=== PATIENT | female | born 1945 | race Caucasian/White ===

== ENCOUNTER 2019-06-16 07:43 | Inpatient (IN) | payer OTHER ==
[2019-06-16] MEDS ORDERED: ONDANSETRON 4 MG/2 ML VIAL ONE ×2 (08:23→12:03)
[2019-06-16] MEDS ORDERED: NA CHLORIDE 0.9% 1,000 ML ONE ×2 (08:23→10:27)
[2019-06-16] MEDS ORDERED: FENTANYL CITR 100 MCG/2 ML ONE (08:23)
[2019-06-16 08:44] LABS: Absolute Lymphocytes (CBC) 0.4 K/uL (0.7-4.9); Basophils % 0.2 % (0-1.3); Hematocrit 41.1 % (36.0-45.0); Lymphocytes % 2.9 % (15.3-44.8); MPV 8.6 fL (7.6-11.3); Protime INR 1.17; RBC Red Blood Cell Count 4.67 M/uL (3.86-4.86)
[2019-06-16 08:58] LABS: ALT/SGPT 51 U/L (12-78); AST/SGOT 43 U/L (15-37); Albumin 3.6 g/dL (3.4-5.0); Alkaline Phosphatase 77 U/L (45-117); BUN Blood Urea Nitrogen 18 mg/dL (7-18); Bicarbonate 27 mmol/L (21-32); Bilirubin Direct 0.2 mg/dL (0-0.2); Bilirubin Total 0.7 mg/dL (0.2-1.0); Glucose Level 270 mg/dL (74-106); Magnesium 1.8 mg/dL (1.8-2.4); NT PRO-BNP 58 pg/mL (<125); Potassium 4.4 mmol/L (3.5-5.1); Protein, Total 7.5 g/dL (6.4-8.2); Sodium Level 138 mmol/L (136-145); Troponin (Emerg Dept Use Only) < 0.02 ng/mL (0.0-0.045)
[2019-06-16 10:52] LABS: Blood Morphology Comment NOT SEEN (NOT SEEN); Platelet Estimate ADEQ; Urine White Blood Cell Casts OK
--- NOTE | 2019-06-16 12:08 | RAD REPORT ---
EXAM DESCRIPTION: US - Extremity Venous Uni Ltd - 06/16/2019 11:11 am CLINICAL HISTORY: Left leg pain and swelling Preliminary findings provided at the time of the study. Technical malfunction is precluded immediate report. COMPARISON: None. TECHNIQUE: Real-time sonographic evaluation of the left lower extremity deep venous system was perfo rmed. FINDINGS: Normal compressibility, flow augmentation, phasic flow and spontaneous flow are identified in the left lower extremity common femoral, superficial femoral, popliteal and posterior tibial vein s. No intraluminal filling defects seen. IMPRESSION: No DVT in the left lower extremity.
--- NOTE | 2019-06-16 12:25 | RAD REPORT ---
EXAM DESCRIPTION: CT - Abdomen Pelvis W Contrast - 06/16/2019 11:12 am CLINICAL HISTORY: ABD PAIN, patient details vomiting and diarrhea along with prior partial colon res ection, cholecystectomy and hysterectomy. Verbal report was provided at the time of the study. Due to PACs malfunction a report could not be ge nerated at the time of the study. COMPARISON: None. TECHNIQUE: Biphasic, helical CT imaging of the abdomen and pelvis was performed following 100 ml non -ionic IV contrast. No oral contrast given. All CT scans are performed using dose optimization technique as appropriate and may include automated exposure control or mA/KV adjustment according to patient size. FINDINGS: No suspicious findings in the lung bases. Liver shows a borderline to mild fatty infiltration pattern. No focal liver lesions are present. Sple en and pancreas without acute finding. Cholecystectomy clips are present. Biliary tree within normal limits. Symmetric renal function is seen with no hydronephrosis or suspicious renal mass. No pyelonephritis o r acute parenchymal process. No bladder abnormalities. No adrenal abnormalities. Uterus is absent. Ov rodney are absent or atrophic. No adnexal abnormality. Gastric bypass surgical changes are present. No acute gastric finding evident. Several fluid filled n ondilated small bowel loops are present. There is fluid within the colon. No large or small bowel dil atation, mass or focal abnormality seen. Sigmoid anastomotic site is unremarkable. No appendicitis fi ndings. No free air, free fluid or inflammatory stranding. No mass or bulky lymphadenopathy. There is abdo helena wall laxity to the left of midline at the umbilicus. Patient probably has small hernia defects. There is no congestion, edema or bowel involvement. Disc and bony degenerative changes are present. Postsurgical changes are present throughout the lumba r spine. No acute or destructive bone finding seen. No acute vascular finding peer IMPRESSION: Fluid retained within the small bowel and colon many indicate a nonspecific gastroenteri tis. Correlation is needed with clinical presentation. No obstruction, free or other surgically emergent abdominal or pelvic finding. Borderline to mild fatty infiltration of the liver.
[2019-06-16] MEDS ORDERED: METRONIDAZOLE 500mg IVPB 500 MG/100 ML BAG IV ONE (12:38)
[2019-06-16] MEDS ORDERED: CIPROFLOXACIN 400mg IV 400 MG/200 ML BAG IV ONE (12:39)
--- NOTE | 2019-06-16 12:39 | ER ---
Nurse's Notes [facility] Name: Sendy Martinez Age: 74 yrs Sex: Female : 1945 Arrival Date: 06/16/2019 Time: 07:49 Bed 4 Private MD: Diagnosis: Diarrhea, unspecified;Dehydration Presentation: 06/16 07:49 Care prior to arrival: None. aa5 07:49 Presenting complaint: Patient states: Nausea, vomiting, and diarrhea that began last aa5 night. Pt also c/o abdominal pain and left leg pain. Pt states "My doctor ordered a Doppler to check for a blood clot today". Transition of care: patient was not received from another setting of care. Onset of symptoms was May 2019. Risk Assessment: Do you want to hurt yourself or someone else? Patient reports no desire to harm self or others. 07:49 Acuity: DOMINGO 2 aa5 07:49 Method Of Arrival: EMS: [facility] aa5 07:49 Initial Sepsis Screen: Does the patient meet any 2 criteria? HR > 90 bpm. Does the aa5 patient have a suspected source of infection? Yes: Other: Vomiting/Diarrhea. Historical: - Allergies: 07:49 Codeine (Upset stomach); aa5 - Home Meds: 07:49 Humalog Sub-Q [Active]; Xarelto oral oral [Active]; Zestril oral oral [Active]; Imdur aa5 Oral [Active]; levothyroxine oral [Active]; - PMHx: 07:49 PE; DVT; Hypertension; Diabetes - IDDM; Thyroid problem; aa5 - PSHx: 07:49 back; cataracts; colon resection; Appendectomy; Cholecystectomy; Hysterectomy; aa5 - Immunization history:: Pneumococcal vaccine is up to date, Flu vaccine is up to date. - Social history:: Smoking status: Patient/guardian denies using tobacco. - Ebola Screening: : No symptoms or risks identified at this time. Screenin:03 Abuse screen: Denies threats or abuse. Nutritional screening: No deficits noted. aa5 Tuberculosis screening: No symptoms or risk factors identified. Fall Risk None identified. Assessment: 07:50 General: Appears uncomfortable, Behavior is calm, cooperative. Pain: Complains of pain aa5 in right upper quadrant and left upper quadrant Pain does not radiate. Pain currently is 5 out of 10 on a pain scale. Quality of pain is described as aching, Pain began Pt states "when I started vomiting last night" Is continuous. Neuro: Level of Consciousness is awake, alert, obeys commands, Oriented to person, place, time, situation. Cardiovascular: Heart tones S1 S2 present Rhythm is sinus tachycardia. Respiratory: Airway is patent Respiratory effort is even, unlabored, Respiratory pattern is regular, symmetrical, Breath sounds are clear bilaterally. GI: Abdomen is round Bowel sounds present X 4 quads. Abd is soft and non tender X 4 quads. Reports diarrhea, nausea, vomiting, Patient currently denies bloody stool. : No signs and/or symptoms were reported regarding the genitourinary system. EENT: No signs and/or symptoms were reported regarding the EENT system. Derm: Skin is pink, warm \\T\\ dry. Musculoskeletal: Range of motion: intact in all extremities. 09:03 Reassessment: ultrasound at bedside at this time. sg 09:22 Reassessment: Patient appears in no apparent distress at this time. Patient and/or sg family updated on plan of care and expected duration. Pain level reassessed. Patient is alert, oriented x 3, equal unlabored respirations, skin warm/dry/pink. pt cheerful at this time, pt family at bedside, Evelina field operations technician at bedside to transport pt to CT as ordered, pt left the ED for test in stable condition via stretcher Patient states feeling better. 10:25 Reassessment: Patient is alert, oriented x 3, equal unlabored respirations, skin aa5 warm/dry/pink. Patient states feeling better. Denies nausea at this time, reports pain has improved. . 11:39 Reassessment: Patient appears in no apparent distress at this time. Patient and/or sg family updated on plan of care and expected duration. Pain level reassessed. Patient is alert, oriented x 3, equal unlabored respirations, skin warm/dry/pink. 11:53 Reassessment: Patient appears in no apparent distress at this time. Patient and/or sg family updated on plan of care and expected duration. Pain level reassessed. Patient is alert, oriented x 3, equal unlabored respirations, skin warm/dry/pink. pt assisted to bedside, diarrhea x1, pt reports having had diarrhea for several days now. 12:07 Reassessment: Patient appears in no apparent distress at this time. Patient and/or sg family updated on plan of care and expected duration. Pain level reassessed. Patient is alert, oriented x 3, equal unlabored respirations, skin warm/dry/pink. pt reports having nausea at this time, Lee LARSON notified, orders for Zofran 4 mg IVP, pt medicated see EMAR. 13:15 Reassessment: Patient appears in no apparent distress at this time. Patient and/or ca1 family updated on plan of care and expected duration. Pain level reassessed. Patient is alert, oriented x 3, equal unlabored respirations, skin warm/dry/pink. 13:51 Reassessment: Patient appears in no apparent distress at this time. Patient is alert, ca1 oriented x 3, equal unlabored respirations, skin warm/dry/pink. Vital Signs: 07:50 BP 143 / 78 LA (auto/reg); Pulse 123; Resp 20 S; Temp 99.4(O); Pulse Ox 98% on R/A; aa5 Weight 106.59 kg (R); Height 5 ft. 6 in. (167.64 cm) (R); Pain 5/10; 09:07 BP 156 / 54; Pulse 105; Resp 17; Pulse Ox 99% on R/A; sg 10:25 Pulse 115; Resp 20 S; Pulse Ox 99% on R/A; aa5 12:29 BP 149 / 76; Pulse 107; Resp 22 S; Pulse Ox 95% on R/A; ca1 13:36 BP 134 / 68; Pulse 102; Resp 17 S; Pulse Ox 96% on R/A; ca1 13:51 Temp 98.6(O); ca1 14:05 BP 131 / 96; Pulse 99; Resp 17 S; Pulse Ox 98% on R/A; ca1 07:50 Body Mass Index 37.93 (106.59 kg, 167.64 cm) aa5 ED Course: 07:49 Patient arrived in ED. aa5 07:49 Arm band placed on. aa5 07:50 [facility] jr8 07:50 Ron Abdi MD is Attending Physician. jr8 07:57 Mercedes Hall RN is Primary Nurse. aa5 07:59 Safety checks: Family/friend present: yes. Patient has correct armband on for positive mb4 identification. Bed in low position. Call light in reach. Side rails up X 1. Pillow given. blanket given. nurse monitoring on. Pulse ox on. NIBP on. 08:00 Triage completed. aa5 08:20 Initial lab(s) drawn, by me, sent to lab. Inserted saline lock: 20 gauge in left aa5 forearm, using aseptic technique. Blood collected. 08:34 No provider procedures requiring assistance completed. aa5 09:02 Primary Nurse role handed off by Mercedes Hall, RN sg 09:02 Nehemias Cruz, RN is Primary Nurse. sg 09:03 XRAY Chest (1 view) In Process Unspecified. EDMS 09:22 US Extremity Venous Unilateral Ltd In Process Unspecified. EDMS 09:36 CT Abd/Pelvis - IV Contrast Only In Process Unspecified. EDMS 11:39 Assisted to bedside commode. with pt family at bedside for assist, pt reports she does sg not need my assistance at this time. 11:40 Initial lab(s) drawn, by me, sent to lab. a lactate has been sent at this time. sg 11:54 Bed in low position. Call light in reach. Side rails up X 1. Assisted with dressing. mb4 Cleaned of incontinence. Linen changed. 12:38 Bernadine Vang MD is Hospitalizing Provider. jr8 13:15 Patient admitted, IV remains in place. ca1 Administered Medications: 08:20 Drug: NS 0.9% 1000 ml Route: IV; Rate: 1000 ml; Site: left forearm; aa5 12:02 Follow up: Response: No adverse reaction; IV Status: Completed infusion ca1 08:20 Drug: Zofran 4 mg Route: IVP; Site: left forearm; aa5 14:16 Follow up: Response: No adverse reaction ca1 08:22 Drug: fentaNYL (PF) 25 mcg Route: IVP; Site: left forearm; aa5 12:10 Follow up: Response: No adverse reaction; Pain is decreased; RASS: Alert and Calm (0) ca1 10:25 Drug: NS 0.9% 1000 ml Route: IV; Rate: 1000 ml; Site: left antecubital; aa5 12:00 Follow up: Response: No adverse reaction; IV Status: Completed infusion ca1 12:06 Drug: Zofran 4 mg Route: IVP; Site: left antecubital; sg 12:44 Follow up: Response: No adverse reaction; Nausea is decreased ca1 12:40 Drug: Flagyl 500 mg Volume: 100 ml; Route: IVPB; Rate: 200 ml/hr; Infused Over: 30 ca1 mins; Site: left antecubital; 13:14 Follow up: Response: No adverse reaction; IV Status: Completed infusion; IV Intake: ca1 100ml 13:14 Drug: Cipro 400 mg Volume: 200 ml; Route: IVPB; Infused Over: 60 mins; Site: left ca1 forearm; 14:16 Follow up: Response: No adverse reaction; IV Status: Completed infusion; IV Intake: ca1 200ml Intake: 13:14 IV: 100ml; Total: 100ml. ca1 14:16 IV: 200ml; Total: 300ml. ca1 Outcome: 12:38 Decision to Hospitalize by Provider. marlene 13:50 Admitted to Tele accompanied by tech, family with patient, via stretcher, room 428, ca1 with chart, Report called to DELANO Alba 13:50 Condition: stable 13:50 Instructed on the need for admit. 14:24 Patient left the ED. aj1 Signatures: Dispatcher [employer] EDMirtha Washington RN RN aj1 Nehemias Cruz RN DELANO sg Mercedes Hall RN RN aa5 Travis North PA PA jr8 Carol Ann Worthington mb4 Shell Hendrickson RN RN ca1 Corrections: (The following items were deleted from the chart) 07:59 07:50 BP 143 / 78 Auto L Arm Regular; Pulse 123bpm; Pulse Ox 98% RA; Temp 99.4F Oral; aa5 Pain 5/10; mb4
--- NOTE | 2019-06-16 12:40 | EDPHYS ---
Physician Documentation [facility] Name: Sendy Martinez Age: 74 yrs Sex: Female : 1945 Arrival Date: 06/16/2019 Time: 07:49 Bed 4 Private MD: ED Physician Ron Abdi HPI: 06/16 08:29 This 74 yrs old Female presents to ER via EMS with complaints of jr8 Nausea/Vomiting/Diarrhea. 08:29 The patient presents to the emergency department with nausea, vomiting, diarrhea, jr8 abdominal pain. Onset: The symptoms/episode began/occurred acutely, today. Possible causes: unknown. The symptoms are aggravated by nothing. The symptoms are alleviated by nothing. Associated signs and symptoms: The patient has no apparent associated signs or symptoms. Severity of symptoms: At their worst the symptoms were moderate in the emergency department the symptoms are unchanged. The patient has not experienced similar symptoms in the past. The patient has been recently seen by a physician: the patient's primary care provider, with different complaint(s). Patient stated that she was suppose to have US of LLE completed today here to r/o DVT. Stated that early last night she started to have n/v/d that has not stopped. Now having abdominal pain. EMS called out. Patient tachycardic upon arrival . Historical: - Allergies: 07:49 Codeine (Upset stomach); aa5 - Home Meds: 07:49 Humalog Sub-Q [Active]; Xarelto oral oral [Active]; Zestril oral oral [Active]; Imdur aa5 Oral [Active]; levothyroxine oral [Active]; - PMHx: 07:49 PE; DVT; Hypertension; Diabetes - IDDM; Thyroid problem; aa5 - PSHx: 07:49 back; cataracts; colon resection; Appendectomy; Cholecystectomy; Hysterectomy; aa5 - Immunization history:: Pneumococcal vaccine is up to date, Flu vaccine is up to date. - Social history:: Smoking status: Patient/guardian denies using tobacco. - Ebola Screening: : No symptoms or risks identified at this time. ROS: 08:29 Eyes: Negative for injury, pain, redness, and discharge, ENT: Negative for injury, jr8 pain, and discharge, Neck: Negative for injury, pain, and swelling, Cardiovascular: Negative for chest pain, palpitations, and edema, Respiratory: Negative for shortness of breath, cough, wheezing, and pleuritic chest pain, Back: Negative for injury and pain, Skin: Negative for injury, rash, and discoloration, Neuro: Negative for headache, weakness, numbness, tingling, and seizure. 08:29 Abdomen/GI: Positive for abdominal pain, nausea, vomiting, and diarrhea, Negative for abdominal distension, anorexia, dysphagia, hematemesis, black/tarry stool, rectal pain, rectal bleeding, bowel incontinence, flatulence. 08:29 MS/extremity: Positive for pain, of the left leg. Exam: 08:29 Eyes: Pupils equal round and reactive to light, extra-ocular motions intact. Lids and jr8 lashes normal. Conjunctiva and sclera are non-icteric and not injected. Cornea within normal limits. Periorbital areas with no swelling, redness, or edema. ENT: Nares patent. No nasal discharge, no septal abnormalities noted. Tympanic membranes are normal and external auditory canals are clear. Oropharynx with no redness, swelling, or masses, exudates, or evidence of obstruction, uvula midline. Mucous membranes moist. Neck: Trachea midline, no thyromegaly or masses palpated, and no cervical lymphadenopathy. Supple, full range of motion without nuchal rigidity, or vertebral point tenderness. No Meningismus. Respiratory: Lungs have equal breath sounds bilaterally, clear to auscultation and percussion. No rales, rhonchi or wheezes noted. No increased work of breathing, no retractions or nasal flaring. Back: No spinal tenderness. No costovertebral tenderness. Full range of motion. Skin: Warm, dry with normal turgor. Normal color with no rashes, no lesions, and no evidence of cellulitis. MS/ Extremity: Pulses equal, no cyanosis. Neurovascular intact. Full, normal range of motion. Neuro: Awake and alert, GCS 15, oriented to person, place, time, and situation. Cranial nerves II-XII grossly intact. Motor strength 5/5 in all extremities. Sensory grossly intact. Cerebellar exam normal. Normal gait. 08:29 Cardiovascular: Rate: tachycardic, Rhythm: regular, Pulses: Pulses are 2+ in right radial artery and left radial artery. Heart sounds: normal, normal S1and S2, no S3 or S4, no murmur, no rub, no gallop, Edema: is not appreciated, JVD: is not appreciated. 08:29 Abdomen/GI: Inspection: scar(s), are noted in the right upper quadrant, midline abdomen, Bowel sounds: active, all quadrants, Palpation: soft, in all quadrants, moderate abdominal tenderness, in the left mid abdomen, mass, is not appreciated, rebound tenderness, is not appreciated, voluntary guarding, is not appreciated, involuntary guarding, is not appreciated, no appreciated organomegaly, Indicators: McBurney's point is not tender, Nolasco's sign is negative, Rovsing's sign is negative, Liver: tenderness, is not appreciated. Vital Signs: 07:50 BP 143 / 78 LA (auto/reg); Pulse 123; Resp 20 S; Temp 99.4(O); Pulse Ox 98% on R/A; aa5 Weight 106.59 kg (R); Height 5 ft. 6 in. (167.64 cm) (R); Pain 5/10; 09:07 BP 156 / 54; Pulse 105; Resp 17; Pulse Ox 99% on R/A; sg 10:25 Pulse 115; Resp 20 S; Pulse Ox 99% on R/A; aa5 12:29 BP 149 / 76; Pulse 107; Resp 22 S; Pulse Ox 95% on R/A; ca1 13:36 BP 134 / 68; Pulse 102; Resp 17 S; Pulse Ox 96% on R/A; ca1 13:51 Temp 98.6(O); ca1 14:05 BP 131 / 96; Pulse 99; Resp 17 S; Pulse Ox 98% on R/A; ca1 07:50 Body Mass Index 37.93 (106.59 kg, 167.64 cm) aa5 MDM: 07:50 Patient medically screened. jr8 12:35 Data reviewed: vital signs, nurses notes, lab test result(s), radiologic studies, CT jr8 scan, ultrasound. Data interpreted: Pulse oximetry: on room air is 95 %. Interpretation: normal. Counseling: I had a detailed discussion with the patient and/or guardian regarding: the historical points, exam findings, and any diagnostic results supporting the discharge/admit diagnosis, lab results, radiology results, the need for further work-up and treatment in the hospital. ED course: Lactate still elevated after 2 L of fluid. Blood in diarrhea. Still tachycardic. Will start on Abx and admit . 06/16 08:06 Order name: Basic Metabolic Panel; Complete Time: 08:59 06/16 08:06 Order name: CBC with Diff 06/16 08:06 Order name: LFT's; Complete Time: 08:59 06/16 08:06 Order name: Magnesium; Complete Time: 08:59 06/16 08:06 Order name: NT PRO-BNP; Complete Time: 08:59 06/16 08:06 Order name: PT-INR; Complete Time: 08:55 06/16 08:06 Order name: Troponin (emerg Dept Use Only); Complete Time: 08:59 06/16 08:06 Order name: Lactate; Complete Time: 09:12 06/16 10:18 Order name: Glucose, Ancillary Testing; Complete Time: 10:21 EDAZ 06/16 10:52 Order name: CBC Smear Scan; Complete Time: 10:55 EDAZ 06/16 11:48 Order name: Stool Culture 06/16 11:48 Order name: Rotavirus Antigen; Complete Time: 12:50 06/16 11:48 Order name: Ova And Parasites 06/16 08:06 Order name: XRAY Chest (1 view); Complete Time: 13:04 06/16 08:06 Order name: EKG; Complete Time: 08:08 06/16 08:06 Order name: Cardiac monitoring; Complete Time: 08:15 06/16 08:29 Order name: US Extremity Venous Unilateral Ltd; Complete Time: 12:31 06/16 08:29 Order name: CT Abd/Pelvis - IV Contrast Only; Complete Time: 12:34 06/16 11:48 Order name: Occult Blood; Complete Time: 12:31 06/16 11:48 Order name: Fecal Leukocyte Stain; Complete Time: 13:04 06/16 11:48 Order name: CDIFF 06/16 12:02 Order name: Lactate Sepsis 2 HR Follow-up; Complete Time: 12:31 EDAZ 06/16 08:06 Order name: EKG - Nurse/Tech; Complete Time: 08:15 06/16 08:06 Order name: IV Saline Lock; Complete Time: 08:28 jr8 09/26 08:06 Order name: Labs collected and sent; Complete Time: :06/16 08:06 Order name: O2 Per Protocol; Complete Time: 06/16 08:06 Order name: O2 Sat Monitoring; Complete Time: : Administered Medications: 08:20 Drug: NS 0.9% 1000 ml Route: IV; Rate: 1000 ml; Site: left forearm; aa5 12:02 Follow up: Response: No adverse reaction; IV Status: Completed infusion ca1 08:20 Drug: Zofran 4 mg Route: IVP; Site: left forearm; aa5 14:16 Follow up: Response: No adverse reaction ca1 08:22 Drug: fentaNYL (PF) 25 mcg Route: IVP; Site: left forearm; aa5 12:10 Follow up: Response: No adverse reaction; Pain is decreased; RASS: Alert and Calm (0) ca1 10:25 Drug: NS 0.9% 1000 ml Route: IV; Rate: 1000 ml; Site: left antecubital; aa5 12:00 Follow up: Response: No adverse reaction; IV Status: Completed infusion ca1 12:06 Drug: Zofran 4 mg Route: IVP; Site: left antecubital; sg 12:44 Follow up: Response: No adverse reaction; Nausea is decreased ca1 12:40 Drug: Flagyl 500 mg Volume: 100 ml; Route: IVPB; Rate: 200 ml/hr; Infused Over: 30 ca1 mins; Site: left antecubital; 13:14 Follow up: Response: No adverse reaction; IV Status: Completed infusion; IV Intake: ca1 100ml 13:14 Drug: Cipro 400 mg Volume: 200 ml; Route: IVPB; Infused Over: 60 mins; Site: left ca1 forearm; 14:16 Follow up: Response: No adverse reaction; IV Status: Completed infusion; IV Intake: ca1 200ml Disposition: 06/16/19 12:38 Hospitalization ordered by Bernadine Vang for Inpatient Admission. Preliminary diagnosis are Diarrhea, unspecified, Dehydration. - Bed requested for Telemetry/MedSurg (Inpatient). - Status is Inpatient Admission. aj1 - Condition is Stable. - Problem is new. - Symptoms have improved. UTI on Admission? No Addendum: 07/01/2019 07:51 Co-signature as Attending Physician, Ron Abdi MD. g s Signatures: Dispatcher [employer] [facility] Mirtha Pedraza, RN RN aj1 Sylwia Serrano RN RN dw Nehemias Cruz, RN RN Mercedes Hall, RN RN aa5 Travis North, PA PA jr8 Ron Abdi MD MD Shell Hendrickson RN RN ca1 Corrections: (The following items were deleted from the chart) 06/16 11:49 11:09 LACTATE+C.LAB.BRZ ordered. [facility] 13:13 12:38 Hospitalization Ordered by Bernadine Vang MD for Inpatient Admission. Preliminary diagnosis is Diarrhea, unspecified; Dehydration. Bed requested for Telemetry/MedSurg (Inpatient). Status is Inpatient Admission. Condition is Stable. Problem is new. Symptoms have improved. UTI on Admission? No. jr8 14:24 13:13 06/16/2019 12:38 Hospitalization Ordered by Bernadine Vang MD for Inpatient aj1 Admission. Preliminary diagnosis is Diarrhea, unspecified; Dehydration. Bed requested for Telemetry/MedSurg (Inpatient). Status is Inpatient Admission. Condition is Stable. Problem is new. Symptoms have improved. UTI on Admission? No. dw
--- NOTE | 2019-06-16 12:55 | RAD REPORT ---
EXAM DESCRIPTION: RAD - Chest Single View - 06/16/2019 11:11 am CLINICAL HISTORY: Dyspnea COMPARISON: November 2011 TECHNIQUE: AP portable chest image was obtained 0836 hours . FINDINGS: No focal mass or consolidation. Lung markings are accentuated slightly due to more shallow inspiration compared to the prior study. Heart and vasculature are normal. No measurable pleural eff usion and no pneumothorax. No acute bony abnormality seen. No acute aortic findings suspected. IMPRESSION: No acute cardiopulmonary process. No significant interval change.
--- NOTE | 2019-06-16 14:37 | P.HP ---
Certification for Inpatient Patient admitted to: Observation With expected LOS: <2 Midnights Patient will require the following post-hospital care: None Practitioner: I am a practitioner with admitting privileges, knowledge of patient current condition, hospital course, and medical plan of care. Services: Services provided to patient in accordance with Admission requirements found in Title 42 Section 412.3 of the Code of Federal Regulations Patient History Date of Service: 06/16/19 Primary Care Provider: None Reason for admission: Diarrhea History of Present Illness: 74 y/o F with DM, HTN, Chronic Pain, Depression who came in c/o N/V and diarrhea for past 2 days. Has been getting progressively worsening. 06/30, generalized and Sharp in nature. Associated NB watery Diarrhea and NBNB vomiting. last Diarrhea was at lunch time and Vomiting at 1pm today. No fever, Chills, CP, SOB. Had Diverticulitis previous and had 12inch of Bowel Removed. Was doing well till 2 days ago. She had Chet [place] in [facility]. No Abx at home. In ER with Fever, Elevated WBC and LA and thus admitted for Enteritis Allergies codeine Allergy (Verified 06/16/19 13:20) Hives/Rash Home medications list reviewed: Yes - Past Medical/Surgical History Has patient received pneumonia vaccine in the past: No Diabetic: No -: Diabetes -: HTN -: Diveriticulitis -: Chronic Pain -: Colectomy - Family History Family History: Reviewed- Non-Contributory - Social History Smoking Status: Current some day smoker Counseled patient to stop smoking for: more than 10 minutes Smoking therapy provided: No Patient receptive to therapy: No Alcohol use: No CD- Drugs: No Caffeine use: No Place of Residence: Home Review of Systems 10-point ROS is otherwise unremarkable Physical Examination - Studies Laboratory Data (last 24 hrs) 06/16/19 08:24: PT 13.7 H, INR 1.17 06/16/19 08:24: WBC 14.9 H, Hgb 14.1, Hct 41.1, Plt Count 153 06/16/19 08:24: Sodium 138, Potassium 4.4, BUN 18, Creatinine 0.96, Glucose 270 H, Magnesium 1.8, Total Bilirubin 0.7, AST 43 H, ALT 51, Alkaline Phosphatase 77 Microbiology Data (last 24 hrs): 06/16/19 11:49 Stool Fecal Leukocyte Stain - Final 06/16/19 11:49 Stool Rotavirus Antigen - Final 06/16/19 11:49 Stool Occult Blood - Final Assessment and Plan - Problems (Diagnosis) (1) Sepsis Current Visit: Yes Status: Acute Plan: Sepsis most likely 2.2 to Enteritis -elevated WBC and LA -Started on IV fluids and Cipro/Flagyl -Pt with N/V/Diarrhea Qualifiers: Sepsis type: sepsis due to unspecified organism Sepsis acute organ dysfunction status: without acute organ dysfunction Qualified Code(s): A41.9 - Sepsis, unspecified organism (2) Enteritis Current Visit: Yes Status: Acute Plan: pt with ENteritis On the CT scan -Infectious In nature -Will get stool culture -IV cipro and Flagyl for now - Advance Directives Does patient have a Living Will: No Does patient have a Durable POA for Healthcare: No
[2019-06-16 14:40] VITALS: O2SAT 98
[2019-06-16] MEDS ORDERED: D50W 25 GM/50 ML SYRINGE IV PRN (14:59)
[2019-06-16] MEDS ORDERED: FENTANYL CITR 100 MCG/2 ML IV PRN (14:59)
[2019-06-16] MEDS ORDERED: D5 0.45 NS 1,000 ML IV SCH (14:59)
[2019-06-16] MEDS ORDERED: GLUCAGON 1 MG/VIAL IM PRN (14:59)
[2019-06-16] MEDS: NA CHLORIDE 0.9% 1,000 ML IV SCH (16:47)
[2019-06-16] MEDS: METRONIDAZOLE 500mg IVPB 500 MG/100 ML BAG IV SCH ×2 (16:59→23:47)
[2019-06-16] MEDS: INSULIN -REGULAR HUMAN 50 UNIT/0.5 ML ML SQ SCH ×2 (18:11→20:56)
[2019-06-16 18:43] VITALS: BMI 37.9
[2019-06-16] MEDS: CIPROFLOXACIN 400mg IV 400 MG/200 ML BAG IV SCH (20:55)
[2019-06-16] MEDS ORDERED: INFLUENZA VACCINE (for 3y+) 0.5 ML DOSE IMVAC ONE (21:00)
[2019-06-16] MEDS ORDERED: PNEUMOCOCCAL VACCINE 0.5 ML IMVAC ONE (21:00)
[2019-06-16] MEDS: ONDANSETRON 4 MG/2 ML VIAL IV PRN (21:39)
[2019-06-17] MEDS: NA CHLORIDE 0.9% 1,000 ML IV SCH ×3 (05:10→18:09)
[2019-06-17] MEDS: METRONIDAZOLE 500mg IVPB 500 MG/100 ML BAG IV SCH ×4 (05:16→23:48)
[2019-06-17 07:11] LABS: Absolute Lymphocytes (CBC) 1.8 K/uL (0.7-4.9); Basophils % 0.2 % (0-1.3); Hematocrit 34.5 % (36.0-45.0); Lymphocytes % 24.3 % (15.3-44.8); MPV 8.3 fL (7.6-11.3)
[2019-06-17 07:20] LABS: Potassium 3.7 mmol/L (3.5-5.1)
[2019-06-17] MEDS: CIPROFLOXACIN 400mg IV 400 MG/200 ML BAG IV SCH ×2 (08:21→21:09)
[2019-06-17] MEDS: INSULIN -REGULAR HUMAN 50 UNIT/0.5 ML ML SQ SCH ×4 (08:22→21:19)
--- NOTE | 2019-06-17 08:41 | EKG ---
Test Date: 2019-06-16 Test Time: 07:53:43 [employer]icated [employer]: QUIANA MEASUREMENT RESULTS: Intervals: Rate: 123 [place]: 162 QRSD: 84 QT: 306 QTc: 438 [place]: P: 68 [place]: 162 QRS: 18 T: 83 INTERPRETIVE STATEMENTS: Sinus tachycardia Nonspecific ST and T wave abnormality Abnormal ECG Compared to ECG 10/14/2011 15:53:45 ST (T wave) deviation now present Myocardial infarct finding no longer present Electronically Signed On 06-17-19 08:39:36 CDT by Shahzad Thibodeaux
[2019-06-17] MEDS: ACETAMINOPHEN 500 MG TAB PO PRN (11:33)
[2019-06-17 11:34] LABS: Urine Appearance CLEAR; Urine Bilirubin NEGATIVE (NEG); Urine Blood NEGATIVE (NEG); Urine Color YELLOW; Urine Glucose NEGATIVE (NEG); Urine Protein NEGATIVE (NEG); Urine Urobilinogen 0.2 mg/dL (0.2-1.0)
[2019-06-17 12:13] LABS: Urine Bacteria <20 /HPF (<20); Urine Culture Reflex Order REFLEXED; Urine RBC <5 /HPF (NONE SEEN)
--- NOTE | 2019-06-17 12:26 | P.PN ---
Subjective Date of Service: 06/17/19 Primary Care Provider: None Chief Complaint: Diarrhea Subjective: No C/O voiced, Tolerating diet, Improving, Working w/ PT, Doing well , Other (Soft Liquid diet) Review of Systems 10-point ROS is otherwise unremarkable Physical Examination - Vital Signs Temperature: 97.4 F Blood Pressure: 147/72 Pulse: 83 Respirations: 18 Pulse Ox (%): 96 - Physical Exam General: Alert, In no apparent distress HEENT: Atraumatic, PERRLA, EOMI Neck: Supple, JVD not distended Respiratory: Clear to auscultation bilaterally, Normal air movement Cardiovascular: Regular rate/rhythm, Normal S1 S2 Gastrointestinal: Normal bowel sounds, No tenderness Musculoskeletal: No tenderness Integumentary: No rashes Neurological: Normal speech, Normal tone, Normal affect Lymphatics: No axilla or inguinal lymphadenopathy - Studies Microbiology Data (last 24 hrs): 06/16/19 11:49 Stool Clostridioides difficile Toxin Assay - Final 06/16/19 11:49 Stool Fecal Leukocyte Stain - Final 06/16/19 11:49 Stool Rotavirus Antigen - Final 06/16/19 11:49 Stool Occult Blood - Final Medications List Reviewed: Yes Assessment And Plan - Current Problems (Diagnosis) (1) Sepsis Current Visit: Yes Status: Acute Plan: Sepsis most likely 2.2 to Enteritis -Improving markedly today -On IV fluids and Cipro/Flagyl. Will continue -Diarrhea improved today -Stool culture and Blood culture done Qualifiers: Sepsis type: sepsis due to unspecified organism Sepsis acute organ dysfunction status: without acute organ dysfunction Qualified Code(s): A41.9 - Sepsis, unspecified organism (2) Enteritis Current Visit: Yes Status: Acute Plan: pt with ENteritis On the CT scan -Infectious In nature -stool culture pending at this time -IV cipro and Flagyl for now -Monitor for next 24hrs Discharge Plan: Home Plan to discharge in: 48 Hours - Code Status/Comfort Care Code Status Assessed: Yes Critical Care: No
[2019-06-17] MEDS ORDERED: INFLUENZA VACCINE (for 3y+) 0.5 ML DOSE IMVAC ONE (18:00)
[2019-06-17] MEDS: ONDANSETRON 4 MG/2 ML VIAL IV PRN (18:09)
[2019-06-18] MEDS: ACETAMINOPHEN 500 MG TAB PO PRN (00:53)
[2019-06-18] MEDS: NA CHLORIDE 0.9% 1,000 ML IV SCH (05:16)
[2019-06-18] MEDS: METRONIDAZOLE 500mg IVPB 500 MG/100 ML BAG IV SCH ×2 (05:16→11:23)
[2019-06-18] MEDS: CIPROFLOXACIN 400mg IV 400 MG/200 ML BAG IV SCH (08:20)
[2019-06-18] MEDS: INSULIN -REGULAR HUMAN 50 UNIT/0.5 ML ML SQ SCH ×2 (09:31→12:38)
[2019-06-18 10:01] VITALS: BP 153/67; TEMP 97.5
--- NOTE | 2019-06-18 13:14 | P.SSS ---
Patient History Date of Service: 06/18/19 Primary Care Provider: None Reason for admission: Diarrhea History of Present Illness: 74 y/o F with DM, HTN, Chronic Pain, Depression who came in c/o N/V and diarrhea for past 2 days. Has been getting progressively worsening. 06/30, generalized and Sharp in nature. Associated NB watery Diarrhea and NBNB vomiting. last Diarrhea was at lunch time and Vomiting at 1pm today. No fever, Chills, CP, SOB. Had Diverticulitis previous and had 12inch of Bowel Removed. Was doing well till 2 days ago. She had Chet [place] in [facility]. No Abx at home. In ER with Fever, Elevated WBC and LA and thus admitted for Enteritis Allergies codeine Allergy (Verified 06/16/19 13:20) Hives/Rash Home Medications: Amitriptyline [Elavil*] 10 mg PO BEDTIME 06/16/19 Carisoprodol [Soma*] 350 mg PO DAILY AFTER SUPPER 06/16/19 Duloxetine [Cymbalta *] 60 mg PO DAILY AT SUPPER 06/16/19 Ezetimibe [Zetia*] 10 mg PO DAILY 06/16/19 Isosorbide Dent (Bid) [Ismo 10 mg Tab*] 30 mg PO DAILY 06/16/19 Levothyroxine [Synthroid*] 150 mcg PO [id number] 06/16/19 Lisinopril [Zestril] 40 mg PO DAILY 06/16/19 Rivaroxaban [Xarelto*] 10 mg PO DAILY 06/16/19 Ciprofloxacin HCl [Cipro 500 MG Tablet] 500 mg PO DAILY #7 tab 06/18/19 metroNIDAZOLE [Flagyl] 500 mg PO Q8H #21 tablet 06/18/19 - Past Medical/Surgical History Has patient received pneumonia vaccine in the past: No Diabetic: No -: Diabetes -: HTN -: Diveriticulitis -: Chronic Pain -: hypothyroidism -: htn -: Colectomy -: appy -: hyster -: colon resection -: back sx -: cataract sx - Family History Family History: Reviewed- Non-Contributory - Social History Smoking Status: Current some day smoker Alcohol use: No CD- Drugs: No Caffeine use: No Place of Residence: Home Review of Systems 10-point ROS is otherwise unremarkable Physical Examination - Vital Signs Temperature: 97.5 F Blood Pressure: 153/67 Pulse: 82 Respirations: 16 Pulse Ox (%): 96 - Physical Exam General: Alert, In no apparent distress HEENT: Atraumatic, PERRLA, Mucous membr. moist/pink, EOMI, Sclerae nonicteric Neck: Supple, 2+ carotid pulse no bruit, No LAD, Without JVD or thyroid abnormality Respiratory: Clear to auscultation bilaterally, Normal air movement Cardiovascular: Regular rate/rhythm, Normal S1 S2 Gastrointestinal: Normal bowel sounds, No tenderness Musculoskeletal: No tenderness Integumentary: No rashes Neurological: Normal gait, Normal speech, Normal strength at 5/5 x4 extr, Normal tone, Normal affect Lymphatics: No axilla or inguinal lymphadenopathy - Studies Microbiology Data (last 24 hrs): 06/16/19 11:49 Stool Culture & Sensitivity - Final - Diagnosis (Problem(s)) (1) Sepsis Current Visit: Yes Status: Acute Plan: Sepsis most likely 2.2 to Enteritis. Resolved -Stool culture and Blood culture Negative -DC home on PO abx Qualifiers: Sepsis type: sepsis due to unspecified organism Sepsis acute organ dysfunction status: without acute organ dysfunction Qualified Code(s): A41.9 - Sepsis, unspecified organism (2) Enteritis Current Visit: Yes Status: Acute Plan: pt with ENteritis On the CT scan -Infectious In nature -stool culture negative -DC home on cipro and Flagyl Treatment Summary: Admitted to the hospital for Enteritis. Started on IV Cipro and Flagyl. Marked improvement. Diarrhea Resolved. DC home on PO abx for 7 days. F/u with GI outpt. - Disposition Disposition: ROUTINE DISCHARGE Condition: GOOD Diet: Regular Activity: Ad pat
== END 2019-06-18 13:25 | disposition home or self-care (01) | DRG 872 ==
LOC: ER 07:43 → ERHOLD 12:43 → 4TH 13:51
PROVIDERS: ADMIT Family Medicine; ATTEND Family Medicine
DX: A41.9 Sepsis, unspecified organism (principal); K52.9 Noninfective gastroenteritis and colitis, unspecified; E11.9 Type 2 diabetes mellitus without complications; I10 Essential (primary) hypertension; K57.90 Diverticulosis of intestine, part unspecified, without perforation or abscess without bleeding; Z90.49 Acquired absence of other specified parts of digestive tract; F17.210 Nicotine dependence, cigarettes, uncomplicated; Z23 Encounter for immunization
CPT/HCPCS: 36415; 71045; 74177; 80048; 80076; 81001; 82274; 82962; 83605; 83735; 83880; 84484; 85025; 85610; 87045; 87046; 87086; 87088; 87177; 87209; 87425; 87493; 89055; 90471; 93005; 93971; 96361; 96365; 96368; 99285; J0744; J2405; J3010; J7030; Q2035; Q9967

== ENCOUNTER 2020-08-05 16:00 | Observation (INO) | payer OTHER ==
--- OUTSIDE RECORDS SUMMARY | 2020-08-05 16:03 | XMS REPORT | Continuity of Care Document ---
:1945 Author Organization [facility] Care Team Providers Name Role Phone [facility] Unavailable Un available Problems Problem Status Onset Classification Date Comments Sourc e Date Reported Posterior uveitis Active Problem [facility] (disorder) 018 0 Screening for Inactive Problem Record of [facility] tuberculosis using 018 0 treatment i n gamma interferon assay chart LEG PAIN Active [address] STROKE Active [address] ACUTE ONSET VERTIGO Active [facility] W/VOMITING [address] [place] [address] Coronary Active Problem x1 stent [facility] arteriosclerosis 015 0 (disorder) Disorder of refraction Active Problem Data mi grated [place] AND/OR accommodation 013 7 from [facility] (disorder) [facility] on [facility] 02/17/15. 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 [place] Pseudophakia Active Problem Data migrated [facility] (disorder) 013 7 from [facility] on [place] , 02/17/15. [place] Allergic rhinitis Active Problem Data migrate d [facility] (disorder) 013 7 [facility]15. [place] Diarrhea (finding) Active Problem Data migrat ed [place] 012 7 from [facility] on [facility] 02/17/15. [place] Backache (finding) Active Problem [facility] 0 Depressive disorder Active Problem [facility] (disorder) 0 [facility] Diabetes mellitus Active Problem FBS around [facility], (disorder) 0 150-170 [facility] Diverticulosis of Active Problem hospitalized [facility] colon 0 previously due to flare up. Deep venous thrombosis Resolved Problem numerou s [facility] (disorder) 0 clots over the years, none currently. Hypertensive disorder, Active Problem [facility], systemic arterial [place] [facility] Hypothyroidism Active Problem [facility], [facility] (disorder) 0 [facility] Insomnia (disorder) Active Problem [facility] 0 Pulmonary embolism Resolved Problem 1977 and [facility] (disorder) 0 2011, both after surgery. Dyspnea (finding) Active Problem [facility] 0 Shoulder pain Active Problem [facility] (finding) 0 Benign hypertension Active Problem Data migra cynthia [facility] (disorder) 7 from [facility] on [facility] , 02/17/15. [place] Hypercholesterolemia Resolved Problem [facility] (disorder) [address] [place] [address],[facility] Arthritis (disorder) Resolved Problem [address],[facility] Osteoarthritis Active Problem Data migrated [facility] [place] (disorder) 7 from [facility] on [facility] , 02/17/15. [place] Diabetes mellitus type Active Problem Data mi grated [facility] 2 (disorder) 7 from [facility] on [place] , 02/17/15. [place] DIZZINESS AND Active [facility] Medications Medication Details Route Status Patient Ordering Order Source Instructions Provider Date [facility] Medication 700 mL, Soln-IV, Inactive [facility] IV, Once, first 2020 dose 09/29/19 15:24:00 BAGGAGE HANDLER, stop date 09/29/19 15:24:00 BAGGAGE HANDLER fentaNYL 75 mcg = 1.5 mL, Inactive [facility] Injection, IV, 2019 Once, first dose 09/29/19 15:20:00 BAGGAGE HANDLER, stop date 09/29/19 15:20:00 BAGGAGE HANDLER ondansetron 4 mg = 2 mL, Inactive [facility] Injection, IV, 2019 Once, first dose 09/29/19 15:15:00 BAGGAGE HANDLER, stop date 09/29/19 15:15:00 BAGGAGE HANDLER phenylephrine 0.1 mg = 0.01 Inactive I mL, Injection, 2019 IV, Once, first dose 09/29/19 14:37:00 BAGGAGE HANDLER, stop date 09/29/19 14:37:00 BAGGAGE HANDLER fentaNYL 25 mcg = 0.5 mL, Inactive [facility] Injection, IV, 2019 Once, first dose 09/29/19 14:26:00 BAGGAGE HANDLER, stop date 09/29/19 14:26:00 BAGGAGE HANDLER Misc Medication 1,000 mL, Inactive I Soln-IV, IV, 2019 Once, first dose 09/29/19 13:58:00 BAGGAGE HANDLER, stop date 09/29/19 13:58:00 BAGGAGE HANDLER ceFAZolin 2 gm, Soln-IV, Inactive I IV Piggyback, 2019 Once, first dose 09/29/19 13:44:00 BAGGAGE HANDLER, stop date 09/29/19 13:44:00 BAGGAGE HANDLER Bupivacaine 0.25% 300 mL, Nerve Inactive I 300 mL pump 300 Block, 5 mL/hr, 2020 mL start date 09/29/19 13:36:00 BAGGAGE HANDLER Saline Lock Flush 10 mL, Soln, IV Inactive 09/29I Push, As 2020 Indicated PRN for flush, first dose 09/29/19 13:36:00 BAGGAGE HANDLER LR 1,000 mL 1,000 mL, IV, 75 Inactive [facility] mL/hr, start 201909/29/19 13:36:00 BAGGAGE HANDLER Demerol HCl 12.5 mg = 0.5 Inactive [facility] mL, Injection, 2019 IV Push, Once PRN for shivers, first dose 09/29/19 13:36:00 BAGGAGE HANDLER Levalbuterol 0.21 0.63 mg = 3 mL, Inactive 09/29 [facility] MG/ML Inhalant Soln, NEB, Once 2020 Solution PRN for [Xopenex] wheezing, first dose 09/29/19 13:36:00 BAGGAGE HANDLER Ondansetron 4 mg = 2 mL, Inactive [facility] Injection, IV 2020 Push, q15min PRN for nausea, order duration: 2 doses, first dose 09/29/19 13:36:00 BAGGAGE HANDLER, stop date Limited # of times Promethazine 12.5 mg = 0.5 Inactive 09/29/ [facility] mL, Injection, 2020 IM, Once PRN for vomiting, first dose 09/29/19 13:36:00 BAGGAGE HANDLER Dilaudid 0.5 mg = 0.5 mL, Inactive [facility] Injection, IV 2020 Push, q10min PRN for pain severe (7-10), first dose 09/29/19 13:36:00 BAGGAGE HANDLER Labetalol 5 mg = 1 mL, Inactive [facility] Injection, IV 2020 Push, As Indicated PRN for hypertension, first dose 09/29/19 13:36:00 BAGGAGE HANDLER Hydralazine 10 mg = 0.5 mL, Inactive LONGTERM I Injection, IV 2020 Push, As Indicated PRN for hypertension, first dose 09/29/19 13:36:00 BAGGAGE HANDLER Diphenhydramine 25 mg = 0.5 mL, Inactive [facility] Injection, IV 2020 Push, Once PRN for itching, first dose 09/29/19 13:36:00 BAGGAGE HANDLER ondansetron 4 mg = 2 mL, Inactive [facility] Injection, IV, 2019 Once, first dose 09/29/19 13:33:00 BAGGAGE HANDLER, stop date 09/29/19 13:33:00 BAGGAGE HANDLER dexamethasone 4 mg = 1 mL, Inactive [facility] Injection, IV, 2019 Once, first dose 09/29/19 13:33:00 BAGGAGE HANDLER, stop date 09/29/19 13:33:00 BAGGAGE HANDLER ketorolac 15 mg = 0.5 mL, Inactive [facility] Injection, IV, 2019 Once, first dose 09/29/19 13:33:00 BAGGAGE HANDLER, stop date 09/29/19 13:33:00 BAGGAGE HANDLER lidocaine 60 mg = 3 mL, Inactive [facility] Injection, IV, 2019 Once, first dose 09/29/19 13:28:00 BAGGAGE HANDLER, stop date 09/29/19 13:28:00 BAGGAGE HANDLER propofol 100 mg = 10 mL, Inactive [facility] Emulsion, IV, 2019 Once, first dose 09/29/19 13:28:00 BAGGAGE HANDLER, stop date 09/29/19 13:28:00 BAGGAGE HANDLER fentaNYL 50 mcg = 1 mL, Inactive [facility] Injection, IV, 2019 Once, first dose 09/29/19 13:26:00 BAGGAGE HANDLER, stop date 09/29/19 13:26:00 BAGGAGE HANDLER midazolam 1 mg = 1 mL, Inactive [facility] Injection, IV, 2019 Once, first dose 09/29/19 13:26:00 BAGGAGE HANDLER, stop date 09/29/19 13:26:00 BAGGAGE HANDLER fentaNYL 50 mcg = 1 mL, Inactive [facility] Injection, IV, 2019 Once, first dose 09/29/19 13:08:00 BAGGAGE HANDLER, stop date 09/29/19 13:08:00 BAGGAGE HANDLER midazolam 1 mg = 1 mL, Inactive [facility] Injection, IV, 2019 Once, first dose 09/29/19 13:08:00 BAGGAGE HANDLER, stop date 09/29/19 13:08:00 BAGGAGE HANDLER Cefazolin 2 gm, Soln-IV, Inactive [facility] IV Piggyback, 2019 Once, infuse over 30 minutes, first dose 09/29/19 13:00:00 BAGGAGE HANDLER, stop date 09/29/19 13:00:00 BAGGAGE HANDLER, patient weight 50-120 kg, Prophylaxis LR 1,000 mL 1,000 mL, IV, 30 Inactive 09/29/ US PI mL/hr, start 201909/29/19 12:06:00 BAGGAGE HANDLER Lidocaine 2% 0.2 0.2 mL, Inactive [facility] mL IV Start Injection, 2019 [[place]] Subcutaneous, Once PRN for other (see comment), first dose 09/29/19 12:06:00 BAGGAGE HANDLER NovoLOG Mix 70/30 44 units, Active 09/08/ [facility] FlexPen Subcutaneous, 2019 Daily, DM lisinopril 40 mg 40 mg = 1 tabs, Active 09/08/ [facility] oral tablet Oral, qHS, HTN 2019 Diphenhydramine 50 mg = 1 caps, Active 09/08/ [facility] Hydrochloride 50 Oral, qHS, PRN 2019 MG Oral Capsule for insomnia Acetaminophen 250 2 tabs, Oral, Active 09/08/ [facility] MG / Aspirin 250 q6hr, PRN for 2019 MG / Caffeine 65 headache MG Oral Tablet [Excedrin] Acetaminophen 500 500 mg = 1 tabs, Active 09/08 / [facility] MG Oral Tablet Oral, q4hr, PRN 2019 [Tylenol] for pain carisoprodol 350 350 mg = 1 tabs, Active 09/08/ [facility] mg oral tablet Oral, qHS, PRN 2019 as needed for pain ezetimibe 10 MG 10 mg = 1 tabs, Active 09/08/ [facility] Oral Tablet Oral, qHS, 2019 [Zetia] Cholesterol rivaroxaban 10 MG 10 mg = 1 tabs, Active 09/08/ [facility] Oral Tablet Oral, qHS, Blood 2019 [Xarelto] Clots Imdur 30 mg oral 30 mg = 1 tabs, Active 09/08/ [facility] tablet, extended Oral, qHS, HTN 2019 release meloxicam 15 MG 15 mg = 1 tabs, Active 09/08/ [facility] Oral Tablet Oral, qHS, Pain 2019 [Mobic] duloxetine 60 MG 60 mg = 1 caps, Active 09/08/ [facility] Enteric Coated Oral, qHS, (do 2019 Capsule not crush or [Cymbalta] chew) amitriptyline 10 10 mg = 1 tabs, Active 09/08/ [facility] mg oral tablet Oral, qHS, 2018 Insomnia levothyroxine 175 175 mcg = 1 Active 09/08/ [facility] mcg (0.175 mg) tabs, Oral, qHS, 2019 oral tablet Hypothyroidism Morphine 5 mg, Route: IM, Inactive ONCE, Dosing 2017 [place] Weight 113.636, kg, Priority: STAT, Start date: 11/01/16 14:43:00 BAGGAGE HANDLER, Stop date: 11/01/16 14:43:00 BAGGAGE HANDLER Imdur Notes: (Same No Longer [place] as:Imdur) "Do Active 2016 Medical Not Crush" Take Center on empty stomach/ full glass of water. Do not crush Lisinopril Notes: (Same as: No Longer [place] Prinivil, Active 2017 Medical Zestril) Center Cymbalta Notes: (Same as: No Longer [place] Cymbalta) (Do Active 2016 Medical Not Crush) Center Mobic Notes: (Same as: [place] Longer [place] Mobic) Active 2017 Medical Center Plavix Notes: (Same As: [place] Longer [place] Plavix) Active 2017 Medical Center NovoLOG 70/30 33 unit, 0.33 No Longer [place] mL, Route: Active 2017 Medical SUB-Q, Drug Center form: SUSP, QAM, Start date: 10/24/16 9:00:00 BAGGAGE HANDLER, Duration: 30 day, Stop date: 11/22/16 9:00:00 BAGGAGE HANDLER Thyroxine Notes: Take 1 No Longer [place] as hour before or 2 Active 2016 Medical hours after Center meal; Enteral feeds may interefere with the absorption of this medication.(Same as:Levothroid) Zetia Notes: (Same as: Inactive [place] as Zetia) [address] [place] [address] Center Saline Flush 0.9% Notes: (Same as: Inactive [facility] BD Posiflush) [address] [place] [address] Center Amitriptyline Notes: (Same as: Inactive [facility] Elavil) [address] [place] [address] Center NovoLOG 70/30 Notes: (Same as: Inactive [facility] NovoLOG Mix 2017 Medical 70/30) WASTE: Center F/P - Black; E - Municipal Trash Bin NovoLOG 70/30 See Active [facility] Instructions, 33 2017 Medical units Qam SUB-Q Center and 22 units QPM, 0 Refill(s) NovoLOG 70/30 Route: SUB-Q, Inactive [place] BID, Dosing 2017 Medical Weight 109.091, Center kg, Start date: 10/23/16 17:00:00 BAGGAGE HANDLER, Duration: 30 day, Stop date: 11/22/16 9:00:00 BAGGAGE HANDLER carvedilol Notes: Give with Inactive [facility] food. (Same As: 2017 Medical Coreg) [place] Lasix 10 mg, Route: Inactive [place] PO, Daily, 2017 Medical Dosing Weight Center 109.091, kg, Start date: 10/23/16 13:12:00 BAGGAGE HANDLER, Duration: 30 day, Stop date: 11/22/16 9:00:00 BAGGAGE HANDLER tapentadol 75 MG 75 mg = 1 tab, Active [place] Oral Tablet PO, Q6H, PRN 2017 Medical [Nucynta] Pain Score 6-10, Cente r 0 Refill(s) carvedilol 25 mg 25 mg = 1 tab, Active [place] oral tablet PO, BID, 0 2016 Medical Refill(s) Center amitriptyline 10 10 mg = 1 tab, Active [facility] mg oral tablet PO, Bedtime, 0 2017 Me dical Refill(s) Center NovoLOG 70/30 See Inactive [facility] Instructions, 2017 Medical SUB-Q ONCE Center humulog taken 33 units in am 22 units in pm, 0 Refill(s) carisoprodol 350 350 mg = 1 tab, Active [facility] mg oral tablet PO, PRN, 0 2016 Medica l Refill(s) Center Insulin, Aspart, Notes: Roll in Inactive [facility] Human palms of hands 2017 Medical gently; Do not Center shake vigorously. (Same as: NovoLOG) "single patient use only" WASTE: F/P - Black; E - Municipal Trash Bin Stable for 28 days at room temperature. Expires in days from [place] Dextrose 50% 25 gm, 50 mL, Inactive [place] Syringe Route: IVP, Drug 2017 Medical Form: INJ, Center Dosing Weight 109.091, kg, PRN, PRN Blood Glucose Results, Start date: 10/23/16 11:01:00 BAGGAGE HANDLER, Duration: 30 day, Stop date: 11/22/16 11:00:00 BAGGAGE HANDLER Glucagon 1 mg, Route: IM, Inactive [place] Drug form: 2017 Medical PDR/INJ, PRN, Center Dosing Weight 109.091, kg, PRN Blood Glucose Results, Start date: 10/23/16 11:01:00 BAGGAGE HANDLER, Duration: 30 day, Stop date: 11/22/16 11:00:00 BAGGAGE HANDLER Acetaminophen 325 Notes: (Same as: Inactive [facility] MG / Hydrocodone [place] 325/5) Do 2017 Medical Bitartrate 5 MG not exceed Cente r Oral Tablet 4gm/day of acetaminophen. Ondansetron Notes: (Same as: Inactive [facility] Zofran) 2017 Medical MEDICATION WASTE Center Product Size: 4 mg Product Wasted: _0__ mg Docusate Notes: (Same as: Inactive [place] Colace) (Do Not 2017 Medical Crush) Center Acetaminophen Notes: Max Inactive MH Greg as acetaminophen 2017 Medical 4000 mg/day (4 Center gm/day). (Same as: Tylenol Extra Strength) Saline Flush 0.9% Notes: (Same as: Inactive [place] BD Posiflush) 2017 Medical [place] iodixanol 100 mL, Route: Inactive [facility] as IVP, Drug Form: 2017 [facility] SOLN, kg, Center ONCALL, STAT, Start date: 10/23/16 8:49:00 BAGGAGE HANDLER, Duration: 1 doses or times, Dose = 2.2ml/kg, Max dose = 100ml -- "To be infused by Radiology Staff ONLY" Saline Flush 0.9% Notes: Same as: Inactive 10/23 [facility] BD Posiflush 2017 [facility] Center ezetimibe 10 MG 10 mg = 1 tab, Active H [place] Oral Tablet PO, Daily, # 30 2016 Medi amos [Zetia] tab, 0 Refill(s) Center Mobic 15 mg, PO, Active [facility] Daily, 0 2017 Medical Refill(s) Center Humalog SUB-Q, 0 Inactive [facility] Refill(s) 2017 Medical Center Lasix 10 mg, PO, Inactive [facility] Daily, 0 2017 Medical Refill(s) Center Cymbalta 60 mg, PO, Active [facility] Daily, 0 2017 Medical Refill(s) Center Thyroxine 112 microgram, Active [facility] PO, Daily, 0 2017 Medical Refill(s) Center Lisinopril 40 mg, PO, Active [facility] Daily, 0 2017 Medical Refill(s) Center Imdur 30 mg, PO, QAM, Active [facility] 0 Refill(s) 2017 Medical Center Plavix 75 mg, PO, Active [facility] Daily, 0 2017 Medical Refill(s) Center Allergies, Adverse Reactions, Alerts Substance Category Reaction Severity Reaction Status Date Comments S ource type Reported codeine Assertion Vomiting Drug Active [facility] allergy HYDROcodone Assertion Vomiting Drug Active [facility] allergy aliskiren<yuan Assertion Drug Active Data M H p>1</sup> allergy migrated [place] and from [facility] on 01/16/15. Originally documented as [place]. aspirin-oxyC Assertion Drug Active Data M H ODONE<sup>2< allergy migrated [place] /sup> from [facility] [place] on 01/16/15. Originally documented as PERCODAN. atorvastatin Assertion Drug Active Data M H <sup>3</sup> allergy migrated [place] from [facility] on 01/16/15. Originally documented as LIPITOR. codeine<sup> Assertion Drug Active Data M H 4</sup> allergy migrated [place] from [facility] [place] on 11/21/15. Originally documented as CODEINE. guanFACINE<s Assertion Drug Active Data M H up>5</sup> allergy migrated [place] from [facility] [place] on 01/16/15. Originally documented as TENEX. simvastatin< Assertion Drug Active Data M H sup>6</sup> allergy migrated [place] from [facility] [place] on 01/16/15. Originally documented as ZOCOR. sulfa Assertion Drug Active Data MH drugs<sup>7< allergy migrated [place] /sup> from [facility] [place] on 04/19/15. Originally documented as SULFA. Immunizations Immunization Date Site Status Last Comments Source Given Updated Hx influenza completed GE Result Comment: M H [place] vaccine-unspecif 3 done. Migrate d Medical ied<sup>1</sup> [facility] [place] from [facility] on 10/23/2015. influenza virus completed GE Result Comment : [place] vaccine, 3 fluzone Medical inactivated<sup> preservative Center, 2</sup> free (>3 yrs.) [place] and [[id number]]. Migrated from OBS ; Data migrated from Setup on 10/23/2015. Results Order Name Results Value Reference Date Interpretation Comments Lucie rce Range LABORATORY Blood 169 74 - 106 09/29 [facility] Glucose, Capillary LABORATORY Blood 182 74 - 106 09/29 [facility] Glucose, Capillary LABORATORY Results Reported 09/08 [facility] (09/08/19 12:46 PM) LABORATORY Hgb A1c 8.6 <=5.6 % 09/08 /2018 LABORATORY Results Reported 09/08 [facility] (09/08/19 12:46 PM) LABORATORY MPV 9.0 7.4 - 10.4 09/08 [facility] LABORATORY MCV 89.7 80.0 - 09/08 [facility] 98.0 2019 LABORATORY Platelet 172 133 - 450 09/08 [facility] LABORATORY RDW 16.1 11.5 - 09/08 [facility] 14.5 LABORATORY MCHC 33.6 32.0 - 09/08 [facility] 36.0 LABORATORY MCH 30.1 27.0 - 09/08 [facility] 31.0 LABORATORY Hematocrit 41.3 36.0 - 09/08 [facility] 48.0 LABORATORY Hemoglobin 13.9 12.0 - 09/08 [facility] 16.0 LABORATORY Red Blood 4.61 4.20 - 09/08 [facility] Cell Count 5.40 LABORATORY White Blood 6.4 3.7 - 10.4 09/08 [facility] Count LABORATORY Results Reported 09/08 [facility] (09/08/19 12:46 PM) LABORATORY Carbon 28 24 - 32 09/08 [facility] Dioxide Level LABORATORY Chloride 103 95 - 109 09/08 [facility] Level LABORATORY eGFR 69 09/08 Result I Comment: The eGFR is calculated using the CKD-EPI formula. In most young, healthy
i ndividuals the eGFR will be >90 mL/min/1.73m2 . The eGFR declines with age. An
eGFR of 60-89 may be normal in some populations, particularly the elderly, for
whom the CKD-EPI formula has not been extensively validated. Use of the eGFR is
not recommended in the following populations:< br/>Individua ls with unstable creatinine concentration s, including
patients and those with serious co-morbid conditions.<b r/>Patients with extremes in muscle mass or diet.
The data above are obtained from the National Kidney Disease Education Program
( NKDEP) which additionally recommends that when the eGFR is used in patients<br/& gt;with extremes of body mass index for purposes of drug dosing, the eGFR should
be multiplied by the estimated BMI. LABORATORY Calcium Level 8.8 8.5 - 10.5 09/08 [facility] LABORATORY AGAP 12.7 10.0 - 09/08 [facility] 20.0 LABORATORY BUN 13 7 - 22 09/08 LABORATORY Potassium 4.7 3.5 - 5.1 09/08 [facility] Level LABORATORY Sodium Level 139 135 - 145 09/08 LABORATORY Creatinine 0.84 0.50 - 09/08 [facility] 1.40 /2018 LABORATORY Glucose Lvl 242 70 - 99 09/08 Result Comment: Adult reference range values reflect the clinical guidelines
of the [place] [employer]. LABORATORY Results Reported 09/08 (09/08/19 12:46 PM) LABORATORY Eosinophil % 0.1 0.0 - 0.5 09/08 LABORATORY Monocyte # 0.6 0.0 - 0.8 09/08 LABORATORY Lymphocyte # 3.2 1.0 - 5.5 09/08 LABORATORY Neutrophil # 2.6 1.5 - 8.1 09/08 LABORATORY Basophil % 0.3 0.0 - 1.0 09/08 LABORATORY Eosinophil # 1.7 0.0 - 4.0 09/08 LABORATORY Neutrophil % 39.9 45.0 - 09/08 [facility] 75.0 LABORATORY Lymphocyte % 49.1 20.0 - 09/08 [facility] 40.0 LABORATORY Monocyte % 9.0 2.0 - 12.0 09/08 LIPIDS CHD Risk 5.61 3.90 - 10/23 [facility] 5.80 [facility] LIPIDS Chol 213 <=199 10/23 [facility] mg/dL [facility] LIPIDS HDL 38 >=61 mg/dL 10/23 [facility] [address] [place] [address] LIPIDS VLDL 39 10/23 [facility] [address] [place] [address] LIPIDS Trig 194 <=149 10/23 [facility] mg/dL [facility] LIPIDS LDL 136 <=99 mg/dL 10/23 [facility] (Calculated) /2016 [facility] SPECIAL Hgb A1C 7.6 <=5.6 % 10/23 [facility] CHEMISTRY /2016 [facility] URINE AND Micro? Performed 10/23 [facility] STOOL (10/23/16 9:44 AM) /2016 [facility] URINE AND UA RBC None Seen 0 - 2 10/23 [facility] STOOL (10/23/16 9:44 AM) /2016 [facility] URINE AND UA WBC 3-5 /HPF None Seen 10/23 [facility] [place] STOOL /HPF /2016 [facility] URINE AND UA Sq Epi Few /LPF Few /LPF 10/23 [facility] [place] [facility] URINE AND UA Bacteria Occasional None Seen 10/23 [place] STOOL /HPF /HPF Medical [place] URINE AND UA Leuk Est Trace Negative 10/23 [facility] [place] *ABN* [facility] (10/23/16 9:44 AM) [place] URINE AND UA Nitrite Negative Negative 10/23 [facility] [place] (10/23/16 9:44 AM) [facility] URINE AND UA Protein Negative Negative 10/23 [facility] [place] (10/23/16 9:44 AM) [facility] URINE AND UA pH 5.5 5.0 - 8.0 10/23 [facility] [place] [facility] URINE AND UA Ketones Negative Negative 10/23 [facility] [place] *NA* [facility] (10/23/16 9:44 AM) [place] URINE AND UA Bili Negative Negative 10/23 [facility] [place] *NA* [facility] (10/23/16 9:44 AM) [place] URINE AND UA Glucose Negative Negative 10/23 [facility] [place] (10/23/16 9:44 AM) [facility] URINE AND UA Color Yellow Yellow 10/23 [facility] [place] *NA* /2016 [facility] (10/23/16 9:44 AM) [place] URINE AND UA Turbidity Clear Clear 10/23 [facility] [place] (10/23/16 9:44 AM) [facility] URINE AND UA Spec Grav 1.020 <=1.030 10/23 [facility] [place] [facility] URINE AND UA 0.2 0.1 - 1.0 10/23 [facility] [place] Urobilinogen /2016 [facility] URINE AND UA Blood Negative Negative 10/23 [facility] [place] (10/23/16 9:44 AM) [facility] CHEM PANEL eGFR 46 10/23 Result Comment: The Medical eGFR is Center calculated using the CKD-EPI formula. In most young, healthy individuals the eGFR will be >90 mL/min/1.73m2 . The eGFR declines with age. An eGFR of 60-89 may be normal in some populations, particularly the elderly, for whom the CKD-EPI formula has not been extensively validated. Use of the eGFR is not recommended in the following populations:< br/>
Jessy viduals with unstable creatinine concentration s, including patients and those with serious co-morbid conditions.<b r/>
Patie nts with extremes in muscle mass or diet.

The data above are obtained from the National Kidney Disease Education Program (NKDEP) which additionally recommends that when the eGFR is used in patients with extremes of body mass index for purposes of drug dosing, the eGFR should be multiplied by the estimated BMI. CHEM PANEL POC 1.2 0.5 - 1.4 10/23 [facility] Creatinine /2016 [facility] CARDIAC Troponin-I <0.02 0.00 - 02 [facility] ENZYMES 0.40 [facility] CARDIAC CK MB 0.7 0.5 - 3.6 10/23 [facility] ENZYMES /2016 [facility] ELECTROLYTE AGAP 12.2 10.0 - 10/23 [facility] S 20.0 [facility] ELECTROLYTE eGFR 62 10/23 Result [facility] Comment: The Medical eGFR is Center calculated using the CKD-EPI formula. In most young, healthy individuals the eGFR will be >90 mL/min/1.73m2 . The eGFR declines with age. An eGFR of 60-89 may be normal in some populations, particularly the elderly, for whom the CKD-EPI formula has not been extensively validated. Use of the eGFR is not recommended in the following populations:< br/>
Jessy viduals with unstable creatinine concentration s, including patients and those with serious co-morbid conditions.<b r/>
Patie nts with extremes in muscle mass or diet.

The data above are obtained from the National Kidney Disease Education Program (NKDEP) which additionally recommends that when the eGFR is used in patients with extremes of body mass index for purposes of drug dosing, the eGFR should be multiplied by the estimated BMI. ELECTROLYTE BUN 16 7 - 22 10/23 [facility] S [facility] ELECTROLYTE Potassium Lvl 4.2 3.5 - 5.1 10/23 Result [place] Comment: [facility] Specimen Center Slightly Hemolyzed. ELECTROLYTE Glucose Lvl 224 70 - 99 10/23 [facility] S /2016 [facility] ELECTROLYTE Creatinine 0.94 0.50 - 10/23 [place] S Lvl 1.40 [facility] ELECTROLYTE Sodium Lvl 137 135 - 145 10/23 [place] [facility] ELECTROLYTE Calcium Lvl 8.4 8.5 - 10.5 10/23 [place] /2016 [facility] ELECTROLYTE Chloride Lvl 103 95 - 109 10/23 [place] as [facility] ELECTROLYTE CO2 26 24 - 32 10/23 [facility] S /2016 [facility] HEMATOLOGY PTT 26.9 22.9 - 10/23 [facility] 35.8 /2016 [facility] HEMATOLOGY INR 1.03 0.85 - 10/23 [facility] 1.17 /2016 [facility] HEMATOLOGY PT 13.7 12.0 - 02 [facility] 14.7 /2016 [facility] Pathology Reports No Data Provided for This Section Diagnostic Reports Report Value Date Source Brain wo contrast MRI 10/23/2016 [facility] edical EXAMINATION: MRI brain without contrast Center DATE: 10/23/2016 INDICATION: Syncope. FINDINGS: Noncontrast magnetic resonan ce imaging images the brain consisting of diffusion-weighted, fluid attenuated, and gradient echo axial studies are performed and compared to a CT acquired 12 hours earlier the same day. There is no acute ischemic c hange. There are numerous chronic small vessel T2 hyperintensities in the periventricular white matter of both hemispheres. I do not see any old cortical infarction. Bilateral xanthogranuloma of the choroid plexus is noted. There are scattered fluid levels in the paranasa l sinuses. IMPRESSION: No acute ischemic change. 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 TECHNIQUE: - Dynamic CT perfusion image s on a limited area of the brain parenchyma are performed during bolus injection of iodinated contrast material. Color maps of relative cerebral blood flow, relative cerebral blood volume, time to peak, and mean transit time are created on an independent workstation and are submitted along with the source image data. -Rapid acquisition spiral CT images of the brain and neck were obtained between the aortic arch and the cranial vertex during intravenous infusion of iodinated contrast for the purposes of CT angiograph y. 3-D CT angiographic image s are created using MIP technique at the acquisition workstation. The source images are also presented for interpretation. IV contrast: 99 mL Visipaque 320 DLP: 3532 mGy-cm FINDINGS: NECK CTA: Aortic arch: The great vesse ls originate from the aortic arch in the standard configuration. No origin stenosis is identified. The vertebral artery origins are patent bilaterally. Carotid arteries: The cervic al common carotid arteries and left cervical internal carotid artery have a normal course, caliber, and contour. The right internal carotid artery is mildly tortuous, with a partial retropharyngeal cour se. There are areas of calcification at the carotid bifurcations, greater in the left than the right. No hemodynamically significant stenosis of the carotid bifurcations or i nternal carotid arteries is present by NASCET criteria. There is no evidence of vascular injury. Vertebral arteries: The vert ebral arteries have a normal course, caliber and contour. Anterior spinal fusion of C5 -C6 is seen, without evidence of hardware failure. The cervical soft tissues are otherwise unremarkable. The lungs are clear bilaterally. Fluid is seen within the bilateral sphenoid and ethmoid sinuses. BRAIN CTA: Calcifications are seen with in the carotid siphons bilaterally, without evidence of hemodynamically significant stenosis. Anterior circulation: Normal appearance and a standard branching pattern. No branch occlusion, vascular injury, arteritis, vascular malformation or aneurysm is identified. Posterior circulation: There is a type right posterior cerebral artery. No branch occlusion, vascular injury, arteritis, vascular malformation or aneurysm is identified. There is no evidence of nilesh ical collateral circulation, collateral score is not applicable. The deep cerebral veins and major venous sinuses are normal. The brain parenchyma and oth er incidental structures are unremarkable. No acute infarct is seen. CT PERFUSION: There is no regional abnorma lity in cerebral blood flow, cerebral blood volume, or transit time in the imaged areas of the brain to suggest active oligemia or infarction. RAPID Software Analysis: CBF (<30%) volume: Less than 1.0 ml Perfusion (Tmax>6.0s) : 9.9 ml Mismatch volume: 9.9 ml Mismatch ratio: Infinite IMPRESSION: 1. No focal occlusion, sever e stenosis or aneurysmal dilatation of the anterior posterior circulation is identified. 2. Partial retropharyngeal c ourse of the right internal carotid artery, normal anatomic variant. Patent major neck arteries. 3. Postoperative changes of the anterior spinal fusion at C5-C6. (All qualitative and quantit ative assessments of carotid bifurcation and proximal internal carotid artery stenosis are made referencing the distal internal carotid artery {NASCET criteria}.) Consultation Notes No Data Provided for This Section Discharge Summaries No Data Provided for This Section History and Physicals No Data Provided for This Section Vital Signs Vital Sign Value Date Comments Source Systolic (mm Hg) 111 09/29/2019 [facility] Diastolic (mm Hg) 61 09/29/2019 [facility] Peripheral Pulse Rate 98 09/29/2019 [facility] Respitory Rate 15 09/29/2019 [facility] Systolic (mm Hg) 116 09/29/2019 [facility] Diastolic (mm Hg) 50 09/29/2019 [facility] Heart Rate 98 09/29/2019 [facility] Heart Rate 101 09/29/2019 [facility] Systolic (mm Hg) 119 09/29/2019 [facility] Diastolic (mm Hg) 61 09/29/2019 [facility] Heart Rate 102 09/29/2019 [facility] Temperature Oral (F) 36.8 Caron 09/29/2019 [facility] Height 167 cm 09/29/2019 [facility] Weight Measured 104 09/29/2019 [facility] Peripheral Pulse Rate 94 09/29/2019 [facility] Respitory Rate 18 09/29/2019 [facility] Temperature Oral (F) 37 [place] 09/29/2019 [facility] Height 167 cm 09/08/2019 [facility] Weight Measured 104 09/08/2019 [facility] Weight 113.636 11/01/2016 [facility] Height 167.64 cm 11/01/2016 [facility] BMI Calculated 40.44 11/01/2016 [facility] Heart Rate 102 11/01/2016 [facility] Respitory Rate 20 11/01/2016 [facility] Temperature Oral (F) 97.9 F 11/01/2016 [facility] Systolic (mm Hg) 157 11/01/2016 [facility] Diastolic (mm Hg) 80 11/01/2016 [place] Respitory Rate 18 10/23/2016 [facility] Heart Rate 87 10/23/2016 [facility] Systolic (mm Hg) 148 10/23/2016 [facility]ical Center Diastolic (mm Hg) 81 10/23/2016 [facility] Temperature Oral (F) 98.0 F 10/23/2016 [facility] Respitory Rate 35 10/23/2016 [facility] Center Systolic (mm Hg) 108 10/23/2016 [facility] dical Center Diastolic (mm Hg) 66 10/23/2016 [facility] Temperature Oral (F) 97.4 F 10/23/2016 [facility] Respitory Rate 20 10/23/2016 [facility] Heart Rate 81 10/23/2016 [facility] Systolic (mm Hg) 145 10/23/2016 [facility] Diastolic (mm Hg) 76 10/23/2016 [facility] BMI Calculated 38.82 10/23/2016 [facility] Height 167.64 cm 10/23/2016 [facility] Weight 109.091 10/23/2016 [facility] Heart Rate 93 10/23/2016 [facility] Temperature Oral (F) 97.5 F 10/23/2016 [facility] Encounters Location Location Encounter Encounter Reason Attending ADM DC Stat us Source Details Type Number For Provider Date Date Visit [facility] [id number] Sylwia 10/23 10/24 [facility] /2016 [facility] [id number] Kevin Rosado 11/01 11/01 [facility] /2016 [facility] [id number] Mikey 09/29 09/29 [facility] [id number] [facility] 09/29 09/29 LONGTERM I [facility] Procedures Procedure Code Date Perfomer Comments Source ARTHROSCOPY SHOULDER ROTATOR auto-po pulated [facility] CUFF REPAIR [id number] from documented (Left)<sup>1</sup> surgical case ARTHROSCOPY SHOULDER W/BICEPS auto-p opulated [facility] TENDONESIS [id number] from documented (Left)<sup>2</sup> surgical case ARTHROSCOPY SHOULDER auto-populated [facility] W/SUBACROMIAL 020 from documented DECOMPRESSION/ACROMIOPLASTY surgical case [id number] (Left)<sup>3</sup> Echocardiogram<sup>4</sup> [id number] Dr. Benaivdez - [facility] 020 [employer] [place], [place] Colonoscopy<sup>5</sup> [id number] polyp remove d [facility] 019 Esophagogastroduodenoscopy [id number] [facility] 019 Cataract extraction [id number] 04/01/2 [facility] 018 Angioplasty with x1 stent [facility] stent<sup>6</sup> 015 Lumbar Fusion<sup>7</sup> developed PE [facility] 011 after Colon Resection<sup>8</sup> 12 inche s [facility] 010 removed due to diverticulosis Lumbar Laminectomy [facility] 008 Cervical Fusion<sup>9</sup> C4-5 [facility] 004 Cholecystectomy [id number] [facility], 985 [facility] Gastric Bypass<sup>10</sup> lost 100 pounds, [facility] 978 gained almost all back. Arthroscopy of [id number] x3 [facility] knee<sup>11</sup> Cataract [id number] numerous [facility] extraction<sup>12</sup> surgeries af ter due to complications. Hysterectomy<sup>13</sup> [id number] T[facility]O [facility] Tonsillectomy [id number] [facility] Appendectomy [id number] [facility] Back fusion [id number] [facility] Diverticulectomy [id number] [facility] Laminectomy [id number] [facility] Stent placement [id number] [facility] Assessment and Plan Assessment and Plan Date Source Extracted from:Title: History and Physical 10/24/2016 [facility] Author: Tracey Payan Date: 10/23/16 [facility] 71 [facility], Oste[facility], Hyperlipidemia, Hypothyroidism, Stent x 1(May 2015) presented to the ED with dizziness, nausea, diplopia, and vertigo 1.Acute onset of vertigo with vomiting and inability to hemant d -CT of brain at OSH, negative -MRI of brain stroke limitedpending test and results -Echo pending test and results -A1C and LDL -PT and OT Evaluation and Treatment-PT to do [facility] [facility] for Vertigo Ordered: Admit/Condition Diet Carbohydrate Controlled ECHO bubble study 2.Hypertension -c/w with home BP medications 3.Hypothyroidism -c/w home thyroid medications 4.Type 2 diabetes mellitus -Initiate low dose SS -Continue home insulin 5.Osteoarthritis -PRN pain medications for any flare ups 6.Hyperlipidemia -c/w with Zetia 7.Depression -c/w Amitriptyline Prophylaxis Ambulate Disposition pending MRI brain, pending Echo, pending PT/OT evaluation Seen and discussed with Dr. Veras, agrees with plan of care. Tracey Payan NP MANAGER [employer] ATTENDING ATTESTATION STATEMENT: I have seen and examined this patient an d discussed the findings on this patient in detail with Tracey Payan NP. I have reviewed the note above and I agree with the findings and plan of care outline d, hold BP meds to allow for permissive hypertension until M RI completed Extracted from:Title: Stroke Consult Author: Cuco Rahman MD Date: 10/23/16 STROKE TEAM CONSULT Attending of Record: Patient Name: MRN: Date of Admission: Requesting Physician/Service: CC: HISTORY OF PRESENT ILLNESS: 71 YOF with h/o CAD s/p one stent, HTN, DM, saddle embolus 3 years ago after back surgery with prolonged immobilization (no longer on Coumadin), who recently suffered from a URI last week. Since then, she states she has had a lingering cough , and often wakes up in the middle of the night with a coughing fit. Last night, she woke up at 0130 with a similar coughing fit. She had to get out of bed and waited for it to subside. At roughly 03 00, she went back to bed, and as soon as she lay down she developed acute onset vertigo, stating the room was spinning around her, along with diplopia. These sym ptoms lasted approximately 1 hour, durin g which she experienced severe nausea and vomitted once. She informed her , who took her to an outlying facility for evaluation. There, a CT head was don e which reportedly did not show any acut e findings. She was subsequently transferred to [facility] for IAT evaluation. She denies any symptoms of dysarthria, a phasia, vision loss, facial droop, dysphagia. REVIEW OF SYSTEMS: GEN: fever, fatigue last week related to URI EYES: double vision CARDIO: no chest pain, palpatations PULM: cough with sputum production, SOB associated with coug jax fits GI: nausea, vomiting : no frequency, dysuria, burning, hematuria NEURO: see HPI SKIN: no rash or lesion MSK: joint pain diffusely (h/o arthritis) LYMPH/IMMUNO: No lymph node enlargement/tenderness, no heat/ cold intolerance PAST MEDICAL HISTORY: H/o saddle PE, was on Coumadin for 6 mon ths (provoked, due to prolonged immobilization related to lumbar surgery) HTN DM CAD s/p stent PAST SURGICAL HISTORY: Lumbar laminectomy several years ago Lumbar spine fusion in 2013 FAMILY MEDICAL HISTORY: Parents both passed from CAD Sister suffered sudden cardiac Brother with CAD s/p 4 stents Strong family history of DM SOCIAL HISTORY: The patient is . She lives with her . Never smoker or illicit drug user. Rare alcohol consumption. MEDICATIONS: Plavix Zetia Lisinopril Coreg ALLERGIES: Allergies (7) Active Reaction codeine None documented sulfa drugs None documented simvastatin None documented guanFACINE None documented aliskiren None documented aspirin-oxyCODONE None documented atorvastatin None documented PHYSICAL EXAM: GENERAL: Awake, alert in NAD HEENT: - Normocephalic and atraumatic, dry mm, no LN++, no T hyromegally LUNGS - Clear to auscultation bilaterally with no wheezes CV - S1S2 RRR, no m/r/g, equal pulses bilaterally. ABDOMEN - Soft, nontender, nondistended with normoactive BS NEURO: Mental Status: AA&Ox3 Language: speech is clear dysarthric. N aming, repitition, fluency, and comprehension intact. Cranial Nerves: R pupil 3->2mm, L pupil irregular (surgical), 4->3mm mm/brisk. EOMI, visual mendez full, no facial asymmetry, facial sensation intact, hearing intact, tongue/uvula/soft pal ate midline, normal sternocleidomastoid and trapezius muscle strength. No evidence of tongue atrophy or fibrillations Motor: 5/5x4 Tone: is normal and bulk is normal Sensation- Intact to light touch bilaterally Coordination: FTN intact bilaterally, no ataxia in BLE. Gait- deferred On laying the patient flat, she did not have any symptoms of vertigo or nystagmus. When rolling over to either side, she had recurrence of vertigo but no observable nystagmus. Negative Head impulse test. NIHSS NIH Stroke Scale (NIHSS) 1a. Level of Consciousness; 0-alert 1-drowsy 2-stupor 3-coma tose 1b. LOC Questions month and age; 0-both 1-one 2-neither 1c. LOC Commands open/close eyes, heel breaster/r elease non-paretic hand; 0-both 1-one 2-neither 2. Best Gaze; 0-nl 1-partial 2-forced gaze 3. Visual Mendez; 0-No visual loss. 1-Partial hemianop ia 2-Complete 3-Bilateral 4. Facial Palsy; 0-none 1-minor 2-partial 3-complete 5. Motor - R arm; 0-No drift 1-Drift 2-S ome antigravity 3-No antigravity 4-No movement 6. Motor - R leg; 0-No drift 1-Drift 2-S ome antigravity 3-No antigravity 4-No movement 7. Motor - L arm; 0-No drift 1-Drift 2-S ome antigravity 3-No antigravity 4-No movement 8. Motor - L leg; 0-No drift 1-Drift 2-S ome antigravity 3-No antigravity 4-No movement 9. Limb Ataxia; 0 absent 1 - 1limb 2 - 2 limbs 10. Sensory; 0-nl 1-partial loss 2-dense loss 11. Best Language; 0-nl 1-mild/mod 2-severe 3-mute 12. Dysarthria; 0-nl 1-mild/mod 2-severe x-untestable 13. Extinction and Inattention (formerly Neglect); 0-none 1- partial 2-complete TOTAL SCORE 0 Pre-morbid mRS 0 Labs: Glucose Lvl 224 H BUN 16 Creatinine Lvl 0.94 Sodium Lvl 137 Potassium Lvl 4.2 Chloride Lvl 103 CO2 26 AGAP 12.2 Calcium Lvl 8.4 L eGFR 62 Troponin-I <0.02 CK MB 0.7 PT 13.7 INR 1.03 PTT 26.9 Diagnostic Tests: CT Head: No acute abnormalities CTA: on my review, no large vessel occlusion, mild doris ques at b/l carotid bulbs MRI: pending TTE/TJ: pending ACUTE STROKE BENCHMARKS: TIME PT LAST SEEN NORMAL: 0300 ARRIVAL TIME: 0736 TIME OF STROKE TEAM EVALUATION: 0815 CT HEAD READ TIME: N/A If not a candidate for IV tPA, why? Out of time windowarnaud Delays in this process: None Assessment and Recommendations: 71 YOF who presented with transient acut e onset vertigo, nausea, and diplopia. Differential at this point includes posterior circulation TIA/CVA vs a more peripheral etiology (viral labyrinthitis related to recent URI). -admit to COU under hospitalist -monitor on telemetry -MRI brain stroke limited -LDL, A1c, TTE -the patient takes plavix regularly at h ome. If this is a posterior circulation TIA/CVA, would switch to ASA -the patient states she was unable to to lerate statins in the past due to elevated LFTs on labs (denies muscle aches/pains). Will hold off on starting statins at this point until lipid panel returns. Check LFTs -Zofran and meclizine PRN Above patient was discussed with Dr. Garcia, who agrees wi th my plan. Plan of Care No Data Provided for This Section Social History Social History Date Source Social History TypeResponse 09/29/2019 [facility] Social History TypeResponse 10/23/2016 [facility] Substance Abuse Use: None. Alcohol Never Smoking Status Never smoker; Exposure to Tobacco Smoke None; Cigarette Smoking Last 365 Days No; Reg Smoking Cessation Counseling No Social History TypeResponse 10/23/2016 [facility] Substance Abuse Use: None. Alcohol Never Smoking Status Never smoker; Exposure to Tobacco Smoke None; Cigarette Smoking Last 365 Days Unable to obtain; Reg Smoking Cessation Counseling No Family History No Data Provided for This Section Advance Directives No Data Provided for This Section Functional Status No Data Provided for This Section
--- OUTSIDE RECORDS SUMMARY | 2020-08-05 16:05 | XMS REPORT | Continuity of Care Document ---
:1945 Author Organization [facility] t Address [address] [place] [address] Care Team Providers Name Role Phone FRIDA Attending Clinician Unavailable JOSE L Attending Clinician Unavailable ARACELIS Attending Clinician Unavailable Jose L Attending Clinician THOMAS Attending Clinician Unavailable Ness Rosado Attending Clinician Wes Veras Attending Clinician Jose L Admitting Clinician THOMAS Admitting Clinician Unavailable Wes Veras Admitting Clinician Problems Condition Condition Condition Status Onset Resolution Last Treating Co mments Source Name Details Category Date Date Treatment Clinician Date Posterior Problem Active 2019-10-01 Me moria uveitis 5-01 05:00:55 l (disorder) 00:00: Burton n Posterior 00 uveitis (disorder) Active 01/19/2018 Problem 10/01/2019 [facility] LEG PAIN Diagnosis Active 2016-11-01 M emoria 2-11 14:42:00 l LEG PAIN 00:00: Burton n 00 Active 11/01/[address] [facility] [address] STROKE Diagnosis Active 2016-10-23 Mem oria 2-02 09:09:00 l STROKE 00:00: Morteza 00 Active 10/23/2016 [facility] ACUTE Diagnosis Active 2016-10-24 Mem oria ONSET 2-02 13:16:00 l VERTIGO ACUTE 00:00: Avenue W/VOMITING ONSET 00 VERTIGO W/VOMITING Active 10/23/2016 [facility] Coronary Problem Active 2019-10-01 Mem oria arterioscl 9-05 05:00:55 l erosis Coronary 00:00: Burton n (disorder) arterioscl 00 erosis (disorder) Active 05/26/2015 Problem 10/01/2019 x1 stent [facility] Disorder Problem Active 2016-11-04 Mem oria of 7-12 02:48:42 l refraction Disorder 00:00: He rmann AND/OR of 00 accommodat refraction ion AND/OR (disorder) accommodat ion (disorder) Active 04/01/2013 Problem 11/04/2016 Data migrated from [employer] on 02/17/15. [facility] Primary Problem Active 2016-11-04 Sami rosana open angle 04-01 02:48:42 l glaucoma Primary 00:00: Fallon nn (disorder) open angle 00 glaucoma (disorder) Active 04/01/2013 Problem 11/04/2016 Data migrated from [employer] on 02/17/15. [facility] Pseudophak Problem Active 2016-11-04 M emoria ia 04-01 02:48:42 l (disorder) 00:00: Burton n Pseudophak 00 ia (disorder) Active 04/01/2013 Problem 11/04/2016 Data migrated from [employer] on 02/17/15. [facility] Allergic Problem Active 2016-11-04 Mem oria rhinitis 4-11 02:48:42 l (disorder) Allergic 00:00: He rmann rhinitis 00 (disorder) Active 12/30/2012 Problem 11/04/2016 Data migrated from [employer] on 02/17/15. [facility] Diarrhea Problem Active 2016-11-04 Mem oria (finding) 9- 02:48:42 l Diarrhea 00:00: Burton n (finding) 00 Active 05/27/2012 Problem 11/04/2016 Data migrated from [employer] on 02/17/15. [facility] History of History of Problem Resolve Univers Rotator Rotator d ity of cuff tear, [place], [place] left left Physici ans Essential Essential Problem Active Uni vers (primary) (primary) ity of hypertensi hypertensi [place] on on Physici ans Hypothyroi Hypothyroi Problem Active U nivers dism dism ity of [place] Physici ans Depression Depression Problem Active U nivers ity of [place] [facility]ici [facility] High High Problem Active Univers cholestero cholestero it y of l l [place] [facility]ici [facility] Diabetes Diabetes Problem Active Unive rs mellitus, mellitus, ity of type 2 type 2 [place] [facility]ici ans Heart Heart Problem Active Univers disease disease ity of [place] Physici ans Subacromia Subacromia Problem Active U nivers l l ity of impingemen impingemen [place] t of left t of left Phys ici shoulder shoulder ans Partial Partial Problem Active Univers tear of tear of ity of left left [place] rotator rotator Physici cuff cuff ans Strain of Strain of Problem Active Uni vers muscle, muscle, ity of fascia and fascia and [place] tendon of tendon of Phys ici long head long head ans of biceps, of biceps, left arm, left arm, subsequent subsequent encounter encounter Adhesive Adhesive Problem Active Unive rs capsulitis capsulitis it y of of left of left [place] shoulder shoulder Physic i ans Left Left Problem Active Univers shoulder shoulder ity of pain pain [place] Physici ans Status Status Problem Active Univers post post ity of subacromia subacromia [place] l l Physici decompress decompress an s ion ion Low back Low back Problem Active Unive rs pain pain ity of [place] Physici ans Deep Problem Resolve 2019-10-01 Sami rosana venous d 05:00:55 l thrombosis Deep Burton mcrae (disorder) venous thrombosis (disorder) Resolved Problem 10/01/2019 numerous clots over the years, none currently. [facility] Pulmonary Problem Resolve 2019-10-01 M emoria embolism d 05:00:55 l (disorder) Burton mcrae Pulmonary embolism (disorder) Resolved Problem 10/01/20191977 and 2011, both after surgery. [facility] Hyperchole Problem Resolve 2016-11-04 Memoria sterolemia d 02:48:42 l (disorder) Burton mcrae Hyperchole sterolemia (disorder) Resolved Problem 11/04/2016 [facility] Arthritis Problem Resolve 2016-11-04 M emoria (disorder) d 02:48:42 l Morte[place] Arthritis (disorder) Resolved Problem 11/04/2016 [facility] Backache Problem Active 2019-10-01 Mem oria (finding) 05:00:55 l Backache Burton n (finding) Active Problem 10/01/2019 [facility] Depressive Problem Active 2019-10-01 M emoria disorder 05:00:55 l (disorder) Burton n Depressive disorder (disorder) Active Problem 10/01/2019 [facility] Diabetes Problem Active 2019-10-01 Mem oria mellitus 05:00:55 l (disorder) Diabetes He rmann mellitus (disorder) Active Problem 10/01/2019 FBS around 150-170 [facility] Diverticul Problem Active 2019-10-01 M emoria osis of 05:00:55 l colon Morteza Diverticul osis of colon Active Problem 10/01/2019 hospitali zed previously due to flare up. [facility] Hypertensi Problem Active 2019-10-01 M emoria ve 05:00:55 l disorder, Morteza systemic Hypertensi arterial ve (disorder) disorder, systemic arterial (disorder) Active Problem 10/01/2019 [facility] Hypothyroi Problem Active 2019-10-01 M emoria dism 05:00:55 l (disorder) Burton n Hypothyroi dism (disorder) Active Problem 10/01/2019 [facility] Insomnia Problem Active 2019-10-01 Mem oria (disorder) 05:00:55 l Insomnia Burton n (disorder) Active Problem 10/01/2019 [facility] Dyspnea Problem Active 2019-10-01 Sami rosana (finding) 05:00:55 l Dyspnea Morteza (finding) Active Problem 10/01/2019 [facility] Shoulder Problem Active 2019-10-01 Mem oria pain 05:00:55 l (finding) Shoulder Her colindres pain (finding) Active Problem 10/01/2019 [facility] Benign Problem Active 2016-11-04 Memor ia hypertensi 02:48:[address] (disorder) hypertensi on (disorder) Active Problem 11/04/2016 Data migrated from [employer] on 02/17/15. [facility] Osteoarthr Problem Active 2016-11-04 M emoria itis 02:48:42 l (disorder) Burton n Osteoarthr itis (disorder) Active Problem 11/04/2016 Data migrated from [employer] on 02/17/15. [facility] Diabetes Problem Active 2016-11-04 Mem oria mellitus 02:48:42 l type 2 Diabetes Burton n (disorder) mellitus type 2 (disorder) Active Problem 11/04/2016 Data migrated from [email or web address] on 02/17/15. [facility] [place] DIZZINESS Diagnosis Active 2016-10-24 Memoria AND 13:16:00 l GIDDINESS Morteza DIZZINESS AND GIDDINESS Active [facility] History of Past Illness Condition Condition Condition Status Onset Resolution Last Treating Co mments Source Name Details Category Date Date Treatment Clinician Date Screening Problem Inactiv 2019-10-01 2019-10-01 Memoria for e 1 05:00:55 05:00:55 l tuberculos 00:00: Burton n is using Screening 00 gamma for interferon tuberculos assay is using gamma interferon assay Inactive 09/21/2017 Problem 10/01/2019 Record of treatment in chart [facility] Allergies, Adverse Reactions, Alerts Allergy Allergy Status Severity Reaction(s) Onset Inactive Treating Comm ents Source Name Type Date Date Clinician codeine Allergy Active Univers to drug ity of ([facility] ) Physici ans HYDROcod HYDROcod Active Memori a one one l [place]za aliskire aliskire Active Memori a n<sup>1< n<sup>1< l /sup> /sup> Morteza aspirin- aspirin- Active Memori a oxyCODON oxyCODON l E<sup>2< E<sup>2< Burton n /sup> /sup> atorvast atorvast Active Memori a atin<sup atin<sup l >3</sup> >3</sup> Burton n codeine< codeine< Active Memori a sup>4</s sup>4</s l up> up> Morteza guanFACI guanFACI Active Memori a NE<sup>5 NE<sup>5 l </sup> </sup> Morteza simvasta simvasta Active Memori a tin<sup> tin<sup> l 6</sup> 6</sup> Morteza sulfa sulfa Active Memoria drugs<yuan drugs<yuan l p>7</sup p>7</sup Burton n > > Social History Social Habit Start Date Stop Date Quantity Comments Source Social History 2016-10-23 2016-10-23 Sergio bartholomew 16:35:26 16:35:26 Smoking Status Start Date Stop Date Source Never smoked tobacco (finding) [facility] Medications Ordered Filled Start Stop Current Ordering Indication Dosage Frequency Signature Comments Components Source Medication Medication Date Date Medication? Clinician (SIG) Name Name Misc 2020-0 No 700 mL, Memoria Medication - Soln-IV, l 21:24: IV, Once, first dose 09/29/19 15:24:00 [employer], stop date 09/29/19 15:24:00 [employer] fentaNYL 2020-0 No 75 mcg = Memor ia 1-09 1.5 mL, l 21:20: Injection, Morteza 00 IV, Once, first dose 09/29/19 15:20:00 [employer], stop date 09/29/19 15:20:00 [employer] ondansetron 2020-0 No 4 mg = 2 Me moria 1-09 mL, l 21:15: Injection, IV, Once, first dose 09/29/19 15:15:00 [employer], stop date 09/29/19 15:15:00 [employer] phenylephri 2020-0 No 0.1 mg = Me moria ne 1-09 0.01 mL, l 20:37: Injection, IV, Once, first dose 09/29/19 14:37:00 [employer], stop date 09/29/19 14:37:00 [employer] CHA[employer] fentaNYL 2020-0 No 25 mcg = Memor ia 1-09 0.5 mL, l 20:26: Injection, IV, Once, first dose 09/29/19 14:26:00 [employer], stop date 09/29/19 14:26:00 [employer] Misc 2020-0 No 1,000 mL, Memoria Medication - Soln-IV, l 19:58: IV, Once, first dose 09/29/19 13:58:00 [employer], stop date 09/29/19 13:58:00 [employer] CHAIR ceFAZolin 2020-0 No 2 gm, Memoria - Soln-IV, l 19:44: IV [place] 00 Piggyback, Once, first dose 09/29/19 13:44:00 [employer], stop date 09/29/19 13:44:00 [employer] Bupivacaine 2020-0 No 300 mL, Mem oria 0.25% 300 1-09 Nerve l mL pump 300 19:36: Block, 5 He rmann mL 00 mL/hr, start date 09/29/19 13:36:00 [employer] Saline Lock 2020-0 No 10 mL, Sami rosana Flush 09-29 Soln, IV l 19:36: Push, As Avenue 00 Indicated PRN for flush, first dose 09/29/19 13:36:00 [employer] LR 1,000 mL 2020-0 No 1,000 mL, M emoria -09 IV, 75 l 19:36: mL/hr, start date 09/29/19 13:36:00 [employer] Demerol HCl 2020-0 No 12.5 mg = M emoria 1-09 0.5 mL, l 19:36: Injection, Morteza 00 IV Push, Once PRN for shivers, first dose 09/29/19 13:36:00 [employer] Levalbutero 2020-0 No 0.63 mg = Wes emoria l 0.21 -09 3 mL, l MG/ML 19:36: Soln, NEB, Burton n Inhalant 00 Once PRN Solution for [Xopenex] wheezing, first dose 09/29/19 13:36:00 [employer] Ondansetron 2020-0 No 4 mg = 2 Me moria 1-09 mL, l 19:36: Injection, IV Push, q15min PRN for nausea, order duration: 2 doses, first dose 09/29/19 13:36:00 [employer], stop date Limited # of times Promethazin 2020-0 No 12.5 mg = Wes emoria e 1-09 0.5 mL, l 19:36: Injection, IM, Once PRN for vomiting, first dose 09/29/19 13:36:00 [employer] Dilaudid 2020-0 No 0.5 mg = Memor ia 1-09 0.5 mL, l 19:36: Injection, IV Push, q10min PRN for pain severe (7-10), first dose 09/29/19 13:36:00 [employer] Labetalol 2020-0 No 5 mg = 1 Sami rosana 1-09 mL, l 19:36: Injection, Morteza IV Push, As Indicated PRN for hypertensi on, first dose 09/29/19 13:36:00 [employer] Hydralazine 2020-0 No 10 mg = Mem oria 1-09 0.5 mL, l 19:36: Injection, Morteza 00 IV Push, As Indicated PRN for hypertensi on, first dose 09/29/19 13:36:00 [employer] Diphenhydra 2020-0 No 25 mg = Mem oria mine 1-09 0.5 mL, l 19:36: Injection, Avenue 00 IV Push, Once PRN for itching, first dose 09/29/19 13:36:00 [employer] ondansetron 2020-0 No 4 mg = 2 Me moria 1-09 mL, l 19:33: Injection, Avenue 00 IV, Once, first dose 09/29/19 13:33:00 [employer], stop date 09/29/19 13:33:00 [employer] dexamethaso 2020-0 No 4 mg = 1 Me moria ne 1-09 mL, l 19:33: Injection, Morteza 00 IV, Once, first dose 09/29/19 13:33:00 [employer], stop date 09/29/19 13:33:00 [employer]IR ketorolac 2020-0 No 15 mg = Memor ia 1-09 0.5 mL, l 19:33: Injection, Morteza 00 IV, Once, first dose 09/29/19 13:33:00 [employer], stop date 09/29/19 13:33:00 [employer] lidocaine 2020-0 No 60 mg = 3 Mem oria 1-09 mL, l 19:28: Injection, Avenue 00 IV, Once, first dose 09/29/19 13:28:00 [employer], stop date 09/29/19 13:28:00 [employer] propofol 2020-0 No 100 mg = Memor ia 1-09 10 mL, l 19:28: Emulsion, Avenue 00 IV, Once, first dose 09/29/19 13:28:00 [employer], stop date 09/29/19 13:28:00 [employer] fentaNYL 2020-0 No 50 mcg = 1 Mem oria 1-09 mL, l 19:26: Injection, Morteza 00 IV, Once, first dose 09/29/19 13:26:00 [employer], stop date 09/29/19 13:26:00 [employer] midazolam 2020-0 No 1 mg = 1 Sami rosana 1-09 mL, l 19:26: Injection, Avenue 00 IV, Once, first dose 09/29/19 13:26:00 [employer], stop date 09/29/19 13:26:00 [employer] CH[employer] fentaNYL 2020-0 No 50 mcg = 1 Mem oria 1-09 mL, l 19:08: Injection, IV, Once, first dose 09/29/19 13:08:00 [employer], stop date 09/29/19 13:08:00 [employer] CH[employer] midazolam 2020-0 No 1 mg = 1 Sami rosana 1-09 mL, l 19:08: Injection, IV, Once, first dose 09/29/19 13:08:00 [employer], stop date 09/29/19 13:08:00 [employer] Cefazolin 2020-0 No 2 gm, Memoria 09 Soln-IV, l 19:00: IV Piggyback, Once, infuse over 30 minutes, first dose 09/29/19 13:00:00 [employer], stop date 09/29/19 13:00:00 [employer], patient weight 50-120 kg, Prophylaxi s LR 1,000 mL 2019-0 No 1,000 mL, M emoria 09 IV, 30 l 18:06: mL/hr, start date 09/29/19 12:06:00 [employer] Lidocaine 2020-0 No 0.2 mL, Memor ia 2% 0.2 mL 09-29 Injection, l IV Start 18:06: Subcutaneo Her colindres [[facility]] 00 us, Once PRN for other (see comment), first dose 09/29/19 12:06:00 [employer] CHAIR traMADol traMADol 2019-0 Yes EDDIE 1-2 PO Q Univers HCl - 50 MG HCl - 50 MG 1-09 DOMINGO M.D. 5-6 HRS ity of Oral Tablet Oral Tablet 00:00: PRN PAIN [place] 00 Physici ans NovoLOG Mix 2018- Yes 44 units, M emoria 70/30 2-19 Subcutaneo l FlexPen 19:57: us, Daily, Herm leonela 00 DM lisinopril 2018- Yes 40 mg = 1 Me moria 40 mg oral 2-19 tabs, l tablet 19:54: Oral, qHS, Fallon nn 00 HTN Diphenhydra 2018- Yes 50 mg = 1 M emoria mine 2-19 caps, l Hydrochlori 19:54: Oral, qHS, Morteza de 50 MG 00 PRN for Oral insomnia Capsule Acetaminoph 2018-09 Yes 2 tabs, Mem oria en 250 MG / 2-19 Oral, l Aspirin 250 19:54: q6hr, PRN H ermann MG / 00 for Caffeine 65 headache MG Oral Tablet [Excedrin] Acetaminoph 2018-09 Yes 500 mg = 1 Memoria en 500 MG 2-19 tabs, l Oral Tablet 19:54: Oral, Fallon nn [Tylenol] 00 q4hr, PRN for pain carisoprodo 2018-09 Yes 350 mg = 1 Memoria l 350 mg 2-19 tabs, l oral tablet 19:54: Oral, qHS, Morteza 00 PRN as needed for pain ezetimibe 2018-09 Yes 10 mg = 1 Mem oria 10 MG Oral 2-19 tabs, l Tablet 19:54: Oral, qHS, Fallon nn [Zetia] 00 Cholestero l rivaroxaban 2018-09 Yes 10 mg = 1 M emoria 10 MG Oral 2-19 tabs, l Tablet 19:54: Oral, qHS, Fallon nn [Xarelto] 00 Blood Clots Imdur 30 mg 2018-09 Yes 30 mg = 1 M emoria oral 2-19 tabs, l tablet, 19:54: Oral, qHS, Herm leonela extended 00 HTN release meloxicam 2018-09 Yes 15 mg = 1 Mem oria 15 MG Oral 2-19 tabs, l Tablet 19:54: Oral, qHS, Fallon nn [Mobic] 00 Pain duloxetine 2018-09 Yes 60 mg = 1 Me moria 60 MG 2-19 caps, l Enteric 19:54: Oral, qHS, Herm leonela Coated 00 (do not Capsule crush or [Cymbalta] chew) amitriptyli 2018-09 Yes 10 mg = 1 M emoria ne 10 mg 2-19 tabs, l oral tablet 19:54: Oral, qHS, Morteza 00 Insomnia levothyroxi 2018-09 Yes 175 mcg = M emoria ne 175 mcg 2-19 1 tabs, l (0.175 mg) 19:54: Oral, qHS, H ermann oral tablet 00 Hypothyroi dism Morphine 2017-0 No 5 mg, Memoria 11-01 Route: IM, l 20:43: ONCE, Avenue 00 Dosing Weight 113.636, kg, Priority: STAT, Start date: 11/01/16 14:43:00 [employer], Stop date: 11/01/16 14:43:00 [employer]IR Imdur No Notes: Memoria 2-03 (Same l 15:00: as:Imdur) Avenue 00 "Do Not Crush" Take on empty stomach/ full glass of water. Do not crush Lisinopril No Notes: Memor ia 2-03 (Same as: l 15:00: Prinivil, Morteza 00 Zestril) Cymbalta No Notes: Memoria 2-03 (Same as: l 15:00: Cymbalta) Avenue 00 (Do Not Crush) Mobic No Notes: Memoria 2-03 (Same as: l 15:00: Mobic) Morteza 00 Plavix No Notes: Memoria 2-03 (Same As: l 15:00: Plavix) NovoLOG No 33 unit, Memori a /30 2-03 0.33 mL, l 15:00: Route: Avenue 00 SUB-Q, Drug form: SUSP, QAM, Start date: 10/24/16 9:00:00 [employer]AIR, Duration: 30 day, Stop date: 11/22/16 9:00:00 [employer] CHAIR Thyroxine No Notes: Memori a 2-03 Take 1 l 12:30: hour Morteza 00 before or 2 hours after meal; Enteral feeds may interefere with the absorption of this medication .(Same as:Levothr oid) Zetia No Notes: Memoria 2-03 (Same as: l 03:00: Zetia) Morteza 00 Saline No Notes: Memoria Flush 0.9% 2-03 (Same as: l 03:00: BD Posiflush) Amitriptyli No Notes: Sami rosana ne 2-03 (Same as: l 03:00: Elavil) Morteza 00 NovoLOG No Notes: Memoria 70/30 2-03 (Same as: l 03:00: NovoLOG Mix ) WASTE: F/P - Black; E - Municipal Trash Bin NovoLOG Yes See Memoria 70/30 2-02 Instructio l 23:41: ns, [address] 00 units Qam SUB-Q and 22 units QPM, 0 Refill(s) NovoLOG No Route: Memoria 10-23 SUB-Q, l 23:00: BID, Dosing Weight 109.091, kg, Start date: 10/23/16 17:00:00 [employer], Duration: 30 day, Stop date: 11/22/16 9:00:00 [employer] CHAIR carvedilol No Notes: Memor ia 10-23 Give with l 23:00: food. Avenue 00 (Same As: Coreg) Lasix No 10 mg, Memoria 10-23 Route: PO, l 19:12: Daily, Dosing Weight 109.091, kg, Start date: 10/23/16 13:12:00 [employer]AIR, Duration: 30 day, Stop date: 11/22/16 9:00:00 [employer] CHAIR tapentadol Yes 75 mg = 1 Me moria 75 MG Oral 2-02 tab, PO, l Tablet 17:30: Q6H, PRN Avenue [Nucynta] 00 Pain Score 6-10, 0 Refill(s) carvedilol Yes 25 mg = 1 Me moria 25 mg oral 2-02 tab, PO, l tablet 17:30: BID, 0 Morteza 00 Refill(s) amitriptyli Yes 10 mg = 1 M emoria ne 10 mg 2-02 tab, PO, l oral tablet 17:30: Bedtime, 0 Avenue Refill(s) NovoLOG No See Memoria 10-23 Instructio l 17:30: ns, SUB-Q Morteza ONCE humulog taken 33 units in am 22 units in pm, 0 Refill(s) carisoprodo Yes 350 mg = 1 Memoria l 350 mg 2-02 tab, PO, l oral tablet 17:30: PRN, 0 Herm Refill(s) Insulin, No Notes: Memoria Aspart, 10-23 Roll in l Human 17:01: palms of Avenue hands gently; Do not shake vigorously . (Same as: NovoLOG) "single patient use only" WASTE: F/P - Black; E - Municipal Trash Bin Stable for 28 days at room temperatur e. Expires in days from ____Date Dextrose No 25 gm, 50 Sami rosana 50% Syringe 2-02 mL, Route: l 17:01: IVP, Drug Morteza 00 Form: INJ, Dosing Weight 109.091, kg, PRN, PRN Blood Glucose Results, Start date: 10/23/16 11:01:00 [employer], Duration: 30 day, Stop date: 11/22/16 11:00:00 [employer]IR Glucagon No 1 mg, Memoria 10-23 Route: IM, l 17:01: Drug form: Morteza 00 PDR/INJ, PRN, Dosing Weight 109.091, kg, PRN Blood Glucose Results, Start date: 10/23/16 11:01:00 [employer] CHAIR, Duration: 30 day, Stop date: 11/22/16 11:00:00 [employer] CHAIR Acetaminoph No Notes: Sami rosana en 325 MG / 10-23 (Same as: l Hydrocodone 16:54: [place] Fallon nn Bitartrate 00 325/5) Do 5 MG Oral not exceed Tablet 4gm/day of acetaminop hen. Ondansetron No Notes: Sami rosana - (Same as: l 16:54: Zofran) Avenue 00 MEDICATION WASTE Product Size: 4 mg Product Wasted: _0__ mg Docusate No Notes: Memoria 2-02 (Same as: l 16:54: Colace) Avenue 00 (Do Not Crush) Acetaminoph No Notes: Max Memoria en 10-23 acetaminop l 16:54: hen [address] 00 mg/day (4 gm/day). (Same as: Tylenol Extra Strength) Saline No Notes: Memoria Flush 0.9% 10-23 (Same as: l 16:21: BD Morteza 00 Posiflush) iodixanol No 100 mL, Memor ia 10-23 Route: l 14:49: IVP, Drug Avenue 00 Form: SOLN, kg, ONCALL, STAT, Start date: 10/23/16 8:49:00 [employer] CHAIR, Duration: 1 doses or times, Dose = 2.2ml/kg, Max dose = 100ml -- "To be infused by Radiology Staff ONLY" Saline No Notes: Memoria Flush 0.9% 10-23 Same as: l 14:11: BD Posiflush Sterile ezetimibe Yes 10 mg = 1 Mem oria 10 MG Oral 02 tab, PO, l Tablet 14:04: Daily, # Morteza [Zetia] 00 30 tab, 0 Refill(s) Mobic Yes 15 mg, PO, Memori a 2-02 Daily, 0 l 14:01: Refill(s) Humalog No SUB-Q, 0 Memori a 10-23 Refill(s) l 14:00: Lasix No 10 mg, PO, Memori a 2-02 Daily, 0 l 14:00: Refill(s) Cymbalta Yes 60 mg, PO, Mem oria 2-02 Daily, 0 l 14:00: Refill(s) Thyroxine Yes 112 Memoria 2-02 microgram, l 14:00: PO, Daily, 0 Refill(s) Lisinopril Yes 40 mg, PO, M emoria 2-02 Daily, 0 l 13:59: Refill(s) Imdur Yes 30 mg, PO, Memori a 202 QAM, 0 l 13:59: Refill(s) Plavix Yes 75 mg, PO, Memor ia 2-02 Daily, 0 l 13:59: Refill(s) Lisinopril Lisinopril Yes Uni vers 40 MG Oral 40 MG Oral ity of Tablet Tablet [place] Physici ans L-Thyroxine L-Thyroxine Yes U nivers Sodium TABS Sodium TABS i ty of [place] Physici ans Amitriptyli Amitriptyli Yes U nivers ne HCl - 10 ne HCl - 10 i ty of MG Oral MG Oral [place] Tablet Tablet Physici ans DULoxetine DULoxetine Yes Uni vers HCl - 60 MG HCl - 60 MG i ty of Oral Oral [place] Capsule Capsule Physici Delayed Delayed ans Release Release Particles Particles Zetia 10 MG Zetia 10 MG Yes U nivers Oral Tablet Oral Tablet i ty of [place] Physici ans NovoLOG NovoLOG Yes Univers SOLN SOLN ity of [place] Physic ans Xarelto 10 Xarelto 10 Yes Uni vers MG Oral MG Oral ity of Tablet Tablet [place] Physic ans Carisoprodo Carisoprodo Yes U nivers l TABS l TABS ity of [facility] ans Imdur 30 MG Imdur 30 MG Yes U nivers TB24 TB24 ity of [place] Physici ans Vital Signs Vital Name Observation Time Observation Value Comments Source BP Systolic 2019-10-11 137 mm[Hg] Location: [facility] 14:46:00 Position: [place] Physician s Supine BP Diastolic 2019-10-11 85 mm[Hg] Location: [facility] 14:46:00 Position: [place] Physician s Supine Temperature 2019-10-11 97.4 [degF] Method: [facility] 14:46:00 [place] Physician s Heart Rate 2019-10-11 109 /min Location: [facility] 14:46:00 Radial; [place] Physician s Quality: Normal Systolic (mm Hg) 2019-09-29 [facility] rmann 22:35:00 Diastolic (mm Hg) 2019-09-29 [facility] [facility] 22:35:00 Respitory Rate 2019-09-29 [facility] leonela 22:35:00 Systolic (mm Hg) 2019-09-29 [facility] Bebeto rmann 22:00:00 Diastolic (mm Hg) 2019-09-29 [facility] Vero ermann 22:00:00 Heart Rate 2019-09-29 Sergio Camposan n 22:00:00 Heart Rate 2019-09-29 Sergio Camposan n 21:50:00 Systolic (mm Hg) 2019-09-29 [facility] Bebeto rmann 21:50:00 Diastolic (mm Hg) 2019-09-29 [facility] Vero ermann 21:50:00 Heart Rate 2019-09-29 Sergio Camposan n 21:40:00 Temperature Oral 2019-09-29 36.8 Caron [facility] Bebeto rmann (F) 21:10:00 Height 2019-09-29 167 cm Sergio Manrique n 18:22:00 Respitory Rate 2019-09-29 [facility] 18:22:00 Temperature Oral 2019-09-29 37 Caron [facility] (F) 18:22:00 Height 2019-09-08 167 cm [facility] 17:50:00 BP Systolic 2019-04-11 159 mm[Hg] [facility] 15:07:00 [place] [facility] BP Diastolic 2019-04-11 99 mm[Hg] [facility] 15:07:00 [place] [facility] Height 2019-04-11 66 [in_us] [facility] 15:07:00 [place] [facility] Weight 2019-04-11 234 [lb_av] [facility] 15:07:00 [place] [facility] Body Mass Index 2019-04-11 37.77 kg/m2 [facility] Calculated 15:07:00 [place] [facility] Heart Rate 2019-04-11 100 /min [facility] 15:07:00 [place] [facility] Weight 2016-11-01 [facility] 20:07:00 Height 2016-11-01 167.64 cm [facility] 20:07:00 BMI Calculated 2016-11-01 [facility] 20:07:00 Heart Rate 2016-11-01 [facility] 20:07:00 Respitory Rate 2016-11-01 [facility] 20:07:00 Temperature Oral 2016-11-01 97.9 F [facility] (F) 20:07:00 Systolic (mm Hg) 2016-11-01 [facility] 20:07:00 Diastolic (mm Hg) 2016-11-01 [facility] 20:07:00 Respitory Rate 2016-10-23 [facility] 21:19:00 Heart Rate 2016-10-23 [facility] Bruton n 21:19:00 Systolic (mm Hg) 2016-10-23 [facility] 21:19:00 Diastolic (mm Hg) 2016-10-23 [facility] 21:19:00 Temperature Oral 2016-10-23 98.0 F [facility] (F) 21:19:00 Respitory Rate 2016-10-23 [facility] 17:27:00 Systolic (mm Hg) 2016-10-23 [facility] 17:27:00 Diastolic (mm Hg) 2016-10-23 [facility] 17:27:00 Temperature Oral 2016-10-23 97.4 F [facility] (F) 17:21:00 Respitory Rate 2016-10-23 [facility] 17:21:00 Heart Rate 2016-10-23 [facility] 17:21:00 Systolic (mm Hg) 2016-10-23 [facility] 17:21:00 Diastolic (mm Hg) 2016-10-23 [facility] 17:21:00 BMI Calculated 2016-10-23 Sergio [facility] leonela 16:11:00 Height 2016-10-23 167.64 cm Sergio Camposan n 16:11:00 Weight 2016-10-23 [facility] 16:11:00 Heart Rate 2016-10-23 Sergio Burton n 16:10:00 Temperature Oral 2016-10-23 97.5 F [facility] Beb[facility] rmann (F) 16:10:00 Procedures Procedure Date / Time Performing Source Performed Clinician Physical Therapy 2020-04-27 [facility] 00:00:00 [place] [facility] Post Op Promis 29 Survey 2019-10-13 [facility] 00[facility] [place] [facility] ARTHROSCOPY SHOULDER ROTATOR CUFF 2019-09-29 [facility]PA[facility] [id number] (Left)<sup>1</sup> 19:56:00 [facility]ROS[facility] SHOULDER W/BICEPS [facility]-09-[address] [facility] [address] TEND[facility]ESIS [id number] 19:56:00 (Left)<sup>2</sup> ARTHROSCOPY SHOULDER W/SUBACROMIAL 2019-09-29 [facility] DECOMPRESSION/ACROMIOPLASTY [id number] 19:56:00 (Left)<sup>3</sup> Echocardiogram<sup>4</sup> 2019-09-[address] 06:00:00 Colonoscopy<sup>5</sup> 2019-09-01 Sergio Pro 06:00:00 [UTP] Ortho - Surgery Scheduling 2019-08-12 [facility] 00:00:00 [place] [facility] Esophagogastroduodenoscopy 2019-08-[address] 06:00:00 MR Shoulder wo contrast [id number] 2019-04-11 [facility] 00:[facility]00 [place] [facility] Cataract extraction 2017-12-20 Sergio colindres 00:00:00 Angioplasty with stent<sup>6</sup> 2015-05-26 Sergio Pro 05:00:00 Lumbar Fusion<sup>7</sup> 2011-08-21 Mekhi al Morteza 00:00:00 Colon Resection<sup>8</sup> 2009-09-21 Sami rial Morteza 00:00:00 Lumbar Laminectomy 2007-09-21 [facility] 00:00:00 Cervical Fusion<sup>9</sup> 2003-09-[address] 00:00:00 Cholecystectomy 1984-09-21 [facility]za 00:00:00 Gastric Bypass<sup>10</sup> 1977-09-[address] 00:00:00 History of Cataract surgery [facility] History of Back Surgery [facility] History of Colectomy [facility] Arthroscopy of knee<sup>11</sup> [facility] Hysterectomy<sup>13</sup> Memori [facility] Morteza Tonsillectomy [facility] Appendectomy [facility] Back fusion [facility] Diverticulectomy [facility] Laminectomy [facility] Stent placement [facility] Plan of Care Planned Activity Planned Date Details Comments Source Diagnostic Test 2019-08-12 [UTP] Ortho - [facility] Pending 00:00:00 Surgery Scheduling Physician s [code = [UTP] Ortho - Surgery Scheduling] Encounters Start End Encounter Admission Attending Care Care Encounter Source Date/Time Date/Time Type Type Clinicians Facility Department ID 2020-04-27 2020-04-27 [facility] [id number] Univers 11:00:00 11:00:00 t; CARLOS A GALICIA, Jose Miguel Souza ity Nicolasa Rhoades [facility] [place] [facility] [facility] 2020-01-30 2020-01-30 Appointmen [facility] [id number] Univers 14:15:00 14:15:00 t; EDDIE DOMINGO, - [place] ity bryant MORGAN M.D. [address] [place] Phys[facility] ans 2019-12-19 2019-12-19 Appointmen [facility] [id number] Univers 10:30:00 10:30:00 t; DENNIS HSU - [place] [facility] y of DENNIS HEMATOLOGY SUPERVISOR [address] Physici ans 2019-11-16 2019-11-16 Appointmen [facility] Orthoped[facility] [id number] Univers 14:00:00 14:00:00 t; DENNIS HSU - [place] it y of AYANOLETTE [address] Physici ans 2019-10-11 2019-10-11 Appointmen JOSE L [facility] [id number] Univers 16:15:00 16:15:00 t; EDDIE DOMINGO, - [place] MORGAN 1 [place] [facility] 2019-10-11 2019-10-11 [facility] [id number] Univers 14:45:00 14:45:00 t; EDDIE DOMINGO, - [place] MORGAN 1 [place] [facility] 2019-09-29 2019-09-29 Outpatient Jose L [id number] 835 11:46:44 17:01:00 Eddie 8 2019-09-29 2019-09-29 [facility] [id number] Univers 13:00:00 13:00:00 t; EDDIE DOMINGO, - [place] MORGAN 1 [place] [facility] 2019-09-15 2019-09-15 [facility] Orthoped[facility] [id number] Univers 07:30:00 07:30:00 t; EDDIE DOMINGO, - [place] of [place] MORGAN 1 [place] [facility] 2019-08-12 2019-08-12 [facility] Orth[facility] [id number] Univers 13:00:00 13:00:00 t; EDDIE DOMINGO, - [place] of [place] MORGAN 1 [place] [facility] 2019-04-28 2019-04-28 [facility] [id number] Univers 09:45:00 09:45:00 t; EDDIE DOMINGO, - [place] of [place] MORGAN 1 [place] [facility] 2019-04-11 2019-04-11 [facility] Orthopedics [id number] Univers 14:45:00 14:45:00 t; EDDIE DOMINGO, - [place] MORGAN 1 [place] [facility] 2016-11-01 2016-11-01 [id number] 13:53:00 15:03:00 Daeun 00 2016-10-23 2016-10-23 Outpatient Nicole Veras [facility] [id number] 07:36:00 19:21:00 M 33 Results Test Description Test Time Test Comments Results Result Comments Source Post Op Promis 29 Survey 2019-11-02 13:07:47 Test Item Value Reference Range Interpretation Comme nts Pain Interference: (test code = Pain Interference:) 70.3 1 N Pain Intensity: (test code = Pain Intensity:) 49.9 1 N Physical Function: (test code = Physical Function:) 26.7 1 N Satisfaction Role: (test code = Satisfaction Role:) 32.1 1 N [facility] LvpkzbcrntFAZMVRPBQG7803-13-34 19:36:37098Bvbpbdaq Morteza TBETWANEQB5252-34-60 18:42:31020Zaansecz JttqyewJTAQRIBCHD0930-01-85 18:46:00 Reported (09/08/19 12:46 PM)[facility] PhibzfpIVFFCEGVLU9924-44-89 18:46:008.6 [facility] PzsbzqpAZFQRGBGRR3948-50-94 18:46:00Reported (09/08/19 12:46 PM) [facility] XyjrgtxDJIVRIGQRG7110-46-60 18:46:009.0[facility] 2019-09-08 18:46:0089.7[facility] ZrhhuujRZFCNXZNQL4950-56-51 18:46:92013Lfarpees SporxbhHYEIROLDXV1114-73-69 18:46:0016.1[facility] LpxhpfhDXFAVWJEAQ4775-23-67 18:46:0033.6[facility] ToavdmlDNCAOFNVWY0435-73-92 18:46:00 Test Item Value Reference Range Interpretation Comments MCH (test code = MCH) 30.1 pg 27.0-31.0 [facility] VjlgvmtBSKYWFXSHH7086-35-93 18:46:0041.3[facility]ann[facility]ATORY 2019-09-08 18:46:0013.9[facility] RjysiycDPCYEOYVLG7697-38-86 18:46:004.61[facility] YlmhfxkQUAFKCUOBU5525-25-34 18:46:006.4[facility] YkcibboOPUBCXVOFG5998-09-25 18:46:00Reported (09/08/19 12:46 PM)[facility]jomfxAQLXNKYOKF4753-25-32 18:46:0028[facility] YswmoraAEMWOTILGV9629-82-91 18:46:49230Cfehdhoy [facility]AWPBIONEZP8389-45-65 18:46:0069[facility] UumoicoQIRBXAIVJR3646-61-77 18:46:008.8 [facility] YqcelhlTRLVLIIDJS6454-33-74 18:46:0012.7[facility]ann[facility]ATORY 2019-09-08 18:46:0013[facility] HzyjgvkBIWBYFNUQY2681-02-33 18:46:004.7[facility] BfeazuaXFNTFVEEJV0774-60-97 18:46:66458Gokpmqxe LedbnvdXKBJHGFGMP6378-49-41 18:46:000.84[facility] QbuzfvlHHBKYMNJQR2398-72-26 18:46:47434Bpaapvpv [facility] HealthcareBPOLQVFEFP3083-48-36 18:46:00Reported (09/08/19 12:46 PM)[facility]2019-12-19 18:46:000.1[facility] UskohrfTEUHSKJWSA4681-50-11 18:46:000.6 [facility] CampusQkylcqaIRZLURTWAV3375-63-28 18:46:003.2[facility]ann[facility]ATORY 2019-09-08 18:46:002.6[facility] BnnyevjFRYWXLLMOI8727-82-84 18:46:000.3[facility] DwkqvgrSLKNVAQWNA9094-87-05 18:46:001.7[facility] LsghnlsXOETNGRMAC9861-78-70 18:46:0039.9[facility] MloybxnUBFTIPGJHU7790-91-42 18:46:[address] QTVFZVZBCX8089-38-04 18:46:009.0[facility] HermannLipid Alhkvjz7250-16-14 00:16:00 Test Item Value Reference Range Interpretation Comments Cholesterol (test 340 mg/dL 0-200 H code = CHOL) Triglycerides (test 165 mg/dL 9-200 N code = TRIG) HDL (test code = 66 mg/dL 50-60 H HDL) Chol/HDL (test code 5.2 Ratio 0.0-4.4 H = CHOLPHDL) LDL, Calculated 241 mg/dL 0-130 H (NOTE)RISK O F HEART (test code = LDLC) DISEASEPu blished by [place] Heart AssociationAnal yte Optim al Boderline Increased RiskC HOL <200 200-239 >240TRI G <150 150-199 >200HDL Male: >60 <40HDL Female: >60 <50 LDL < 100 130-15 9 >160 LDL NEAR OPTIMAL IS 100- 129 VLDL (test code = 33 mg/dL 5-40 N VLDL) LDL/HDL (test code = 4 LDLPHDL) Comprehensive Metabolic [id number] 00:16:00 Test Item Value Reference Range Interpretation Comments Sodium (test code = 138 mmol/L 135-145 N NA) Potassium (test 4.4 mmol/L 3.5-5.1 N code = K) Chloride (test code 97 mmol/L 98-105 L = CL) Carbon Dioxide 30 mmol/L 22-29 H (test code = CO2) Glucose (test code 180 mg/dL 70-115 H = GLU) Blood Urea Nitrogen 16 mg/dL 8-23 N (test code = BUN) Creatinine (test 1.0 mg/dL 0.5-0.9 H code = CREAT) Calcium (test code 9.2 mg/dL 8.3-10.5 N = CA) Prot Total (test 7.2 g/dL 6.4-8.3 N code = TP) Albumin (test code 4.5 g/dL 3.5-5.2 N = ALB) A/G Ratio (test 1.7 Ratio code = AGRATIO) Globulin (test code 2.7 2.9-3.1 L = GLOB) Bili Total (test 0.3 mg/dL 0.1-0.9 N code = TBIL) Alk Phos (test code 73 U/L 35-104 N = APHOS) AST (test code = 61 U/L 1-32 H AST) ALT (test code = 62 U/L 1-33 H ALT) BUN/Creatinine 16.0 Ratio (test code = BCRATIO) Anion Gap (test 11 mmol/L 7-16 N code = AGAP) Estimated GFR (test 58 eGFR (es timated code = GFR) mL/min/1.73m2 Glomerular Gary tration Rate) is an est imated value,calculate d from the patient's s theresa creatinine usin g the MDRD equation.I t is NOT the patient 's actual GFR. The eGFR provides a more clinicallyusefu l measure of kidn ey disease than se rum creatinine alone.This calculation marty es sex and race into account, if the informationis provided. If th e race is not provided , and the patient isAfrican-Ameri can, multiply by 1.2 12. If sex is not prov ided, and thepatient is female, multipl y by 0.742. Results for patients <18 ye ars ofage have not been validated by th e MDRD study and shoul d be interpretedwith caution.eGFR Re sult Interpretation: eGFR > or = 60 is in t he Normal RangeeGF R < 60 may mean kidney diseaseeGFR < 1 5 may mean kidney failureRange s recommended by the National Kidney Foundation,http ://nkd ep.nih.gov CBC with Mcprvheihgkk6344-22-00 23:34:00 Test Item Value Reference Range Interpretation Comments WBC (test code = WBC) 8.0 K/cumm 4.4-10.5 N RBC (test code = RBC) 4.85 M/cumm 3.75-5.20 N Hemoglobin (test code = HGB) 15.0 gm/dL 12.2-14.8 H Hematocrit (test code = HCT) 46.0 % 36.5-44.4 H MCV (test code = MCV) 94.9 fL 80-100 N MCH (test code = MCH) 30.8 pg 27.0-32.5 N MCHC (test code = MCHC) 32.5 g/dL 32.0-37.5 N RDW (test code = RDW) 16.0 % 11.5-14.5 H Platelet Count (test code = 173 K/cumm 140-440 N PLTCT) MPV (test code = MPV) 9.9 fL Diff Method (test code = DIFFM) Auto Neutrophil (test code = NEUT) 52.4 % 36-70 N Lymphocyte (test code = LYMPH) 39.1 % 12-44 N Monocyte (test code = MONO) 5.0 % 0-11 N Eosinophil (test code = EOS) 3.1 % 0-7 N Basophil (test code = BASO) 0.4 % 0-2 N Neutro Abs (test code = ANEUT) 4.2 K/cumm 1.6-7.4 N Lymph Abs (test code = ALYMPH) 3.1 K/cumm 0.5-4.6 N [place] Abs (test code = AMONO) 0.4 K/cumm 0.0-1.2 N Eos Abs (test code = AEOS) 0.25 K/cumm 0.00-0.74 N Baso Abs (test code = ABASO) 0.0 K/cumm 0.00-0.21 N [id number] 21:47:005.61[facility] FpnjaelDJSBEU9626-28-44 21:47:65952 [facility] KdzlxzxRTEWFS6286-73-78 21:47:0038[facility] XsejwcdVHUVDA1634-74-50 21:47:0039[facility] VdtnckxNAJQRV2697-43-92 21:47:16055Joqvjpmw HermannLIPIDS 2016-10-23 21:47:55488Qywvywla HermannSPECIAL MMHNVVCEX7432-38-15 21:47:007.6 [facility]ann[facility] AND OASNI5585-15-52 15:44:22Performed (10/23/16 9:44 AM) [facility] MHIZM7888-63-90 15:44:22None Seen (10/23/16 9:44 AM) [facility] GXPEI4851-06-91 15:44:22Trace *ABN*(10/23/16 9:44 AM) [facility] WPTZK5767-34-45 15:44:22Negative (10/23/16 9:44 AM) [facility] XXIKY5720-00-65 15:44:22Negative (10/23/16 9:44 AM) [facility] BIIQP0819-41-17 15:44:22 Test Item Value Reference Range Interpretation Comments UA pH (test code = UA pH) 5.5 1 5.0-8.0 [facility] AND [id number] 15:44:22Negative *NA*(10/23/16 9:44 AM) [facility] CFVPM7934-68-49 15:44:22Negative *NA*(10/23/16 9:44 AM) [facility] MBKOK8272-05-66 15:44:22Negative (10/23/16 9:44 AM) [facility] YDQXY6685-17-06 15:44:22Yellow *NA*(10/23/16 9:44 AM) [facility] DLQYS1574-45-69 15:44:22Clear (10/23/16 9:44 AM)[facility] AND [id number] 15:44:22 Test Item Value Reference Range Interpretation Comments UA Spec Grav (test code = UA Spec 1.020 1 Grav) [facility] CUSOK1421-70-44 15:44:220.2[facility] AND TCOGQ8339-10-91 15:44:22Negative (10/23/16 9:44 AM)[facility] HermannCHEM PANEL 2016-10-23 14:41:0046[facility] HermannCHEM PAQMJ0469-77-76 14:41:001.2[facility] HermannCARDIAC VFLNDEE1367-92-48 14:20:00<0.02[facility] HermannCARDIAC ENZYMES 2016-10-23 14:20:000.7[facility] NapchrwMGCGDGFVRTGC4647-67-61 14:20:0012.2 Memorial BwbhxxgHUSECIXRWOSK8651-63-65 14:20:0062[facility] HermannELECTROLYTES 2016-10-23 14:20:0016[facility] SqaejwbSFOPADZNHGTD1550-92-69 14:20:004.2[facility] WlfvldlFZEPSRWWIOXP4643-44-06 14:20:31964Ymhnzlmt RtgptxeUSFJUDTYZYKY4279-55-99 14:20:000.94[facility] SdhdwxrXSXYOJETGDHQ8591-58-17 14:20:79899Qygjctnx Morteza ILAIXDCYNIYZ7232-77-52 14:20:008.4[facility] XwazhgyUUYUAULEFDNT8014-71-55 14:20:09802Toehpwwk AmdiddtFVNVFGIGQBBA5037-47-62 14:20:0026[address] EEQMQGVCES1595-88-09 14:20:00 Test Item Value Reference Range Interpretation Comments PTT (test code = PTT) 26.9 s 22.9-35.8 [facility]fvrmzdECXGMIVHTA5872-44-66 14:20:001.03[facility] 2016-10-23 14:20:00 Test Item Value Reference Range Interpretation Comments PT (test code = PT) 13.7 s 12.0-14.7 [facility]
[2020-08-05 16:43] LABS: Protime INR 1.2
[2020-08-05 16:50] LABS: Absolute Lymphocytes (CBC) 1.7 K/uL (0.7-4.9); Basophils % 0.3 % (0-1.3); Hematocrit 41.2 % (36.0-45.0); Lymphocytes % 18.7 % (15.3-44.8); RBC Red Blood Cell Count 4.67 M/uL (3.86-4.86)
[2020-08-05] MEDS ORDERED: NA CHLORIDE 0.9% 2,000 ML ONE (17:07)
[2020-08-05 17:09] LABS: ALT/SGPT 108 U/L (12-78); AST/SGOT 117 U/L (15-37); Albumin 3.1 g/dL (3.4-5.0); Alkaline Phosphatase 85 U/L (45-117); Amylase 50 U/L (25-115); BUN Blood Urea Nitrogen 28 mg/dL (7-18); Bicarbonate 24 mmol/L (21-32); Bilirubin Direct < 0.1 mg/dL (0-0.2); Bilirubin Total 0.3 mg/dL (0.2-1.0); CKMB Creatine Kinase MB < 1.0 ng/mL (0.3-3.6); Creatine Phosphokinase 36 U/L (26-192); Glucose Level 348 mg/dL (74-106); Lipase 260 U/L (73-393); Potassium 4.9 mmol/L (3.5-5.1); Protein, Total 6.6 g/dL (6.4-8.2); Sodium Level 135 mmol/L (136-145); Troponin (Emerg Dept Use Only) < 0.02 ng/mL (0.0-0.045)
[2020-08-05] MEDS ORDERED: CIPROFLOXACIN 400mg IV 400 MG/200 ML BAG IV ONE ×2 (17:33→21:00)
[2020-08-05] MEDS ORDERED: METRONIDAZOLE 500mg IVPB 500 MG/100 ML BAG IV ONE (17:33)
--- NOTE | 2020-08-05 17:55 | RAD REPORT ---
EXAM DESCRIPTION: CT - Abdomen Pelvis W Contrast - 08/05/2020 5:41 pm CLINICAL HISTORY: ABD PAIN, localizing to the left lower quadrant, 2 weeks duration COMPARISON: Abdomen Pelvis W Contrast dated 06/16/2019 TECHNIQUE: Biphasic, helical CT imaging of the abdomen and pelvis was performed following 100 ml non -ionic IV contrast. No oral contrast administered. All CT scans are performed using dose optimization technique as appropriate and may include automated exposure control or mA/KV adjustment according to patient size. FINDINGS: No acute lung base finding. [place]arrete of the distal esophagus are prominent. This circumferent ial thickening pattern matches the prior study. The liver, spleen, and pancreas show no suspicious findings. Cholecystectomy clips are present. No bi liary tree dilatation. Symmetric renal function is seen with no hydronephrosis or suspicious renal mass. No pyelonephritis o r acute parenchymal process. No bladder abnormalities. No adrenal abnormalities. No gastric wall thickening mass. Gastric bypass surgical changes are noted. The stomach small bowel a nd distal small mild anastomoses show no suspicious findings. No active GI process identified. Rectos igmoid anastomosis also without suspicious finding. No free air, free fluid or inflammatory stranding. No hernia, mass or bulky lymphadenopathy. No suspicious bony findings. IMPRESSION: Contrast enhanced CT abdomen and pelvis showing no acute or emergent finding. No active process seen.
--- NOTE | 2020-08-05 18:20 | EDPHYS ---
Physician Documentation [facility] Name: Sendy Martinez Age: 75 yrs Sex: Female : 1945 Arrival Date: 08/05/2020 Time: 16:01 Bed 7 Private MD: ED Physician Mikey Kim HPI: 08/05 16:54 This 75 yrs old Female presents to ER via EMS with complaints of Abdominal kb Pain. 16:54 The patient presents with abdominal pain in the left lower quadrant. Onset: The kb symptoms/episode began/occurred 2 week(s) ago. The symptoms do not radiate. Associated signs and symptoms: Pertinent positives: diarrhea, Pertinent negatives: nausea and vomiting, fever. The symptoms are described as constant. Modifying factors: The symptoms are alleviated by nothing, the symptoms are aggravated by nothing. Severity of pain: At its worst the pain was moderate in the emergency department the pain is unchanged. The patient has experienced similar episodes in the past. The patient has not recently seen a physician. Pt reports she has a long history of diverticulitis. States she started feeling the cramping pain and having diarrhea 2 weeks ago. PCP put her on Bactrim and Flagyl on Thursday and pt reports she was feeling better. Today the cramping pain and diarrhea is back and worse. . Historical: - Allergies: 16:04 Codeine (Upset stomach); bp - PMHx: 16:04 Diabetes - IDDM; DVT; Hypertension; PE; Thyroid problem; bp - Immunization history:: Adult Immunizations unknown. - Social history:: Smoking status: Patient denies any tobacco usage or history of. ROS: 16:53 Constitutional: Negative for fever, chills, and weight loss, Cardiovascular: Negative kb for chest pain, palpitations, and edema, Respiratory: Negative for shortness of breath, cough, wheezing, and pleuritic chest pain, Back: Negative for injury and pain, MS/Extremity: Negative for injury and deformity, Skin: Negative for injury, rash, and discoloration, Neuro: Negative for headache, weakness, numbness, tingling, and seizure. 16:53 Abdomen/GI: Positive for abdominal pain, diarrhea, Negative for nausea, vomiting. Exam: 16:53 Constitutional: This is a well developed, well nourished patient who is awake, alert, kb and in no acute distress. Head/Face: Normocephalic, atraumatic. Chest/axilla: Normal chest wall appearance and motion. Nontender with no deformity. No lesions are appreciated. Cardiovascular: Regular rate and rhythm with a normal S1 and S2. No gallops, murmurs, or rubs. Normal PMI, no JVD. No pulse deficits. Respiratory: Lungs have equal breath sounds bilaterally, clear to auscultation and percussion. No rales, rhonchi or wheezes noted. No increased work of breathing, no retractions or nasal flaring. Skin: Warm, dry with normal turgor. Normal color with no rashes, no lesions, and no evidence of cellulitis. MS/ Extremity: Pulses equal, no cyanosis. Neurovascular intact. Full, normal range of motion. Neuro: Awake and alert, GCS 15, oriented to person, place, time, and situation. Cranial nerves II-XII grossly intact. Motor strength 5/5 in all extremities. Sensory grossly intact. Cerebellar exam normal. Normal gait. 16:53 Abdomen/GI: Inspection: abdomen appears normal, Bowel sounds: normal, in all quadrants, Palpation: soft, in all quadrants, moderate abdominal tenderness, in the right lower quadrant and left lower quadrant. 17:12 ECG was reviewed by the Attending Physician. Vital Signs: 16:02 BP 96 / 29; Pulse 111; Resp 20; Temp 98.5; Pulse Ox 98% ; Weight 103.42 kg; bp 16:07 BP 67 / 35; Pulse 61; Resp 17; Pulse Ox 89% ; bp 16:15 BP 89 / 46; Pulse 103; Resp 17; Pulse Ox 97% ; bp 16:30 BP 105 / 92; Pulse 103; Resp 18; Pulse Ox 97% ; bp 17:56 BP 127 / 84; Pulse 76; Resp 16; Pulse Ox 99% ; bp 18:45 BP 105 / 57; Pulse 93; Resp 16; Pulse Ox 98% ; bp 19:09 BP 111 / 45; Pulse 94; Resp 18; Pulse Ox 94% on R/A; mg2 20:43 BP 109 / 59; Pulse 85; Resp 18; Temp 98.5; Pulse Ox 98% on R/A; mg2 21:30 BP 117 / 48; Pulse 84; Resp 18; Temp 98.5; Pulse Ox 98% on R/A; mg2 MDM: 16:04 Patient medically screened. kb 16:53 Data reviewed: vital signs, nurses notes. Data interpreted: Pulse oximetry: on room air kb is 97 %. Interpretation: normal. 18:18 Counseling: I had a detailed discussion with the patient and/or guardian regarding: the kb historical points, exam findings, and any diagnostic results supporting the discharge/admit diagnosis, lab results, radiology results, the need for further work-up and treatment in the hospital. Physician consultation: Mikey SORENSON was contacted at 18:18, regarding admission, to the medical/surgical unit. patient's condition, and will see patient in ED, shortly. 08/05 16:13 Order name: Amylase, Serum; Complete Time: 17:12 kb 08/05 16:13 Order name: Basic Metabolic Panel; Complete Time: 17:12 kb 08/05 16:13 Order name: Blood Culture Adult (2) kb 08/05 16:13 Order name: CBC with Diff; Complete Time: 18:26 kb 08/05 16:13 Order name: Ckmb; Complete Time: 17:12 kb 08/05 16:13 Order name: CPK; Complete Time: 17:12 kb 08/05 16:13 Order name: Lactate; Complete Time: 17:00 kb 08/05 16:13 Order name: LFT's; Complete Time: 17:12 kb 08/05 16:13 Order name: Lipase; Complete Time: 17:12 kb 08/05 16:13 Order name: Procalcitonin; Complete Time: 17:23 kb 08/05 16:13 Order name: Protime (+inr); Complete Time: 16:51 kb 08/05 16:13 Order name: Ptt, Activated; Complete Time: 16:51 kb 08/05 16:13 Order name: Troponin (emerg Dept Use Only); Complete Time: 17:12 kb 08/05 16:13 Order name: Urine Microscopic Only; Complete Time: 18:50 kb 08/05 16:13 Order name: Accucheck; Complete Time: 16:42 kb 08/05 16:13 Order name: Cardiac monitoring; Complete Time: 16:48 kb 08/05 16:13 Order name: EKG - Nurse/Tech; Complete Time: 16:47 kb 08/05 16:13 Order name: IV Saline Lock - Large Bore; Complete Time: 16:43 kb 08/05 16:13 Order name: Labs collected and sent; Complete Time: 16:43 kb 08/05 16:13 Order name: O2 Per Protocol; Complete Time: 16:42 kb 08/05 16:13 Order name: CT Abd/Pelvis - IV Contrast Only; Complete Time: 17:57 kb 08/05 18:24 Order name: Manual Differential; Complete Time: 18:26 EDMS 08/05 18:42 Order name: Urine Dipstick--Ancillary (enter results) em1 08/05 18:48 Order name: Urine Dipstick-Ancillary; Complete Time: 18:50 EDMS 08/05 19:48 Order name: Lactate Sepsis 2 HR Follow-up; Complete Time: 19:51 EDMS 08/05 20:43 Order name: COVID-19 la1 08/05 21:21 Order name: CORONAVIRUS EDMS 08/05 16:13 Order name: O2 Sat Monitoring; Complete Time: 16:42 kb 08/05 16:13 Order name: Urine Dipstick-Ancillary (obtain specimen); Complete Time: 18:40 kb EC:12 Rate is 101 beats/min. Rhythm is regular. QRS [place] is Normal. [place] interval is normal at kb 154 msec. QRS interval is normal at 92 msec. QT interval is normal at 358 msec. Administered Medications: 16:50 Drug: NS 0.9% (30 ml/kg) 30 ml/kg Route: IV; Rate: bolus; Site: right antecubital; bp 20:43 Follow up: Response: No adverse reaction; IV Status: Completed infusion; IV Intake: mg2 3000ml 17:15 Drug: Flagyl 500 mg Volume: 100 ml; Route: IVPB; Rate: 200 ml/hr; Infused Over: 30 bp mins; Site: right antecubital; 18:44 Follow up: IV Status: Completed infusion; IV Intake: 100ml bp 18:00 Drug: Cipro 400 mg Volume: 200 ml; Route: IVPB; Infused Over: 60 mins; Site: right bp antecubital; 19:38 Follow up: Response: No adverse reaction; IV Status: Completed infusion mg2 Disposition: 08/06 15:51 Co-signature as Attending Physician, Mikey Kim MD. rn Disposition: 08/05/20 18:19 Hospitalization ordered by Jaspreet Kim for Observation. Preliminary diagnosis are Diarrhea, unspecified, Lower abdominal pain, unspecified, Hypotension. - Bed requested for Telemetry/MedSurg (observation). - Status is Observation. mg2 - Condition is Stable. - Problem is new. - Symptoms are unchanged. Signatures: Dispatcher [employer] EDKellie Cummins, LADDER OPERATOR-C LADDER OPERATOR-Ckb Mikey Kim MD MD rn Garcia, Cindy, RN RN cg Zeke Byrd RN RN Giovanny Wang RN RN mg2 Corrections: (The following items were deleted from the chart) 08/05 16:54 16:53 Abdomen/GI: Inspection: abdomen appears normal, Bowel sounds: normal, in all kb quadrants, Palpation: soft, in all quadrants, moderate abdominal tenderness, in the left upper quadrant and left lower quadrant, kb 20:58 18:19 Hospitalization Ordered by Jaspreet Kim MD for Observation. Preliminary cg diagnosis is Diarrhea, unspecified; Lower abdominal pain, unspecified; Hypotension. Bed requested for Telemetry/MedSurg (observation). Status is Observation. Condition is Stable. Problem is new. Symptoms are unchanged. kb 21:57 20:58 08/05/2020 18:19 Hospitalization Ordered by Jaspreet Kim MD for Observation. mg2 Preliminary diagnosis is Diarrhea, unspecified; Lower abdominal pain, unspecified; Hypotension. Bed requested for Telemetry/MedSurg (observation). Status is Observation. Condition is Stable. Problem is new. Symptoms are unchanged. cg
--- NOTE | 2020-08-05 18:20 | ER ---
Nurse's Notes [facility] Name: Sendy Martinez Age: 75 yrs Sex: Female : 1945 Arrival Date: 08/05/2020 Time: 16:01 Bed 7 Private MD: Diagnosis: Diarrhea, unspecified;Lower abdominal pain, unspecified;Hypotension Presentation: 08/05 16:02 Chief complaint: EMS states: LLQ PAIN x2 WK. Coronavirus screen: At this time, the bp client does not indicate any symptoms associated with coronavirus-19. Ebola Screen: No symptoms or risks identified at this time. Initial Sepsis Screen: Does the patient meet any 2 criteria? HR > 90 bpm. No. Patient's initial sepsis screen is negative. Does the patient have a suspected source of infection? No. Patient's initial sepsis screen is negative. Risk Assessment: Do you want to hurt yourself or someone else? Patient reports no desire to harm self or others. Onset of symptoms is unknown. 16:02 Method Of Arrival: EMS: [facility] bp 16:02 Acuity: DOMINGO 3 bp 16:02 Care prior to arrival: IV initiated. 20 GA, in the right antecubital area. bp Triage Assessment: 16:04 General: Appears in no apparent distress. uncomfortable, obese, Behavior is bp cooperative, appropriate for age, anxious. Pain: Complains of pain in left lower quadrant. EENT: No deficits noted. Neuro: No deficits noted. Cardiovascular: No deficits noted. Respiratory: No deficits noted. GI: Reports lower abdominal pain, diarrhea. : No signs and/or symptoms were reported regarding the genitourinary system. Derm: No deficits noted. Musculoskeletal: No deficits noted. Historical: - Allergies: 16:04 Codeine (Upset stomach); bp - PMHx: 16:04 Diabetes - IDDM; DVT; Hypertension; PE; Thyroid problem; bp - Immunization history:: Adult Immunizations unknown. - Social history:: Smoking status: Patient denies any tobacco usage or history of. Screenin:06 Abuse screen: Denies threats or abuse. Denies injuries from another. Nutritional bp screening: No deficits noted. Tuberculosis screening: No symptoms or risk factors identified. Fall Risk None identified. Assessment: 16:06 General: SEE TRIAGE NOTE. bp 16:10 Reassessment: CODE SEPSIS. bp 17:56 Reassessment: Patient appears in no apparent distress at this time. No changes from bp previously documented assessment. Patient and/or family updated on plan of care and expected duration. Pain level reassessed. Patient is alert, oriented x 3, equal unlabored respirations, skin warm/dry/pink. PT RETURNED FROM CT. 18:45 Reassessment: PT SEEN BY HOSPITALIST. ADMIT IN PROCESS. bp 19:30 GI: Bowel sounds present X 4 quads. Abd is soft and non tender. mg2 19:51 General: Appears in no apparent distress. comfortable, Behavior is calm, cooperative. mg2 Neuro: Level of Consciousness is awake, alert, obeys commands, Oriented to person, place, time, situation. Cardiovascular: Capillary refill < 3 seconds Patient's skin is warm and dry. Respiratory: Airway is patent Respiratory effort is even, unlabored, Respiratory pattern is regular, symmetrical. 20:42 Reassessment: Patient appears in no apparent distress at this time. Patient is alert, mg2 oriented x 3, equal unlabored respirations, skin warm/dry/pink. patient made aware about the waiting time for hospital bed to be available. Vital Signs: 16:02 BP 96 / 29; Pulse 111; Resp 20; Temp 98.5; Pulse Ox 98% ; Weight 103.42 kg; bp 16:07 BP 67 / 35; Pulse 61; Resp 17; Pulse Ox 89% ; bp 16:15 BP 89 / 46; Pulse 103; Resp 17; Pulse Ox 97% ; bp 16:30 BP 105 / 92; Pulse 103; Resp 18; Pulse Ox 97% ; bp 17:56 BP 127 / 84; Pulse 76; Resp 16; Pulse Ox 99% ; bp 18:45 BP 105 / 57; Pulse 93; Resp 16; Pulse Ox 98% ; bp 19:09 BP 111 / 45; Pulse 94; Resp 18; Pulse Ox 94% on R/A; mg2 20:43 BP 109 / 59; Pulse 85; Resp 18; Temp 98.5; Pulse Ox 98% on R/A; mg2 21:30 BP 117 / 48; Pulse 84; Resp 18; Temp 98.5; Pulse Ox 98% on R/A; mg2 ED Course: 16:01 Patient arrived in ED. bp 16:03 Triage completed. bp 16:04 Kellie Lovelace FNP-C is PHCP. kb 16:04 Mikey Kim MD is Attending Physician. kb 16:04 Arm band placed on. bp 16:06 Patient has correct armband on for positive identification. Bed in low position. Call bp light in reach. Side rails up X2. 16:06 Maintain EMS IV. Dressing intact. Good blood return noted. Site clean \T\ dry. Gauge \T\ bp site: 20 GAUGE RIGHT AC. 16:09 Kina Musa, RN is Primary Nurse. rb3 16:12 Zeke Byrd, DELANO is Primary Nurse. bp 16:40 Radiology exam delayed due to tried to go get a green top to do cre on Istat but lab mw3 was in the room and the tech said he will draw it when he can get in there. 17:41 CT Abd/Pelvis - IV Contrast Only In Process Unspecified. EDMS 18:18 Jaspreet Kim MD is Hospitalizing Provider. kb 21:00 covid test sent to lab. mg2 21:30 No provider procedures requiring assistance completed. Patient admitted, IV remains in mg2 place. 21:56 Primary Nurse role handed off by Zeke Byrd, DELANO sg Administered Medications: 16:50 Drug: NS 0.9% (30 ml/kg) 30 ml/kg Route: IV; Rate: bolus; Site: right antecubital; bp 20:43 Follow up: Response: No adverse reaction; IV Status: Completed infusion; IV Intake: mg2 3000ml 17:15 Drug: Flagyl 500 mg Volume: 100 ml; Route: IVPB; Rate: 200 ml/hr; Infused Over: 30 bp mins; Site: right antecubital; 18:44 Follow up: IV Status: Completed infusion; IV Intake: 100ml bp 18:00 Drug: Cipro 400 mg Volume: 200 ml; Route: IVPB; Infused Over: 60 mins; Site: right bp antecubital; 19:38 Follow up: Response: No adverse reaction; IV Status: Completed infusion mg2 Intake: 18:44 IV: 100ml; Total: 100ml. bp 20:43 IV: 3000ml; Total: 3100ml. mg2 Outcome: 18:19 Decision to Hospitalize by Provider. kb 21:31 Admitted to Tele accompanied by tech, via wheelchair, room 403, with chart, Report mg2 called to DELANO Aparicio 21:31 Condition: stable 21:31 Instructed on the need for admit, Demonstrated understanding of instructions. 21:57 Patient left the ED. mg2 Signatures: Dispatcher [employer] EDMS Kellie Lovelace, TYING MACHINE OPERATOR-C TYING MACHINE OPERATOR-Nehemias Alcaraz RN RN sg Zeke Byrd RN RN bp Giovanny Wang RN RN mg2 [place] mw3 Kina Musa RN RN rb3 Corrections: (The following items were deleted from the chart) 16:45 16:02 BP 96 / 29; Pulse 111bpm; Resp 20bpm; Pulse Ox 98%; Temp 98.5F; bp bp
[2020-08-05 18:24] LABS: Platelet Estimate DECR
[2020-08-05 18:25] LABS: Anisocytosis 1+; Blood Morphology Comment NOTED (NOT SEEN); Poikilocytosis 2+
[2020-08-05 18:46] LABS: Urine RBC <5 /HPF (NONE SEEN)
[2020-08-05 18:47] LABS: Urine Bacteria <20 /HPF (<20); Urine Culture Reflex Order REFLEXED; Urine Yeast PRESENT (NONE SEEN)
[2020-08-05 18:48] LABS: Urine Blood NEGATIVE (NEG); Urine Glucose 2+ (NEG); Urine Protein NEGATIVE (NEG); Urine Specific Gravity 1.015 (1.005-1.030)
[2020-08-05] MEDS ORDERED: ACETAMINOPHEN 500 MG TAB PO PRN (19:52)
[2020-08-05] MEDS ORDERED: ONDANSETRON 4 MG/2 ML VIAL IV PRN (19:52)
--- NOTE | 2020-08-05 20:40 | P.HP ---
Certification for Inpatient Patient admitted to: Observation With expected LOS: <2 Midnights Patient will require the following post-hospital care: None Practitioner: I am a practitioner with admitting privileges, knowledge of patient current condition, hospital course, and medical plan of care. Services: Services provided to patient in accordance with Admission requirements found in Title 42 Section 412.3 of the Code of Federal Regulations <Mikey Zhang - Last Filed: 08/05/20 20:36> Patient History Date of Service: 08/05/20 Primary Care Provider: Daniela Brownlee Reason for admission: Hypotension, diarrhea History of Present Illness: 75-year-old female with history of diabetes mellitus type 2, hypertension, hypothyroidism, diverticulosis presents emergency department for abdominal cramping/pain, diarrhea. Patient reports that she has had abdominal pain and diarrhea for the last approximately 2 weeks. Patient had telemedicine visit with her primary care doctor and was prescribed Bactrim/Flagyl as she has history of diverticulitis with previous colectomy. Patient reports that she had colectomy many years back and it provided for symptomatic relief but approximately 1 year ago she began having issues again. Patient was evaluated in the emergency department, workup was relatively unremarkable although patient was clinically dehydrated and became hypotensive with blood pressures in the 60s over 30s. Patient reports that she had been feeling dizzy at home. Patient's blood pressure did respond to fluid resuscitation, initial lactate was 2.5, this decreased to 1.3 sodium 135, creatinine 1.22, GFR 43. AST and ALT mildly elevated [address] abdomen pelvis shows no acute findings. Patient with previous cholecystectomy. ED provider wishes to admit patient under observation for further evaluation and management due to hypotension and diarrhea. When I saw the patient in the emergency department she is awake, alert, oriented x3. Patient complaining of mild generalized abdominal pain, reports multiple episodes of diarrhea per day. No blood mucus or pus in stool reportedly. Patient does not appear septic at this time, will be admitted for further evaluation and management. - Past Medical/Surgical History Diabetic: No -: Diabetes mellitus type 2 -: Hypertension -: Diveriticulitis -: Chronic Pain -: hypothyroidism -: Colectomy -: appy -: hyster -: colon resection -: back sx -: cataract sx Psychosocial/ Personal History: Patient lives at home with her - Family History Family History: Reviewed- Non-Contributory - Social History Alcohol use: No CD- Drugs: No Caffeine use: No Place of Residence: Home <Mikey Zhang - Last Filed: 08/05/20 20:36> Date of Service: 08/07/20 <Jaspreet Kim - Last Filed: 08/07/20 14:31> Allergies codeine Allergy (Verified 06/16/19 13:20) Hives/Rash Home Medications: Amitriptyline [Elavil*] 10 mg PO BEDTIME 06/16/19 Duloxetine [Cymbalta *] 60 mg PO DAILY AT SUPPER 06/16/19 Ezetimibe [Zetia*] 10 mg PO DAILY 06/16/19 Isosorbide Harvey (Bid) [Ismo 10 mg Tab*] 30 mg PO DAILY 06/16/19 Levothyroxine [Synthroid*] 150 mcg PO [id number] 06/16/19 Lisinopril [Zestril] 40 mg PO DAILY 06/16/19 Rivaroxaban [Xarelto*] 10 mg PO DAILY 06/16/19 carisoprodoL [Soma*] 350 mg PO DAILY AFTER SUPPER 06/16/19 Insulin 70/30 NPH/Reg Human [Novolin 70/30*] 32 unit SQ DAILY AT SUPPER 08/05/20 Insulin 70/30 NPH/Reg Human [Novolin 70/30*] 38 unit SQ DAILY WITH BREAKFAST 08/05/20 Ascorbic Acid [Vitamin C*] 500 mg PO TID #90 tablet 08/07/20 Cholecalciferol (Vitamin D3) [Vitamin D 1000 Iu Tab*] 2,000 unit PO DAILY #30 tab 08/07/20 Zinc Sulfate [Zinc Sulfate*] 220 mg PO DAILY #30 cap 08/07/20 Review of Systems 10-point ROS is otherwise unremarkable General: Weakness, Malaise Gastrointestinal: Abdominal Pain, Diarrhea <Mikey Zhang - Last Filed: 08/05/20 20:36> Physical Examination - Physical Exam General: Alert, In no apparent distress HEENT: Atraumatic, PERRLA, Mucous membr. moist/pink Neck: Supple, 2+ carotid pulse no bruit, No LAD Respiratory: Clear to auscultation bilaterally, Normal air movement Cardiovascular: Regular rate/rhythm, Normal S1 S2 Gastrointestinal: Normal bowel sounds, Tenderness (Mild abdominal tenderness in lower quadrants) Musculoskeletal: No tenderness Integumentary: No rashes Neurological: Normal gait, Normal speech, Normal strength at 5/5 x4 extr, Normal tone, Normal affect - Studies Laboratory Data (last 24 hrs) 08/05/20 16:41: WBC 9.0, Hgb 14.0, Hct 41.2, Plt Count 177 08/05/20 16:41: Sodium 135 L, Potassium 4.9, BUN 28 H, Creatinine 1.22, Glucose 348 H, Total Bilirubin 0.3, AST 117 H, ALT 108 H, Alkaline Phosphatase 85, Amylase 50, Lipase 260 08/05/20 16:30: PT 14.1 H, INR 1.20, APTT 24.6 <Mikey Zhang - Last Filed: 08/05/20 20:36> - Studies Microbiology Data (last 24 hrs): 08/05/20 18:30 Clean Catch Urine Douds Count - Final <10,000 CFU/ML. 08/05/20 18:30 Clean Catch Urine - Final MIXED TERRI. <Jaspreet Kim - Last Filed: 08/07/20 14:31> Assessment and Plan - Plan Assessment Dehydration and hypotension secondary to diarrheal illness, suspect mild diverticulitis Diabetes mellitus type 2 Hypertension Hypothyroidism Chronic pain Plan Dehydration and hypotension secondary to diarrheal illness, suspect mild diverticulitis: Blood pressure responded well with IV fluids, lactate improved. Pro calcitonin negative, blood cultures obtained, stool studies obtain. Continue Cipro Flagyl, IV fluids, p.r.n. pain medications. DVT prophylaxis Lovenox 40 mg subcutaneous once daily. Diabetes mellitus type 2: A.c. HS Accu-Cheks, sliding scale insulin therapy Hypertension: Hold blood pressure medications at this time as patient is borderline hypotensive. Hypothyroidism: Obtain and continue home medications, thyroid panel with morning labs. Chronic pain: P.r.n. pain medications. Discharge Plan: Home Plan to discharge in: 24 Hours - Advance Directives Does patient have a Living Will: No Does patient have a Durable POA for Healthcare: No - Code Status/Comfort Care Code Status Assessed: Yes Critical Care: No Time Spent Managing Pts Care (In Minutes): 55 <Mikey Zhang - Last Filed: 08/05/20 20:36> - Plan Plan of care reviewed with Mikey Zhang. Agree with plan as noted above. <Jaspreet Kim - Last Filed: 08/07/20 14:31>
[2020-08-05] MEDS: MORPHINE 2 MG/ML SYR IV PRN (22:52)
[2020-08-05] MEDS: NA CHLORIDE 0.9% 1,000 ML IV SCH (22:52)
[2020-08-05] MEDS: INSULIN -REGULAR HUMAN 50 UNIT/0.5 ML ML SQ SCH (23:11)
[2020-08-06] MEDS ORDERED: METRONIDAZOLE 500mg IVPB 500 MG/100 ML BAG IV SCH (01:00)
[2020-08-06] MEDS: MORPHINE 2 MG/ML SYR IV PRN ×2 (04:58→10:31)
[2020-08-06] MEDS: NA CHLORIDE 0.9% 1,000 ML IV SCH ×5 (05:52→23:05)
[2020-08-06] MEDS: PANTOPRAZOLE 40MG TABLET PO SCH (06:10)
[2020-08-06] MEDS: LEVOTHYROXINE SOD 0.05 MG TABLET PO SCH (06:11)
[2020-08-06 06:27] LABS: Absolute Lymphocytes (CBC) 1.6 K/uL (0.7-4.9); Basophils % 0.2 % (0-1.3); Hematocrit 37.8 % (36.0-45.0); Lymphocytes % 25.1 % (15.3-44.8); MPV 8.7 fL (7.6-11.3); RBC Red Blood Cell Count 4.34 M/uL (3.86-4.86)
[2020-08-06 06:41] LABS: Ferritin 186.3 ng/mL (8-388)
[2020-08-06 06:49] LABS: Albumin 2.9 g/dL (3.4-5.0); Bilirubin Total 0.5 mg/dL (0.2-1.0); Phosphorus 3.2 mg/dL (2.5-4.9)
[2020-08-06 07:20] LABS: C-Reactive Protein < 2.90 mg/L (<3.00)
[2020-08-06 07:21] LABS: Thyroid Stimulating Hormone 4.59 uIU/mL (0.360-3.740)
[2020-08-06] MEDS: INSULIN -REGULAR HUMAN 50 UNIT/0.5 ML ML SQ SCH ×4 (07:30→21:19)
--- NOTE | 2020-08-06 08:08 | RAD REPORT ---
EXAM DESCRIPTION: [facility] Single View08/06/2020 6:11 am CLINICAL HISTORY: Chest pain COMPARISON: May 2020 FINDINGS: The lungs appear clear of acute infiltrate. The heart is normal size IMPRESSION: No acute abnormalities displayed
[2020-08-06] MEDS ORDERED: CIPROFLOXACIN 400 MG/200 ML IVPB IV SCH (09:00)
[2020-08-06] MEDS ORDERED: ISOSORBIDE MONO 10 MG TAB PO SCH (09:00)
[2020-08-06] MEDS ORDERED: CIPROFLOXACIN 400mg IV 400 MG/200 ML BAG IV SCH (09:00)
[2020-08-06] MEDS ORDERED: ENOXAPARIN 40 MG/0.4 ML SQ SCH (09:00)
[2020-08-06] MEDS: RIVAROXABAN 10 MG TABLET PO SCH (10:24)
[2020-08-06] MEDS: EZETIMIBE 10 MG TAB PO SCH (10:24)
[2020-08-06] MEDS: VITAMIN D 1000 UNIT TAB PO SCH (10:25)
[2020-08-06] MEDS: ISOSORBIDE MONO SR 30 MG TAB PO SCH (10:25)
[2020-08-06] MEDS: ASCORBIC ACID 500 MG TABLET PO SCH ×3 (10:25→21:18)
[2020-08-06] MEDS: ZINC SULFATE 220 MG CAP PO SCH (10:25)
[2020-08-06] MEDS: lisinopriL 20 MG TAB PO SCH (10:25)
--- NOTE | 2020-08-06 13:35 | RAD REPORT ---
EXAM DESCRIPTION: US - Liver Only - 08/06/2020 1:18 pm CLINICAL HISTORY: Elevated ast/alt COMPARISON: NM VENT PERFUSION VQ SCAN dated 12/18/2011 FINDINGS: The liver demonstrates diffuse fatty infiltration.No focal liver lesion or intrahepatic bi liary dilatation.No evidence of portal vein thrombosis. The spleen is normal size measuring 9 cm. IMPRESSION: Fatty liver.
[2020-08-06] MEDS ORDERED: GLUCAGON 1 MG/VIAL IM PRN (15:44)
[2020-08-06] MEDS ORDERED: D50W 25 GM/50 ML SYRINGE IV PRN (15:44)
--- NOTE | 2020-08-06 15:45 | P.PN ---
Subjective Date of Service: 08/06/20 Primary Care Provider: Daniela Brownlee Chief Complaint: Hypotension, diarrhea Subjective: No new changes (continues with abdominal pain, now more diffuse no BM overnight, no flatus) Review of Systems 10-point ROS is otherwise unremarkable Physical Examination - Vital Signs Temperature: 97.5 F Blood Pressure: 112/59 Pulse: 71 Respirations: 15 Pulse Ox (%): 97 - Physical Exam General: Alert, In no apparent distress HEENT: Sclerae nonicteric Respiratory: Other (non-labored) Cardiovascular: Regular rate/rhythm Gastrointestinal: Soft and benign, Non-distended, Tenderness (Diffusely, mild) Musculoskeletal: No tenderness Integumentary: No rashes Neurological: Normal speech, Normal affect - Studies Laboratory Data (last 24 hrs) 08/05/20 16:41: WBC 9.0, Hgb 14.0, Hct 41.2, Plt Count 177 08/05/20 16:41: Sodium 135 L, Potassium 4.9, BUN 28 H, Creatinine 1.22, Glucose 348 H, Total Bilirubin 0.3, AST 117 H, ALT 108 H, Alkaline Phosphatase 85, Amylase 50, Lipase 260 08/05/20 16:30: PT 14.1 H, INR 1.20, APTT 24.6 Assessment & Plan Physician Review Additional Text: Dehydration and hypotension secondary to diarrhea related to COVID 19 viral illness elevated LFTs Diabetes mellitus type 2 Hypertension Hypothyroidism Chronic pain Plan Dehydration and hypotension secondary to diarrhea related to COVID 19 viral illness Blood pressure responded well with IV fluids, lactate improved. Was hypertensive overnight and restarted on her blood pressure medication Pro calcitonin negative, blood cultures obtained, stool studies obtain. CRP negative Continue Xarelto for DVT prophylaxis. Continues with some diffuse abdominal pain, was able to tolerate some clear liquids for lunch, will advance to soft for dinner restart home insulin at lower doses, has been hyperglycemic today Continue supportive measures with pain medication and IV fluids elevated LFTS -unclear etiology, patient reports no history of liver issues. review of EMR reveal previous normal LFTS. ?COVID liver damage -CT abdomen reported unremarkable liver -increased this morning -will obtain liver ultrasound -continue to trend Diabetes mellitus type 2: A.c. HS Accu-Cheks, sliding scale insulin therapy Hypertension: Patient's BP more at baseline, continued home meds Hypothyroidism: Continue home meds Chronic pain: P.r.n. pain medications. Dispo: anticipate dc home in 24hrs Time Spent Managing Pts Care (In Minutes): 35
[2020-08-06] MEDS ORDERED: DULOXETINE 20 MG CAP PO SCH (17:00)
[2020-08-06] MEDS ORDERED: INSULIN 70/30 100 UNITS/ML SQ SCH ×2 (17:00)
[2020-08-06] MEDS ORDERED: carisoprodoL 350 MG TAB PO SCH (17:30)
[2020-08-06] MEDS: DULOXETINE 30 MG CAP PO SCH (17:32)
[2020-08-06] MEDS ORDERED: AMITRIPTYLINE 10 MG TAB PO SCH (21:00)
[2020-08-07] MEDS: PANTOPRAZOLE 40MG TABLET PO SCH (05:33)
[2020-08-07] MEDS: LEVOTHYROXINE SOD 0.05 MG TABLET PO SCH (05:33)
[2020-08-07 05:54] LABS: Basophils % 0.3 % (0-1.3); Hematocrit 40.2 % (36.0-45.0); Lymphocytes % 45.7 % (15.3-44.8); MPV 9.5 fL (7.6-11.3); RBC Red Blood Cell Count 4.56 M/uL (3.86-4.86)
[2020-08-07 05:59] VITALS: BMI 34.9
[2020-08-07 06:03] LABS: ALT/SGPT 159 U/L (12-78); AST/SGOT 149 U/L (15-37); Albumin 2.9 g/dL (3.4-5.0); Alkaline Phosphatase 71 U/L (45-117); BUN Blood Urea Nitrogen 11 mg/dL (7-18); Bicarbonate 27 mmol/L (21-32); Bilirubin Total 0.3 mg/dL (0.2-1.0); Glucose Level 220 mg/dL (74-106); Magnesium 2.1 mg/dL (1.8-2.4); Potassium 4.9 mmol/L (3.5-5.1); Protein, Total 6.3 g/dL (6.4-8.2); Sodium Level 138 mmol/L (136-145)
[2020-08-07 06:05] LABS: C-Reactive Protein < 2.90 mg/L (<3.00)
[2020-08-07] MEDS: INSULIN -REGULAR HUMAN 50 UNIT/0.5 ML ML SQ SCH ×2 (07:30→11:17)
[2020-08-07 07:45] VITALS: O2SAT 97
[2020-08-07 07:49] LABS: Blood Morphology Comment NOTED (NOT SEEN); Ovalocytes 1+; Platelet Estimate DECR; Platelets, Giant FEW
[2020-08-07] MEDS: ZINC SULFATE 220 MG CAP PO SCH (07:49)
[2020-08-07] MEDS: ISOSORBIDE MONO SR 30 MG TAB PO SCH (07:49)
[2020-08-07] MEDS: DULOXETINE 30 MG CAP PO SCH (07:49)
[2020-08-07] MEDS: EZETIMIBE 10 MG TAB PO SCH (07:49)
[2020-08-07] MEDS: lisinopriL 20 MG TAB PO SCH (07:49)
[2020-08-07] MEDS: RIVAROXABAN 10 MG TABLET PO SCH (07:49)
[2020-08-07] MEDS: VITAMIN D 1000 UNIT TAB PO SCH (07:50)
[2020-08-07] MEDS: ASCORBIC ACID 500 MG TABLET PO SCH (07:50)
[2020-08-07] MEDS ORDERED: INSULIN 70/30 100 UNITS/ML SQ SCH ×2 (08:00)
--- NOTE | 2020-08-07 10:47 | P.DS ---
Admission Date: 08/05/20 Discharge Date: 08/07/20 Primary Care Provider: Daniela Brownlee Disposition: ROUTINE DISCHARGE Discharge Condition: FAIR Reason for Admission: Hypotension, diarrhea Consultations: None Procedures: None - Problems (1) COVID-19 Status: Acute (2) Enteritis Status: Acute Brief History of Present Illness: 75-year-old woman with a history of diabetes mellitus type 2, hypothyroidism presented to the emergency department with a complaint of abdominal cramps and diarrhea of 2 weeks duration. His PCP prescribed oral ciprofloxacin and Bactrim to treat diarrhea. Patient was noted to be hypotensive. Her blood pressure responded to IV fluid resuscitation in the ED. Patient was called with positive. She was subsequently hospitalized further management. Hospital Course: Patient hospitalizing and given IV fluids. She was also placed on multivitamin supplementation for being quadrant positive.. Patient does not have pneumonia requiring oxygen. Her diarrhea has significantly improved. Patient does not have any abdominal pain. She could not provide a sample for C. diff testing. Patient is deemed clinically stable for discharge. Diarrhea is likely viral in origin. Antibiotics had been discontinued. Vital Signs/Physical Exam: Temp Pulse Resp BP Pulse Ox 96.9 F 82 21 H 145/62 H 95 08/07/20 08:00 08/07/20 08:00 08/07/20 08:00 08/07/20 08:00 08/07/20 08:00 General: Alert, In no apparent distress HEENT: Mucous membr. moist/pink Neck: Supple Cardiovascular: No edema, Regular rate/rhythm, Normal S1 S2 Gastrointestinal: Normal bowel sounds, Non-distended Musculoskeletal: No swelling Integumentary: No rashes Laboratory Data at Discharge: WBC 4.3 K/uL (4.3-10.9) D 08/07/20 05:20 Hgb 13.5 g/dL (12.0-15.0) 08/07/20 05:20 Hct 40.2 % (36.0-45.0) 08/07/20 05:20 Plt Count 108 K/uL (152-406) L 08/07/20 05:20 PT 14.1 SECONDS (9.5-12.5) H 08/05/20 16:30 INR 1.20 08/05/20 16:30 APTT 24.6 SECONDS (24.3-36.9) 08/05/20 16:30 Sodium 138 mmol/L (136-145) 08/07/20 05:20 Potassium 4.9 mmol/L (3.5-5.1) 08/07/20 05:20 BUN 11 mg/dL (7-18) 08/07/20 05:20 Creatinine 0.86 mg/dL (0.55-1.3) 08/07/20 05:20 Glucose 220 mg/dL (74-106) H 08/07/20 05:20 Phosphorus 3.2 mg/dL (2.5-4.9) 08/06/20 06:09 Magnesium 2.1 mg/dL (1.8-2.4) 08/07/20 05:20 Total Bilirubin 0.3 mg/dL (0.2-1.0) 08/07/20 05:20 AST 149 U/L (15-37) H 08/07/20 05:20 ALT 159 U/L (12-78) H 08/07/20 05:20 Alkaline Phosphatase 71 U/L (45-117) 08/07/20 05:20 Amylase 50 U/L (25-115) 08/05/20 16:41 Lipase 260 U/L (73-393) 08/05/20 16:41 Home Medications: Amitriptyline [Elavil*] 10 mg PO BEDTIME 06/16/19 Duloxetine [Cymbalta *] 60 mg PO DAILY AT SUPPER 06/16/19 Ezetimibe [Zetia*] 10 mg PO DAILY 06/16/19 Isosorbide [place] (Bid) [Ismo 10 mg Tab*] 30 mg PO DAILY 06/16/19 Levothyroxine [Synthroid*] 150 mcg PO [id number] 06/16/19 Lisinopril [Zestril] 40 mg PO DAILY 06/16/19 Rivaroxaban [Xarelto*] 10 mg PO DAILY 06/16/19 carisoprodoL [Soma*] 350 mg PO DAILY AFTER SUPPER 06/16/19 Insulin 70/30 NPH/Reg Human [Novolin 70/30*] 32 unit SQ DAILY AT SUPPER 08/05/20 Insulin 70/30 NPH/Reg Human [Novolin 70/30*] 38 unit SQ DAILY WITH BREAKFAST 08/05/20 Ascorbic Acid [Vitamin C*] 500 mg PO TID #90 tablet 08/07/20 Cholecalciferol (Vitamin D3) [Vitamin D 1000 Iu Tab*] 2,000 unit PO DAILY #30 tab 08/07/20 Zinc Sulfate [Zinc Sulfate*] 220 mg PO DAILY #30 cap 08/07/20 New Medications: Ascorbic Acid [Vitamin C*] 500 mg PO TID #90 tablet Cholecalciferol (Vitamin D3) [Vitamin D 1000 Iu Tab*] 2,000 unit PO DAILY #30 tab Zinc Sulfate [Zinc Sulfate*] 220 mg PO DAILY #30 cap Diet: ADA Activity: Ad pat Followup: Unknown,U [Primary Care Provider] - 1-2 Weeks
[2020-08-07 12:56] VITALS: BP 133/61; TEMP 98.2
[2020-08-09 19:11] LABS: HBsAG Nonreactive (Nonreactive)
== END 2020-08-07 13:00 | disposition home or self-care (01) ==
LOC: ER 16:00 → ERHOLD 18:33 → 4TH 21:48 → 3RD-ICU 22:20
PROVIDERS: ADMIT Hospitalist; ATTEND Internal Medicine
DX: U07.1 COVID-19 (principal); K52.9 Noninfective gastroenteritis and colitis, unspecified; E11.9 Type 2 diabetes mellitus without complications; E03.9 Hypothyroidism, unspecified; Z79.4 Long term (current) use of insulin; E86.0 Dehydration; I95.9 Hypotension, unspecified; I10 Essential (primary) hypertension; G89.29 Other chronic pain; K76.0 Fatty (change of) liver, not elsewhere classified; Z86.718 Personal history of other venous thrombosis and embolism; Z86.711 Personal history of pulmonary embolism
CPT/HCPCS: 96365; 96367; 93005; 87040 ×2; 87088; 85025 ×3; 87086; 80048; 36415 ×3; 82150; 83735; 82550; 84100; 85610; 82947 ×7; 80076; 83605 ×2; 85730; 84443; 84484; 82553; 84439; 82728; 83690; 80053 ×2; 84145; 86140 ×2; 80074; 74177; 71045; 76705; 99285; 96366; U0003; Q9967; J2270 ×3; J7030 ×4; J0744; 81003; 81015; J1815

== ENCOUNTER 2022-11-06 07:55 | Emergency (ER) | payer OTHER ==
--- OUTSIDE RECORDS SUMMARY | 2022-11-06 08:07 | XMS REPORT | Continuity of Care Document ---
:1945 Author Organization [facility] t Address [address] [place] [address] [address] [place] [address] Care Team Providers Name Role Phone Daniela Lara Primary Care Physician Unavailable Traci Benavidez Attending Clinician Unavailable FOG_A_Provider Attending Clinician Unavailable Cheryl Elmore MA Attending Clinician Unavailable Lobito Carroll MD Attending Clinician Jayjay_Yudith Attending Clinician Unavailable KEFFER_A Attending Clinician Unavailable Daniela Lara Attending Clinician [phone] NEAL RAMESH Attending Clinician Unavailable keffer_a Attending Clinician Unavailable CARLOS A GALICIA M.D. Attending Clinician Unavailable EDDIE DOMINGO M.D. Attending Clinician Unavailable DENNIS HSU APRN Attending Clinician Unavailable Eddie Domingo Attending Clinician TRACI BENAVIDEZ Attending Clinician Unavailable Kevin Rosado Attending Clinician Nicole Veras Attending Clinician FOG_A_Provider Admitting Clinician Unavailable Mati Admitting Clinician Unavailable DERRICKFFER_Stephanie Admitting Clinician Unavailable keffer_a Admitting Clinician Unavailable Eddie Domingo Admitting Clinician TRCAI BENAVIDEZ Admitting Clinician Unavailable Nicole Veras Admitting Clinician Payers Payer Name Policy Type Policy Number Effective Date Expiration Date S ource [employer] MEDICARE [id number] 2019 2020 ADVANTAGE HMO 00:00:00 00:00:00 [employer] (MEDICARE [id number] REPLACEMENT/ADVAN TAGE - PPO) Problems Condition Condition Condition Status Onset Resolution Last Treating Co mments Source Name Details Category Date Date Treatment Clinician Date Upper Upper Problem Active [place] respirator Respirator 8-02 Co mmuni y y 00:00: ty infection Infection 00 [facility] Pruritus Pruritus Problem Active [place] of skin of Skin 9 Communi 00:00: ty 00 [facility] Vitamin D Vitamin D Problem Active [place] deficiency Deficiency 6-03 Co mmuni 00:00: ty 00 [facility] Clin[facility] Long-term Long-term Problem Active [place] [facility] drug Drug 2-25 Communi therapy Therapy 00:00: ty 00 [facility]ospita l Clinics Dyspnea on Dyspnea on Problem Active S weeny exertion Exertion 2-25 Commun i 00:00: ty 00 [facility]ospita [facility] Clinics Urinary Urinary Problem Active [place] tract Tract 7-08 Communi infectious Infectious 00:00: ty disease Disease 00 Hospita l Clinics Hyperlipid Hyperlipid Problem Active S weeny emia emia 3-20 Communi 00:00: ty 00 [facility] Clin[facility] Low back Low Back Problem Active [place] [facility] pain Pain 9-10 Communi 00:00: ty 00 [facility] Clin[facility] Type 2 Type 2 Problem Active [place] diabetes Diabetes 7- Commun i mellitus Mellitus 00:00: ty 00 [facility]ita [facility] Clinics Essential Essential Problem Active [facility] hypertensi Hypertensi 7-31 Co mmuni on on 00:00: ty 00 Hospita l Clinics Coronary Coronary Problem Active [place] arterioscl Arterioscl 7-31 Co mmuni erosis erosis 00:00: ty 00 Hospita l Clinics Deep Deep Problem Active [place] venous Venous 731 Communi thrombosis Thrombosis 00:00: ty of lower of Lower 00 Hospit a extremity Extremity l Clinics 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 uveitis 5-01 05:00:55 l (disorder) (disorder) 00:00: He rmann Active 00 01/19/2018 Problem 10/01/2019 [facility] LEG PAIN LEG PAIN Diagnosis Active 2016-11-01 Memoria Active 11-01 14:42:00 l 11/01/2016 00:00: [facility] [place] ACUTE ACUTE Diagnosis Active 2016-10-24 Mem oria ONSET ONSET 10-23 13:16:00 l VERTIGO VERTIGO 00:00: [place] W/VOMITING W/VOMITING 00 Active 10/23/2016 [facility] STROKE STROKE Diagnosis Active 2016-10-23 Me moria Active 10-23 09:09:00 l 10/23/2016 00:00: [place] mcrae [address] Coronary Coronary Problem Active 2019-10-01 Memoria arterioscl arterioscl 05-26 05:00:55 l erosis erosis 00:00: Morteza (disorder) (disorder) 00 Active 05/26/2015 Problem 10/01/2019 x1 stent [facility] Disorder Disorder Problem Active 2016-11-04 Memoria of of 04-01 02:48:42 l refraction refraction 00:00: He rmann AND/OR AND/OR 00 accommodat accommodat ion ion (disorder) (disorder) Active 04/01/2013 Problem 11/04/2016 Data migrated from [employer] on 02/17/15. [facility] Primary Primary Problem Active 2016-11-04 Nm nichol open angle open angle 04-01 02:48:42 l glaucoma glaucoma 00:00: Burton mcrae (disorder) (disorder) 00 Active 04/01/2013 Problem 11/04/2016 Data migrated from [employer] on 02/17/15. [facility] Pseudophak Pseudopha Problem Active 2016-11-04 Memoria ia ida 04-01 02:48:42 l (disorder) (disorder) 00:00: He rmann Active 00 04/01/2013 Problem 11/04/2016 Data migrated from [employer] on 02/17/15. [facility] Allergic Allergic Problem Active 2016-11-04 Memoria rhinitis rhinitis 4-11 02:48:42 l (disorder) (disorder) 00:00: He rmann Active 00 12/30/2012 Problem 11/04/2016 Data migrated from [employer] on 02/17/15. 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 [facility] Deep Deep Problem Resolve 2019-10-01 Sami rosana venous venous d 05:00:55 l thrombosis thrombosis He rmleonela (disorder) (disorder) Resolved Problem 10/01/2019 numerous clots over the years, none currently. [facility] Pulmonary Pulmonary Problem Resolve 2019-10-01 Memoria embolism embolism d 05:00:55 l (disorder) (disorder) He rmleonela Resolved Problem 10/01/20191977 and 2011, both after surgery. [facility] Hyperchole Problem Resolve 2016-11-04 Memoria sterolemia Hyperchole d 02:48:42 l (disorder) sterolemia He rmann (disorder) Resolved Problem 11/04/2016 [facility] Arthritis Arthritis Problem Resolve 2016-11-04 Memoria (disorder) (disorder) d 02:48:42 l Resolved [place] Problem 11/04/2016 [facility] Backache Backache Problem Active 2019-10-01 Memoria (finding) (finding) 05:00:55 l Active [place] Problem 10/01/2019 [facility] Depressive Depressiv Problem Active 2019-10-01 Memoria disorder e disorder 05:00:55 l (disorder) (disorder) He rmann Active Problem 10/01/2019 [facility] Diabetes Diabetes Problem Active 2019-10-01 Memoria mellitus mellitus 05:00:55 l (disorder) (disorder) He rmann Active Problem 10/01/2019 FBS around 150-170 [facility] Diverticul Problem Active 2019-10-01 M emoria osis of Diverticul 05:00:55 l colon osis of [place] colon Active Problem 10/01/2019 hospitaliz ed previously due to flare up. [facility] Hypertensi Problem Active 2019-10-01 M emoria ve Hypertensi 05:00:55 l disorder, ve [place]eza systemic disorder, arterial systemic (disorder) arterial (disorder) Active Problem 10/01/2019 [facility] Hypothyroi Hypothyro Problem Active 2019-10-01 Memoria dism idism 05:00:55 l (disorder) (disorder) He rmann Active Problem 10/01/2019 [facility] Insomnia Insomnia Problem Active 2019-10-01 Memoria (disorder) (disorder) 05:00:55 l Active [place] Problem 10/01/2019 [facility] Dyspnea Dyspnea Problem Active 2019-10-01 Me moria (finding) (finding) 05:00:55 l Active [place] Problem 10/01/2019 [facility] Shoulder Shoulder Problem Active 2019-10-01 Memoria pain pain 05:00:55 l (finding) (finding) Herm leonela Active Problem 10/01/2019 [facility] Benign Benign Problem Active 2016-11-04 Sami rosana hypertensi hypertensi 02:48:42 l on on [place] (disorder) (disorder) Active Problem 11/04/2016 Data migrated from [employer] on 02/17/15. [facility] Osteoarthr Osteoarth Problem Active 2016-11-04 Memoria itis ritis 02:48:42 l (disorder) (disorder) He rmann Active Problem 11/04/2016 Data migrated from [employer] on 02/17/15. [facility] DIZZINESS DIZZINESS Diagnosis Active 2016-10-24 Memoria AND AND 13:16:00 l GIDDINESS GIDDINESS Herm leonela Active [facility] History of History of Problem Resolve [facility] Rotator Rotator d Physici cuff tear, cuff tear, an s left left Essential Essential Problem Active [facility] (primary) (primary) Phys ici hypertensi hypertensi an s on on Hypothyroi Hypothyroi Problem Active U T dism dism Physici ans Depression Depression Problem Active U T Physici ans High High Problem Active UT cholestero cholestero Ph ysici l l ans Diabetes Diabetes Problem Active UT mellitus, mellitus, Phys ici type 2 type 2 ans Heart Heart Problem Active UT disease disease Physici ans Subacromia Subacromia Problem Active U T l l Physici impingemen impingemen an s t of left t of left shoulder shoulder Partial Partial Problem Active UT tear of tear of Physici left left ans rotator rotator cuff cuff Strain of Strain of Problem Active [facility] muscle, muscle, Physici fascia and fascia and an s tendon of tendon of long head long head of biceps, of biceps, left arm, left arm, subsequent subsequent encounter encounter Adhesive Adhesive Problem Active UT capsulitis capsulitis Ph ysici of left of left ans shoulder shoulder Left Left Problem Active UT shoulder shoulder Physic i pain pain ans Status Status Problem Active UT post post Physici subacromia subacromia an s l l decompress decompress ion ion Low back Low back Problem Active [facility] pain pain Physici ans History of Past Illness Condition Condition Condition Status Onset Resolution Last Treating Co mments Source Name Details Category Date Date Treatment Clinician Date Screening Screening Problem Inactiv 2019-10-01 2019-10-01 Memoria for for e 09-21 05:00:55 05:00:55 l tuberculos tuberculos 00:00: He fiordaliza is using is using 00 gamma gamma interferon interferon assay assay Inactive 09/21/2017 Problem 10/01/2019 Record of treatment in chart [facility] Allergies, Adverse Reactions, Alerts Allergy Allergy Status Severity Reaction(s) Onset Inactive Treating Comm ents Source Name Type Date Date Clinician Amlodipi Propensi Active Other (See Nm thodi ne ty to Comments) 09-23 st adverse 00:00: Hospita reaction 00 l s to drug Oxycodon Propensi Active Other (See Data Nm thodi e-Aspiri ty to Comments) 09-[address] n adverse 00:00: from [facility] Hospita reaction 00 Centric[facility] l s to y on drug 01/16/15. Originall y documente d as PERCODAN. Data migrated from [facility] Cent[facility] on 01/16/15. Originall y documente d as PERCODAN. Statins- Propensi Active Other (See Data Me thodi Hmg-Coa ty to Comments) 09-[address] Reductas adverse 00:00: from [facility] Hospit a e reaction 00 Centricit l Inhibito s to y on rs drug 01/16/15. Originall y documente d as LIPITOR.D malia migrated from [facility] Cent[facility] on 01/16/15. Originall y documente d as ZOCOR.Audie a migrated from [facility] Cent[facility] on 01/16/15. Originall y documente d as LIPITOR.D malia migrated from [facility] Centricit y on 01/16/15. Originall y documente d as ZOCOR. Statins- DA Active U Unknown 2020-09 [facility] HMG-CoA 10-01 Reductas 00:00: e 00 Inhibito r codeine DA Active U Unknown 2020-09 [facility] 10-01 00:00: 00 Codeine Propensi Active GI Data Methodi ty to Intolerance 2-[address] adverse 00:00: from [facility] Hospita reaction 00 Centricit l s to y on drug 11/21/15. Originall y documente d as CODEINE.D malia migrated from [facility] Cent[facility] on 11/21/15. Originall y documente d as CODEINE. Hydrocod Propensi Active GI Method i one ty to Intolerance 2-13 st adverse 00:00: Hospita reaction 00 l s to drug Amlodipi Allergy Active Moderate Headache Swe jose ne to to severe Communi substanc ty e Hospita l Clinics STATINS- Allergy Active [place] HMG-COA to Communi REDUCTAS substanc ty E e Hospita INHIBITO l RS Clinics codeine Allergy Active UT to drug Physici (finding ans ) atorvast atorvast Active Memori a atin<sup atin<sup l >3</sup> >3</sup> Burton n codeine< codeine< Active Memori a sup>4</s sup>4</s l up> up> Morteza guanFACI guanFACI Active Memori a NE<sup>5 NE<sup>5 l </sup> </sup> Morteza simvasta simvasta Active Memori a tin<sup> tin<sup> l 6</sup> 6</sup> Morteza sulfa sulfa Active Memoria drugs<yuan drugs<yuan l p>7</sup p>7</sup Burton n > > HYDROcod HYDROcod Active Memori a one one l [place] aliskire aliskire Active Memori a n<sup>1< n<sup>1< l /sup> /sup> Morteza aspirin- aspirin- Active Memori a oxyCODON oxyCODON l E<sup>2< E<sup>2< Burton n /sup> /sup> Family History Family Member Diagnosis Comments Start Date Stop Date Source Natural brother Diabetes [facility] [place] father Diabetes [facility] [place] father Heart disease [facility] father Hypertension [facility] Maternal uncle Obesity [facility] [place] mother Diabetes [facility] [place] mother Heart disease [facility] mother Hyperlipidemia [facility] mother [facility]pertension [facility] sister [facility] Social History Social Habit Start Date Stop Date Quantity Comments Source History [facility] Drinks History [facility] Alcohol intake 2022-07-23 2022-07-23 [facility] 00:00:00 00:00:00 non-drinker Hospital (finding) Tobacco use and 2021-09-23 2021-09-23 Smokeless tobacco Me thodist exposure 00:00:00 00:00:00 non-user Hospital History SDOH 2021-09-23 2021-09-23 1 [facility] Alcohol Frequency 00:00:00 00:00:00 Hospita l Social History 2016-10-23 2016-10-23 [facility] 16:35:26 16:35:26 Sex Ass[birth year] At [birth year] [facility] 00:00:00 00:00:00 Hospital Smoking Status Start Date Stop Date Source Never Smoker [facility] Medications Ordered Filled Start Stop Current Ordering Indication Dosage Frequency Signature Comments Components Source Medication Medication Date Date Medication? Clinician (SIG) Name Name ezetimibe 2021-09 Yes 10mg QD Take 10 mg Me thodi (ZETIA) [address] mg tablet 09:43: daily. Hospit a 09 l famotidine 2021-09 Yes 1{tbl} Take 1 Met hodi (PEPCID 1-[address] ORAL) 09:43: mouth. Hospita 09 l bimatoprost 2021-09 Yes 1[drp] QD 1 drop Me thodi (LUMIGAN) 09-[address] 0.01 % 09:43: Hospita ophthalmic 09 l drops acetaminoph 2021-09 Yes 500mg Q6H Take 500 M ethodi en 1-[address] (TYLENOL) 09:43: mouth Hospita 500 MG 09 every 6 l tablet (six) hours as needed for mild pain. aspirin/sheila 2021-09 Yes Take by Met hodi taminophen/ [address] caffeine 09:43: needed. Hospit a (EXCEDRIN 09 l MIGRAINE ORAL) diphenhydrA 2021-09 Yes 50mg Q6H Take 50 mg Methodi MINE [address] (BENADRYL) 09:43: every 6 Hosp mary 50 MG 09 (six) l capsule hours as needed for itching. pioglitazon 2021-09 Yes 30mg QD Take 1 Meth cruzito e (ACTOS) 09-22 tablet (30 st 30 MG 00:00: mg total) Hospita tablet 00 by mouth l every morning. pioglitazon 2021-09 No TAKE 1 Met hodi e (ACTOS) 0-18 - TABLET BY st 30 MG 00:00: 00:00 MOUTH IN Hospita tablet 00 :00 [place] [id number] 75mg Take 75 mg Methodi (NUCYNTA) 03-[address] 75 mg 17:08: 00:00 as needed Hospit a tablet 26 :00 .acute l pain. lisinopriL No 40mg QD Take 40 mg Methodi (PRINIVIL) 03-[address] 40 mg 16:57: 00:00 daily. Hospita tablet 23 :00 l carisoprodo No 350mg Take 350 Methodi L (SOMA) 03-25 07-[address] 350 MG 16:57: 00:00 mouth as Hospit a tablet 16 :00 needed for l muscle spasms. levothyroxi Yes Take 1 Meth cruzito ne -[address] (SYNTHROID) 00:00: daily Hospi ta 175 mcg 00 Thu-Thu l tablet and take a half tablet on Sundays. NovoLOG Mix Yes 40 units Me thodi 70-30FlexPe 3-[address] n U-100 100 00:00: units PM Ho spita unit/mL 00 l (70-30) insulin pen pioglitazon 2021- No 30mg QD Take 1 Met hodi e (ACTOS) 11-27 tablet (30 st 30 MG 00:00: 00:00 mg total) Hospit a tablet 00 :00 by mouth l in the morning. empaglifloz 2021- No 25mg QD Take 1 Met hodi in 11-27 tablet (25 st (Jardiance) 00:00: 00:00 mg total) Hospita 25 mg 00 :00 by mouth l tablet in the morning. levothyroxi 2021- No 175ug Q24H Take 1 Me thodi ne 11-[address] (SYNTHROID) 00:00: 00:00 (175 mcg H ospita 175 mcg 00 :00 total) by l tablet mouth in the morning. flash Yes [id number] 1{devic 1 Device Me thodi glucose 1-03 e} continuous st scanning 00:00: ly. Hospita reader 00 l (FreeStyle Harjit 14 Day Celina) [facility] flash Yes [id number] 1{devic Q14D 1 Device Me thodi glucose 1-03 e} every 14 st sensor 00:00: (fourteen) Hospi ta (FreeStyle 00 days. l Harjit 14 Day Sensor) kit empaglifloz 2021- No 25mg QD Take 1 Met hodi in 09-2309 tablet (25 st (Jardiance) 00:00: 00:00 mg total) Hospita 25 mg 00 :00 by mouth l tablet daily. pioglitazon 2021- No 30mg QD Take 1 Met hodi e (ACTOS) 09-23 tablet (30 st 30 MG 00:00: 00:00 mg total) Hospit a tablet 00 :00 by mouth l daily. NovoLOG Mix 2020-09- No Q.5D Inject Met hodi 70-30FlexPe 10-[address] n U-100 100 00:00: 00:00 skin 2 Hos stanislav unit/mL 00 :00 (two) l (70-30) times a insulin pen day. 46 units am 36 units pm meloxicam 2020-09 Yes 15mg QD Take 1 Method i (MOBIC) 15 0-[address] mg tablet 00:00: mouth Hospita 00 daily. l Misc 2020-0 No 700 mL, Memoria Medication 09-29 Soln-IV, l 21:24: IV, Once, first dose 09/29/19 15:24:00 HYDRAULIC JACK MECHANIC, stop date 09/29/19 15:24:00 HYDRAULIC JACK MECHANIC Misc 2020-0 No 700 mL, Memoria Medication 09-29 Soln-IV, l 21:24: IV, Once, 00 first dose 09/29/19 15:24:00 HYDRAULIC JACK MECHANIC, stop date 09/29/19 15:24:00 HYDRAULIC JACK MECHANIC fentaNYL 2020-0 No 75 mcg = Memor ia - 1.5 mL, l 21:20: Injection, Morteza 00 IV, Once, first dose 09/29/19 15:20:00 HYDRAULIC JACK MECHANIC, stop date 09/29/19 15:20:00 HYDRAULIC JACK MECHANIC fentaNYL 2020-0 No 75 mcg = Memor ia 09-29 1.5 mL, l 21:20: Injection, Morteza 00 IV, Once, first dose 09/29/19 15:20:00 HYDRAULIC JACK MECHANIC, stop date 09/29/19 15:20:00 HYDRAULIC JACK MECHANIC ondansetron 2020-0 No 4 mg = 2 Me moria 1-09 mL, l 21:15: Injection, [place] 00 IV, Once, first dose 09/29/19 15:15:00 HYDRAULIC JACK MECHANIC, stop date 09/29/19 15:15:00 HYDRAULIC JACK MECHANIC ondansetron 2020-0 No 4 mg = 2 Me moria 1-09 mL, l 21:15: Injection, [place] 00 IV, Once, first dose 09/29/19 15:15:00 HYDRAULIC JACK MECHANIC, stop date 09/29/19 15:15:00 HYDRAULIC JACK MECHANIC phenylephri 2020-0 No 0.1 mg = Me moria ne 1-09 0.01 mL, l 20:37: Injection, [place] 00 IV, Once, first dose 09/29/19 14:37:00 HYDRAULIC JACK MECHANIC, stop date 09/29/19 14:37:00 HYDRAULIC JACK MECHANIC phenylephri 2020-0 No 0.1 mg = Me moria ne 1-09 0.01 mL, l 20:37: Injection, [place] 00 IV, Once, first dose 09/29/19 14:37:00 HYDRAULIC JACK MECHANIC, stop date 09/29/19 14:37:00 HYDRAULIC JACK MECHANIC fentaNYL 2020-0 No 25 mcg = Memor ia 1-09 0.5 mL, l 20:26: Injection, Morteza 00 IV, Once, first dose 09/29/19 14:26:00 HYDRAULIC JACK MECHANIC, stop date 09/29/19 14:26:00 HYDRAULIC JACK MECHANIC fentaNYL 2020-0 No 25 mcg = Memor ia 1-09 0.5 mL, l 20:26: Injection, [place] 00 IV, Once, first dose 09/29/19 14:26:00 HYDRAULIC JACK MECHANIC, stop date 09/29/19 14:26:00 HYDRAULIC JACK MECHANIC Misc 2020-0 No 1,000 mL, Memoria Medication - Soln-IV, l 19:58: IV, Once, first dose 09/29/19 13:58:00 HYDRAULIC JACK MECHANIC, stop date 09/29/19 13:58:00 HYDRAULIC JACK MECHANIC Misc 2020-0 No 1,000 mL, Memoria Medication - Soln-IV, l 19:58: IV, Once, first dose 09/29/19 13:58:00 HYDRAULIC JACK MECHANIC, stop date 09/29/19 13:58:00 HYDRAULIC JACK MECHANIC ceFAZolin 2020-0 No 2 gm, Memoria 1-09 Soln-IV, l 19:44: IV Morteza 00 Piggyback, Once, first dose 09/29/19 13:44:00 HYDRAULIC JACK MECHANIC, stop date 09/29/19 13:44:00 HYDRAULIC JACK MECHANIC ceFAZolin 2020-0 No 2 gm, Memoria 1- Soln-IV, l 19:44: IV [place] 00 Piggyback, Once, first dose 09/29/19 13:44:00 HYDRAULIC JACK MECHANIC, stop date 09/29/19 13:44:00 HYDRAULIC JACK MECHANIC Bupivacaine 2020-0 No 300 mL, Mem oria 0.25% 300 1-09 Nerve l mL pump 300 19:36: Block, 5 He rmann mL 00 mL/hr, start date 09/29/19 13:36:00 HYDRAULIC JACK MECHANIC Saline Lock 2020-0 No 10 mL, Sami rosana Flush -09 Soln, IV l 19:36: Push, As Morteza Indicated PRN for flush, first dose 09/29/19 13:36:00 HYDRAULIC JACK MECHANIC LR 1,000 mL 2020-0 No 1,000 mL, M emoria 1-09 IV, 75 l 19:36: mL/hr, start date 09/29/19 13:36:00 HYDRAULIC JACK MECHANIC Demerol HCl 2020-0 No 12.5 mg = M emoria 1-09 0.5 mL, l 19:36: Injection, [place] 00 IV Push, Once PRN for shivers, first dose 09/29/19 13:36:00 HYDRAULIC JACK MECHANIC Levalbutero 2020-0 No 0.63 mg = M emoria l 0.21 1-09 3 mL, l MG/ML 19:36: Soln, NEB, Burton n Inhalant 00 Once PRN Solution for [Xopenex] wheezing, first dose 09/29/19 13:36:00 HYDRAULIC JACK MECHANIC Ondansetron 2020-0 No 4 mg = 2 Me moria 1-09 mL, l 19:36: Injection, IV Push, q15min PRN for nausea, order duration: 2 doses, first dose 09/29/19 13:36:00 HYDRAULIC JACK MECHANIC, stop date Limited # of times Promethazin 2020-0 No 12.5 mg = M emoria e 1-09 0.5 mL, l 19:36: Injection, [place] 00 IM, Once PRN for vomiting, first dose 09/29/19 13:36:00 HYDRAULIC JACK MECHANIC Dilaudid 2020-0 No 0.5 mg = Memor ia 1-09 0.5 mL, l 19:36: Injection, Morteza 00 IV Push, q10min PRN for pain severe (7-10), first dose 09/29/19 13:36:00 HYDRAULIC JACK MECHANIC Labetalol 2020-0 No 5 mg = 1 Sami rosana 1-09 mL, l 19:36: Injection, IV Push, As Indicated PRN for hypertensi on, first dose 09/29/19 13:36:00 HYDRAULIC JACK MECHANIC Hydralazine 2020-0 No 10 mg = Mem oria 1-09 0.5 mL, l 19:36: Injection, IV Push, As Indicated PRN for hypertensi on, first dose 09/29/19 13:36:00 HYDRAULIC JACK MECHANIC Diphenhydra 2020-0 No 25 mg = Mem oria mine -09 0.5 mL, l 19:36: Injection, IV Push, Once PRN for itching, first dose 09/29/19 13:36:00 HYDRAULIC JACK MECHANIC Bupivacaine 2020-0 No 300 mL, Mem oria 0.25% 300 09-29 Nerve l mL pump 300 19:36: Block, 5 He rmann mL 00 mL/hr, start date 09/29/19 13:36:00 HYDRAULIC JACK MECHANIC Saline Lock 2019-0 No 10 mL, Sami rosana Flush 09-29 Soln, IV l 19:36: Push, As Indicated PRN for flush, first dose 09/29/19 13:36:00 HYDRAULIC JACK MECHANIC LR 1,000 mL 2020-0 No 1,000 mL, M emoria -09 IV, 75 l 19:36: mL/hr, start date 09/29/19 13:36:00 HYDRAULIC JACK MECHANIC Demerol HCl 2020-0 No 12.5 mg = M emoria 1-09 0.5 mL, l 19:36: Injection, IV Push, Once PRN for shivers, first dose 09/29/19 13:36:00 HYDRAULIC JACK MECHANIC Levalbutero 2020-0 No 0.63 mg = M emoria l 0.21 09-29 3 mL, l MG/ML 19:36: Soln, NEB, Burton n Inhalant 00 Once PRN Solution for [Xopenex] wheezing, first dose 09/29/19 13:36:00 HYDRAULIC JACK MECHANIC Ondansetron 2020-0 No 4 mg = 2 Me moria 1-09 mL, l 19:36: Injection, IV Push, q15min PRN for nausea, order duration: 2 doses, first dose 09/29/19 13:36:00 HYDRAULIC JACK MECHANIC, stop date Limited # of times Promethazin 2020-0 No 12.5 mg = M emoria e 1-09 0.5 mL, l 19:36: Injection, [place] 00 IM, Once PRN for vomiting, first dose 09/29/19 13:36:00 HYDRAULIC JACK MECHANIC Dilaudid 2020-0 No 0.5 mg = Memor ia 1-09 0.5 mL, l 19:36: Injection, Morteza 00 IV Push, q10min PRN for pain severe (7-10), first dose 09/29/19 13:36:00 HYDRAULIC JACK MECHANIC Labetalol 2020-0 No 5 mg = 1 Sami rosana 1-09 mL, l 19:36: Injection, [place] 00 IV Push, As Indicated PRN for hypertensi on, first dose 09/29/19 13:36:00 [employer]AULIC J[employer] MECH[employer]IC Hydralazine 2020-0 No 10 mg = Mem oria 1-09 0.5 mL, l 19:36: Injection, [place] 00 IV Push, As Indicated PRN for hypertensi on, first dose 09/29/19 13:36:00 [employer] Diphenhydra 2020-0 No 25 mg = Mem oria mine 1-09 0.5 mL, l 19:36: Injection, [place] 00 IV Push, Once PRN for itching, first dose 09/29/19 13:36:00 HY[employer]AULIC J[employer]CH[employer]IC ondansetron 2020-0 No 4 mg = 2 Me moria 1-09 mL, l 19:33: Injection, [place] 00 IV, Once, first dose 09/29/19 13:33:00 HYDRAULIC JACK MECHANIC, stop date 09/29/19 13:33:00 HYDRAULIC J[employer] MECH[employer]IC dexamethaso 2020-0 No 4 mg = 1 Me moria ne 1-09 mL, l 19:33: Injection, [place] 00 IV, Once, first dose 09/29/19 13:33:00 HYDRAULIC J[employer] MECHANIC, stop date 09/29/19 13:33:00 HYDRAULIC J[employer] MECH[employer]IC ketorolac 2020-0 No 15 mg = Memor ia 1-09 0.5 mL, l 19:33: Injection, [place] 00 IV, Once, first dose 09/29/19 13:33:00 HYDRAULIC JACK MECHANIC, stop date 09/29/19 13:33:00 HYDRAULIC J[employer] MECH[employer]IC ondansetron 2020-0 No 4 mg = 2 Me moria 1-09 mL, l 19:33: Injection, [place] 00 IV, Once, first dose 09/29/19 13:33:00 HYDRAULIC J[employer] MECHANIC, stop date 09/29/19 13:33:00 HYDRAULIC J[employer] MECH[employer]IC dexamethaso 2020-0 No 4 mg = 1 Me moria ne 1-09 mL, l 19:33: Injection, [place] 00 IV, Once, first dose 09/29/19 13:33:00 HYDRAULIC J[employer] MECHANIC, stop date 09/29/19 13:33:00 HYDRAULIC J[employer] MECH[employer]IC ketorolac 2020-0 No 15 mg = Memor ia 1-09 0.5 mL, l 19:33: Injection, [place] 00 IV, Once, first dose 09/29/19 13:33:00 HYDRAULIC J[employer] MECH[employer]IC, stop date 09/29/19 13:33:00 HYDRAULIC J[employer] MECH[employer]IC lidocaine 2020-0 No 60 mg = 3 Mem oria 1-09 mL, l 19:28: Injection, [place] 00 IV, Once, first dose 09/29/19 13:28:00 HYDRAULIC J[employer]CHANIC, stop date 09/29/19 13:28:00 HYDRAULIC J[employer]CH[employer]IC propofol 2020-0 No 100 mg = Memor ia 1-09 10 mL, l 19:28: Emulsion, [place] 00 IV, Once, first dose 09/29/19 13:28:00 HYDRAULIC J[employer]IC, stop date 09/29/19 13:28:00 HYDRAULIC J[employer]CH[employer]IC lidocaine 2020-0 No 60 mg = 3 Mem oria 1-09 mL, l 19:28: Injection, [place] 00 IV, Once, first dose 09/29/19 13:28:00 HYDRAULIC J[employer] MECH[employer]IC, stop date 09/29/19 13:28:00 HYDRAULIC J[employer] MECH[employer]IC propofol 2020-0 No 100 mg = Memor ia 1-09 10 mL, l 19:28: Emulsion, [place] 00 IV, Once, first dose 09/29/19 13:28:00 HYDRAULIC J[employer] MECHANIC, stop date 09/29/19 13:28:00 HYDRAULIC J[employer] MECH[employer]IC fentaNYL 2020-0 No 50 mcg = 1 Mem oria 1-09 mL, l 19:26: Injection, [place] 00 IV, Once, first dose 09/29/19 13:26:00 HYDRAULIC J[employer]CH[employer]IC, stop date 09/29/19 13:26:00 HYDRAULIC J[employer]CH[employer]IC midazolam 2020-0 No 1 mg = 1 Sami rosana 1-09 mL, l 19:26: Injection, [place] 00 IV, Once, first dose 09/29/19 13:26:00 HYDRAULIC J[employer]CH[employer]IC, stop date 09/29/19 13:26:00 HYDRAULIC J[employer] MECH[employer]IC fentaNYL 2020-0 No 50 mcg = 1 Mem oria 1-09 mL, l 19:26: Injection, [place] 00 IV, Once, first dose 09/29/19 13:26:00 HYDRAULIC J[employer]CHANIC, stop date 09/29/19 13:26:00 HYDRAULIC J[employer]CH[employer]IC midazolam 2020-0 No 1 mg = 1 Sami rosana 1-09 mL, l 19:26: Injection, [place] 00 IV, Once, first dose 09/29/19 13:26:00 HYDRAULIC J[employer] MECHANIC, stop date 09/29/19 13:26:00 HYDRAULIC JACK MECH[employer]IC fentaNYL 2020-0 No 50 mcg = 1 Mem oria 1-09 mL, l 19:08: Injection, [place] 00 IV, Once, first dose 09/29/19 13:08:00 HYDRAULIC J[employer]CH[employer]IC, stop date 09/29/19 13:08:00 HYDRAULIC J[employer] MECH[employer]IC midazolam 2020-0 No 1 mg = 1 Sami rosana 1-09 mL, l 19:08: Injection, [place] 00 IV, Once, first dose 09/29/19 13:08:00 HYDRAULIC J[employer]CHANIC, stop date 09/29/19 13:08:00 HYDRAULIC JACK MECH[employer]IC fentaNYL 2020-0 No 50 mcg = 1 Mem oria 1-09 mL, l 19:08: Injection, [place] 00 IV, Once, first dose 09/29/19 13:08:00 HYDRAULIC J[employer]CHANIC, stop date 09/29/19 13:08:00 HYDRAULIC J[employer] MECH[employer]IC midazolam 2020-0 No 1 mg = 1 Sami rosana 1-09 mL, l 19:08: Injection, [place] 00 IV, Once, first dose 09/29/19 13:08:00 HYDRAULIC J[employer]CH[employer]IC, stop date 09/29/19 13:08:00 HYDRAULIC J[employer]CH[employer]IC Cefazolin 2020-0 No 2 gm, Memoria - Soln-IV, l 19:00: IV [place] 00 Piggyback, Once, infuse over 30 minutes, first dose 09/29/19 13:00:00 HYDRAULIC J[employer]CH[employer]IC, stop date 09/29/19 13:00:00 HY[employer]IC [employer]CH[employer]IC, patient weight 50-120 kg, Prophylaxi s Cefazolin 2020-0 No 2 gm, Memoria 1- Soln-IV, l 19:00: IV [place] 00 Piggyback, Once, infuse over 30 minutes, first dose 09/29/19 13:00:00 HYDRAULIC J[employer]CH[employer]IC, stop date 09/29/19 13:00:00 HYDRA[employer]IC J[employer]CH[employer]IC, patient weight 50-120 kg, Prophylaxi s LR 1,000 mL 2020-0 No 1,000 mL, M emoria 1-09 IV, 30 l 18:06: mL/hr, Omrteza start date 09/29/19 12:06:00 HYDRAULIC J[employer]IC Lidocaine 2020-0 No 0.2 mL, Memor ia 2% 0.2 mL 09-29 Injection, l IV Start 18:06: Subcutaneo [facility] [[facility]] 00 us, Once PRN for other (see comment), first dose 09/29/19 12:06:00 HYDRAULIC JACK MECH[employer]IC LR 1,000 mL 2020-0 No 1,000 mL, M emoria 1-09 IV, 30 l 18:06: mL/hr, [place] start date 09/29/19 12:06:00 HYDRAULIC JACK MECH[employer]IC Lidocaine 2020-0 No 0.2 mL, Memor ia 2% 0.2 mL 09-29 Injection, l [facility] us, Once PRN for other (see comment), first dose 09/29/19 12:06:00 HYDRAULIC JACK MECHANIC traMADol traMADol 2019-0 Yes EDDIE 1-2 PO Q UT HCl - 50 MG HCl - 50 MG 1- DOMINGO M.D. 5-6 HRS Physici Oral Tablet Oral Tablet 00:00: PRN PAIN ans 00 NovoLOG Mix 2018-09 Yes 44 units, M emoria 70/30 2-19 Subcutaneo l FlexPen 19:57: us, Daily, Herm leonela DM NovoLOG Mix 2018-09 Yes 44 units, M emoria 70/30 2-19 Subcutaneo l FlexPen 19:57: us, Daily, Herm leonela 00 DM lisinopril 2018-09 Yes 40 mg = 1 Me moria 40 mg oral 2-19 tabs, l tablet 19:54: Oral, qHS, [place] nn 00 HTN Diphenhydra 2018-09 Yes 50 mg = 1 M emoria [...] tabs, l oral tablet 19:54: Oral, qHS, [place] 00 PRN as needed for pain ezetimibe [...] tabs, l oral tablet 19:54: Oral, qHS, [place] 00 Insomnia levothyroxi 2018-09 Yes 175 mcg = M emoria ne 175 mcg 2-19 1 tabs, l (0.175 mg) 19:54: Oral, qHS, H ermann oral tablet 00 Hypothyroi dism lisinopril 2018-09 Yes 40 mg = 1 Me moria 40 mg oral 2-19 tabs, l tablet 19:54: Oral, qHS, [place] nn 00 HTN Diphenhydra 2018-09 Yes 50 mg = 1 M emoria [...] H ermann oral tablet 00 Hypothyroi dism levothyroxi 2018-09- No 1{tbl} Q24H Take 1 M ethodi ne 2-19 03-[address] (SYNTHROID) 00:00: 00:00 mouth [facility]osp [facility] 175 mcg 00 :00 daily. l tablet rivaroxaban Yes 10mg QD Take 1 Meth cruzito (XARELTO) 9-[address] 10 mg 00:00: mouth [facility]ospita tablet 00 daily. l Morphine No 5 mg, Memoria 2-11 Route: IM, l 20:43: ONCE, Dosing Weight 113.636, kg, Priority: STAT, Start date: 11/01/16 14:43:00 HYDRAULIC J[employer]IC, Stop date: 11/01/16 14:43:00 HYDRAULIC J[employer]IC Morphine No 5 mg, Memoria 2-11 Route: IM, l 20:43: ONCE, [place] 00 Dosing Weight 113.636, kg, Priority: STAT, Start date: 11/01/16 14:43:00 HYDRA[employer]IC J[employer]CH[employer]IC, Stop date: 11/01/16 14:43:00 HYDRAULIC JACK MECH[employer]IC Imdur No Notes: Memoria 2-03 (Same l 15:00: as:Imdur) "Do Not Crush" Take on empty stomach/ full glass of water. Do not crush Lisinopril No Notes: Memor ia 2-03 (Same as: l 15:00: Prinivil, [place] 00 Zestril) Cymbalta No Notes: Memoria 2-03 (Same as: l 15:00: Cymbalta) [place] 00 (Do Not Crush) Mobic No Notes: Memoria 2-03 (Same as: l 15:00: Mobic) [place] 00 Plavix No Notes: Memoria 2-03 (Same As: l 15:00: Plavix) NovoLOG No 33 unit, Memori a 70/30 2-03 0.33 mL, l 15:00: Route: [place] SUB-Q, Drug form: SUSP, QAM, Start date: 10/24/16 9:00:00 HYDRAULIC JACK MECHANIC, Duration: 30 day, Stop date: 11/22/16 9:00:00 HYDRAULIC JACK MECHANIC Imdur No Notes: Memoria 2-03 (Same l 15:00: as:Imdur) [place] 00 "Do Not Crush" Take on empty stomach/ full glass of water. Do not crush Lisinopril No Notes: Memor ia 2-03 (Same as: l 15:00: Prinivil, [place] Zestril) Cymbalta No Notes: Memoria 2-03 (Same as: l 15:00: Cymbalta) [place] 00 (Do Not Crush) Mobic No Notes: Memoria 2-03 (Same as: l 15:00: Mobic) [place] 00 Plavix No Notes: Memoria 2-03 (Same As: l 15:00: Plavix) NovoLOG No 33 unit, Memori a 70/30 2-03 0.33 mL, l 15:00: Route: [place] 00 SUB-Q, Drug form: SUSP, QAM, Start date: 10/24/16 9:00:00 HYDRAULIC JACK MECHANIC, Duration: 30 day, Stop date: 11/22/16 9:00:00 HYDRAULIC JACK MECHANIC Thyroxine No Notes: Memori a 2-03 Take 1 l 12:30: hour [place] 00 before or 2 hours after meal; Enteral feeds may interefere with the absorption of this medication .(Same as:Levothr oid) Thyroxine No Notes: Memori a 2-03 Take 1 l 12:30: hour [place] 00 before or 2 hours after meal; Enteral feeds may interefere with the absorption of this medication .(Same as:Levothr oid) Zetia No Notes: Memoria 2-03 (Same as: l 03:00: Zetia) [place] Saline No Notes: Memoria Flush 0.9% 2-03 (Same as: l 03:00: BD [place] 00 Posiflush) Amitriptyli No Notes: Sami rosana ne 2-03 (Same as: l 03:00: Elavil) [place] 00 NovoLOG No Notes: Memoria 70/30 2-03 (Same as: l 03:00: NovoLOG Mix 30) WASTE: F/P - Black; E - Municipal Trash Bin Zetia No Notes: Memoria 2-03 (Same as: l 03:00: Zetia) [place] 00 Saline No Notes: Memoria Flush 0.9% 10-24 (Same as: l 03:00: BD Posiflush) Amitriptyli No Notes: Sami rosana ne 10-24 (Same as: l 03:00: Elavil) NovoLOG No Notes: Memoria 10-24 (Same as: l 03:00: NovoLOG Mix ) WASTE: F/P - Black; E - Municipal Trash Bin NovoLOG Yes See Memoria 10-23 Instructio l 23:41: ns, 33 [place] 00 units Qam SUB-Q and 22 units QPM, 0 Refill(s) NovoLOG Yes See Memoria 10-23 Instructio l 23:41: ns, 33 [place] 00 units Qam SUB-Q and 22 units QPM, 0 Refill(s) NovoLOG No Route: Memoria 10-23 SUB-Q, l 23:00: BID, Dosing Weight 109.091, kg, Start date: 10/23/16 17:00:00 HYDRAULIC JACK MECHANIC, Duration: 30 day, Stop date: 11/22/16 9:00:00 HYDRAULIC JACK MECHANIC carvedilol No Notes: Memor ia 2-02 Give with l 23:00: food. (Same As: Coreg) NovoLOG No Route: Memoria -02 SUB-Q, l 23:00: BID, Dosing Weight 109.091, kg, Start date: 10/23/16 17:00:00 HYDRAULIC JACK MECHANIC, Duration: 30 day, Stop date: 11/22/16 9:00:00 HYDRAULIC JACK MECHANIC carvedilol No Notes: Memor ia 2-02 Give with l 23:00: food. (Same As: Coreg) Lasix No 10 mg, Memoria 2 Route: PO, l 19:12: Daily, Dosing Weight 109.091, kg, Start date: 10/23/16 13:12:00 HYDRAULIC JACK [employer]CHANIC, Duration: 30 day, Stop date: 11/22/16 9:00:00 HYDRAULIC JACK MECHANIC Lasix 2016- No 10 mg, Memoria 2-02 Route: PO, l 19:12: Daily, [place] 00 Dosing Weight 109.091, kg, Start date: 10/23/16 13:12:00 HYDRAULIC JACK MECHANIC, Duration: 30 day, Stop date: 11/22/16 9:00:00 HYDRAULIC JACK MECHANIC tapentadol Yes 75 mg = 1 Me moria 75 MG Oral 2-02 tab, PO, l Tablet 17:30: Q6H, PRN [place] [Nucynta] 00 Pain Score 6-10, 0 Refill(s) carvedilol Yes 25 mg = 1 Me moria 25 mg oral 2-02 tab, PO, l tablet 17:30: BID, 0 [place] 00 Refill(s) amitriptyli 0 Yes 10 mg = 1 M emoria ne 10 mg 2-02 tab, PO, l oral tablet 17:30: Bedtime, 0 [place] 00 Refill(s) NovoLOG 0 No See Memoria 10-23 Instructio l 17:30: ns, SUB-Q [place] 00 ONCE humulog taken 33 units in am 22 units in pm, 0 Refill(s) carisoprodo 0 Yes 350 mg = 1 Memoria l 350 mg 2-02 tab, PO, l oral tablet 17:30: PRN, 0 Herm leonela 00 Refill(s) tapentadol Yes 75 mg = 1 Me moria 75 MG Oral 2-02 tab, PO, l Tablet 17:30: Q6H, PRN [place] [Nucynta] 00 Pain Score 6-10, 0 Refill(s) carvedilol Yes 25 mg = 1 Me moria 25 mg oral 2-02 tab, PO, l tablet 17:30: BID, 0 [place] 00 Refill(s) amitriptyli 0 Yes 10 mg = 1 M emoria ne 10 mg 2-02 tab, PO, l oral tablet 17:30: Bedtime, 0 [place] 00 Refill(s) NovoLOG 2016-0 No See Memoria 7010-23 Instructio l 17:30: ns, SUB-Q [place] 00 ONCE humulog taken 33 units in am 22 units in pm, 0 Refill(s) carisoprodo Yes 350 mg = 1 Memoria l 350 mg 2-02 tab, PO, l oral tablet 17:30: PRN, 0 Herm leonela 00 Refill(s) Insulin, No Notes: Memoria Aspart, 2-02 Roll in l Human 17:01: palms of [place] 00 hands gently; Do not shake vigorously . (Same as: NovoLOG) "single patient use only" WASTE: F/P - Black; E - Municipal Trash Bin Stable for 28 days at room temperatur e. Expires in days from ____Date Dextrose No 25 gm, 50 Sami rosana 50% Syringe 2-02 mL, Route: l 17:01: IVP, Drug Form: INJ, Dosing Weight 109.091, kg, PRN, PRN Blood Glucose Results, Start date: 10/23/16 11:01:00 HYDRAULIC JACK MECHANIC, Duration: 30 day, Stop date: 11/22/16 11:00:00 HYDRAULIC JACK MECHANIC Glucagon No 1 mg, Memoria 10-23 Route: IM, l 17:01: Drug form: [place] 00 PDR/INJ, PRN, Dosing Weight 109.091, kg, PRN Blood Glucose Results, Start date: 10/23/16 11:01:00 HYDRAULIC JACK MECHANIC, Duration: 30 day, Stop date: 11/22/16 11:00:00 HYDRAULIC JACK MECHANIC Insulin, No Notes: Memoria Aspart, 2-02 Roll in l Human 17:01: palms of [place] 00 hands gently; Do not shake vigorously . [...] Blood Glucose Results, Start date: 10/23/16 11:01:00 HYDRAULIC JACK MECHANIC, Duration: 30 day, Stop date: 11/22/16 11:00:00 HYDRAULIC JACK MECHANIC Glucagon No 1 mg, Memoria 10-23 Route: IM, l 17:01: Drug form: [place] 00 PDR/INJ, PRN, Dosing Weight 109.091, kg, PRN Blood Glucose Results, Start date: 10/23/16 11:01:00 HYDRAULIC JACK MECHANIC, Duration: 30 day, Stop date: 11/22/16 11:00:00 HYDRAULIC JACK MECHANIC Acetaminoph No Notes: Sami rosana en 325 MG / 10-23 (Same as: l Hydrocodone 16:54: Byers [place] nn Bitartrate 00 325/5) Do 5 MG Oral not exceed Tablet 4gm/day of acetaminop hen. Ondansetron No Notes: Sami rosana 2-02 (Same as: l 16:54: Zofran) [place] 00 MEDICATION WASTE Product Size: 4 mg Product Wasted: _0__ mg Docusate No Notes: Memoria 2- (Same as: l 16:54: Colace) [place] 00 (Do Not Crush) Acetaminoph No Notes: Max Memoria en 2-02 acetaminop l 16:54: hen 4000 [place] 00 mg/day (4 gm/day). (Same as: Tylenol Extra Strength) Acetaminoph No Notes: Sami rosana en 325 MG / 2 (Same as: l Hydrocodone 16:54: Byers [place] nn Bitartrate 00 325/5) Do 5 MG Oral not exceed Tablet 4gm/day of acetaminop hen. Ondansetron No Notes: Sami rosana 2-02 (Same as: l 16:54: Zofran) [place] 00 MEDICATION WASTE Product Size: 4 mg Product Wasted: _0__ mg Docusate No Notes: Memoria 2-02 (Same as: l 16:54: Colace) [place] 00 (Do Not Crush) Acetaminoph No Notes: Max Memoria en 2-02 acetaminop l 16:54: hen 4000 [place] 00 mg/day (4 gm/day). (Same as: Tylenol Extra Strength) Saline No Notes: Memoria Flush 0.9% 2-02 (Same as: l 16:21: BD [place] Posiflush) Saline No Notes: Memoria Flush 0.9% 2-02 (Same as: l 16:21: BD [place] 00 Posiflush) iodixanol No 100 mL, Memor ia 2-02 Route: l 14:49: IVP, Drug [place] Form: SOLN, kg, ONCALL, STAT, Start date: 10/23/16 8:49:00 HYDRAULIC JACK MECHANIC, Duration: 1 doses or times, Dose = 2.2ml/kg, Max dose = 100ml -- "To be infused by Radiology Staff ONLY" iodixanol No 100 mL, Memor ia 2-02 Route: l 14:49: IVP, Drug [place] 00 Form: SOLN, kg, ONCALL, STAT, Start date: 10/23/16 8:49:00 HYDRAULIC JACK MECHANIC, Duration: 1 doses or times, Dose = 2.2ml/kg, Max dose = 100ml -- "To be infused by Radiology Staff ONLY" Saline No Notes: Memoria Flush 0.9% 2-02 Same as: l 14:11: BD [place] 00 Posiflush Sterile Saline No Notes: Memoria Flush 0.9% 2-02 Same as: l 14:11: BD [place] 00 Posiflush Sterile ezetimibe Yes 10 mg = 1 Mem oria 10 MG Oral 2-02 tab, PO, l Tablet 14:04: Daily, # [place] [Zetia] 00 30 tab, 0 Refill(s) ezetimibe Yes 10 mg = 1 Mem oria 10 MG Oral 2-02 tab, PO, l Tablet 14:04: Daily, # [place] [Zetia] 00 30 tab, 0 Refill(s) Mobic 0 Yes 15 mg, PO, Memori a 2-02 Daily, 0 l 14:01: Refill(s) [place] 00 Mobic 0 Yes 15 mg, PO, Memori a 2-02 Daily, 0 l 14:01: Refill(s) [place] 00 Humalog 2017-0 No SUB-Q, 0 Memori a 2-02 Refill(s) l 14:00: Lasix 0 No 10 mg, PO, Memori a 2-02 Daily, 0 l 14:00: Refill(s) Cymbalta 0 Yes 60 mg, PO, Mem oria 2-02 Daily, 0 l 14:00: Refill(s) Thyroxine Yes 112 Memoria 2-02 microgram, l 14:00: PO, Daily, 0 Refill(s) Humalog No SUB-Q, 0 Memori a 2-02 Refill(s) l 14:00: Lasix 0 No 10 mg, PO, Memori a 2-02 Daily, 0 l 14:00: Refill(s) Cymbalta 0 Yes 60 mg, PO, Mem oria 2-02 Daily, 0 l 14:00: Refill(s) Thyroxine 0 Yes 112 Memoria 2-02 microgram, l 14:00: PO, Daily, 0 Refill(s) Lisinopril Yes 40 mg, PO, M emoria 2-02 Daily, 0 l 13:59: Refill(s) Imdur 0 Yes 30 mg, PO, Memori a 2-02 QAM, 0 l 13:59: Refill(s) Plavix 0 Yes 75 mg, PO, Memor ia 2-02 Daily, 0 l 13:59: Refill(s) Lisinopril 0 Yes 40 mg, PO, M emoria 2-02 Daily, 0 l 13:59: Refill(s) Imdur 0 Yes 30 mg, PO, Memori a 2-02 QAM, 0 l 13:59: Refill(s) Plavix 0 Yes 75 mg, PO, Memor ia 2-02 Daily, 0 l 13:59: Refill(s) amitriptyli Yes 10mg QD Take 1 Meth cruzito ne (ELAVIL) 10-[address] 10 MG 00:00: [facility] tablet 00 daily. l ISOSORBIDE 2017-0 Yes 30mg QD Take 30 mg M ethodi MONONITRATE 2-[address] ORAL 00:00: daily. Hospita 00 l lisinopril lisinopril 2011-09 No lisinopril Jeny 40 mg 40 mg 1-29 40 mg [facility] tablet RX tablet RX 00:00: tablet RX dic by other MD by other MD 00 by other Sports Medicjosr e BD BD No BD [place] Ultra-Fine Ultra-Fine Ultra-Fine Commun[facility] Short Pen Short Pen Short Pen ty Needle 31 Needle 31 Needle 31 Hospita gauge x gauge x gauge x l 02/03" USE 1 02/03" USE 1 02/03" USE Clinics TWICE DAILY TWICE DAILY 1 TWICE DAILY carisoprodo carisoprodo No carisoprod [place] l 350 mg l 350 mg ol 350 mg Co [facility]muni tablet TAKE tablet TAKE tablet ty 1 TABLET BY 1 TABLET BY TAKE 1 Hospita MOUTH ONCE MOUTH ONCE TABLET BY l DAILY IN DAILY IN MOUTH ONCE C linics THE EVENING THE EVENING DAILY IN THE EVENING clotrimazol clotrimazol No clotrimazo [place] e-betametha e-betametha le-betamet Communi sone 1 sone 1 hasone 1 ty %-0.05 % %-0.05 % %-0.05 % Hos stanislav topical topical topical l cream APPLY cream APPLY cream Clinics TO AFFECTED TO AFFECTED APPLY TO AND AND AFFECTED SURROUNDING SURROUNDING AND AREAS OF AREAS OF SURROUNDIN SKIN TWO SKIN TWO G AREAS OF TIMES A DAY TIMES A DAY SKIN TWO IN THE IN THE TIMES A MORNING AND MORNING AND DAY IN THE EVENING EVENING MORNING NEEDED NEEDED AND EVENING NEEDED duloxetine duloxetine No duloxetine [place] 60 mg 60 mg 60 mg Communi capsule,del capsule,del capsule,de ty ayed ayed layed Hospita release release release l TAKE 1 TAKE 1 TAKE 1 Clinics CAPSULE BY CAPSULE BY CAPSULE BY MOUTH ONCE MOUTH ONCE MOUTH ONCE DAILY IN DAILY IN DAILY IN THE EVENING THE EVENING THE . . EVENING . ezetimibe ezetimibe No ezetimibe [place] 10 mg 10 mg 10 mg Communi tablet TAKE tablet TAKE tablet ty 1 TABLET BY 1 TABLET BY TAKE 1 Hospita MOUTH ONCE MOUTH ONCE TABLET BY l DAILY . DAILY . MOUTH ONCE Cli nics APPOINTMENT APPOINTMENT DAILY . REQUIRED REQUIRED APPOINTMEN FOR FUTURE FOR FUTURE T REQUIRED REFILLS REFILLS FOR FUTURE REFILLS famotidine famotidine No famotidine [place] 20 mg 20 mg 20 mg Communi tablet tablet tablet ty Hospita l Clinics isosorbide isosorbide No isosorbide [place] mononitrate mononitrate mononitrat Communi ER 30 mg ER 30 mg e ER 30 mg t y tablet,exte tablet,exte tablet,ext Hospita nded nded ended l release 24 release 24 release 24 Clinics hr Take 1 hr Take 1 hr Take 1 tablet by tablet by tablet by mouth once mouth once mouth once daily daily daily levothyroxi levothyroxi No levothyrox [place] ne 150 mcg ne 150 mcg ine 150 Communi tablet TAKE tablet TAKE mcg tablet ty 1 TABLET BY 1 TABLET BY TAKE 1 Hospita MOUTH ONCE MOUTH ONCE TABLET BY l DAILY FOR DAILY FOR MOUTH ONCE Clinics 90 DAYS 90 DAYS DAILY FOR 90 DAYS lisinopril lisinopril No lisinopril [place] 40 mg 40 mg 40 mg Communi tablet Take tablet Take tablet ty 1 tablet by 1 tablet by Take 1 Hospita mouth once mouth once tablet by l daily daily mouth once Clinics daily meloxicam meloxicam No meloxicam [place] 15 mg 15 mg 15 mg Communi tablet Take tablet Take tablet ty 1 tablet by 1 tablet by Take 1 Hospita mouth once mouth once tablet by l daily for daily for mouth once Clinics 90 days 90 days daily for 90 days Novolog Mix Novolog Mix No Novolog [place] 70-30 70-30 Mix 70-30 Communi FlexPen FlexPen FlexPen ty U-100 U-100 U-100 [facility] Insulin 100 Insulin 100 Insulin l unit/mL unit/mL 100 Clinics subcutaneou subcutaneou unit/mL s pen s pen subcutaneo INJECT 60 INJECT 60 us pen UNITS UNITS INJECT 60 SUBCUTANEOU SUBCUTANEOU UNITS SLY TWICE SLY TWICE SUBCUTANEO DAILY DAILY USLY TWICE DAILY Jardiance Jardiance No 1 Q1D Jardiance Jeny 10 mg 10 mg 10 mg [facility] tablet Take tablet Take tablet dic 1 tablet 1 tablet Take 1 Sport s every day every day tablet Med icin by oral by oral every day e route. route. by oral route. omeprazole omeprazole No omeprazole [place] 20 mg 20 mg 20 mg Communi capsule,del capsule,del capsule,de ty ayed ayed layed Hospita release release release l Clinics tramadol 50 tramadol 50 No tramadol [place] mg tablet mg tablet 50 mg Comm uni tablet ty Hospita l Clinics Xarelto 10 Xarelto 10 No Xarelto 10 [place] mg tablet mg tablet mg tablet Communi Take 1 Take 1 Take 1 ty tablet tablet tablet Hospita every day every day every day l by oral by oral by oral Clinic s route. route. route. amitriptyli amitriptyli No amitriptyl [place] ne 10 mg ne 10 mg ine 10 mg Co [facility] tablet TAKE tablet TAKE tablet ty 1 TABLET BY 1 TABLET BY TAKE 1 Hospita MOUTH AT MOUTH AT TABLET BY l BEDTIME BEDTIME MOUTH AT Clini cs BEDTIME Novolog Mix Novolog Mix No Novolog Jeny 70-30 70-30 Mix 70-30 [facility] FlexPen FlexPen FlexPen dic U-100 U-100 U-100 Sports Insulin 100 Insulin 100 Insulin Medicin unit/mL unit/mL 100 e subcutaneou subcutaneou unit/mL s pen s pen subcutaneo INJECT 60 INJECT 60 us pen UNITS UNITS INJECT 60 SUBCUTANEOU SUBCUTANEOU UNITS SLY TWICE SLY TWICE SUBCUTANEO DAILY DAILY USLY TWICE DAILY BD BD No BD [place] Ultra-Fine Ultra-Fine Ultra-Fine [facility] Short Pen Short Pen Short Pen ty Needle 31 Needle 31 Needle 31 Hospita gauge x gauge x gauge x l 02/03" USE 1 02/03" USE 1 02/03" USE Clinics TWICE DAILY TWICE DAILY 1 TWICE DAILY pioglitazon pioglitazon No pioglitazo Jeny e 30 mg e 30 mg ne 30 mg Ortho pe tablet TAKE tablet TAKE tablet dic 1 TABLET BY 1 TABLET BY TAKE 1 Sports MOUTH IN MOUTH IN TABLET BY Me dicin THE MORNING THE MORNING MOUTH IN e THE MORNING carisoprodo carisoprodo No carisoprod [place] l 350 mg l 350 mg ol 350 mg Co mmuni tablet TAKE tablet TAKE tablet ty 1 TABLET BY 1 TABLET BY TAKE 1 Hospita MOUTH ONCE MOUTH ONCE TABLET BY l DAILY IN DAILY IN MOUTH ONCE C linics THE EVENING THE EVENING DAILY IN THE EVENING clotrimazol clotrimazol No clotrimazo [place] e-betametha e-betametha le-betamet Communi sone 1 sone 1 hasone 1 ty %-0.05 % %-0.05 % %-0.05 % Hos stanislav topical topical topical l cream APPLY cream APPLY cream Clinics TO AFFECTED TO AFFECTED APPLY TO AND AND AFFECTED SURROUNDING SURROUNDING AND AREAS OF AREAS OF SURROUNDIN SKIN TWO SKIN TWO G AREAS OF TIMES A DAY TIMES A DAY SKIN TWO IN THE IN THE TIMES A MORNING AND MORNING AND DAY IN THE EVENING EVENING MORNING NEEDED NEEDED AND EVENING NEEDED tramadol 50 tramadol 50 No 1 Q12H tramadol Jen[facility] mg tablet mg tablet 50 mg Orth ope Take 1 Take 1 tablet dic tablet tablet Take 1 Sports every 12 every 12 tablet Medic in hours by hours by every 12 e oral route oral route hours by for 30 for 30 oral route days. days. for 30 days. duloxetine duloxetine No duloxetine [place] 60 mg 60 mg 60 mg Communi capsule,del capsule,del capsule,de ty ayed ayed layed Hospita release release release l TAKE 1 TAKE 1 TAKE 1 Clinics CAPSULE BY CAPSULE BY CAPSULE BY MOUTH ONCE MOUTH ONCE MOUTH ONCE DAILY IN DAILY IN DAILY IN THE EVENING THE EVENING THE EVENING ezetimibe ezetimibe No ezetimibe [place] 10 mg 10 mg 10 mg [facility] tablet TAKE tablet TAKE tablet ty 1 TABLET BY 1 TABLET BY TAKE 1 Hospita MOUTH ONCE MOUTH ONCE TABLET BY l DAILY . DAILY . MOUTH ONCE Cli nics APPOINTMENT APPOINTMENT DAILY . REQUIRED REQUIRED APPOINTMEN FOR FUTURE FOR FUTURE T REQUIRED REFILLS REFILLS FOR FUTURE REFILLS famotidine famotidine No famotidine [place] 20 mg 20 mg 20 mg Communi tablet tablet tablet ty Hospita l Clinics isosorbide isosorbide No isosorbide [place] mononitrate mononitrate mononitrat Commun[facility] ER 30 mg ER 30 mg e ER 30 mg t y tablet,exte tablet,exte tablet,ext Hospita nded nded ended l release 24 release 24 release 24 Clinics hr Take 1 hr Take 1 hr Take 1 tablet by tablet by tablet by mouth once mouth once mouth once daily daily daily Xarelto 10 Xarelto 10 No Xarelto 10 [facility] mg tablet mg tablet mg tablet [facility] TAKE 1 TAKE 1 TAKE 1 dic TABLET BY TABLET BY TABLET BY Sports MOUTH ONCE MOUTH ONCE MOUTH ONCE Medicin DAILY DAILY DAILY e levothyroxi levothyroxi No levothyrox [place] ne 150 mcg ne 150 mcg ine 150 [facility]i tablet TAKE tablet TAKE mcg tablet ty 1 TABLET BY 1 TABLET BY TAKE 1 [facility]ospita MOUTH ONCE MOUTH ONCE TABLET BY l DAILY FOR DAILY FOR MOUTH ONCE Clinics 90 DAYS 90 DAYS DAILY FOR 90 DAYS lisinopril lisinopril No lisinopril [place] 40 mg 40 mg 40 mg Communi tablet Take tablet Take tablet ty 1 tablet by 1 tablet by Take 1 Hospita mouth once mouth once tablet by l daily daily mouth once Clinics daily meloxicam meloxicam No meloxicam [place] 15 mg 15 mg 15 mg [facility]i tablet Take tablet Take tablet ty 1 tablet by 1 tablet by Take 1 [facility]ospita mouth once mouth once tablet by l daily for daily for mouth once Clinics 90 days 90 days daily for 90 days Novolog Mix Novolog Mix No Novolog [place] 70-30 70-30 Mix 70-30 [facility]i FlexPen FlexPen FlexPen ty U-100 U-100 U-100 [facility]osp[facility] Insulin 100 Insulin 100 Insulin l unit/mL unit/mL 100 Clinics subcutaneou subcutaneou unit/mL s pen s pen subcutaneo INJECT 60 INJECT 60 us pen UNITS UNITS INJECT 60 SUBCUTANEOU SUBCUTANEOU UNITS SLY TWICE SLY TWICE SUBCUTANEO DAILY DAILY USLY TWICE DAILY omeprazole omeprazole No omeprazole [place] 20 mg 20 mg 20 mg [facility] capsule,del capsule,del capsule,de ty ayed ayed layed [facility]osp[facility] release release release l Clinics tramadol 50 tramadol 50 No tramadol [place] mg tablet mg tablet 50 mg Comm uni tablet ty [facility]osp[facility] l Clinics Xarelto 10 Xarelto 10 No Xarelto 10 [place] mg tablet mg tablet mg tablet [facility] Take 1 Take 1 Take 1 ty tablet tablet tablet [facility]ospita every day every day every day l by oral by oral by oral Clinic s route. route. route. amitriptyli amitriptyli No amitriptyl [place] ne 10 mg ne 10 mg ine 10 mg [facility] tablet TAKE tablet TAKE tablet ty 1 TABLET BY 1 TABLET BY TAKE 1 Hospita MOUTH AT MOUTH AT TABLET BY l BEDTIME . BEDTIME . MOUTH AT C linics BEDTIME . BD BD No BD [place] Ultra-Fine Ultra-Fine Ultra-Fine [facility] Short Pen Short Pen Short Pen ty Needle 31 Needle 31 Needle 31 [facility]ospita gauge x gauge x gauge x l 02/03" USE 1 02/03" USE 1 02/03" USE Clinics TWICE DAILY TWICE DAILY 1 TWICE DAILY carisoprodo carisoprodo No carisoprod [place] l 350 mg l 350 mg ol 350 mg [facility] tablet TAKE tablet TAKE tablet ty 1 TABLET BY 1 TABLET BY TAKE 1 [facility]ospita MOUTH ONCE MOUTH ONCE TABLET BY l DAILY IN DAILY IN MOUTH ONCE C linics THE EVENING THE EVENING DAILY IN THE EVENING cholecalcif cholecalcif No cholecalci [facility] neeru neeru ferol Communi (vitamin (vitamin (vitamin ty D3) 1,250 D3) 1,250 D3) 1,250 [facility]ospita mcg (50,000 mcg (50,000 mcg l unit) unit) (50,000 Clinics capsule capsule unit) TAKE 1 TAKE 1 capsule CAPSULE BY CAPSULE BY TAKE 1 MOUTH ONCE MOUTH ONCE CAPSULE BY A WEEK A WEEK MOUTH ONCE A WEEK clotrimazol clotrimazol No clotrimazo [facility] e-betametha e-betametha le-betamet Communi sone 1 sone 1 hasone 1 ty %-0.05 % %-0.05 % %-0.05 % [facility] topical topical topical l cream APPLY cream APPLY cream Clinics TO AFFECTED TO AFFECTED APPLY TO AND AND AFFECTED SURROUNDING SURROUNDING AND AREAS OF AREAS OF SURROUNDIN SKIN TWO SKIN TWO G AREAS OF TIMES A DAY TIMES A DAY SKIN TWO IN THE IN THE TIMES A MORNING AND MORNING AND DAY IN THE EVENING EVENING MORNING NEEDED NEEDED AND EVENING NEEDED Dialyvite Dialyvite No Dialyvite [facility] Vitamin D3 Vitamin D3 Vitamin D3 [facility] Max 1,250 Max 1,250 Max 1,250 ty mcg (50,000 mcg (50,000 mcg [facility] unit) unit) (50,000 l tablet tablet unit) Clinics tablet duloxetine duloxetine No duloxetine [facility] 60 mg 60 mg 60 mg [facility] capsule,del capsule,del capsule,de ty ayed ayed layed [facility]ospita release release release l TAKE 1 TAKE 1 TAKE 1 Clinics CAPSULE BY CAPSULE BY CAPSULE BY MOUTH ONCE MOUTH ONCE MOUTH ONCE DAILY IN DAILY IN DAILY IN THE EVENING THE EVENING THE EVENING Lisinopril Lisinopril Yes UT 40 MG Oral 40 MG Oral Phy sici Tablet Tablet ans ezetimibe ezetimibe No ezetimibe [place] 10 mg 10 mg 10 mg [facility] tablet TAKE tablet TAKE tablet ty 1 TABLET BY 1 TABLET BY TAKE 1 Hospita MOUTH ONCE MOUTH ONCE TABLET BY l DAILY . DAILY . MOUTH ONCE Cli nics DAILY . L-Thyroxine L-Thyroxine Yes U T Sodium TABS Sodium TABS P hysici ans famotidine famotidine No famotidine [facility] 20 mg 20 mg 20 mg [facility]i tablet tablet tablet ty [facility]osp[facility] l Clinics Amitriptyli Amitriptyli Yes U T ne HCl - 10 ne HCl - 10 P hysici MG Oral MG Oral ans Tablet Tablet DULoxetine DULoxetine Yes UT HCl - 60 MG HCl - 60 MG P hysici Oral Oral ans Capsule Capsule Delayed Delayed Release Release Particles Particles isosorbide isosorbide No isosorbide [facility] mononitrate mononitrate mononitrat [facility] ER 30 mg ER 30 mg e ER 30 mg t y tablet,exte tablet,exte tablet,ext Hospita nded nded ended l release 24 release 24 release 24 Clinics hr TAKE 1 hr TAKE 1 hr TAKE 1 TABLET BY TABLET BY TABLET BY MOUTH ONCE MOUTH ONCE MOUTH ONCE DAILY . DAILY . DAILY . Zetia 10 MG Zetia 10 MG Yes U T Oral Tablet Oral Tablet P hysici ans levothyroxi levothyroxi No levothyrox [place] ne 150 mcg ne 150 mcg ine 150 Communi tablet TAKE tablet TAKE mcg tablet ty 1 TABLET BY 1 TABLET BY TAKE 1 [facility]ospita MOUTH ONCE MOUTH ONCE TABLET BY l DAILY FOR DAILY FOR MOUTH ONCE Clinics 90 DAYS 90 DAYS DAILY FOR 90 DAYS NovoLOG NovoLOG Yes [facility] SOLN SOLN Physici ans lisinopril lisinopril No lisinopril [place] 40 mg 40 mg 40 mg [facility] tablet TAKE tablet TAKE tablet ty 1 TABLET BY 1 TABLET BY TAKE 1 [facility]ospita MOUTH ONCE MOUTH ONCE TABLET BY l DAILY . DAILY . MOUTH ONCE Cli nics DAILY . Xarelto 10 Xarelto 10 Yes UT MG Oral MG Oral Physici Tablet Tablet ans meloxicam meloxicam No meloxicam [facility] 15 mg 15 mg 15 mg [facility] tablet TAKE tablet TAKE tablet ty 1 TABLET BY 1 TABLET BY TAKE 1 [facility]ospita MOUTH ONCE MOUTH ONCE TABLET BY l DAILY . DAILY . MOUTH ONCE Cli nics DAILY . Carisoprodo Carisoprodo Yes U T l TABS l TABS Physici ans Novolog Mix Novolog Mix No Novolog [facility] 70-30 70-30 Mix 70-30 [facility] FlexPen FlexPen FlexPen ty U-100 U-100 U-100 [facility]osp[facility] Insulin 100 Insulin 100 Insulin l unit/mL unit/mL 100 Clinics subcutaneou subcutaneou unit/mL s pen s pen subcutaneo INJECT 60 INJECT 60 us pen UNITS UNITS INJECT 60 SUBCUTANEOU SUBCUTANEOU UNITS SLY TWICE SLY TWICE SUBCUTANEO DAILY DAILY USLY TWICE DAILY Imdur 30 MG Imdur 30 MG Yes U T TB24 TB24 Physici ans omeprazole omeprazole No omeprazole [place] 20 mg 20 mg 20 mg [facility] capsule,del capsule,del capsule,de ty ayed ayed layed [facility]ospita release release release l Clinics tramadol 50 tramadol 50 No tramadol [place] mg tablet mg tablet 50 mg Comm uni tablet ty [facility]osp[facility] l Clinics Xarelto 10 Xarelto 10 No Xarelto 10 [facility] mg tablet mg tablet mg tablet [facility] Take 1 Take 1 Take 1 ty tablet tablet tablet Hospita every day every day every day l by oral by oral by oral Clinic s route. route. route. amitriptyli amitriptyli No amitriptyl [facility] ne 10 mg ne 10 mg ine 10 mg [facility] tablet TAKE tablet TAKE tablet ty 1 TABLET BY 1 TABLET BY TAKE 1 [facility]ospita MOUTH AT MOUTH AT TABLET BY l BEDTIME . BEDTIME . MOUTH AT C linics BEDTIME . BD BD No BD [facility] Ultra-Fine Ultra-Fine Ultra-Fine [facility] Short Pen Short Pen Short Pen ty Needle 31 Needle 31 Needle 31 [facility]osp[facility] gauge x gauge x gauge x l 02/03" USE 1 02/03" USE 1 02/03" USE Clinics TWICE DAILY TWICE DAILY 1 TWICE DAILY carisoprodo carisoprodo No carisoprod [facility] l 350 mg l 350 mg ol 350 mg [facility] tablet TAKE tablet TAKE tablet ty 1 TABLET BY 1 TABLET BY TAKE 1 [facility]ita MOUTH ONCE MOUTH ONCE TABLET BY l DAILY IN DAILY IN MOUTH ONCE C linics THE EVENING THE EVENING DAILY IN THE EVENING cholecalcif cholecalcif No cholecalci [facility] neeru neeru ferol [facility]i (vitamin (vitamin (vitamin ty D3) 1,250 D3) 1,250 D3) 1,250 [facility]osp[facility] mcg (50,000 mcg (50,000 mcg l unit) unit) (50,000 Clinics capsule capsule unit) TAKE 1 TAKE 1 capsule CAPSULE BY CAPSULE BY TAKE 1 MOUTH ONCE MOUTH ONCE CAPSULE BY A WEEK A WEEK MOUTH ONCE A WEEK clotrimazol clotrimazol No clotrimazo [facility] e-betametha e-betametha le-betamet Communi sone 1 sone 1 hasone 1 ty %-0.05 % %-0.05 % %-0.05 % [facility] topical topical topical l cream APPLY cream APPLY cream Clinics TO AFFECTED TO AFFECTED APPLY TO AND AND AFFECTED SURROUNDING SURROUNDING AND AREAS OF AREAS OF SURROUNDIN SKIN TWO SKIN TWO G AREAS OF TIMES A DAY TIMES A DAY SKIN TWO IN THE IN THE TIMES A MORNING AND MORNING AND DAY IN THE EVENING EVENING MORNING NEEDED NEEDED AND EVENING NEEDED Dialyvite Dialyvite No Dialyvite [facility] Vitamin D3 Vitamin D3 Vitamin D3 [facility] Max 1,250 Max 1,250 Max 1,250 ty mcg (50,000 mcg (50,000 mcg [facility] unit) unit) (50,000 l tablet tablet unit) Clinics tablet duloxetine duloxetine No duloxetine [facility] 60 mg 60 mg 60 mg [facility] capsule,del capsule,del capsule,de ty ayed ayed layed [facility]osp[facility] release release release l TAKE 1 TAKE 1 TAKE 1 Clinics CAPSULE BY CAPSULE BY CAPSULE BY MOUTH ONCE MOUTH ONCE MOUTH ONCE DAILY IN DAILY IN DAILY IN THE EVENING THE EVENING THE EVENING Euthyrox Euthyrox No Euthyrox Swe jose 150 mcg 150 mcg 150 mcg Commun i tablet TAKE tablet TAKE tablet ty 1 TABLET BY 1 TABLET BY TAKE 1 [facility]ospita MOUTH ONCE MOUTH ONCE TABLET BY l DAILY DAILY MOUTH ONCE Clinics DAILY ezetimibe ezetimibe No ezetimibe [facility] 10 mg 10 mg 10 mg [facility] tablet TAKE tablet TAKE tablet ty 1 TABLET BY 1 TABLET BY TAKE 1 [facility]ita MOUTH ONCE MOUTH ONCE TABLET BY l DAILY . DAILY . MOUTH ONCE Cli nics DAILY . famotidine famotidine No famotidine [facility] 20 mg 20 mg 20 mg [facility] tablet tablet tablet ty [facility]osp[facility] l Clinics isosorbide isosorbide No isosorbide [facility] mononitrate mononitrate mononitrat [facility] ER 30 mg ER 30 mg e ER 30 mg t y tablet,exte tablet,exte tablet,ext [facility]ospita nded nded ended l release 24 release 24 release 24 Clinics hr TAKE 1 hr TAKE 1 hr TAKE 1 TABLET BY TABLET BY TABLET BY MOUTH ONCE MOUTH ONCE MOUTH ONCE DAILY . DAILY . DAILY . lisinopril lisinopril No lisinopril [facility] 40 mg 40 mg 40 mg [facility] tablet TAKE tablet TAKE tablet ty 1 TABLET BY 1 TABLET BY TAKE 1 [facility]ospita MOUTH ONCE MOUTH ONCE TABLET BY l DAILY . DAILY . MOUTH ONCE Cli nics DAILY . meloxicam meloxicam No meloxicam [facility] 15 mg 15 mg 15 mg [facility] tablet TAKE tablet TAKE tablet ty 1 TABLET BY 1 TABLET BY TAKE 1 [facility]ospita MOUTH ONCE MOUTH ONCE TABLET BY l DAILY . DAILY . MOUTH ONCE Cli nics DAILY . Novolog Mix Novolog Mix No Novolog [facility] 70-30 70-30 Mix 70-30 [facility] FlexPen FlexPen FlexPen ty U-100 U-100 U-100 [facility]osp[facility] Insulin 100 Insulin 100 Insulin l unit/mL unit/mL 100 Clinics subcutaneou subcutaneou unit/mL s pen s pen subcutaneo INJECT 60 INJECT 60 us pen UNITS UNITS INJECT 60 SUBCUTANEOU SUBCUTANEOU UNITS SLY TWICE SLY TWICE SUBCUTANEO DAILY DAILY USLY TWICE DAILY omeprazole omeprazole No omeprazole [facility] 20 mg 20 mg 20 mg [facility] capsule,del capsule,del capsule,de ty ayed ayed layed [facility] release release release l Clinics tramadol 50 tramadol 50 No tramadol [facility] mg tablet mg tablet 50 mg Comm uni tablet ty [facility] l Clinics Xarelto 10 Xarelto 10 No Xarelto 10 [facility] mg tablet mg tablet mg tablet [facility] Take 1 Take 1 Take 1 ty tablet tablet tablet [facility]ospita every day every day every day l by oral by oral by oral Clinic s route. route. route. amitriptyli amitriptyli No amitriptyl [facility] ne 10 mg ne 10 mg ine 10 mg [facility] tablet TAKE tablet TAKE tablet ty 1 TABLET BY 1 TABLET BY TAKE 1 [facility]ita MOUTH AT MOUTH AT TABLET BY l BEDTIME BEDTIME MOUTH AT Clini cs BEDTIME BD BD No BD [facility] Ultra-Fine Ultra-Fine Ultra-Fine [facility] Short Pen Short Pen Short Pen ty Needle 31 Needle 31 Needle 31 [facility]osp[facility] gauge x gauge x gauge x l 02/03" USE 1 02/03" USE 1 02/03" USE Clinics TWICE DAILY TWICE DAILY 1 TWICE DAILY carisoprodo carisoprodo No carisoprod [facility] l 350 mg l 350 mg ol 350 mg [facility] tablet TAKE tablet TAKE tablet ty 1 TABLET BY 1 TABLET BY TAKE 1 [facility]ospita MOUTH ONCE MOUTH ONCE TABLET BY l DAILY IN DAILY IN MOUTH ONCE C linics THE EVENING THE EVENING DAILY IN THE EVENING cholecalcif cholecalcif No cholecalci [facility] neeru neeru ferol [facility] (vitamin (vitamin (vitamin ty D3) 1,250 D3) 1,250 D3) 1,250 [facility]osp[facility] mcg (50,000 mcg (50,000 mcg l unit) unit) (50,000 Clinics capsule capsule unit) TAKE 1 TAKE 1 capsule CAPSULE BY CAPSULE BY TAKE 1 MOUTH ONCE MOUTH ONCE CAPSULE BY A WEEK A WEEK MOUTH ONCE A WEEK clotrimazol clotrimazol No clotrimazo [facility] e-betametha e-betametha le-betamet Communi sone 1 sone 1 hasone 1 ty %-0.05 % %-0.05 % %-0.05 % [facility] topical topical topical l cream APPLY cream APPLY cream Clinics TO AFFECTED TO AFFECTED APPLY TO AND AND AFFECTED SURROUNDING SURROUNDING AND AREAS OF AREAS OF SURROUNDIN SKIN TWO SKIN TWO G AREAS OF TIMES A DAY TIMES A DAY SKIN TWO IN THE IN THE TIMES A MORNING AND MORNING AND DAY IN THE EVENING EVENING MORNING NEEDED NEEDED AND EVENING NEEDED Dialyvite Dialyvite No Dialyvite [facility] Vitamin D3 Vitamin D3 Vitamin D3 [facility] Max 1,250 Max 1,250 Max 1,250 ty mcg (50,000 mcg (50,000 mcg [facility] unit) unit) (50,000 l tablet tablet unit) Clinics tablet duloxetine duloxetine No duloxetine [facility] 60 mg 60 mg 60 mg [facility] capsule,del capsule,del capsule,de ty ayed ayed layed [facility]osp[facility] release release release l TAKE 1 TAKE 1 TAKE 1 Clinics CAPSULE BY CAPSULE BY CAPSULE BY MOUTH ONCE MOUTH ONCE MOUTH ONCE DAILY IN DAILY IN DAILY IN THE EVENING THE EVENING THE EVENING Euthyrox Euthyrox No Euthyrox Swe jose 150 mcg 150 mcg 150 mcg Commun i tablet TAKE tablet TAKE tablet ty 1 TABLET BY 1 TABLET BY TAKE 1 [facility]ita MOUTH ONCE MOUTH ONCE TABLET BY l DAILY DAILY MOUTH ONCE Clinics DAILY ezetimibe ezetimibe No ezetimibe [facility] 10 mg 10 mg 10 mg [facility] tablet TAKE tablet TAKE tablet ty 1 TABLET BY 1 TABLET BY TAKE 1 [facility] MOUTH ONCE MOUTH ONCE TABLET BY l DAILY DAILY MOUTH ONCE Clinics DAILY famotidine famotidine No famotidine [facility] 20 mg 20 mg 20 mg [facility] tablet tablet tablet ty [facility] l Clinics isosorbide isosorbide No isosorbide [facility] mononitrate mononitrate mononitrat [facility] ER 30 mg ER 30 mg e ER 30 mg t y tablet,exte tablet,exte tablet,ext [facility]ospita nded nded ended l release 24 release 24 release 24 Clinics hr TAKE 1 hr TAKE 1 hr TAKE 1 TABLET BY TABLET BY TABLET BY MOUTH ONCE MOUTH ONCE MOUTH ONCE DAILY DAILY DAILY lisinopril lisinopril No lisinopril [facility] 40 mg 40 mg 40 mg [facility] tablet TAKE tablet TAKE tablet ty 1 TABLET BY 1 TABLET BY TAKE 1 [facility] MOUTH ONCE MOUTH ONCE TABLET BY l DAILY DAILY MOUTH ONCE Clinics DAILY meloxicam meloxicam No meloxicam [facility] 15 mg 15 mg 15 mg [facility] tablet TAKE tablet TAKE tablet ty 1 TABLET BY 1 TABLET BY TAKE 1 [facility] MOUTH ONCE MOUTH ONCE TABLET BY l DAILY DAILY MOUTH ONCE Clinics DAILY Novolog Mix Novolog Mix No Novolog [facility] 70-30 70-30 Mix 70-30 [facility] FlexPen FlexPen FlexPen ty U-100 U-100 U-100 [facility]osp[facility] Insulin 100 Insulin 100 Insulin l unit/mL unit/mL 100 Clinics subcutaneou subcutaneou unit/mL s pen s pen subcutaneo INJECT 60 INJECT 60 us pen UNITS UNITS INJECT 60 SUBCUTANEOU SUBCUTANEOU UNITS SLY TWICE SLY TWICE SUBCUTANEO DAILY DAILY USLY TWICE DAILY omeprazole omeprazole No omeprazole [facility] 20 mg 20 mg 20 mg [facility] capsule,del capsule,del capsule,de ty ayed ayed layed [facility] release release release l Clinics tramadol 50 tramadol 50 No tramadol [facility] mg tablet mg tablet 50 mg Comm uni tablet ty [facility] l Clinics triamcinolo triamcinolo No triamcinol [facility] ne ne one [facility]i acetonide acetonide acetonide ty 0.1 % 0.1 % 0.1 % [facility] topical topical topical l cream APPLY cream APPLY cream Clinics A THIN A THIN APPLY A LAYER TO LAYER TO THIN LAYER THE THE TO THE AFFECTED AFFECTED AFFECTED AREA(S) BY AREA(S) BY AREA(S) BY TOPICAL TOPICAL TOPICAL ROUTE 2 ROUTE 2 ROUTE 2 TIMES PER TIMES PER TIMES PER DAY DAY DAY Xarelto 10 Xarelto 10 No Xarelto 10 [facility] mg tablet mg tablet mg tablet [facility]i TAKE 1 TAKE 1 TAKE 1 ty TABLET BY TABLET BY TABLET BY [facility]ospita MOUTH ONCE MOUTH ONCE MOUTH ONCE l DAILY . DAILY . DAILY . Clinic s APPOINTMENT APPOINTMENT APPOINTMEN REQUIRED REQUIRED T REQUIRED FOR FUTURE FOR FUTURE FOR FUTURE REFILLS REFILLS REFILLS amitriptyli amitriptyli No amitriptyl [facility] ne 10 mg ne 10 mg ine 10 mg [facility] tablet TAKE tablet TAKE tablet ty 1 TABLET BY 1 TABLET BY TAKE 1 [facility]ita MOUTH AT MOUTH AT TABLET BY l BEDTIME BEDTIME MOUTH AT Clini cs BEDTIME BD BD No BD [facility] Ultra-Fine Ultra-Fine Ultra-Fine [facility] Short Pen Short Pen Short Pen ty Needle 31 Needle 31 Needle 31 [facility]osp[facility] gauge x gauge x gauge x l 02/03" USE 1 02/03" USE 1 02/03" USE Clinics TWICE DAILY TWICE DAILY 1 TWICE DAILY carisoprodo carisoprodo No carisoprod [facility] l 350 mg l 350 mg ol 350 mg [facility] tablet TAKE tablet TAKE tablet ty 1 TABLET BY 1 TABLET BY TAKE 1 [facility] MOUTH ONCE MOUTH ONCE TABLET BY l DAILY IN DAILY IN MOUTH ONCE C linics THE EVENING THE EVENING DAILY IN THE EVENING cholecalcif cholecalcif No cholecalci [facility] neeru neeru ferol [facility] (vitamin (vitamin (vitamin ty D3) 1,250 D3) 1,250 D3) 1,250 [facility] mcg (50,000 mcg (50,000 mcg l unit) unit) (50,000 Clinics capsule capsule unit) TAKE 1 TAKE 1 capsule CAPSULE BY CAPSULE BY TAKE 1 MOUTH ONCE MOUTH ONCE CAPSULE BY A WEEK A WEEK MOUTH ONCE A WEEK clotrimazol clotrimazol No clotrimazo [facility] e-betametha e-betametha le-betamet Communi sone 1 sone 1 hasone 1 ty %-0.05 % %-0.05 % %-0.05 % [facility] topical topical topical l cream APPLY cream APPLY cream Clinics TO AFFECTED TO AFFECTED APPLY TO AND AND AFFECTED SURROUNDING SURROUNDING AND AREAS OF AREAS OF SURROUNDIN SKIN TWO SKIN TWO G AREAS OF TIMES A DAY TIMES A DAY SKIN TWO IN THE IN THE TIMES A MORNING AND MORNING AND DAY IN THE EVENING EVENING MORNING NEEDED NEEDED AND EVENING NEEDED Dialyvite Dialyvite No Dialyvite [facility] Vitamin D3 Vitamin D3 Vitamin D3 [facility] Max 1,250 Max 1,250 Max 1,250 ty mcg (50,000 mcg (50,000 mcg [facility] unit) unit) (50,000 l tablet tablet unit) Clinics tablet duloxetine duloxetine No duloxetine [facility] 60 mg 60 mg 60 mg [facility] capsule,del capsule,del capsule,de ty ayed ayed layed [facility]osp[facility] release release release l TAKE 1 TAKE 1 TAKE 1 Clinics CAPSULE BY CAPSULE BY CAPSULE BY MOUTH ONCE MOUTH ONCE MOUTH ONCE DAILY IN DAILY IN DAILY IN THE EVENING THE EVENING THE EVENING Euthyrox Euthyrox No Euthyrox Swe jose 150 mcg 150 mcg 150 mcg Commun i tablet TAKE tablet TAKE tablet ty 1 TABLET BY 1 TABLET BY TAKE 1 [facility]ospita MOUTH ONCE MOUTH ONCE TABLET BY l DAILY DAILY MOUTH ONCE Clinics DAILY ezetimibe ezetimibe No ezetimibe [facility] 10 mg 10 mg 10 mg [facility] tablet TAKE tablet TAKE tablet ty 1 TABLET BY 1 TABLET BY TAKE 1 [facility] MOUTH ONCE MOUTH ONCE TABLET BY l DAILY DAILY MOUTH ONCE Clinics DAILY famotidine famotidine No famotidine [facility] 20 mg 20 mg 20 mg [facility] tablet tablet tablet ty [facility] l Clinics isosorbide isosorbide No isosorbide [facility] mononitrate mononitrate mononitrat [facility] ER 30 mg ER 30 mg e ER 30 mg t y tablet,exte tablet,exte tablet,ext [facility]ospita nded nded ended l release 24 release 24 release 24 Clinics hr TAKE 1 hr TAKE 1 hr TAKE 1 TABLET BY TABLET BY TABLET BY MOUTH ONCE MOUTH ONCE MOUTH ONCE DAILY DAILY DAILY lisinopril lisinopril No lisinopril [facility] 40 mg 40 mg 40 mg [facility] tablet TAKE tablet TAKE tablet ty 1 TABLET BY 1 TABLET BY TAKE 1 [facility]ita MOUTH ONCE MOUTH ONCE TABLET BY l DAILY DAILY MOUTH ONCE Clinics DAILY Lumigan Lumigan No Lumigan [facility] 0.01 % eye 0.01 % eye 0.01 % eye [facility] drops drops drops ty [facility]osp[facility] l Clinics meloxicam meloxicam No meloxicam [facility] 15 mg 15 mg 15 mg [facility] tablet TAKE tablet TAKE tablet ty 1 TABLET BY 1 TABLET BY TAKE 1 [facility]ita MOUTH ONCE MOUTH ONCE TABLET BY l DAILY DAILY MOUTH ONCE Clinics DAILY Novolog Mix Novolog Mix No Novolog [facility] 70-30 70-30 Mix 70-30 [facility] FlexPen FlexPen FlexPen ty U-100 U-100 U-100 [facility]osp[facility] Insulin 100 Insulin 100 Insulin l unit/mL unit/mL 100 Clinics subcutaneou subcutaneou unit/mL s pen s pen subcutaneo INJECT 60 INJECT 60 us pen UNITS UNITS INJECT 60 SUBCUTANEOU SUBCUTANEOU UNITS SLY TWICE SLY TWICE SUBCUTANEO DAILY DAILY USLY TWICE DAILY omeprazole omeprazole No omeprazole [facility] 20 mg 20 mg 20 mg [facility] capsule,del capsule,del capsule,de ty ayed ayed layed [facility]osp[facility] release release release l Clinics tramadol 50 tramadol 50 No tramadol [facility] mg tablet mg tablet 50 mg Comm uni tablet ty [facility]ospita l Clinics triamcinolo triamcinolo No triamcinol [place] ne ne one [facility]i acetonide acetonide acetonide ty 0.1 % 0.1 % 0.1 % [facility] topical topical topical l cream APPLY cream APPLY cream Clinics A THIN A THIN APPLY A LAYER TO LAYER TO THIN LAYER THE THE TO THE AFFECTED AFFECTED AFFECTED AREAS TWO AREAS TWO AREAS TWO TIMES A DAY TIMES A DAY TIMES A DAY Xarelto 10 Xarelto 10 No Xarelto 10 [place] mg tablet mg tablet mg tablet [facility]i TAKE 1 TAKE 1 TAKE 1 ty TABLET BY TABLET BY TABLET BY Hospita MOUTH ONCE MOUTH ONCE MOUTH ONCE l DAILY . DAILY . DAILY . Clinic s APPOINTMENT APPOINTMENT APPOINTMEN REQUIRED REQUIRED T REQUIRED FOR FUTURE FOR FUTURE FOR FUTURE REFILLS REFILLS REFILLS amitriptyli amitriptyli No amitriptyl [place] ne 10 mg ne 10 mg ine 10 mg [facility] tablet TAKE tablet TAKE tablet ty 1 TABLET BY 1 TABLET BY TAKE 1 Hospita MOUTH AT MOUTH AT TABLET BY l BEDTIME BEDTIME MOUTH AT Clini cs BEDTIME BD BD No BD [place] Ultra-Fine Ultra-Fine Ultra-Fine [facility] Short Pen Short Pen Short Pen ty Needle 31 Needle 31 Needle 31 Hospita gauge x gauge x gauge x l 02/03" USE 1 02/03" USE 1 02/03" USE Clinics NEEDLE NEEDLE 1 NEEDLE DIRECTED DIRECTED TWICE DAILY TWICE DAILY DIRECTED TWICE DAILY cefuroxime cefuroxime No 1 Q12H cefuroxime [facility] axetil 500 axetil 500 axetil 500 [facility]i mg tablet mg tablet mg tablet ty Take 1 Take 1 Take 1 Hospita tablet tablet tablet l every 12 every 12 every 12 Cli nics hours by hours by hours by oral route. oral route. oral route. clotrimazol clotrimazol No clotrimazo [facility] e-betametha e-betametha le-betamet Communi sone 1 sone 1 hasone 1 ty %-0.05 % %-0.05 % %-0.05 % [facility] topical topical topical l cream APPLY cream APPLY cream [facility] CREAM CREAM APPLY TOPICALLY TOPICALLY CREAM TWICE DAILY TWICE DAILY TOPICALLY TO AFFECTED TO AFFECTED TWICE AND AND DAILY TO SURROUNDING SURROUNDING AFFECTED AREAS OF AREAS OF AND SKIN IN THE SKIN IN THE SURROUNDIN MORNING AND MORNING AND G AREAS OF EVENING EVENING SKIN IN NEEDED NEEDED THE MORNING AND EVENING NEEDED Dialyvite Dialyvite No Dialyvite [place] Vitamin D3 Vitamin D3 Vitamin D3 [facility] Max 1,250 Max 1,250 Max 1,250 ty mcg (50,000 mcg (50,000 mcg [facility] unit) unit) (50,000 l tablet tablet unit) Clinics tablet ezetimibe ezetimibe No ezetimibe [place] 10 mg 10 mg 10 mg [facility] tablet TAKE tablet TAKE tablet ty 1 TABLET BY 1 TABLET BY TAKE 1 Hospita MOUTH ONCE MOUTH ONCE TABLET BY l DAILY DAILY MOUTH ONCE Clinics DAILY famotidine famotidine No famotidine [place] 20 mg 20 mg 20 mg [facility]i tablet tablet tablet ty Hosp[facility] l Clinics isosorbide isosorbide No isosorbide [place] mononitrate mononitrate mononitrat Communi ER 30 mg ER 30 mg e ER 30 mg t y tablet,exte tablet,exte tablet,ext [facility]ospita nded nded ended l release 24 release 24 release 24 Clinics hr TAKE 1 hr TAKE 1 hr TAKE 1 TABLET BY TABLET BY TABLET BY MOUTH ONCE MOUTH ONCE MOUTH ONCE DAILY DAILY DAILY Lumigan Lumigan No Lumigan [place] 0.01 % eye 0.01 % eye 0.01 % eye [facility]i drops drops drops ty INSTILL 1 INSTILL 1 INSTILL 1 Hospita DROP INTO DROP INTO DROP INTO l EACH EYE AT EACH EYE AT EACH EYE Clinics BEDTIME BEDTIME AT BEDTIME meloxicam meloxicam No meloxicam [place] 15 mg 15 mg 15 mg [facility]i tablet TAKE tablet TAKE tablet ty 1 TABLET BY 1 TABLET BY TAKE 1 [facility]ospita MOUTH ONCE MOUTH ONCE TABLET BY l DAILY DAILY MOUTH ONCE Clinics DAILY Novolog Mix Novolog Mix No Novolog [place] 70-30 70-30 Mix 70-30 Communi FlexPen FlexPen FlexPen ty U-100 U-100 U-100 [facility] Insulin 100 Insulin 100 Insulin l unit/mL unit/mL 100 Clinics subcutaneou subcutaneou unit/mL s pen s pen subcutaneo INJECT 60 INJECT 60 us pen UNITS UNITS INJECT 60 SUBCUTANEOU SUBCUTANEOU UNITS SLY TWICE SLY TWICE SUBCUTANEO DAILY DAILY USLY TWICE DAILY pioglitazon pioglitazon No pioglitazo [place] e 30 mg e 30 mg ne 30 mg Commu ni tablet TAKE tablet TAKE tablet ty 1 TABLET BY 1 TABLET BY TAKE 1 Hospita MOUTH IN MOUTH IN TABLET BY l THE MORNING THE MORNING MOUTH IN Clinics THE MORNING triamcinolo triamcinolo No triamcinol [place] ne ne one Communi acetonide acetonide acetonide ty 0.1 % 0.1 % 0.1 % [facility]ospita topical topical topical l cream APPLY cream APPLY cream Clinics A THIN A THIN APPLY A LAYER TO LAYER TO THIN LAYER THE THE TO THE AFFECTED AFFECTED AFFECTED AREAS TWO AREAS TWO AREAS TWO TIMES A DAY TIMES A DAY TIMES A DAY Xarelto 10 Xarelto 10 No Xarelto 10 [place] mg tablet mg tablet mg tablet Communi TAKE 1 TAKE 1 TAKE 1 ty TABLET BY TABLET BY TABLET BY Hospita MOUTH ONCE MOUTH ONCE MOUTH ONCE l DAILY DAILY DAILY Clinics amitriptyli amitriptyli No amitriptyl [place] ne 10 mg ne 10 mg ine 10 mg Co mmuni tablet TAKE tablet TAKE tablet ty 1 TABLET BY 1 TABLET BY TAKE 1 Hospita MOUTH AT MOUTH AT TABLET BY l BEDTIME BEDTIME MOUTH AT Clini cs BEDTIME BD BD No BD [place] Ultra-Fine Ultra-Fine Ultra-Fine Commun[facility] Short Pen Short Pen Short Pen ty Needle 31 Needle 31 Needle 31 Hospita gauge x gauge x gauge x l 02/03" USE 1 02/03" USE 1 02/03" USE Clinics NEEDLE NEEDLE 1 NEEDLE DIRECTED DIRECTED TWICE DAILY TWICE DAILY DIRECTED TWICE DAILY cefuroxime cefuroxime No 1 Q12H cefuroxime [place] axetil 500 axetil 500 axetil 500 Communi mg tablet mg tablet mg tablet ty Take 1 Take 1 Take 1 Hospita tablet tablet tablet l every 12 every 12 every 12 Cli nics hours by hours by hours by oral route. oral route. oral route. clotrimazol clotrimazol No clotrimazo [place] e-betametha e-betametha le-betamet Communi sone 1 sone 1 hasone 1 ty %-0.05 % %-0.05 % %-0.05 % [facility] stanislav topical topical topical l cream APPLY cream APPLY cream [facility] CREAM CREAM APPLY TOPICALLY TOPICALLY CREAM TWICE DAILY TWICE DAILY TOPICALLY TO AFFECTED TO AFFECTED TWICE AND AND DAILY TO SURROUNDING SURROUNDING AFFECTED AREAS OF AREAS OF AND SKIN IN THE SKIN IN THE SURROUNDIN MORNING AND MORNING AND G AREAS OF EVENING EVENING SKIN IN NEEDED NEEDED THE MORNING AND EVENING NEEDED Dialyvite Dialyvite No Dialyvite [place] Vitamin D3 Vitamin D3 Vitamin D3 Communi Max 1,250 Max 1,250 Max 1,250 ty mcg (50,000 mcg (50,000 mcg H [facility]spita unit) unit) (50,000 l tablet tablet unit) Clinics tablet ezetimibe ezetimibe No ezetimibe [place] 10 mg 10 mg 10 mg Communi tablet TAKE tablet TAKE tablet ty 1 TABLET BY 1 TABLET BY TAKE 1 Hospita MOUTH ONCE MOUTH ONCE TABLET BY l DAILY DAILY MOUTH ONCE Clinics DAILY famotidine famotidine No famotidine [place] 20 mg 20 mg 20 mg Communi tablet tablet tablet ty Hospita l Clinics isosorbide isosorbide No isosorbide [place] mononitrate mononitrate mononitrat Communi ER 30 mg ER 30 mg e ER 30 mg t y tablet,exte tablet,exte tablet,ext Hospita nded nded ended l release 24 release 24 release 24 Clinics hr TAKE 1 hr TAKE 1 hr TAKE 1 TABLET BY TABLET BY TABLET BY MOUTH ONCE MOUTH ONCE MOUTH ONCE DAILY DAILY DAILY Lumigan Lumigan No Lumigan [place] 0.01 % eye 0.01 % eye 0.01 % eye Communi drops drops drops ty INSTILL 1 INSTILL 1 INSTILL 1 Hospita DROP INTO DROP INTO DROP INTO l EACH EYE AT EACH EYE AT EACH EYE Clinics BEDTIME BEDTIME AT BEDTIME meloxicam meloxicam No meloxicam [place] 15 mg 15 mg 15 mg Communi tablet TAKE tablet TAKE tablet ty 1 TABLET BY 1 TABLET BY TAKE 1 Hospita MOUTH ONCE MOUTH ONCE TABLET BY l DAILY DAILY MOUTH ONCE Clinics DAILY Novolog Mix Novolog Mix No Novolog [place] 70-30 70-30 Mix 70-30 Communi FlexPen FlexPen FlexPen ty U-100 U-100 U-100 Hospita Insulin 100 Insulin 100 Insulin l unit/mL unit/mL 100 Clinics subcutaneou subcutaneou unit/mL s pen s pen subcutaneo INJECT 60 INJECT 60 us pen UNITS UNITS INJECT 60 SUBCUTANEOU SUBCUTANEOU UNITS SLY TWICE SLY TWICE SUBCUTANEO DAILY DAILY USLY TWICE DAILY pioglitazon pioglitazon No pioglitazo [place] e 30 mg e 30 mg ne 30 mg Commu ni tablet TAKE tablet TAKE tablet ty 1 TABLET BY 1 TABLET BY TAKE 1 [facility]ospita MOUTH IN MOUTH IN TABLET BY l THE MORNING THE MORNING MOUTH IN Clinics THE MORNING triamcinolo triamcinolo No triamcinol [place] ne ne one [facility]i acetonide acetonide acetonide ty 0.1 % 0.1 % 0.1 % [facility]ospita topical topical topical l cream APPLY cream APPLY cream Clinics A THIN A THIN APPLY A LAYER TO LAYER TO THIN LAYER THE THE TO THE AFFECTED AFFECTED AFFECTED AREAS TWO AREAS TWO AREAS TWO TIMES A DAY TIMES A DAY TIMES A DAY Xarelto 10 Xarelto 10 No Xarelto 10 [place] mg tablet mg tablet mg tablet Communi TAKE 1 TAKE 1 TAKE 1 ty TABLET BY TABLET BY TABLET BY Hospita MOUTH ONCE MOUTH ONCE MOUTH ONCE l DAILY DAILY DAILY Clinics amitriptyli amitriptyli No amitriptyl [place] ne 10 mg ne 10 mg ine 10 mg Co mmuni tablet TAKE tablet TAKE tablet ty 1 TABLET BY 1 TABLET BY TAKE 1 Hospita MOUTH AT MOUTH AT TABLET BY l BEDTIME BEDTIME MOUTH AT Clini cs BEDTIME BD BD No BD [place] Ultra-Fine Ultra-Fine Ultra-Fine Commun[facility] Short Pen Short Pen Short Pen ty Needle 31 Needle 31 Needle 31 Hospita gauge x gauge x gauge x l 02/03" USE 1 02/03" USE 1 02/03" USE Clinics NEEDLE NEEDLE 1 NEEDLE DIRECTED DIRECTED TWICE DAILY TWICE DAILY DIRECTED TWICE DAILY clotrimazol clotrimazol No clotrimazo [place] e-betametha e-betametha le-betamet Communi sone 1 sone 1 hasone 1 ty %-0.05 % %-0.05 % %-0.05 % [facility] topical topical topical l cream APPLY cream APPLY cream Clinics CREAM CREAM APPLY TOPICALLY TOPICALLY CREAM TWICE DAILY TWICE DAILY TOPICALLY TO AFFECTED TO AFFECTED TWICE AND AND DAILY TO SURROUNDING SURROUNDING AFFECTED AREAS OF AREAS OF AND SKIN IN THE SKIN IN THE SURROUNDIN MORNING AND MORNING AND G AREAS OF EVENING EVENING SKIN IN NEEDED NEEDED THE MORNING AND EVENING NEEDED Dialyvite Dialyvite No Dialyvite [place] Vitamin D3 Vitamin D3 Vitamin D3 [facility]i Max 1,250 Max 1,250 Max 1,250 ty mcg (50,000 mcg (50,000 mcg H [facility] unit) unit) (50,000 l tablet tablet unit) Clinics tablet duloxetine duloxetine No duloxetine [place] 60 mg 60 mg 60 mg [facility]i capsule,del capsule,del capsule,de ty ayed ayed layed Hospita release release release l Clinics ezetimibe ezetimibe No ezetimibe [place] 10 mg 10 mg 10 mg Communi tablet TAKE tablet TAKE tablet ty 1 TABLET BY 1 TABLET BY TAKE 1 [facility]ospita MOUTH ONCE MOUTH ONCE TABLET BY l DAILY DAILY MOUTH ONCE Clinics DAILY famotidine famotidine No famotidine [place] 20 mg 20 mg 20 mg Communi tablet tablet tablet ty Hospita l Clinics isosorbide isosorbide No isosorbide [place] mononitrate mononitrate mononitrat Communi ER 30 mg ER 30 mg e ER 30 mg t y tablet,exte tablet,exte tablet,ext Hospita nded nded ended l release 24 release 24 release 24 Clinics hr TAKE 1 hr TAKE 1 hr TAKE 1 TABLET BY TABLET BY TABLET BY MOUTH ONCE MOUTH ONCE MOUTH ONCE DAILY DAILY DAILY Lumigan Lumigan No Lumigan [place] 0.01 % eye 0.01 % eye 0.01 % eye Communi drops drops drops ty INSTILL 1 INSTILL 1 INSTILL 1 Hospita DROP INTO DROP INTO DROP INTO l EACH EYE AT EACH EYE AT EACH EYE Clinics BEDTIME BEDTIME AT BEDTIME meloxicam meloxicam No meloxicam [place] 15 mg 15 mg 15 mg Communi tablet TAKE tablet TAKE tablet ty 1 TABLET BY 1 TABLET BY TAKE 1 Hospita MOUTH ONCE MOUTH ONCE TABLET BY l DAILY DAILY MOUTH ONCE Clinics DAILY Novolog Mix Novolog Mix No Novolog [place] 70-30 70-30 Mix 70-30 Communi FlexPen FlexPen FlexPen ty U-100 U-100 U-100 [facility]ospita Insulin 100 Insulin 100 Insulin l unit/mL unit/mL 100 Clinics subcutaneou subcutaneou unit/mL s pen s pen subcutaneo INJECT 60 INJECT 60 us pen UNITS UNITS INJECT 60 SUBCUTANEOU SUBCUTANEOU UNITS SLY TWICE SLY TWICE SUBCUTANEO DAILY DAILY USLY TWICE DAILY pioglitazon pioglitazon No pioglitazo [place] e 30 mg e 30 mg ne 30 mg Commu ni tablet TAKE tablet TAKE tablet ty 1 TABLET BY 1 TABLET BY TAKE 1 [facility]ospita MOUTH IN MOUTH IN TABLET BY l THE MORNING THE MORNING MOUTH IN Clinics THE MORNING triamcinolo triamcinolo No triamcinol [place] ne ne one Communi acetonide acetonide acetonide ty 0.1 % 0.1 % 0.1 % [facility]ospita topical topical topical l cream APPLY cream APPLY cream Clinics A THIN A THIN APPLY A LAYER TO LAYER TO THIN LAYER THE THE TO THE AFFECTED AFFECTED AFFECTED AREAS TWO AREAS TWO AREAS TWO TIMES A DAY TIMES A DAY TIMES A DAY Xarelto 10 Xarelto 10 No Xarelto 10 [place] mg tablet mg tablet mg tablet Communi TAKE 1 TAKE 1 TAKE 1 ty TABLET BY TABLET BY TABLET BY Hospita MOUTH ONCE MOUTH ONCE MOUTH ONCE l DAILY DAILY DAILY Clinics amitriptyli amitriptyli No amitriptyl [place] ne 10 mg ne 10 mg ine 10 mg Co mmuni tablet TAKE tablet TAKE tablet ty 1 TABLET BY 1 TABLET BY TAKE 1 Hospita MOUTH AT MOUTH AT TABLET BY l BEDTIME BEDTIME MOUTH AT Clini cs BEDTIME Immunizations Ordered Immunization Filled Immunization Date Status Commen ts Source Name Name influenza, high dose influenza, high 2021-08-[address] [facility] seasonal dose seasonal 00:00:00 Hospital inics influenza, high dose influenza, high 2021-08-07 Completed [facility] dose seasonal 00:00:00 Hospital inics influenza, high dose influenza, high 2021-08-07 Completed [facility] seasonal dose seasonal 00:00:00 [facility] inics SARS-COV-2 SARS-COV-2 2021-01-04 Completed [place] ty (COVID-19) vaccine, (COVID-19) vaccine, 00:00:00 Hospital Clinics UNSPECIFIED UNSPECIFIED SARS-COV-2 SARS-COV-2 2021-01-04 Completed [place] (COVID-19) vaccine, (COVID-19) vaccine, 00:00:00 Hospital Clinics UNSPECIFIED UNSPECIFIED COVID-19 COVID-19 2021-01-04 Completed [place] (SARS-COV-2) (SARS-COV-2) 00:00:00 [facility] linics vaccine, unspecified vaccine, unspecified COVID-19 COVID-19 2021-01-04 Completed [place] [facility] ty (SARS-COV-2) (SARS-COV-2) 00:00:00 [facility] linics vaccine, unspecified vaccine, unspecified COVID-19 COVID-19 2021-01-04 Completed [place] [facility] ty (SARS-COV-2) (SARS-COV-2) 00:00:00 [facility] linics vaccine, unspecified vaccine, unspecified COVID-19 COVID-19 2021-01-04 Completed [place] [facility] ty (SARS-COV-2) (SARS-COV-2) 00:00:00 [facility] linics vaccine, unspecified vaccine, unspecified SARS-COV-2 SARS-COV-2 2020-12-07 Completed [place] (COVID-19) vaccine, (COVID-19) vaccine, 00:00:00 Hospital Clinics UNSPECIFIED UNSPECIFIED SARS-COV-2 SARS-COV-2 2020-12-07 Completed [place] [facility] ty (COVID-19) vaccine, (COVID-19) vaccine, 00:00:00 Hospital Clinics UNSPECIFIED UNSPECIFIED COVID-19 COVID-19 2020-12-07 Completed [place] [facility] (SARS-COV-2) (SARS-COV-2) 00:00:00 [facility] C linics vaccine, unspecified vaccine, unspecified COVID-19 COVID-19 2020-12-07 Completed [place] [facility] ty (SARS-COV-2) (SARS-COV-2) 00:00:00 [facility] linics vaccine, unspecified vaccine, unspecified COVID-19 COVID-19 2020-12-07 Completed [place] [facility] ty (SARS-COV-2) (SARS-COV-2) 00:00:00 [facility] linics vaccine, unspecified vaccine, unspecified COVID-19 COVID-19 2020-12-07 Completed [place] [facility] ty (SARS-COV-2) (SARS-COV-2) 00:00:00 [facility] C linics vaccine, unspecified vaccine, unspecified influenza, influenza, 2018-06-30 Completed [place] unspecified unspecified 00:00:00 Hospital Cli nics formulation formulation influenza, influenza, 2018-06-30 Completed [place] [facility] ty unspecified unspecified 00:00:00 Hospital Cli nics formulation formulation influenza, influenza, 2018-06-30 Completed [place] [facility] ty unspecified unspecified 00:00:00 Hospital Cli nics formulation formulation influenza, influenza, 2018-06-30 Completed [place] [facility] ty unspecified unspecified 00:00:00 Hospital Cli nics formulation formulation influenza, influenza, 2018-06-30 Completed [place] [facility] ty unspecified unspecified 00:00:00 Hospital Cli nics formulation formulation influenza, influenza, 2018-06-30 Completed [place] [facility] ty unspecified unspecified 00:00:00 Hospital Cli nics formulation formulation influenza, influenza, 2018-06-30 Completed [place] [facility] ty unspecified unspecified 00:00:00 Hospital Cli nics formulation formulation influenza, influenza, 2018-06-30 Completed [place] [facility] ty unspecified unspecified 00:00:00 Hospital Cli nics formulation formulation influenza, influenza, 2018-06-30 Completed [place] [facility] ty unspecified unspecified 00:00:00 Hospital Cli nics formulation formulation Hx influenza 2013-07-04 Completed [facility] vaccine-unspecified< 20:02:26 sup>1</sup> Hx influenza 2013-07-[address] [facility] colidnres vaccine-unspecified< 20:02:26 sup>1</sup> influenza virus 2013-07-04 [facility], 05:00:00 inactivated<sup>2</s up> influenza virus 2013-07-04 [facility] vaccine, 05:00:00 inactivated<sup>2</s up> Vital Signs Vital Name Observation Time Observation Value Comments Source Height 2022-11-03 66 [in_i] [facility] 00:00:00 [facility] BMI (Body Mass 2022-11-03 38.7 kg/m2 [facility] Index) 00:00:00 [facility] Body Weight 2022-11-03 240 [lb_av] [facility] 00:00:00 [facility] BP Diastolic 2022-06-09 80 mm[Hg] [facility] BP Systolic 2022-06-09 130 mm[Hg] [facility] 00:[facility] Body Weight 2022-06-09 3692.8 [oz_av] [facility] 00:[facility] BP Diastolic 2022-04-22 78 mm[Hg] [facility] 00:[facility]:00 [facility] BP Systolic 2022-04-22 158 mm[Hg] [facility] 00:[facility]:00 [facility] Body Weight 2022-04-22 3712 [oz_av] [facility] 00:[facility]:00 [facility] BP Diastolic 2021-08-01 62 mm[Hg] [facility] 00:[facility] BP Systolic 2021-08-01 122 mm[Hg] [facility] 00:[facility]:00 [facility] Body Weight 2021-08-01 3648 [oz_av] [facility] 00:[facility] BP Diastolic 2021-06-19 58 mm[Hg] [facility] 00:[facility]:00 [facility] BP Systolic 2021-06-19 118 mm[Hg] [facility] 00:[facility]:00 [facility] Body Weight 2021-06-19 3648 [oz_av] [facility] 00:[facility]:00 [facility] BP Diastolic 2021-02-21 70 mm[Hg] [facility] 00:[facility]:00 [facility] BP Systolic 2021-02-21 125 mm[Hg] [facility] 00:[facility] Body Weight 2021-02-21 3715.2 [oz_av] [facility] 00:[facility]:00 [facility] BP Diastolic 2021-01-10 68 mm[Hg] [facility] 00:[facility] BP Systolic 2021-01-10 140 mm[Hg] [facility] 00:[facility] Body Weight 2021-01-10 3712 [oz_av] [facility] 00:[facility]:00 [facility] BP Diastolic 2020-11-29 70 mm[Hg] [facility] 00:[facility]:00 [facility] BP Systolic 2020-11-29 140 mm[Hg] [facility] 00:[facility] Body Weight 2020-11-29 3731.2 [oz_av] [facility] 00:[facility]:00 [facility] BP Diastolic 2020-11-15 78 mm[Hg] [facility] 00:00:00 [facility] BP Systolic 2020-11-15 138 mm[Hg] [facility] 00:[facility]:00 [facility] Body Weight 2020-11-15 3731.2 [oz_av] [facility] 00:[facility]:00 [facility] Clinic s Systolic blood 2022-03-25 153 mm[Hg] [facility] pressure 21:30:00 Hospital Diastolic blood 2022-03-25 77 mm[Hg] [facility] pressure 21:30:00 Hospital Heart rate 2022-03-25 109 /min [facility] 21:30:00 Hospital Body height 2022-03-25 166.4 cm [facility] 21:30:00 Hospital Body weight 2022-03-25 104.327 kg [facility] 21:30:00 Hospital BMI 2022-03-25 37.69 kg/m2 [facility] 21:30:00 Hospital BP Systolic 2019-10-11 137 mm[Hg] Location: [facility]; [facility] 14:46:00 Position: Supine BP Diastolic 2019-10-11 85 mm[Hg] Location: [facility]; [facility] 14:46:00 Position: Supine Temperature 2019-10-11 97.4 [degF] Method: Oral [facility] 14:46:00 Heart Rate 2019-10-11 109 /min Location: [facility] 14:46:00 Radial; Quality: Normal Systolic (mm Hg) 2019-09-29 [facility] 22:35:00 Diastolic (mm Hg) 2019-09-29 [facility] 22:35:00 Respitory Rate 2019-09-29 [facility] 22:35:00 Systolic (mm Hg) 2019-09-29 [facility] 22:00:00 Diastolic (mm Hg) 2019-09-29 [facility] 22:00:00 Heart Rate 2019-09-29 [facility] 22:00:00 Heart Rate 2019-09-29 [facility] 21:50:00 Systolic (mm Hg) 2019-09-29 [facility] 21:50:00 Diastolic (mm Hg) 2019-09-29 [facility] 21:50:00 Heart Rate 2019-09-29 [facility] 21:40:00 Temperature Oral 2019-09-29 36.8 [facility] (F) 21:10:00 Height 2019-09-29 167 cm [facility] 18:22:00 Respitory Rate 2019-09-29 [facility] 18:22:00 Temperature Oral 2019-09-29 37 [facility] (F) 18:22:00 Height 2019-09-08 167 cm [facility] 17:50:00 BP Systolic 2019-04-11 159 mm[Hg] [facility] 15:07:00 BP Diastolic 2019-04-11 99 mm[Hg] [facility] 15:07:00 Height 2019-04-11 66 [in_us] [facility] 15:07:00 Weight 2019-04-11 234 [lb_av] [facility] 15:07:00 Body Mass Index 2019-04-11 37.77 kg/m2 [facility] 15:07:00 Heart Rate 2019-04-11 100 /min [facility] 15:07:00 Weight 2016-11-01 [facility] 20:07:00 Height 2016-11-01 167.64 cm [facility] 20:07:00 BMI Calculated 2016-11-01 [facility] 20:07:00 Heart Rate 2016-11-01 [facility] 20:07:00 Respitory Rate 2016-11-01 [facility] 20:07:00 Temperature Oral 2016-11-01 97.9 F Sergio [facility] (F) 20:07:00 Systolic (mm Hg) 2016-11-01 [facility] 20:07:00 Diastolic (mm Hg) 2016-11-01 [facility] 20:07:00 Respitory Rate 2016-10-23 [facility] 21:19:00 Heart Rate 2016-10-23 [facility] 21:19:00 Systolic (mm Hg) 2016-10-23 [facility] 21:19:00 Diastolic (mm Hg) 2016-10-23 [facility] 21:19:00 Temperature Oral 2016-10-23 98.0 F Sergio Tate rmann (F) 21:19:00 Respitory Rate 2016-10-23 [facility] 17:27:00 Systolic (mm Hg) 2016-10-23 [facility] 17:27:00 Diastolic (mm Hg) 2016-10-23 [facility] 17:27:00 Temperature Oral 2016-10-23 97.4 F [facility] Bebeto rmann (F) 17:21:00 Respitory Rate 2016-10-23 [facility] 17:21:00 Heart Rate 2016-10-23 [facility] 17:21:00 Systolic (mm Hg) 2016-10-23 [facility] 17:21:00 Diastolic (mm Hg) 2016-10-23 [facility] 17:21:00 BMI Calculated 2016-10-23 [facility] 16:11:00 Height 2016-10-23 167.64 cm [facility] 16:11:00 Weight 2016-10-23 [facility] 16:11:00 Heart Rate 2016-10-23 [facility] 16:10:00 Temperature Oral 2016-10-23 97.5 F [facility] Bebeto rmann (F) 16:10:00 Procedures Procedure Date / Time Performing Source Performed Clinician LIPID PANEL 2022-07-10 Lobito Carroll 13:24:00 [facility] COMPREHENSIVE METABOLIC PANEL 2022-07-10 [facility] 13:24:00 Hospital T4, FREE 2022-07-10 Lobito Carroll 13:24:00 Hospital THYROID STIMULATING HORMONE 2022-07-10 Lobito Carroll Kishore odist 13:24:00 Hospital T3, FREE 2022-07-10 Lob[facility] Carroll [facility] 13:24:00 Hospital VITAMIN D 25 HYDROXY LEVEL 2022-07-10 L[facility] Carrollo dist 13:24:00 Hospital HEMOGLOBIN A1C 2022-07-10 Lob[facility] Carroll [facility] 13:24:00 [facility] Physical Therapy 2020-04-27 [facility] 00:00:00 Post Op Promis 29 Survey 2019-10-13 [facility] 00:00:00 ARTHROSCOPY SHOULDER ROTATOR CUFF 2019-09-29 [facility] Morteza REPAIR [id number] (Left)<sup>1</sup> 19:56:00 ARTHROSCOPY SHOULDER W/BICEPS 2019-09-29 Nm morial [facility] TENDONESIS [id number] 19:56:00 (Left)<sup>2</sup> ARTHROSCOPY SHOULDER W/SUBACROMIAL 2019-09-29 [facility] DECOMPRESS[facility]/ACROMIOPLASTY [id number] 19:56:00 (Left)<sup>3</sup> Echocardiogram<sup>4</sup> 2019-09-27 Matthewor ial [facility] 06:00:00 Colonoscopy<sup>5</sup> 2019-09-01 [facility] 06:[facility]:00 [[facility]] Ortho - Surgery Scheduling 2019-08-12 [facility] 00:00:00 Esophagogastroduodenoscopy 2019-08-02 Matthewor ial Morteza 06:00:00 MR Shoulder wo contrast [id number] 2019-04-11 [facility] 00:00:00 Cataract extraction<sup>12</sup> 2017-12-20 [facility] Morteza 00:00:00 Angioplasty with stent<sup>6</sup> 2015-05-26 [facility] [place] 05:00:00 Back Surgery 2011-09-09 [facility] 00:00:00 [facility] Clinics Lumbar Fusion<sup>7</sup> 2011-08-21 Mekhi Mcwilliams 00:00:00 Colon Resection<sup>8</sup> 2009-09-21 Sami rial [facility] 00:00:00 Lumbar Laminectomy 2007-09-21 [facility] Herm leonela 00:00:00 Cervical Fusion<sup>9</sup> 2003-09-21 [facility]i [facility] 00:00:00 Cholecystectomy 1984-09-[address] [facility] 00:00:00 Gastric Bypass<sup>10</sup> 1977-09-21 [facility]i rial [facility] 00:00:00 Arthroscopy of knee<sup>11</sup> [facility] Hysterectomy<sup>13</sup> Mekhi al [facility] Tonsillectomy [facility] Appendectomy [facility] Back fusion [facility] Diverticulectomy [facility] Laminectomy [facility] Stent placement [facility] History of Cataract [facility]lect[facility] Injection of Spinal Steroid [facility] Shoulder Joint Surgery [facility] Excision of Colon [facility] Total Hysterectomy [facility] Cholecystectomy [facility] Cataract Surgery [facility] Plan of Care Planned Activity Planned Date Details Comments Source Future Scheduled 2022-09-19 URINE MICROALBUMIN [facility] Test 19:43:46 [code = URINE MICROALBUMIN] Future Scheduled 2022-09-19 Hepatitis C screening [facility] Test 19:43:46 (procedure) [code = [id number]] Future Scheduled 2022-09-19 COLONOSCOPY SCREENING [facility] Test 19:43:46 [code = COLONOSCOPY SCREENING] Future Scheduled 2022-09-19 SHINGLES VACCINES (1 [facility] Test 19:43:46 of 2) [code = SHINGLES VACCINES (1 of 2)] Future Scheduled 2022-09-19 COVID-19 VACCINE (3 - [facility] Test 19:43:46 Booster) [code = COVID-19 VACCINE (3 - Booster)] Future Scheduled 2022-09-19 INFLUENZA VACCINE [facility] Test 19:43:46 [code = INFLUENZA VACCINE] Future Scheduled 2022-09-19 65+ [facility]OCOCCAL [facility] Test 19:43:46 VACCINE (1 - PCV) [code = 65+ PNEUMOCOCCAL VACCINE (1 - PCV)] Future Scheduled 2022-09-19 DIABETES: RETINAL EYE [facility] Test 19:43:46 EXAM [code = DIABETES: RETINAL EYE EXAM] Future Scheduled 2022-09-19 DIABETIC FOOT EXAM [facility] Test 19:43:46 [code = DIABETIC FOOT EXAM] Diagnostic Test 2022-04-22 rapid SARS CoV 2 Ag, [facility] Pending 00:00:00 QL IA, respiratory Hospital Clinics specimen [code = rapid SARS CoV 2 Ag, QL [place], respiratory specimen] Diagnostic Test 2019-08-12 [[facility]] Ortho - Surgery [facility] Pending 00:00:00 Scheduling [code = [[facility]] Ortho - Surgery Scheduling] Future Appointment 2022-12-08 Franklin Benz, [id number] [facility] 11:30:00 [email or web address] [place]; , [place] [address] Encounters Start End Encounter Admission Attending Care Care Encounter Source Date/Time Date/Time Type Type Clinicians Facility Department ID 2022-06-18 Outpatient [facility] [id number] [facility] 14:09:20 [id number] [facility] 2021-08-02 Inpatient Reema, [facility] [id number] [facility] 12:00:00 2022-11-03 2022-11-03 Outpatient FOG_A_Provi AOSM AOSM 593 [id number] Jeny 00:00:00 00:00:00 alaln [id number] Orthop e dic [facility] Medic[facility] 2022-11-03 2022-11-03 [place] [facility] [place] - Ortho [id number] Jeny 00:00:00 00:00:00 Karla Ruelas MD: [id number] FOG_Ofc dic [facility] [employer], [place], [facility], [facility] [address] , Ph. [phone] 2022-10-22 2022-10-22 Outpatient FOG_A_Provi AOSM AOSM 593 [id number] Jeny 00:00:00 00:00:00 allan [id number] Orthop e dic Sports Medicin e 2022-10-22 2022-10-22 Outpatient FOG_A_Provi AOSM AOSM 593 [id number] Jeny 00:00:00 00:00:00 allan [id number] Orthop e dic Sports Medicin e 2022-09-19 2022-09-19 Orders Ramírez, 1.2.840.1 [id number] 6376 Methodi 00:00:00 00:00:00 Only Cheryl [address]173.1.[address] 3.430.2.7 Hospit a .3.738362 l .8 2022-07-24 2022-07-24 Telephone Elmore, 1.2.840.1 [id number] Methodi 00:00:00 00:00:[address] 3.430.2.7 Hospit a .3.051913 l .8 2022-07-23 2022-07-23 Telemedici [place], 1.2.840.1 [id number] Methodi 09:40:00 13:04:03 [address].1.[address] 3.430.2.7 Hospit a .3.528888 l .8 2022-07-23 2022-07-23 Outpatient GLEN, [facility] [id number] 4792 [place] 00:00:00 00:00:00 LOBITO [address] 2022-07-17 2022-07-17 Refill Ramírez, 1.2.840.1 [id number] 8024 Methodi 00:00:00 00:00:[address] 3.430.2.7 Hospit a .3.748870 l .8 2022-07-10 2022-07-10 Orders Glen, 1.2.840.1 [id number] 91241 Methodi 00:00:00 00:00:00 Only Lobito 00026.1.[address] 3.430.2.7 Hospit a .3.462403 l .8 2022-07-06 2022-07-06 Refill Glen, 1.2.840.1 [id number] 34400 Methodi 00:00:00 00:00:[address] 3.430.2.7 Hospit a .3.086431 l .8 2022-06-13 2022-06-13 Outpatient Jayjay_W MMG MMG [id number] 022 [place] 00:00:00 00:00:00 0923 Medical Group 2022-06-09 2022-06-09 Outpatient LINNETTE_A [facility] [id number] 0220 [place] 00:00:00 00:00:00 919 [facility] 2022-06-09 2022-06-09 Daniela Guardado [facility] [place] 919 [place] 00:00:00 00:00:00 Crescencio Lara MD: [address] [facility] [address], [place], [place], [address] LINNETTE , Ph. 2022-04-22 2022-04-22 Outpatient LINNETTE_Stephanie [facility] [id number] 0 [place] 00:00:00 00:00:00 802 Commun i ty Hospita [facility] 2022-04-22 2022-04-22 Daniela Guardado [facility] [place] 802 [place] 00:00:00 00:00:00 Crescencio Lara MD: [address] [facility] [address], [place], [place], [address] LINNETTE , Ph. 2022-04-22 2022-04-22 Outpatient Daniela Lara [facility] 915 [id number] 00:00:00 00:00:00 Debby [id number]-9 [id number] fac16b 2022-04-22 2022-04-22 Outpatient Daniela Lara [facility] 1a1 [id number] 00:00:00 00:00:00 Debby [id number] fac16b 2022-03-25 2022-03-25 Office Glen, 12.840.1 [id number] 68323 [facility] 16:20:00 17:06:06 Visit Lobito 72800.1.[address] 3.430.2.7 Hospit a .3.618171 l .8 2022-03-25 2022-03-25 Outpatient GLEN [facility] [id number] 6866 [place] 00:00:00 00:00:00 LOBITO [address] 2022-03-25 2022-03-25 Travel 1.2.840.1 1.2.678.772 8313 [id number] Methodi 00:00:00 00:00:[address] 3.430.2.7 0.2.7.3.698 Ho spita .3.879291 084.8 l .8 2022-02-21 2022-02-21 Outpatient KEFFER_A [facility] [id number] 0220 [place] 05:22:00 05:22:00 603 Commun i ty Hospita l Clinics 2021-12-23 2021-12-23 Outpatient [facility]_A [facility] [id number] 0220 [place] 03:36:00 03:36:00 404 Commun i ty Hospita [facility] Clinics 2021-12-09 2021-12-09 Orders Glen, 1.2.840.1 [id number] Methodi 00:00:00 00:00:00 Only Lobito 44788.1.[address] 3.430.2.7 Hospit a .3.535238 l .8 2021-12-09 2021-12-09 Telephone Ramírez, 1.2.840.1 [id number] [id number] Methodi 00:00:00 00:00:[address] 3.430.2.7 Hospit a .3.599720 l .8 2021-11-27 2021-11-27 Office Glen, 1.2.840.1 [id number] 00587 05348 Methodi 14:00:00 14:43:48 Visit Lobito [address]7910.1.[address] 3.430.2.7 Hospit a .3.132502 l .8 2021-11-27 2021-11-27 Outpatient GLEN [facility] [id number] 6201 [place] 00:00:00 00:00:[address] 2021-11-27 2021-11-27 Travel 1.2.840.1 1.2.201.496 1285 194484 Methodi 00:00:00 00:00:[address] 3.430.2.7 0.2.7.3.698 spita .3.652651 084.8 l .8 2021-09-23 2021-09-23 Outpatient GLEN [facility] [id number] 1477 [place] 00:00:00 00:00:00 LOBITO [address] 2021-08-02 2021-08-02 Outpatient [facility] [id number] [facility] 06:06:00 06:06:00 00 2021-08-01 2021-08-01 Outpatient LINNETTE_A [facility] [id number] [place] 04:05:00 04:05:00 111 Commun i ty Hospita [facility] 2021-08-01 2021-08-01 Outpatient Daniela Lara [facility] bf8 [id number] 00:00:00 00:00:00 Debby [id number]-11ec-8 [id number] 2021-08-01 2021-08-01 Daniela Guardado [facility] [place] 111 [place] 00:00:00 00:00:00 Crescencio Lara MD: [address] [facility] [address], [place], [place], [address] LINNETTE , Ph. 2021-06-19 2021-06-19 Outpatient LINNETTE_A [facility] [id number] 0210 [place] 12:41:00 12:41:00 929 Commun i ty Hospita [facility] 2021-06-19 2021-06-19 Daniela Guardado [facility] [place] 929 [place] 00:00:00 00:00:00 Crescencio Lara MD: [address] [facility] [address], [place], [address] LINNETTE , Ph. 2021-06-19 2021-06-19 Outpatient Daniela Lara [facility] d84 [id number] 00:00:00 00:00:00 Debby [id number] 1170-06-03 2021-02-21 Outpatient KEFFER_A [facility] [id number] 0210 [place] 03:54:00 03:54:00 603 Commun i ty Hospita l Clinics 2021-02-21 2021-02-21 Daniela Guardado [facility] [place] 603 [place] 00:00:00 00:00:00 Crescencio Lara MD: [address] [facility] [address], [place], [place], [address] LINNETTE , Ph. 2021-02-21 2021-02-21 Outpatient LinnetteDaniela [facility] [id number] 00:00:00 00:00:00 Debby [id number] 2021-02-07 2021-02-07 Outpatient KEFFER_A [facility] [id number] 0210 [place] 07:11:00 07:11:00 520 Commun i ty Hospita [facility] Clinics 2021-02-07 2021-02-07 Outpatient KEFFER_A [facility] [id number] 0210 [place] 07:11:00 07:11:00 602 Commun i ty Hospita l Clinics 2021-01-10 2021-01-10 Outpatient KEFFER_A [facility] [id number] 0210 [place] 12:50:00 12:50:00 422 Commun i ty Hospita l Clinics 2021-01-10 2021-01-10 Daniela Guardado [facility] [place] 422 [place] 00:00:00 00:00:00 Crescencio Lara MD: [address] [facility] [address], [place], [place], [address] LINNETTE , Ph. 2021-01-10 2021-01-10 Outpatient Linnette Daniela [facility] 192 [id number] 00:00:00 00:00:00 Debby [id number] 2020-12-19 2020-12-19 Outpatient GADIEL, [facility] [id number] 353 [place] 00:00:00 00:00:[address]AL [address] 2020-12-19 2020-12-19 Outpatient GADIEL [facility] [id number] 353 [place] 00:00:00 00:00:[address] NEAL [address] 2020-11-29 2020-11-29 Outpatient LINNETTE_A [facility] [id number] [place] 12:35:00 12:35:00 311 Commun i ty Hospita l Clinics 2020-11-29 2020-11-29 Daniela Guardado [facility] [place] 311 [place] 00:00:00 00:00:00 Crescencio Lara MD: [address] [facility] [address], HOSPITAL Clinic [place], [place]INIC, [address] LINNETTE , Ph. 2020-11-29 2020-11-29 Outpatient Daniela Lara [facility] 128 [id number] 00:00:00 00:00:00 Debby [id number] 2020-11-15 2020-11-15 Outpatient LINNETTE_Stephanie [facility] [id number] 0210 [place] 03:38:00 03:38:00 225 Commun i [facility]osp[facility] Clinics 2020-11-15 2020-11-15 Outpatient Daniela Lara [facility] 0d6 [id number] 00:00:00 00:00:00 Debby [id number] 2020-11-15 2020-11-15 Daniela Guardado [facility] [place] 225 [place] 00:00:00 00:00:00 Crescencio Lara MD: [address] [facility] [address], [address], HOSPITAL Clinic s [place], [place] CLINIC, [address] LINNETTE , Ph. 2020-10-09 2020-10-09 Outpatient KEFFER_A [facility] [id number] 0210 [place] 03:39:00 03:39:00 119 Commun i ty Hospita l Clinics 2020-08-08 2020-08-08 Outpatient keffer_a MMG [facility] 2019 [place] 00:00:00 00:00:00 1118 da [facility] 2020-04-27 2020-04-27 Appointmen FRIDA [facility] [[email or web address] Orthopedics 68 [id number] [place] 11:00:00 11:00:00 t; CARLOS A GALICIA, - [place] Leah rodriguez M.D. [place] 2020-01-30 2020-01-30 Appointmen JOSE L [facility] [[email or web address] Orthopedics 666 [id number] [place] 14:15:00 14:15:00 t; EDDIE DOMINGO - Sugar Phys Verona Kenney 1 ans M.DMark 2019-12-19 2019-12-19 Appointmen [facility] Orthopedics [id number] [id number] [place] 10:30:00 10:30:00 t; KRYSTEN HSUTE, - Sugar Ph ysici NICHOLETTE CABIN SUPERVISOR [place] 1 ans , CABIN SUPERVISOR 2019-11-16 2019-11-16 Appointmen [facility] Orthopedics 623 [id number] [place] 14:00:00 14:00:00 t; TYAYANOLETTE, - Sugar Ph ysici NICHOLETTE CABIN SUPERVISOR Land 1 ans , CABIN SUPERVISOR 2019-10-11 2019-10-11 Appointmen JOSE L [facility] [[email or web address] Orthopedics 621 [id number] [place] 16:15:00 16:15:00 t; EDDIE DOMINGO - Sugar Phys Verona Kenney 1 ans M.Guadalupe 2019-10-11 2019-10-11 Appointmen JOSE L [facility] [[email or web address] Orthopedics 618 [id number] [place] 14:45:00 14:45:00 t; EDDIE DOMINGO - Sugar Phys Verona Kenney 1 ans M.DMark 2019-09-29 2019-09-29 [facility] 5 [place] 17:46:44 23:01:00 r [facility] 2019-09-29 2019-09-29 Outpatient nullFlavo [facility] 8483 5 Mem[place] 17:46:44 23:01:00 r [facility] 2019-09-29 2019-09-29 Outpatient Domingo, [id number] 11:46:44 17:01:00 Eddie 8 2019-09-29 2019-09-29 Outpatient nullFlavo [facility] 23700 [place] 11:46:44 17:01:00 r [facility] 2019-09-29 2019-09-29 [facility] 618 [id number] [place] 13:00:00 13:00:00 t; EDDIE DOMINGO - Sugar Phys Verona Kenney 1 ans M.Guadalupe 2019-09-15 2019-09-15 [facility] 597 [id number] [place] 07:30:00 07:30:00 t; EDDIE DOMINGO - Sugar Phys Verona Kenney 1 ans M.Guadalupe 2019-08-12 2019-08-12 [facility] 587 00030 [place] 13:00:00 13:00:00 t; EDDIE DOMINGO - Sugar Phys Verona Kenney 1 ans M.Guadalupe 2019-04-28 2019-04-28 [facility]SE L [facility] [[email or web address] Orthopedics 556 [address]20 [place] 09:45:00 09:45:00 t; EDDIE DOMINGO - Sugar Phys Verona Kenney 1 ans M.Guadalupe 2019-04-11 2019-04-11 [facility] 551 [id number] [place] 14:45:00 14:45:00 t; EDDIE DOMINGO - Sugar Phys Verona Kenney 1 ans M.Guadalupe 2016-11-01 2016-11-01 Emergency [facility] 89553 [id number] [place] 19:53:00 21:03:[address] 2016-11-01 2016-11-01 Emergency [facility] 02398 33850 [place] 19:53:00 21:03:00 r [place] 00 l [facility] 2016-11-01 2016-11-01 Outpatient Kevin Rosado [facility] [id number] 13:53:00 15:03:00 Daeun 00 2016-10-23 2016-10-24 Observatio [facility] 3439 [id number] [place] 13:36:00 01:21:00 n [facility] 33 [facility] 2016-10-23 2016-10-24 Observatio [facility] 3439 [id number] [place] 13:36:00 01:21:00 n [facility] 33 [facility] 2016-10-23 2016-10-23 Outpatient Nicole Veras [facility] 3439 [id number] 07:36:00 19:21:00 M 33 Results Test Description Test Time Test Comments Results Result Comments Source T3, free 2022-07-11 03:53:00 Test Item Value Reference Range Interpretation Comme nts T3, free (test code = 3051-0) 3.3 pg/mL 2.3-4.2 MAGALYS (test code = MAGALYS) FASTING:YES FASTING: YES RAC (test code = RAC) Performing Organization Information: Site ID: RGA Name: [facility] Address: [address] [place] [address] Director: Bernard Robertson [facility]wall[facility]it[facility] D 25 hydroxy [id number] 03:53:00 Test Item Value Reference Range Interpretation Comments Vitamin D, 32 ng/mL 30-100 Vitamin D Statu s 25-hydroxy (test 25-OH Vitam in D: code = 1989-3) Deficiency: < 20 ng/mLInsufficie ncy : 20 - 29 ng/mLOptimal: > or = 30 ng/mL For 25-OH Vitamin D testing on patients on D2-supplementat ion and patients fo r whom quantitati on of D2 and D3 fractions is required, the QuestAssureD(TM )25 -OH VIT D, (D2,D3), LC/MS/ MS is recommended: order code 9288 8 (patients >2yrs).See Note 1 Note 1 For additional information, please refer to http://educatio n.Q uestDiagnostics .co m/faq/TTH015 (T his link is being provided for informational/e lali ational purpose s only.) MAGALYS (test code = FASTING:YES FASTING: MAGALYS) YES RAC (test code = Performing RAC) Organization Information: Site ID: RGA Name: [facility] Address: [address] [place] [address] Director: Bernard Robertson [facility]wallComprehensive metabolic [id number] 03:53:00 Test Item Value Reference Range Interpretation Comments Glucose (test code = 126 mg/dL 65-99 H Fastin g 2345-7) reference interval For someone without known diabetes, a glucosevalue >1 25 mg/dL indicates that they may havediabetes an d this should be confirmed with afollow-up test . BUN (test code = 30 mg/dL 7-25 H 3094-0) Creatinine (test 0.79 mg/dL 0.60-1.00 code = 2160-0) eGFR (test code = 77 See_Comment The eGFR i s based 8257) on the CKD-EPI 2020 equation. To calculate the n ew eGFR from a previous Creatinine or Cystatin Cresul t, go to https://www.kid ne y.org/profbuddy cano/kdoqi/gfr%5F ca lculator [Automated message] The system which generated this result transmitted reference range : > OR = 60 mL/min/1.73m2. The reference range was not used to interpr et this result as normal/abnormal . BUN/creatinine ratio 38 See_Comment H [Autom ated (test code = 3097-3) message ] The system which generated this result transmitted reference range : 6 - 22 (calc). The reference range was not used to interpr et this result as normal/abnormal . Sodium (test code = 140 mmol/L 150-455 0309-2) Potassium (test code 4.0 mmol/L 3.5-5.3 = 2823-3) Chloride (test code 104 mmol/L 98-110 = 2075-0) CO2 (test code = 30 mmol/L 20-32 2027-9) Calcium (test code = 9.0 mg/dL 8.6-10.4 29015-1) Protein (test code = 6.7 g/dL 6.1-8.1 2885-2) Albumin, S (test 3.8 g/dL 3.6-5.1 code = 1751-7) Globulin, total 2.9 See_Comment [Automated (test code = message] The ) system which generated this result transmitted reference range : 1.9 - 3.7 g/dL (calc). The reference range was not used to interpret this result as normal/abnormal . Albumin/globulin 1.3 See_Comment [Automated ratio (test code = message] The ) system which generated this result transmitted reference range : 1.0 - 2.5 (calc ). The reference range was not used to interpr et this result as normal/abnormal . Total bilirubin 0.5 mg/dL 0.2-1.2 (test code = 1974-) Alkaline phosphatase 51 U/L 37-153 (test code = 6768-6) AST (test code = 20 U/L 10-35 1919-8) ALT (test code = 15 U/L 6-1741-6) MAGALYS (test code = FASTING:YES MAGALYS) FASTING: YES RAC (test code = Performing RAC) Organization Information: Site ID: RGA Name: [facility] Address: [address] [place] [address] Director: Bernard Robertson Lab Interpretation Abnormal (test code = 79877-0) [facility]wallLipid [id number] 03:53:00 Test Item Value Reference Range Interpretation Comments Cholesterol, total 256 mg/dL <=200 H (test code = 2093-3) HDL cholesterol 57 mg/dL See_Comment [Automated (test code = 2084-9) message ] The system which generated this result transmitted reference range : > OR = 50. The reference range was not used to interpret this result as normal/abnormal . Triglycerides (test 153 mg/dL <=150 H code = 2571-8) LDL cholesterol 169 mg/dL (calc) H Reference ra nge: calculated (test <100 Desira ble code = 91447-2) range <100 m g/dL for primary prevention; <70 mg/dL for patients with C HD or diabetic patients with > or = 2 CHD risk factors. LDL-C is now calculated using the Massimo-Coffey calculation, which is a validated novel method providin g better accuracy than the Friedewald equation in the estimation of LDL-C. Massimo S S et al. YASMIN. 2013;310(19): 7546-0564 (http://educati on .Drink Up Downtowni Autoquake .com/faq/ZCU645 ) Cholesterol/HDL 4.5 See_Comment [Automated ratio (test code = message] The 9830-1) system which generated this result transmitted reference range : <5.0 (calc). Th e reference range was not used to interpret this result as normal/abnormal . Non-HDL cholesterol 199 See_Comment H For alvaro ents with (test code = diabetes plus 1 94301-7) major ASCVD ris k factor, treatin g to a non-HDL-C goal of <100 mg/dL (LDL-C of <70 mg/dL) is considered a therapeutic option. [Automated message] The system which generated this result transmitted reference range : <130 mg/dL (calc). The reference range was not used to interpret this result as normal/abnormal . MAGALYS (test code = FASTING:YES MAGALYS) FASTING: YES RAC (test code = Performing RAC) Organization Information: Site ID: RGA [facility]: [facility] Address: [address] [place] [address] Director: Bernard Robertson Lab Interpretation Abnormal (test code = 91375-4) [facility]wallHemoglobin [id number] 03:53:00 Test Item Value Reference Interpretation Comments Range Hemoglobin A1C 5.7 See_Comment H For someone w ithout (test code = known diabetes, a 4548-4) hemoglobin A1c value between 5.7% an d 6.4% is consist ent withprediabetes and should be confi rmed with a follow-u p test. For someo ne with known diab etes, a value <7%indicates that their diabetes is well controlled . A6tklccbth shou ld be individualized based on duration ofdiabetes, age , comorbid condit ions, and otherconsiderat ions. This assay resu lt is consistent with an increased risko f diabetes. Curre ntly, no consensus ex ists regarding use ofhemoglobin A1 c for diagnosis of diabetes for children. [Auto mated message] The sy stem which generated this result transmit cynthia reference range : <5.7 % of total Hgb. The reference r angelic was not used to interpret this result as normal/abnormal . MAGALYS (test code = FASTING:YES MAGALYS) FASTING: YES RAC (test code = Performing RAC) Organization Information: Site ID: ZAMZAM Name: [facility] Address: [address] [place] [address] Director: Bernard Robertson Lab Interpretation Abnormal (test code = 83117-4) [facility] RockwallT4, [id number] 03:53:00 Test Item Value Reference Range Interpretation Comments T4, free (test code 1.5 ng/dL 0.8-1.8 = 3024-7) MAGALYS (test code = FASTING:YES FASTING: YES MAGALYS) RAC (test code = Performing Organization RAC) Information: Site ID: SHIMON Name: [facility] Address: [address] [place] [address] Director: Bernard LynchWVUMedicine Barnesville HospitalThyroid stimulating [id number] 03:53:00 Test Item Value Reference Range Interpretation Comments TSH (test 0.87 See_Comment [Automated mes maik] code = The system Ally Home Careic h 3016-3) generated this result transmit cynthia reference range : 0.40 - 4.50 mIU /L. The reference r angelic was not used to interpret this result as normal/abnormal . MAGALYS (test FASTING:YES FASTING: code = MAGALYS) YES RAC (test Performing code = RAC) Organization Information: Site ID: [facility] Name: [facility] Address: [address] [place] [address] Director: Beranrd Robertson [facility] RockwallComplete Blood Count Auto [id number] 07:15:00 Test Item Value Reference Range Interpretation Comments White Blood Count (test code = 6.8 x10 3/uL 4.4-10.5 N WBCT) Red Blood Count (test code = 4.22 x10 6/uL 3.75-5.20 N RBC) Hemoglobin (test code = HGBT) 12.3 g/dL 12.2-14.8 N Hematocrit (test code = HCTT) 37.6 % 36.5-44.4 N Mean Corpuscular Volume (test 89.10 fL 80.00-100.00 N code = MCV) Mean Corpuscular Hemoglobin 29.1 pg 27.0-32.5 N (test code = MCH) Mean Corpuscular HGB Conc 32.70 g/dL 32.00-37.50 N (test code = MCHC) RDW Coefficient of Variation 17.0 % 11.5-14.5 H (test code = RDWCV) Platelet Count (test code = 141.0 x10 3/uL 140.0-440.0 N PLTT) Mean Platelet Volume (test 11.1 fL code = MPV) Immature Granulocytes % (Auto) 1.0 % 0.0-5.0 N (test code = IMMGRAN%) Neutrophils % (Auto) (test 44.9 % 36.0-70.0 N code = NE%) Lymphocytes % (Auto) (test 43.3 % 12.0-44.0 N code = LY%) Monocytes % (Auto) (test code 9.8 % 0.0-11.0 N = MO%) Eosinophils % (Auto) (test 0.7 % 0.0-7.0 N code = EO%) Basophils % (Auto) (test code 0.3 % 0.0-2.0 N = BA%) Immature Granulocytes # (Auto) 0.07 x10 3/uL (test code = IMMGRAN#) Neutrophils # (Auto) (test 3.1 x10 3/uL 1.6-7.4 N code = NE#) Lymphocytes # (Auto) (test 2.96 x10 3/uL 0.50-4.60 N code = LY#) Monocytes # (Auto) (test code 0.67 x10 3/uL 0.00-1.20 N = MO#) Eosinophils # (Auto) (test 0.05 x10 3/uL 0.00-0.74 N code = EO#) Basophils # (Auto) (test code 0.02 x10 3/uL 0.00-0.21 N = BA#) nRBC Abs (test code = NRBCA) 0 nRBC Pct (test code = NRBCP) 0 % Prothrombin Time [id number] 07:15:00 Test Item Value Reference Range Interpretation Comments Prothrombin Time 11.1 Seconds 9.3-12.1 N *Note New R eference (test code = PT) Range INR (test code = 1.0 ratio 0.9-1.2 N Reference I nterval is INR) for non-anticoagula cynthia patients.Sugges cynthia INR Therapeutic Range for Vitamin K antogonistthera py:LEV ELS OFTHERAPY INDICATIONS TA RGET INR RANGEStanda rd Dose Venous Thrombosis, 2.0 - 3.0 Atrial Fibrilla tion, Pulmonary Embolism.High D ose Valvular Heart Disease, 2.5 - 3.5 Mechanical Hear t, Intracardiac Thrombosis.*Not e New Reference Range Partial Thromboplastin [id number] 07:15:00 Test Item Value Reference Range Interpretation Comments Partial Thromboplastin 24.3 Seconds 23.9-32.8 N *Note New Time (test code = PTT) Refer ence Range Comprehensive Metabolic [id number] 07:15:00 Test Item Value Reference Range Interpretation Comments SODIUM (test code = NA) 142.0 mmol/L 136.0-145.0 N Potassium,K (test code = K) 4.3 mmol/L 3.0-5.1 N Chloride (test code = CL) 106 mmol/L 98-107 N Carbon Dioxide (test code = CO2) 31 mmol/L 20-31 N Anion Gap (test code = GAP) 5 mmol/L 5-15 N Blood Urea Nitrogen (test code = 20 mg/dL 9-23 N BUN) Creatinine (test code = CREATT) 1.04 mg/dL 0.55-1.02 H Creatinine Clr Calc Pharmacy 56.51 mL/min (test code = CRCLPHA) Estimated GFR ( Carrie > 60 mL/min/1.73m2 (test code = EGFRAA) Estimated GFR (Non Afr Carrie 53 mL/min/1.73m2 (test code = EGFRNAA) BUN/Creatinine Ratio (test code 19 ratio 10-20 N = BCRATIO) Glucose (test code = GLU) 156 mg/dL 74-106 H Osmolality,Calculated (test code 299.1 = OSMOC) Calcium (test code = CA) 10.2 mg/dL 8.3-10.6 N Bilirubin,Total (test code = 0.4 mg/dL 0.2-1.1 N BILIT) Aspartate Amino Transferase 33 U/L 0-34 N (test code = AST) Alanine Aminotransferase (test 36 U/L 10-49 N code = ALT) Total Protein (test code = TP) 6.5 g/dL 5.7-8.2 N Albumin Level (test code = ALB) 4.2 g/dL 3.2-4.8 N Globulin (test code = GLOB) 2.3 mg/dL 2.3-3.5 N Albumin/Globulin Ratio (test 1.8 ratio 0.8-2.0 N code = AGRATIO) Alkaline Phosphatase (test code 64 U/L 46-116 N = ALP) Post Op [facility] 29 Pilszm9963-25-34 13:07:47 Test Item Value Reference Range Interpretation Comments Pain Interference: (test code = Pain 70.3 1 N Interference:) Pain Intensity: (test code = Pain 49.9 1 N Intensity:) Physical Function: (test code = 26.7 1 N Physical Function:) Satisfaction Role: (test code = 32.1 1 N Satisfaction Role:) [facility]BC[facility]695[facility]-76 19:36:00 Test Item Value Reference Range Interpretation Comments Blood Glucose, Capillary (test code = 169 74-106 Blood Glucose, Capillary) [facility] HospitalQtktxojJQFPYJQWJY1412-56-18 19:36:00 Test Item Value Reference Range Interpretation Comments Blood Glucose, Capillary (test code = 169 74-106 Blood Glucose, Capillary) [facility] HospitalEkjvxvvRYBDOGQSUC9031-73-45 18:42:00 Test Item Value Reference Range Interpretation Comments Blood Glucose, Capillary (test code = 182 74-106 Blood Glucose, Capillary) [facility] HospitalNibwdlzUYZHTKTRXV4019-41-81 18:42:00 Test Item Value Reference Range Interpretation Comments Blood Glucose, Capillary (test code = 182 74-106 Blood Glucose, Capillary) [facility] HospitalZjinawaHIIZADOBEZ2849-79-93 18:46:00 Test Item Value Reference Range Interpretation Comments Hematocrit (test code = Hematocrit) 41.3 36.0-48.0 [facility] HospitalHueilwkSLAULSJPPF9039-54-58 18:46:00 Test Item Value Reference Range Interpretation Comments Hemoglobin (test code = Hemoglobin) 13.9 12.0-16.0 [facility] HospitalWqqjpwmAPUORRRKTK7225-04-31 18:46:00 Test Item Value Reference Range Interpretation Comments Red Blood Cell Count (test code = Red 4.61 4.20-5.40 Blood Cell Count) [facility] HospitalLhutmzkOULNYGJIUQ0558-58-23 18:46:00 Test Item Value Reference Range Interpretation Comments White Blood Count (test code = White 6.4 3.7-10.4 Blood Count) [facility] HospitalKzbgktzHUXSBWMWRA5338-29-23 18:46:00 Test Item Value Reference Range Interpretation Comments Results (test code = Reported (09/08/19 Results) 12:46 PM) [place] [id number] 18:46:00 Test Item Value Reference Range Interpretation Comments Carbon Dioxide Level (test code = 28 24-32 Carbon Dioxide Level) [facility] HospitalQfhwjsxRCISQBRFFX9080-43-61 18:46:00 Test Item Value Reference Range Interpretation Comments Chloride Level (test code = Chloride 103 95-109 Level) [facility] HospitalMtfadmoMUPDXHAHJA3978-94-03 18:46:00 Test Item Value Reference Range Interpretation Comments eGFR (test code = eGFR) 69 [facility] HospitalTjqoonyIXFOOWMTUR7246-83-55 18:46:00 Test Item Value Reference Range Interpretation Comments Calcium Level (test code = Calcium 8.8 8.5-10.5 Level) [facility] HospitalXsvtvhvWZCBZFZUYV9318-18-75 18:46:00 Test Item Value Reference Range Interpretation Comments AGAP (test code = AGAP) 12.7 10.0-20.0 [facility] HospitalEkrhpoiCYZETKYTKI9778-38-76 18:46:00 Test Item Value Reference Range Interpretation Comments BUN (test code = BUN) 13 7-22 [facility] HospitalHkkzohxYXGRVIPNCB4659-00-81 18:46:00 Test Item Value Reference Range Interpretation Comments Potassium Level (test code = Potassium 4.7 3.5-5.1 Level) [facility] HospitalMgriwjrRCRLKHSZJE3887-71-45 18:46:00 Test Item Value Reference Range Interpretation Comments Sodium Level (test code = Sodium Level) 139 135-145 [facility] HospitalGdngsojCEFFSAHAKA3700-65-13 18:46:00 Test Item Value Reference Range Interpretation Comments Creatinine (test code = Creatinine) 0.84 0.50-1.40 [facility] HospitalSzpvgrrRYMNARVLSG8598-21-53 18:46:00 Test Item Value Reference Range Interpretation Comments Glucose Lvl (test code = Glucose Lvl) 242 70-99 [facility] HospitalWhetsluZLLMTAXCDP8238-97-96 18:46:00 Test Item Value Reference Range Interpretation Comments Results (test code = Reported (09/08/19 Results) 12:46 PM) [facility] HospitalYjxfuuvLCKBSPTRYI5965-27-47 18:46:00 Test Item Value Reference Range Interpretation Comments Eosinophil % (test code 0.1 See_Comment [Au tomated message] The = Eosinophil %) system which generated this result tra nsmitted reference range : <=0.5. The reference r angelic was not used to int erpret this result as normal/abnormal . [facility] HospitalImvyxmlJNGQIIJFLP4628-37-71 18:46:00 Test Item Value Reference Range Interpretation Comments Monocyte # (test code = 0.6 See_Comment [Au tomated message] The Monocyte #) system which ge nerated this result tra nsmitted reference range : <=0.8. The reference r angelic was not used to int erpret this result as normal/abnormal . [facility] HospitalVxrlebvOMKUEENTKF7490-02-44 18:46:00 Test Item Value Reference Range Interpretation Comments Lymphocyte # (test code = Lymphocyte #) 3.2 1.0-5.5 [facility] HospitalDylflqdFBZXAENAXV8455-24-84 18:46:00 Test Item Value Reference Range Interpretation Comments Neutrophil # (test code = Neutrophil #) 2.6 1.5-8.1 [facility] HospitalWnwfejqOFNQHDCGPT8279-95-45 18:46:00 Test Item Value Reference Range Interpretation Comments Basophil % (test code = 0.3 See_Comment [Au tomated message] The Basophil %) system which ge nerated this result tra nsmitted reference range : <=1.0. The reference r angelic was not used to int erpret this result as normal/abnormal . [facility] HospitalZtqcanjZLIKRBPBGJ6173-13-51 18:46:00 Test Item Value Reference Range Interpretation Comments Eosinophil # (test code 1.7 See_Comment [Au tomated message] The = Eosinophil #) system which generated this result tra nsmitted reference range : <=4.0. The reference r angelic was not used to int erpret this result as normal/abnormal . [facility] HospitalIrsijsiMPLCCPQXPS2834-75-88 18:46:00 Test Item Value Reference Range Interpretation Comments Neutrophil % (test code = Neutrophil %) 39.9 45.0-75.0 [facility] HospitalHnwgboiIZBPFMROVB2622-26-57 18:46:00 Test Item Value Reference Range Interpretation Comments Lymphocyte % (test code = Lymphocyte %) 49.1 20.0-40.0 [facility] HospitalWelrpvpHAWKSQDYVN0984-77-67 18:46:00 Test Item Value Reference Range Interpretation Comments Monocyte % (test code = Monocyte %) 9.0 2.0-12.0 [facility] HospitalMqdtxveRKVELKQGYI3875-93-03 18:46:00 Test Item Value Reference Range Interpretation Comments Results (test code = Reported (09/08/19 Results) 12:46 PM) [facility] HospitalWhjqneaDRVRTVBLHQ3436-75-88 18:46:00 Test Item Value Reference Range Interpretation Comments Hgb A1c (test code = Hgb A1c) 8.6 [facility] HospitalPphcgagZPFKEBRVJF1136-03-05 18:46:00 Test Item Value Reference Range Interpretation Comments Results (test code = Reported (09/08/19 Results) 12:46 PM) [facility] HospitalKwgbjdxCESGXNBURU2177-23-52 18:46:00 Test Item Value Reference Range Interpretation Comments MPV (test code = MPV) 9.0 7.4-10.4 [facility] HospitalTjqtujxBDSWINNGTP5870-47-24 18:46:00 Test Item Value Reference Range Interpretation Comments MCV (test code = MCV) 89.7 80.0-98.0 [facility] HospitalCwwbblbBQYQXUEBCS1176-00-34 18:46:00 Test Item Value Reference Range Interpretation Comments Platelet (test code = Platelet) 172 133-450 [facility] HospitalNdqsjqdZWLRCAYYXC4585-52-66 18:46:00 Test Item Value Reference Range Interpretation Comments RDW (test code = RDW) 16.1 11.5-14.5 [facility] HospitalWcgwcqsEFTZMJWLWI2960-44-29 18:46:00 Test Item Value Reference Range Interpretation Comments MCHC (test code = MCHC) 33.6 32.0-36.0 [facility] HospitalNldzyotFGQSLDYJHV8947-05-97 18:46:00 Test Item Value Reference Range Interpretation Comments MCH (test code = MCH) 30.1 pg 27.0-31.0 [facility] HospitalPscnzplVKDQURLMMD5690-15-22 18:46:00 Test Item Value Reference Range Interpretation Comments Hematocrit (test code = Hematocrit) 41.3 36.0-48.0 [facility] HospitalPllzirfBZXBALLYGT4586-93-89 18:46:00 Test Item Value Reference Range Interpretation Comments Hemoglobin (test code = Hemoglobin) 13.9 12.0-16.0 [facility] HospitalEepzjlxJYEHNJDSOM7499-40-96 18:46:00 Test Item Value Reference Range Interpretation Comments Red Blood Cell Count (test code = Red 4.61 4.20-5.40 Blood Cell Count) [facility] HospitalRzfijjxTNTUTOYDHD3554-71-33 18:46:00 Test Item Value Reference Range Interpretation Comments White Blood Count (test code = White 6.4 3.7-10.4 Blood Count) [place] 469819-12-19 18:46:00 Test Item Value Reference Range Interpretation Comments Results (test code = Reported (09/08/19 Results) 12:46 PM) [facility] HospitalFpfdeteDNRCOYLYLQ5639-62-90 18:46:00 Test Item Value Reference Range Interpretation Comments Carbon Dioxide Level (test code = 28 24-32 Carbon Dioxide Level) [facility] HospitalDvpefhwKNMCQKESFF3648-19-42 18:46:00 Test Item Value Reference Range Interpretation Comments Chloride Level (test code = Chloride 103 95-109 Level) [facility] HospitalSskvaauSDUHDTUSWU4626-28-92 18:46:00 Test Item Value Reference Range Interpretation Comments eGFR (test code = eGFR) 69 [facility] HospitalVqihrxjKEFHVGYUBB3742-54-92 18:46:00 Test Item Value Reference Range Interpretation Comments Calcium Level (test code = Calcium 8.8 8.5-10.5 Level) [facility] HospitalKdnnearJLHHYVJMBT1474-92-04 18:46:00 Test Item Value Reference Range Interpretation Comments AGAP (test code = AGAP) 12.7 10.0-20.0 [facility] HospitalJqfbekrCCZRGUWSER3932-52-62 18:46:00 Test Item Value Reference Range Interpretation Comments BUN (test code = BUN) 13 7-22 [facility] HospitalVsqmwvkQOARGTNPVV8159-31-90 18:46:00 Test Item Value Reference Range Interpretation Comments Potassium Level (test code = Potassium 4.7 3.5-5.1 Level) [facility] HospitalAnujjotVBPPGBWCPY5429-41-19 18:46:00 Test Item Value Reference Range Interpretation Comments Sodium Level (test code = Sodium Level) 139 135-145 [facility] HospitalTxnlfzrUACOCUAYLR7275-81-95 18:46:00 Test Item Value Reference Range Interpretation Comments Creatinine (test code = Creatinine) 0.84 0.50-1.40 [facility] HospitalIpzyskzZJMPVRQMDW3462-92-44 18:46:00 Test Item Value Reference Range Interpretation Comments Glucose Lvl (test code = Glucose Lvl) 242 70-99 [facility] HospitalIolrpthRKJGXFVUTE8049-27-16 18:46:00 Test Item Value Reference Range Interpretation Comments Results (test code = Reported (09/08/19 Results) 12:46 PM) [place] 469819-12-19 18:46:00 Test Item Value Reference Range Interpretation Comments Eosinophil % (test code 0.1 See_Comment [Au tomated message] The = Eosinophil %) system which generated this result tra nsmitted reference range : <=0.5. The reference r angelic was not used to int erpret this result as normal/abnormal . [facility] HospitalGvesfxqNNQCAGMKHQ5941-13-93 18:46:00 Test Item Value Reference Range Interpretation Comments Monocyte # (test code = 0.6 See_Comment [Au tomated message] The Monocyte #) system which ge nerated this result tra nsmitted reference range : <=0.8. The reference r angelic was not used to int erpret this result as normal/abnormal . [facility] HospitalCzihmfaAQBZDEXWDS2686-01-39 18:46:00 Test Item Value Reference Range Interpretation Comments Lymphocyte # (test code = Lymphocyte #) 3.2 1.0-5.5 [facility] HospitalLhqoajqGJQQBLNWVO0458-44-14 18:46:00 Test Item Value Reference Range Interpretation Comments Neutrophil # (test code = Neutrophil #) 2.6 1.5-8.1 [facility] HospitalAoeogslCREIUBPYKO2297-57-04 18:46:00 Test Item Value Reference Range Interpretation Comments Basophil % (test code = 0.3 See_Comment [Au tomated message] The Basophil %) system which ge nerated this result tra nsmitted reference range : <=1.0. The reference r angelic was not used to int erpret this result as normal/abnormal . [facility] HospitalFvhzplyENRBPJZQFY2517-83-34 18:46:00 Test Item Value Reference Range Interpretation Comments Eosinophil # (test code 1.7 See_Comment [Au tomated message] The = Eosinophil #) system which generated this result tra nsmitted reference range : <=4.0. The reference r angelic was not used to int erpret this result as normal/abnormal . [facility] HospitalDoqdozyEALZSFSHCR5635-32-35 18:46:00 Test Item Value Reference Range Interpretation Comments Neutrophil % (test code = Neutrophil %) 39.9 45.0-75.0 [facility] HospitalPpsqzadTCZIASDKVD4569-41-46 18:46:00 Test Item Value Reference Range Interpretation Comments Lymphocyte % (test code = Lymphocyte %) 49.1 20.0-40.0 [facility] HospitalWwxeacdRLOFHTCJOP0451-90-97 18:46:00 Test Item Value Reference Range Interpretation Comments Monocyte % (test code = Monocyte %) 9.0 2.0-12.0 [facility] HospitalLchgvclTWLIVZXWEN7299-25-15 18:46:00 Test Item Value Reference Range Interpretation Comments Results (test code = Reported (09/08/19 Results) 12:46 PM) [facility] HospitalJqhsxvyCGKVEYIELF8381-13-63 18:46:00 Test Item Value Reference Range Interpretation Comments Hgb A1c (test code = Hgb A1c) 8.6 [facility] HospitalKtemryrMHVSVONIQJ2705-35-92 18:46:00 Test Item Value Reference Range Interpretation Comments Results (test code = Reported (09/08/19 Results) 12:46 PM) [facility] HospitalOyyrfewJIZWUCYJBR6511-51-20 18:46:00 Test Item Value Reference Range Interpretation Comments MPV (test code = MPV) 9.0 7.4-10.4 [facility] HospitalDnaxuofPTFIIIWTIB0628-24-06 18:46:00 Test Item Value Reference Range Interpretation Comments MCV (test code = MCV) 89.7 80.0-98.0 [facility] HospitalTilcesuXUJRCSOUUP3805-22-89 18:46:00 Test Item Value Reference Range Interpretation Comments Platelet (test code = Platelet) 172 133-450 [facility] HospitalQhgrdcuIZWMZRUHPY8292-71-14 18:46:00 Test Item Value Reference Range Interpretation Comments RDW (test code = RDW) 16.1 11.5-14.5 [facility] HospitalZmehebfKGEETFBAAE5080-04-06 18:46:00 Test Item Value Reference Range Interpretation Comments MCHC (test code = MCHC) 33.6 32.0-36.0 [facility] HospitalQbdhtkkIZPLZPDSDP5377-06-29 18:46:00 Test Item Value Reference Range Interpretation Comments MCH (test code = MCH) 30.1 pg 27.0-31.0 [facility]ann[facility] Fftlmzn1630-62-36 00:16:00 Test Item Value Reference Range Interpretation Comments Cholesterol (test 340 mg/dL 0-200 H code = CHOL) Triglycerides (test 165 mg/dL 9-200 N code = TRIG) HDL (test code = 66 mg/dL 50-60 H HDL) Chol/HDL (test code 5.2 Ratio 0.0-4.4 H = CHOLPHDL) LDL, Calculated 241 mg/dL 0-130 H (NOTE)RISK O F HEART (test code = LDLC) DISEASEPu blished by [place] Heart AssociationAnal yte Optimal Boderli ne Increased RiskC HOL <200 200-239 >240TRI G <150 150-199 >200HDL Male: >60 <40HDL Fema le: >60 <50LDL <100 130 -159 >160LDL [facility]AR [facility] IS 100-129 VLDL (test code = 33 mg/dL 5-40 N VLDL) LDL/HDL (test code = 4 LDLPHDL) Comprehensive Metabolic Cyckg4209-71-22 00:16:00 Test Item Value Reference Range Interpretation [...] [employer] Foundation,http [email or web address].nih.gov CBC with Pnkxtgqviqoq1972-24-97 23:34:00 Test Item Value Reference Range Interpretation [...] code = ALYMPH) 3.1 K/cumm 0.5-4.6 [place] Abs (test code = AMONO) 0.4 K/cumm 0.0-1.2 N Eos Abs (test code = AEOS) 0.25 K/cumm 0.00-0.74 N Baso Abs (test code = ABASO) 0.0 K/cumm 0.00-0.21 N [id number] 21:47:00 Test Item Value Reference Range Interpretation Comments CHD Risk (test code = CHD Risk) 5.61 3.90-5.[address] [facility] CenterVtbgcgsATREUG3644-82-63 21:47:00 Test Item Value Reference Range Interpretation Comments Chol (test code = Chol) [address] [facility] [address] [facility] CenterOwdmcrjQMRUYZ8557-11-25 21:47:00 Test Item Value Reference Range Interpretation Comments HDL (test code = HDL) [address] [facility] CenterSeadwtzMFOYTB4257-26-57 21:47:00 Test Item Value Reference Range Interpretation Comments VLDL (test code = VLDL) [address] [facility] [address] [facility] CenterOjnknwpJRBNGX9560-65-86 21:47:00 Test Item Value Reference Range Interpretation Comments Trig (test code = Trig) [address] [facility] CenterOyinghiBIBZNK8365-24-33 21:47:00 Test Item Value Reference Range Interpretation Comments LDL (Calculated) (test code = LDL 136 (Calculated)) [facility] QBDGTUKSR3948-50-15 21:47:00 Test Item Value Reference Range Interpretation Comments Hgb A1C (test code = Hgb A1C) 7.[address] [facility] [address] [facility] CenterHycxgijUTFCGS2449-60-56 21:47:00 Test Item Value Reference Range Interpretation Comments CHD Risk (test code = CHD Risk) 5.61 3.90-5.80 [facility] CenterMgwghcaJJNUHM4037-99-28 21:47:00 Test Item Value Reference Range Interpretation Comments Chol (test code = Chol) [address] [facility] CenterXxhwakuHJHYIK4813-47-11 21:47:00 Test Item Value Reference Range Interpretation Comments HDL (test code = HDL) 38 [facility] CenterRuyfjocRUFBYP9068-98-89 21:47:00 Test Item Value Reference Range Interpretation Comments VLDL (test code = VLDL) 39 [facility] CenterKsunrngTQMJVZ4650-76-82 21:47:00 Test Item Value Reference Range Interpretation Comments Trig (test code = Trig) [address] [facility] CenterKpajybrPYOYRC5006-80-47 21:47:00 Test Item Value Reference Range Interpretation Comments LDL (Calculated) (test code = LDL 136 (Calculated)) [facility] RBCQOHHLA5549-28-00 21:47:00 Test Item Value Reference Range Interpretation Comments Hgb A1C (test code = Hgb A1C) 7.6 [facility] AND [id number] 15:44:22 Test Item Value Reference Range Interpretation Comments Micro? (test code = Performed (10/23/16 9:44 Micro?) AM) [facility] AND [id number] 15:44:22 Test Item Value Reference Range Interpretation Comments UA RBC (test None Seen See_Comment [Automated mes maik] code = UA RBC) (10/23/16 9:44 AM) The syste m which generated this result transmitted ref erence range: <=2. The reference range was not used to int erpret this result as normal/abnormal . [facility] [id number] 15:44:22 Test Item Value Reference Range Interpretation Comments UA WBC (test code = UA WBC) 3-5 /HPF [facility] AND [id number] 15:44:22 Test Item Value Reference Range Interpretation Comments UA Sq Epi (test code = UA Sq Epi) Few /LPF [facility] AND [id number] 15:44:22 Test Item Value Reference Range Interpretation Comments UA Bacteria (test code = UA Occasional /HPF Bacteria) [facility] AND [id number] 15:44:22 Test Item Value Reference Range Interpretation Comments UA Leuk Est (test code Trace *ABN*(2/2/17 9:44 = UA Leuk Est) AM) [facility] AND [id number] 15:44:22 Test Item Value Reference Range Interpretation Comments UA Nitrite (test code Negative (10/23/16 9:44 = UA Nitrite) AM) [facility] AND [id number] 15:44:22 Test Item Value Reference Range Interpretation Comments UA Protein (test code Negative (10/23/16 9:44 = UA Protein) AM) [facility] AND [id number] 15:44:22 Test Item Value Reference Range Interpretation Comments UA pH (test code = UA pH) 5.5 1 5.0-8.0 [facility] AND [id number] 15:44:22 Test Item Value Reference Range Interpretation Comments UA Ketones (test code Negative *NA*(10/23/16 = UA Ketones) 9:44 AM) [facility] AND [id number] 15:44:22 Test Item Value Reference Range Interpretation Comments UA Bili (test code = Negative *NA*(10/23/16 UA Bili) 9:44 AM) [facility] AND [id number] 15:44:22 Test Item Value Reference Range Interpretation Comments UA Glucose (test code Negative (10/23/16 9:44 = UA Glucose) AM) [facility] AND [id number] 15:44:22 Test Item Value Reference Range Interpretation Comments UA Color (test code = Yellow *NA*(10/23/16 9:44 UA Color) AM) [facility] AND [id number] 15:44:22 Test Item Value Reference Range Interpretation Comments UA Turbidity (test code = Clear (10/23/16 9:44 UA Turbidity) AM) [facility] AND [id number] 15:44:22 Test Item Value Reference Range Interpretation Comments UA Spec Grav (test code = UA Spec 1.020 1 Grav) [facility] AND [id number] 15:44:22 Test Item Value Reference Range Interpretation Comments UA Urobilinogen (test code = UA 0.2 0.1-1.0 Urobilinogen) [facility] AND [id number] 15:44:22 Test Item Value Reference Range Interpretation Comments UA Blood (test code = Negative (10/23/16 9:44 UA Blood) AM) [facility] AND [id number] 15:44:22 Test Item Value Reference Range Interpretation Comments Micro? (test code = Performed (10/23/16 9:44 Micro?) AM) [facility] AND [id number] 15:44:22 Test Item Value Reference Range Interpretation Comments UA RBC (test None Seen See_Comment [Automated mes maik] code = UA RBC) (10/23/16 9:44 AM) The [employer] which generated this result transmitted ref erence range: <=2. The reference range was not used to int erpret this result as normal/abnormal . [facility] AND [id number] 15:44:22 Test Item Value Reference Range Interpretation Comments UA WBC (test code = UA WBC) 3-5 /HPF [facility] AND [id number] 15:44:22 Test Item Value Reference Range Interpretation Comments UA Sq Epi (test code = UA Sq Epi) Few /LPF [facility] AND [id number] 15:44:22 Test Item Value Reference Range Interpretation Comments UA Bacteria (test code = UA Occasional /HPF Bacteria) [facility] AND [id number] 15:44:22 Test Item Value Reference Range Interpretation Comments UA Leuk Est (test code Trace *ABN*(10/23/16 9:44 = UA Leuk Est) AM) [facility] AND [id number] 15:44:22 Test Item Value Reference Range Interpretation Comments UA Nitrite (test code Negative (10/23/16 9:44 = UA Nitrite) AM) [facility] AND [id number] 15:44:22 Test Item Value Reference Range Interpretation Comments UA Protein (test code Negative (10/23/16 9:44 = UA Protein) AM) [facility] AND [id number] 15:44:22 Test Item Value Reference Range Interpretation Comments UA pH (test code = UA pH) 5.5 1 5.0-8.0 [facility] AND [id number] 15:44:22 Test Item Value Reference Range Interpretation Comments UA Ketones (test code Negative *NA*(2/2/17 = UA Ketones) 9:44 AM) [facility] [id number] 15:44:22 Test Item Value Reference Range Interpretation Comments UA Bili (test code = Negative *NA*(10/23/16 UA Bili) 9:44 AM) [facility] [id number] 15:44:22 Test Item Value Reference Range Interpretation Comments UA Glucose (test code Negative (10/23/16 9:44 = UA Glucose) AM) [facility] [id number] 15:44:22 Test Item Value Reference Range Interpretation Comments UA Color (test code = Yellow *NA*(10/23/16 9:44 UA Color) AM) [facility] [id number] 15:44:22 Test Item Value Reference Range Interpretation Comments UA Turbidity (test code = Clear (10/23/16 9:44 UA Turbidity) AM) [id number] 15:44:22 Test Item Value Reference Range Interpretation Comments UA Spec Grav (test code = UA Spec 1.020 1 Grav) [facility] [id number] 15:44:22 Test Item Value Reference Range Interpretation Comments UA Urobilinogen (test code = UA 0.2 0.1-1.0 Urobilinogen) [facility] [id number] 15:44:22 Test Item Value Reference Range Interpretation Comments UA Blood (test code = Negative (10/23/16 9:44 UA Blood) AM) [facility] [id number] 14:41:00 Test Item Value Reference Range Interpretation Comments eGFR (test code = eGFR) 46 [facility] [id number] 14:41:00 Test Item Value Reference Range Interpretation Comments POC Creatinine (test code = POC 1.2 0.5-1.4 Creatinine) [facility] [id number] 14:41:00 Test Item Value Reference Range Interpretation Comments eGFR (test code = eGFR) 46 [facility] [id number] 14:41:00 Test Item Value Reference Range Interpretation Comments POC Creatinine (test code = POC 1.2 0.5-1.4 Creatinine) [facility] [id number] 14:20:00 Test Item Value Reference Range Interpretation Comments Troponin-I (test code no gt See_Comment [Auto mated message] The = Troponin-I) system which g enerated this result transmit cynthia reference range : <=0.40. The reference r angelic was not used to interpr et this result as kandace l/abnormal. [facility] [id number] 14:20:00 Test Item Value Reference Range Interpretation Comments CK MB (test code = CK MB) 0.7 0.5-3.6 [id number] 14:20:00 Test Item Value Reference Range Interpretation Comments AGAP (test code = AGAP) 12.2 10.0-20.0 [id number] 14:20:00 Test Item Value Reference Range Interpretation Comments eGFR (test code = eGFR) 62 [id number] 14:20:00 Test Item Value Reference Range Interpretation Comments BUN (test code = BUN) 16 7-22 [facility][id number] 14:20:00 Test Item Value Reference Range Interpretation Comments Potassium Lvl (test code = Potassium 4.2 3.5-5.1 Lvl) [id number] 14:20:00 Test Item Value Reference Range Interpretation Comments Glucose Lvl (test code = Glucose Lvl) 224 70-99 [facility]LtiowwpJCTSYAUSFLFU5736-04-17 14:20:00 Test Item Value Reference Range Interpretation Comments Creatinine Lvl (test code = Creatinine 0.94 0.50-1.40 Lvl) [facility]UvtwviuXHOVZLZXJQEE5497-09-71 14:20:00 Test Item Value Reference Range Interpretation Comments Sodium Lvl (test code = Sodium Lvl) 137 135-145 [facility]WdcwpymTHFSWYEXTPEH6443-49-04 14:20:00 Test Item Value Reference Range Interpretation Comments Calcium Lvl (test code = Calcium Lvl) 8.4 8.5-10.5 [facility]GzfaggvLAEKSOJOHJLH9680-54-09 14:20:00 Test Item Value Reference Range Interpretation Comments Chloride Lvl (test code = Chloride Lvl) 103 95-109 [facility]UuxsyjzAADWQCGNHHCM7769-59-53 14:20:00 Test Item Value Reference Range Interpretation Comments CO2 (test code = CO2) 26 24-32 [facility]RzbhbksDLZLBSTBEE1634-12-24 14:20:00 Test Item Value Reference Range Interpretation Comments PTT (test code = PTT) 26.9 s 22.9-35.8 [facility] CenterWrwwtcbKJXPIUUNTI5137-92-44 14:20:00 Test Item Value Reference Range Interpretation Comments INR (test code = INR) 1.03 0.85-1.17 [facility] [id number] 14:20:00 Test Item Value Reference Range Interpretation Comments PT (test code = PT) 13.7 s 12.0-14.7 [facility] [id number] 14:20:00 Test Item Value Reference Range Interpretation Comments Troponin-I (test code no gt See_Comment [Auto mated message] The = Troponin-I) system which g enerated this result transmit cynthia reference range : <=0.40. The reference r angelic was not used to interpr et this result as kandace l/abnormal. [facility] [id number] 14:20:00 Test Item Value Reference Range Interpretation Comments CK MB (test code = CK MB) 0.7 0.5-3.6 [facility][id number] 14:20:00 Test Item Value Reference Range Interpretation Comments AGAP (test code = AGAP) 12.2 10.0-20.0 [facility][id number] 14:20:00 Test Item Value Reference Range Interpretation Comments eGFR (test code = eGFR) 62 [facility] Michigan[id number] 14:20:00 Test Item Value Reference Range Interpretation Comments BUN (test code = BUN) 16 7-22 [id number] 14:20:00 Test Item Value Reference Range Interpretation Comments Potassium Lvl (test code = Potassium 4.2 3.5-5.1 Lvl) [facility]VaoqacmCWPEXZSGYCYZ0568-12-65 14:20:00 Test Item Value Reference Range Interpretation Comments Glucose Lvl (test code = Glucose Lvl) 224 70-99 [facility] Mic[id number] 14:20:00 Test Item Value Reference Range Interpretation Comments Creatinine Lvl (test code = Creatinine 0.94 0.50-1.40 Lvl) [facility][id number] 14:20:00 Test Item Value Reference Range Interpretation Comments Sodium Lvl (test code = Sodium Lvl) 137 135-145 [facility] MichiganQirmhwzSIMNUHMBMPXA9517-55-30 14:20:00 Test Item Value Reference Range Interpretation Comments Calcium Lvl (test code = Calcium Lvl) 8.4 8.5-10.5 [facility]QvpjqlzDOEPJZSUOUGX4848-20-09 14:20:00 Test Item Value Reference Range Interpretation Comments Chloride Lvl (test code = Chloride Lvl) 103 95-109 [facility] MichiganExunrppYGSSAKPFKCWQ6811-82-17 14:20:00 Test Item Value Reference Range Interpretation Comments CO2 (test code = CO2) 26 24-32 [facility] CenterQfdktxfILNFQNAVXJ5999-84-56 14:20:00 Test Item Value Reference Range Interpretation Comments PTT (test code = PTT) 26.9 s 22.9-35.8 [facility] [id number] 14:20:00 Test Item Value Reference Range Interpretation Comments INR (test code = INR) 1.03 0.85-1.17 [facility] CenterLxmiywmPHCZSBRZHI8800-70-73 14:20:00 Test Item Value Reference Range Interpretation Comments PT (test code = PT) 13.7 s 12.0-14.7 [facility] Electrocardiogram [facility] [address] [place] [address] Patient Name: Sendy Martinez Medical Record#: [id number] Address: [address] [place] [address] City/State/Zip: [place] [address]: Traci Lawrence Insurance: [employer] Medicare ADV /Age/Sex: 1945/76/F Self Pay Admit/Reg Date: 08/02/21Ordering Dr: Traci [facility]avidez [facility] Daniela Lara MD Date of Service: 08/02/21Order (s): EKG Electrocardiogram CPT Code: 36679 Report Number: [id number] Reason for Exam: pre cardiac cath Sinus rhythm Summary: Normal ECG Dictated By: Rah Hatch MD 08/02/21 0640 Signed By: Rah Hatch MD 08/02/21 0741 TD/TT: 08/02/21 0640 Tech: [facility] cc: [id number]; LEXII* Daniela Lara MD; Traci Benavidez MD
--- NOTE | 2022-11-06 08:51 | RAD REPORT ---
EXAM DESCRIPTION: CT - CTHCSPWOC - 11/06/2022 8:15 am CLINICAL HISTORY: Trauma, head and neck injury. TRAUMA COMPARISON: No comparisons TECHNIQUE: Axial 5 mm thick images of the head were obtained. Axial 2 mm thick images of the cervical spine were obtained with sagittal and coronal reconstruction images generated and reviewed. All CT scans are performed using dose optimization technique as appropriate and may include automated exposure control or mA/KV adjustment according to patient size. FINDINGS: CT HEAD WITHOUT CONTRAST: No acute hemorrhage, hydrocephalus or extra-axial collection is identified.Moderate generalized brain atrophy is present with moderate periventricular and deep white matter chronic microvascular ischemi c changes.No areas of brain edema or midline shift. The paranasal sinuses and mastoids are clear.The calvarium is intact. CT CERVICAL SPINE WITHOUT CONTRAST: No fracture or subluxation.Fusion is present spanning C5-[address] .No prevertebral s oft tissues swelling is identified. IMPRESSION: No acute intracranial or cervical spine findings.
[2022-11-06 08:56] LABS: Absolute Lymphocytes (CBC) 2.8 K/uL (0.7-4.9); Lymphocytes % 49.5 % (15.3-44.8); MCV 86.2 fL (80-100); MPV 8.2 fL (7.6-11.3); RBC Red Blood Cell Count 4.29 M/uL (3.86-4.86)
[2022-11-06] MEDS ORDERED: ONDANSETRON 4 MG/2 ML VIAL ONE (08:58)
[2022-11-06] MEDS ORDERED: MORPHINE 4 MG/ML SYR ONE ×2 (08:58→09:15)
--- NOTE | 2022-11-06 09:11 | RAD REPORT ---
EXAM DESCRIPTION: RAD - Humerus Left - 11/06/2022 8:29 am CLINICAL HISTORY: DEFORMITY COMPARISON: No comparisons FINDINGS: Fracture of the midshaft of the left humerus is seen with moderate angulation. No dislocat ion.
--- NOTE | 2022-11-06 09:23 | EDPHYS ---
Physician Documentation [facility] Name: Sendy Martinez Age: 77 yrs Sex: Female : 1945 Arrival Date: 11/06/2022 Time: 07:57 Bed 10 Private MD: ED Physician Caroline Vang HPI: 11/06 08:16 This 77 yrs old Female presents to ER via EMS with complaints of Fall Injury, Arm sp3 Injury. 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 EMS was activated who brought her to the ED. Injuries include left humerus deformity, mild head injury, right elbow abrasion. No other injuries reported including any other open wound. Patient denies neck pain, chest pain, abdominal pain, any pain from the pelvis below. No loss of consciousness reported and patient currently has no headache. ROS is also negative for any other signs or symptoms at this time.. Historical: - Allergies: 07:58 Codeine (Upset stomach); ld1 - Home Meds: 07:58 Xarelto Oral [Active]; Humalog Sub-Q [Active]; Imdur Oral [Active]; levothyroxine oral ld1 [Active]; Zestril Oral [Active]; - PMHx: 07:58 Diabetes - IDDM; DVT; Hypertension; PE; Thyroid problem; ld1 - Immunization history:: Adult Immunizations up to date, Client reports receiving the 2nd dose of the Covid vaccine. - Social history:: Smoking status: Patient denies any tobacco usage or history of. Patient/guardian denies using alcohol. ROS: 08:25 Constitutional: Negative for fever, chills, and weight loss, Eyes: Negative for injury, sp3 pain, redness, and discharge, Neck: Negative for injury, pain, and swelling, Cardiovascular: Negative for chest pain, palpitations, and edema, Respiratory: Negative for shortness of breath, cough, wheezing, and pleuritic chest pain, Abdomen/GI: Negative for abdominal pain, nausea, vomiting, diarrhea, and constipation, Back: Negative for injury and pain, Neuro: Negative for headache, weakness, numbness, tingling, and seizure, Psych: Negative for depression, anxiety, suicide ideation, homicidal ideation, and hallucinations, Allergy/Immunology: Negative for hives, rash, and allergies, Endocrine: Negative for neck swelling, polydipsia, polyuria, polyphagia, and marked weight changes. 08:25 All other systems are negative. Exam: 08:27 Constitutional: This is a well developed, well nourished patient who is awake, alert, sp3 and in no acute distress. Head/Face: Normocephalic, atraumatic. Eyes: Pupils equal round and reactive to light, extra-ocular motions intact. Lids and lashes normal. Conjunctiva and sclera are non-icteric and not injected. Cornea within normal limits. Periorbital areas with no swelling, redness, or edema. ENT: Nares patent. No nasal discharge, no septal abnormalities noted. External auditory canals are clear. Oropharynx with no redness, swelling, or masses, exudates, or evidence of obstruction, uvula midline. Mucous membranes moist. Neck: Trachea midline, no thyromegaly or masses palpated, and no cervical lymphadenopathy. Supple, full range of motion without nuchal rigidity, or vertebral point tenderness. No Meningismus. Chest/axilla: Normal chest wall appearance and motion. Nontender with no deformity. No lesions are appreciated. Cardiovascular: Regular rate and rhythm with a normal S1 and S2. No gallops, murmurs, or rubs. Normal PMI, no JVD. No pulse deficits. Respiratory: Lungs have equal breath sounds bilaterally, clear to auscultation and percussion. No rales, rhonchi or wheezes noted. No increased work of breathing, no retractions or nasal flaring. Abdomen/GI: Soft, non-tender, with normal bowel sounds. No distension or tympany. No guarding or rebound. No evidence of tenderness throughout. Back: No spinal tenderness. No costovertebral tenderness. Full range of motion. Skin: Warm, dry with normal turgor. Normal color with no rashes, no lesions, and no evidence of cellulitis. Neuro: Awake and alert, GCS 15, oriented to person, place, time, and situation. Cranial nerves II-XII grossly intact. Motor strength 5/5 in all extremities. Sensory grossly intact. Cerebellar exam normal. Normal gait. Psych: Awake, alert, with orientation to person, place and time. Behavior, mood, and affect are within normal limits. 08:27 Musculoskeletal/extremity: Left humerus pain with proximal humerus deformity noted. Distal neurovascular exam is normal. Right elbow has lateral abrasions without laceration or need for repair. No head contusion noted.. Vital Signs: 08:00 BP 141 / 97; Pulse 87; Resp 14; Temp 97.8(O); Pulse Ox 99% on R/A; Weight 85.73 kg; ld1 Height 5 ft. 7 in. (170.18 cm); Pain 8/10; 11:08 BP 123 / 73; Pulse 82; Resp 16; Pulse Ox 100% on R/A; ss 08:00 Body Mass Index 29.60 (85.73 kg, 170.18 cm) ld1 Hawthorne Coma Score: 08:00 Eye Response: spontaneous(4). Verbal Response: oriented(5). Motor Response: obeys ld1 commands(6). Total: 15. Trauma Score (Adult): 08:00 Eye Response: spontaneous(1); Verbal Response: oriented(1); Motor Response: obeys ld1 commands(2); Systolic BP: > 89 mm Hg(4); Respiratory Rate: 10 to 29 per min(4); Padmini Score: 15; Trauma Score: 12 MDM: 08:05 Patient medically screened. sp3 08:29 Data reviewed: vital signs, nurses notes, EMS record, lab test result(s), EKG, sp3 radiologic studies. ED course: 77-year-old female with mechanical ground-level fall presents as a trauma alert. Differential diagnosis include fractured humerus, ICH, concussion, head contusion, among others. CT scans of the head and C-spine ordered along with x-rays of the left humerus and left shoulder. Secondary exam demonstrated no other areas of interest. Disposition will be based on work-up and patient course.. 09:20 ED course: Coaptation splint applied. Distal neurovascular exam is normal subsequent to sp3 splint. Total of 10 mg of morphine IV were given during splint application. Patient tolerated with no drop in saturation and is currently still alert and oriented x3.. 11/06 08:02 Order name: CBC with Diff sp3 11/06 08:02 Order name: CT Head C Spine sp3 11/06 08:02 Order name: Humerus Left XRAY sp3 11/06 09:03 Order name: CBC Smear Scan EDMS 11/06 08:02 Order name: Labs collected and sent; Complete Time: 10:53 sp3 11/06 08:03 Order name: NPO; Complete Time: 08:10 sp3 11/06 08:54 Order name: Splint: Coaptation left arm; Complete Time: 09:22 sp3 11/06 08:54 Order name: Sling; Complete Time: 09:22 sp3 Administered Medications: 08:58 Drug: morphine 4 mg Route: IVP; Infused Over: 4 mins; Site: right forearm; bp 08:58 Drug: Zofran (Ondansetron) 4 mg Route: IVP; Site: right forearm; bp 09:14 Drug: morphine 4 mg Route: IVP; Infused Over: 4 mins; Site: right forearm; bp Disposition Summary: 11/06/22 09:22 Discharge Ordered Location: Home sp3 Condition: Stable sp3 Diagnosis - mid-shaft humeral fracture closed sp3 Followup: sp3 - With: Martinez Lara MD - When: Upon discharge from the Emergency Department - Reason: Continuance of care Discharge Instructions: - Discharge Summary Sheet sp3 - Humerus Fracture Treated With Immobilization sp3 Forms: - Medication Reconciliation Form sp3 - Thank You Letter sp3 - Antibiotic Education sp3 - Prescription Opioid Use sp3 Prescriptions: - Tramadol 50 mg Oral Tablet - take 1 tablet by ORAL route every 8 hours as needed; 12 tablet; Refills: 0, sp3 Product Selection Permitted Signatures: Dispatcher [employer] Leno Taylor em1 Zeke Byrd, DELANO RN bp Alayna Little RN RN ld1 Caroline Vang MD MD sp3 Corrections: (The following items were deleted from the chart) 08:29 08:03 Shoulder Left 2 View+RAD.RAD.BRZ ordered. EDMS EDMS 10:27 09:08 Labs - recollect needed ordered. em1 ss
--- NOTE | 2022-11-06 09:23 | ER ---
Nurse's Notes [facility] Name: Sendy Martinez Age: 77 yrs Sex: Female : 1945 Arrival Date: 11/06/2022 Time: 07:57 Bed 10 Private MD: Diagnosis: mid-shaft humeral fracture closed Presentation: 11/06 08:00 Chief complaint: EMS states: toned out to pt home for fall injury, tripped in garage 1 ld1 hour ago. Pt c/o pain to left arm, left shoulder, abrasion to right elbow. Pt reports hitting head, reports being on Xeralto for previous blood clots. Care prior to arrival: Medication(s) given: 100mg Fentnyl intranasal. Mechanism of Injury: Fall from standing position. Trauma event details: Injury occurred in the [facility]. 08:00 Acuity: DOMINGO 2 ld1 08:00 Method Of Arrival: EMS: [facility] ld1 11:09 Coronavirus screen: Client denies travel out of the [place] in the last 14 days. Ebola ss Screen: Patient denies exposure to infectious person. Patient denies travel to an Ebola-affected area in the 21 days before illness onset. Initial Sepsis Screen: Does the patient meet any 2 criteria? No. Patient's initial sepsis screen is negative. Does the patient have a suspected source of infection? No. Patient's initial sepsis screen is negative. Risk Assessment: Do you want to hurt yourself or someone else? Patient reports no desire to harm self or others. Onset of symptoms was November 06, 2022. Trauma Activation: Alert Physician: ED Physician; Name: Dr. Vang; Notified At: 07:56; Arrived At: Physician: General Surgeon; Name: ; Notified At: 07:56; Arrived At: Physician: Radiology; Name: ; Notified At: 07:56; Arrived At: Physician: Respiratory; Name: ; Notified At: 07:56; Arrived At: Physician: Lab; Name: ; Notified At: 07:56; Arrived At: Historical: - Allergies: 07:58 Codeine (Upset stomach); ld1 - Home Meds: 07:58 Xarelto Oral [Active]; Humalog Sub-Q [Active]; Imdur Oral [Active]; levothyroxine oral ld1 [Active]; Zestril Oral [Active]; - PMHx: 07:58 Diabetes - IDDM; DVT; Hypertension; PE; Thyroid problem; ld1 - Immunization history:: Adult Immunizations up to date, Client reports receiving the 2nd dose of the Covid vaccine. - Social history:: Smoking status: Patient denies any tobacco usage or history of. Patient/guardian denies using alcohol. Screenin:00 Abuse screen: Denies threats or abuse. Denies injuries from another. Tuberculosis ld1 screening: No symptoms or risk factors identified. 08:09 [facility] ED Fall Risk Assessment (Adult) History of falling in the last 3 months, ld1 including since admission Yes- single mechanical fall (1 pt) Confusion or Disorientation No (0 pts). Nutritional screening: No deficits noted. Primary Survey: 08:00 NO uncontrolled hemorrhage observed. Breathing/Chest: Spontaneous respiratory effort, ld1 equal unlabored respirations, breath sounds clear bilaterally, regular pattern, symmetrical chest rise and fall. Circulation: No external hemorrhage present. Regular and strong central pulse, skin warm/dry/normal color. Disability Client is alert. Exposure/Environment: All clothing and personal items were removed. Forensic evidence collection is not deemed to be indicated at this time. Items placed in patient belonging bag. Reassessment Breathing: Spontaneous respiratory effort, equal unlabored respirations, breath sounds clear bilaterally, regular pattern with symmetrical chest rise and fall. Circulation: No external hemorrhage noted. Regular and strong central pulse, skin warm/dry/normal color. Disability: Alert. Assessment: 07:58 Reassessment: ERP at bedside. ld1 08:00 General: Appears in no apparent distress. uncomfortable, Behavior is calm, cooperative, ld1 appropriate for age. Pain: Complains of pain in left arm Pain does not radiate. Pain currently is 8 out of 10 on a pain scale. Quality of pain is described as throbbing, Pain began 1 hour ago. Is continuous. Neuro: Level of Consciousness is awake, alert, obeys commands, Oriented to person, place, time, situation, Denies weakness dizziness, headache. EENT: No signs and/or symptoms were reported regarding the EENT system. Cardiovascular: Capillary refill < 3 seconds Patient's skin is warm and dry. Rhythm is sinus rhythm. Respiratory: Airway is patent Respiratory effort is even, unlabored. GI: Abdomen is round distended. : No signs and/or symptoms were reported regarding the genitourinary system. Derm: No signs and/or symptoms reported regarding the dermatologic system. Musculoskeletal: No signs and/or symptoms reported regarding the musculoskeletal system. 08:00 Reassessment: Pt transported for CT. ld1 09:40 Reassessment: BMP RECOLLECT CANCELLED BY MD. bp 09:44 Reassessment: DC ON HOLD FOR RECOVERY AFTER SPLINT, PER MD. bp 10:27 Reassessment: Pt is sleeping at this time. Awakens with verbal stimuli. Awaiting to ss discharge patient when she is more awake. PT remains on monitors. Call light within reach. 11:09 Reassessment: Patient appears in no apparent distress at this time. Patient and/or ss family updated on plan of care and expected duration. Pain level reassessed. Patient is alert, oriented x 3, equal unlabored respirations, skin warm/dry/pink. PT states, "I'm ready to go my family is in the lobby." Granddaughter at bedside. Also discussed plan of care with granddaughter who states that she will help take care of patient at home. 11:20 Reassessment: Attempting to assist patient to wheelchair with granddaughter and ss in room. Pt is sitting on the side of the bed and states, "I just want to sleep." Granddaughter tells patient that she can sleep when she gets back home. Pt yells to nurse, "can you just shut up for 20 minutes and turn off the lights!" Dr. Vang notified and states that patient is OK to go home. 11:32 Reassessment: granddaughter and patient requesting water. Asked patient if she would ss like ice with her water and patient again states, "Can you just shut up and turn off the lights!" Granddaughter apologized to nurse for patients behavior. Water given as requested. Call light remains within reach. Granddaughter verbalizes understanding to push call light when she is ready for assistance to wheelchair. 12:18 Reassessment: Patient appears in no apparent distress at this time. Patient and/or ss family updated on plan of care and expected duration. Pain level reassessed. Patient is alert, oriented x 3, equal unlabored respirations, skin warm/dry/pink. Pt placed in wheelchair. tolerated well. Pt apologized for her behavior earlier. Vital Signs: 08:00 BP 141 / 97; Pulse 87; Resp 14; Temp 97.8(O); Pulse Ox 99% on R/A; Weight 85.73 kg; ld1 Height 5 ft. 7 in. (170.18 cm); Pain 8/10; 11:08 BP 123 / 73; Pulse 82; Resp 16; Pulse Ox 100% on R/A; ss 08:00 Body Mass Index 29.60 (85.73 kg, 170.18 cm) ld1 [place] Coma Score: 08:00 Eye Response: spontaneous(4). Verbal Response: oriented(5). Motor Response: obeys ld1 commands(6). Total: 15. Trauma Score (Adult): 08:00 Eye Response: spontaneous(1); Verbal Response: oriented(1); Motor Response: obeys ld1 commands(2); Systolic BP: > 89 mm Hg(4); Respiratory Rate: 10 to 29 per min(4); [place] Score: 15; Trauma Score: 12 ED Course: 07:57 Patient arrived in ED. ld1 07:59 Zeke Byrd, RN is Primary Nurse. bp 08:00 Patient has correct armband on for positive identification. Placed in gown. Bed in low ld1 position. Call light in reach. Side rails up X2. Patient maintains SpO2 saturation greater than 95% on room air. 08:00 Patient maintains SpO2 saturation greater than 95% on room air. ld1 08:01 Caroline Vang MD is Attending Physician. sp3 08:05 Triage completed. ld1 08:09 bus driver/monitor on. Pulse ox on. NIBP on. Door closed. Noise minimized. Warm blanket ld1 given. 08:09 No provider procedures requiring assistance completed. ld1 08:17 CT Head C Spine In Process Unspecified. EDMS 08:30 Humerus Left XRAY In Process Unspecified. EDMS 08:51 Inserted saline lock: 22 gauge in right forearm, using aseptic technique. Blood bp collected. 09:21 Martinez Lara MD is Referral Physician. sp3 09:22 Orthoglass splint: Coaptation splint applied on left arm. Sling applied to left arm. em1 09:30 Thermoregulation: warm blanket given to patient. ss 11:08 IV discontinued, intact, bleeding controlled, No redness/swelling at site. Pressure ss dressing applied. 11:35 Primary Nurse role handed off by Zeke Byrd, DELANO ss 12:18 Jill Steen, RN is Primary Nurse. ss Administered Medications: 08:58 Drug: morphine 4 mg Route: IVP; Infused Over: 4 mins; Site: right forearm; bp 08:58 Drug: Zofran (Ondansetron) 4 mg Route: IVP; Site: right forearm; bp 09:14 Drug: morphine 4 mg Route: IVP; Infused Over: 4 mins; Site: right forearm; bp Medication: 11:08 VIS not applicable for this client. ss Outcome: 09:22 Discharge ordered by . sp3 11:08 Discharged to home via wheelchair, with family. ss 11:08 Condition: good 11:08 Discharge instructions given to patient, family, Instructed on discharge instructions, follow up and referral plans. Demonstrated understanding of instructions, follow-up care. 11:09 Patient's length of stay in the Emergency Department was greater than 2 hours. ss 12:19 Patient left the ED. ss Signatures: Dispatcher [employer] EDMS Leno Donahue em1 Jill Steen RN RN Zeke Byrd, Alayna Valente RN, RN RN ld1 Caroline Vang MD MD sp3 Corrections: (The following items were deleted from the chart) 11:37 11:09 Reassessment: Patient appears in no apparent distress at this time. Patient ss and/or family updated on plan of care and expected duration. Pain level reassessed. Patient is alert, oriented x 3, equal unlabored respirations, skin warm/dry/pink. ss 12:19 11:09 Patient left the ED. ss ss
[2022-11-06 09:48] LABS: Blood Morphology Comment NOTED (NOT SEEN); Ovalocytes 1+; Platelet Estimate ADEQ; Poikilocytosis 1+; White Blood Cell Scan OK (OK)
[2022-11-06 11:20] VITALS: TEMP 97.8
[2022-11-06 11:26] VITALS: BP 123/73; O2SAT 100
== END 2022-11-06 12:19 | disposition home or self-care (01) ==
LOC: ER 07:55
PROC: 2W3BX1Z Immobilization of Left Upper Arm using Splint (ICD-10-PCS; principal; 2022-11-06)
DX: S42.302A Unspecified fracture of shaft of humerus, left arm, initial encounter for closed fracture (principal); I10 Essential (primary) hypertension; E11.9 Type 2 diabetes mellitus without complications; Z79.4 Long term (current) use of insulin; Z86.718 Personal history of other venous thrombosis and embolism; Z79.01 Long term (current) use of anticoagulants
CPT/HCPCS: 85025; 70450; 72125; 73060; 96375; 96374; 99285; 29125; J2405

== ENCOUNTER 2022-11-14 08:28 | Day surgery (SDC) | payer OTHER ==
[2022-11-13 14:43] LABS: Absolute Lymphocytes (CBC) 2.8 K/uL (0.7-4.9); Hematocrit 31.6 % (36.0-45.0); MCV 86.2 fL (80-100); MPV 8.4 fL (7.6-11.3); RBC Red Blood Cell Count 3.66 M/uL (3.86-4.86)
[2022-11-13 14:57] LABS: Potassium 3.7 mmol/L (3.5-5.1)
[2022-11-13 17:01] LABS: Blood Morphology Comment NOTED (NOT SEEN); Ovalocytes 1+; Platelet Estimate ADEQ; Polychromasia SLIGHT
[2022-11-14] MEDS ORDERED: CEFAZOLIN SODIUM 2 GM/VIAL ONE (08:53)
[2022-11-14] MEDS ORDERED: NA CHLORIDE 0.9% 1,000 ML ONE (08:53)
[2022-11-14] MEDS ORDERED: CELECOXIB 100 MG CAPSULE ONE (09:40)
[2022-11-14] MEDS ORDERED: ACETAMINOPHEN 500 MG TAB ONE (09:41)
[2022-11-14] MEDS ORDERED: dexAMETHasone 10 MG/ML VIAL ONE ×2 (10:18→10:49)
[2022-11-14] MEDS ORDERED: MIDAZOLAM HCL 2 MG/2 ML INJ ONE (10:18)
[2022-11-14] MEDS ORDERED: FENTANYL CITR 100 MCG/2 ML ONE (10:18)
[2022-11-14] MEDS ORDERED: LIDOCAINE 1% MPF 5 ML VIAL ONE (10:18)
[2022-11-14] MEDS ORDERED: EPINEPHRINE/PF 1 MG/ML AMP ONE (10:19)
[2022-11-14] MEDS ORDERED: propofoL 200 MG/20 ML VIAL IV ONE (10:49)
[2022-11-14] MEDS ORDERED: LIDOCAINE 2% MPF 5 ML VIAL ONE (10:50)
[2022-11-14] MEDS ORDERED: ONDANSETRON 4 MG/2 ML VIAL ONE ×2 (10:50→14:24)
[2022-11-14] MEDS ORDERED: ROCURONIUM 50 MG/5 ML VIAL IV ONE ×2 (10:50→12:33)
[2022-11-14] MEDS ORDERED: KETOROLAC 30 MG/ML INJ ONE (11:28)
[2022-11-14] MEDS ORDERED: NS 0.9% VIAL 30 ML ONE (11:31)
[2022-11-14] MEDS ORDERED: Phenylephrine HCl 10 MG/ML 1 ML VIAL ONE ×2 (11:32→13:42)
[2022-11-14] MEDS ORDERED: NS 0.9% VIAL 10 ML ONE ×3 (11:56→12:31)
[2022-11-14] MEDS ORDERED: ALBUMIN HUM 5% 500 ML IV ONE (12:14)
[2022-11-14] MEDS ORDERED: Ringers Lactate 1,000 ML IV ONE (12:14)
[2022-11-14] MEDS ORDERED: GLYCOPYRROLATE 0.2 MG/ML SYR ONE (13:50)
[2022-11-14] MEDS ORDERED: NEOSTIGMINE 1 MG/ML -10 ML VIAL ONE (13:50)
[2022-11-14 15:42] VITALS: BP 156/60; TEMP 97.2; O2SAT 93
--- NOTE | 2022-11-14 16:25 | RAD REPORT ---
EXAM DESCRIPTION: RAD - Fluoroscopy <1 Hour - 11/14/2022 2:53 pm CLINICAL HISTORY: Device placement central venous catheter placement FINDINGS: Forty-one fluoroscopic intraoperative images obtained. Fluoroscopy time 7.2 minutes Intramedullary meir affixes a humeral fracture. Surgery performed by Dr. Shirley
--- NOTE | 2022-11-14 19:11 | OP ---
Date of Procedure: 11/14/2022 Surgeon: Nehemias Shirley MD Preoperative Diagnosis: Left comminuted displaced segmental humerus fracture. Postoperative Diagnosis: Left comminuted displaced segmental humerus fracture. Procedure: Left humerus closed reduction with intramedullary meir fixation. Estimated Blood Loss: 30 cc. Complications: There were no complications. Indications: Ms. Martinez is a 77-year-old female who unfortunately fell injuring her left upper extr emity. She does have quite a large arm; however, x-rays do not demonstrate acceptable reduction for a comminuted segmental humerus fracture. Risks, benefits, and alternatives to operative intervention were discussed with the patient. She states she understands things as presented and wishes to proce ed. Description Of Procedure: The patient was taken to the operating room and placed in supine position. General anesthesia was easily obtained by the Anesthesia staff. Following this, she was then place d in the semi beach chair position and the C-arm was brought in to ensure good radiographs can be obt ained. Once this occurred, her left upper extremity was then prepped and draped in usual sterile fas hion for the procedure including draping of the C-arm. Attention was first turned proximally where a longitudinal incision was made over the anterolateral leading edge of the acromion. This was taken down carefully through skin and soft tissues and quite a bit of adipose tissue; however, bleeding is well contained. This leads down to the acromion as well as the deltoid. A longitudinal split was ma de in line with the deltoid fibers in the same area and underlying intervening bursa is then removed. The rotator cuff itself appears to be intact. Care was taken to palpate the bicipital groove for p lacement of the entry portal. Once it was determined as the correct position, a longitudinal incisio n was made in the rotator cuff. The C-arm was then used to establish an entry portal and appropriate ly placed in the proximal humerus. This was done using a guide pin. Once this was deemed in the nuzhat ropriate position, the starting awl was then placed over the guide pin to deepen this and the point g uide pin has been replaced with a bone guide pin. Because of the patient's body habitus, it was held in quite a bit of abduction at the inferior fragment making passage of the guide meir across the frac ture site somewhat difficult; however, with a combination of manual traction as well as reduction man euvers, the guide pin was eventually able to be placed across both fracture sites. This was then maximiliano sured and the bud reamer was used. The size 8 reamer was carefully passed into the canal to ensure t hat the measured humeral nail would not bind across both fracture sites. It was simply pushed and no t rotated. It was rotated slightly at the isthmus distal to the fracture site. After this, decision was made to place the Pol[place] 3 humeral meir, which was placed down at appropriate depth across the f racture site. After this, the guide was used to place 2 proximal screws, both laterally as well as s lightly anterolaterally. After this, the guide was removed and perfect [place] technique was used for the distal interlock. This was somewhat difficult because of the size of the patient's arm; however , care was taken to just make an incision and move the biceps medialward and the incision was made th rough the brachialis with great care being taken not to provide sharp dissection especially medially. The guide path was then placed and the screw was placed with some difficulty; however, did appear t o be bicortical. AP and lateral x-rays demonstrate that the screw was of appropriate length and thro ugh the distal interlocking screw hole. After this, all wounds were copiously irrigated and the smal l longitudinal incision in the rotator cuff was closed with heavy Vicryl sutures. This was followed by closure of the deltoid with heavy Vicryl sutures in a running fashion. The skin was again irrigat ed and skin was closed using 2-0 Vicryl sutures. All of the incision sites were then stapled. The p atient was placed in sterile dressing and taken to recovery room. /MYKE Voice ID: [id number] Report ID: [id number]
== END 2022-11-14 15:46 | disposition home or self-care (01) ==
LOC: OR 08:28
PROVIDERS: ATTEND Orthopaedic Surgery
PROC: 0PSG35Z Reposition Left Humeral Shaft with External Fixation Device, Percutaneous Approach (ICD-10-PCS; principal; 2022-11-14 11:30)
DX: S42.362A Displaced segmental fracture of shaft of humerus, left arm, initial encounter for closed fracture (principal); S42.352A Displaced comminuted fracture of shaft of humerus, left arm, initial encounter for closed fracture
CPT/HCPCS: 85025; 80048; 36415; 82947 ×2; 24505; 20690; J2704; J2710; J0171; J2001 ×2; J2370 ×2; J2250; J3010; J1100 ×2; P9045; A4216 ×4; J7120; J7030; J2405 ×2; 76000

== ENCOUNTER 2022-12-12 13:21 | Emergency (ER) | payer OTHER ==
--- OUTSIDE RECORDS SUMMARY | 2022-12-12 13:34 | XMS REPORT | Continuity of Care Document ---
:1945 Author Organization [facility] t Address [address] [place] [address] [place] [id number] Care Team Providers Name Role Phone Daniela Lara Primary Care Physician Unavailable Traci Benavidez Attending Clinician Unavailable FOG_A_Provider Attending Clinician Unavailable Cheryl Elmore MA Attending Clinician Unavailable Lobito Carroll MD Attending Clinician Jayjay_Yudith Attending Clinician Unavailable KEFFER_A Attending Clinician Unavailable Daniela Lara Attending Clinician [phone] NEAL RAMESH Attending Clinician Unavailable keffer_a Attending Clinician Unavailable CARLOS A GALICIA M.D. Attending Clinician Unavailable EDDIE DOMINGO M.D. Attending Clinician Unavailable DENNIS HSU APRN Attending Clinician Unavailable Eddie Domingo Attending Clinician TRACI BENAVIDEZ Attending Clinician Unavailable Kevin Rosado Attending Clinician Nicole Veras Attending Clinician FOG_A_Provider Admitting Clinician Unavailable Mati Admitting Clinician Unavailable KEFFER_A Admitting Clinician Unavailable keffer_a Admitting Clinician Unavailable Eddie Domingo Admitting Clinician TRACI BENAVIDEZ Admitting Clinician Unavailable Nicole Veras Admitting Clinician Payers Payer Name Policy Type Policy Number Effective Date Expiration Date S [place] [employer] MEDICARE [id number] 2019 2020 ADVANTAGE HMO 00:00:00 00:00:00 [employer] (MEDICARE [id number] REPLACEMENT/ADVAN TAGE - PPO) Problems Condition Condition Condition Status Onset Resolution Last Treating Co mments Source Name Details Category Date Date Treatment Clinician Date Upper Upper Problem Active Trail respirator Respirator 8-02 Co [facility]muni y y [...] Hospita l Clinics Urinary Urinary Problem Active Trail tract Tract 7-08 Communi infectious Infectious 00:00: ty disease Disease 00 Hospita l Clinics Hyperlipid Hyperlipid Problem Active S weeny emia emia 3-20 Communi 00:00: ty 00 [facility]ospita l Clinics Low back Low Back Problem Active Sween y pain Pain 9- Communi 00:00: ty 00 [facility]ospita l Clinics Type [address] diabetes Diabetes 7-31 Commun i mellitus Mellitus 00:00: ty 00 Hospita l Clinics Essential Essential Problem Active Swe jose hypertensi Hypertensi 7-31 Co mmuni on on 00:00: ty 00 [facility]ospita l Clinics Coronary Coronary Problem Active Sween y arterioscl Arterioscl 7-31 Co mmuni erosis erosis 00:00: ty 00 Hospita l Clinics Deep Deep Problem Active Trail venous Venous 731 Communi thrombosis Thrombosis 00:00: ty of lower of Lower 00 Hospit a extremity Extremity l Clinics 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 uveitis 5-01 05:00:55 l (disorder) (disorder) 00:00: He rmann Active 00 01/19/2018 Problem 10/01/2019 [facility] LEG PAIN LEG PAIN Diagnosis Active 2016-11-01 Memoria Active 11-01 14:42:00 l 11/01/2016 00:00: [facility] 00 Sarah Ann ACUTE ACUTE Diagnosis Active 2016-10-24 Mem oria ONSET ONSET 10-23 13:16:00 l VERTIGO VERTIGO 00:00: Morteza W/VOMITING W/VOMITING 00 Active 10/23/2016 [facility] STROKE STROKE Diagnosis Active 2016-10-23 Me moria Active 10-23 09:09:00 l 10/23/2016 00:00: [facility] mcrae [address] Coronary Coronary Problem Active 2019-10-01 Memoria arterioscl arterioscl 05-26 05:00:55 l erosis erosis 00:00: Morteza (disorder) (disorder) 00 Active 05/26/2015 Problem 10/01/2019 x1 stent [facility] Disorder Disorder Problem Active 2016-11-04 Memoria of of 04-01 02:48:42 l refraction refraction 00:00: He rmann AND/OR AND/OR 00 accommodat accommodat ion ion (disorder) (disorder) Active 04/01/2013 Problem 11/04/2016 Data migrated from [employer] [facility] 02/17/[facility] Primary Primary Problem Active 2016-11-04 Me gandara open angle open angle 04-01 02:48:42 l glaucoma glaucoma 00:00: Burton mcrae (disorder) (disorder) 00 Active 04/01/2013 Problem 11/04/2016 Data migrated from [email or web address] on 02/17/[facility] Pseudophak Pseudopha Problem Active 2016-11-04 Memoria ia ida 04-01 02:48:42 l (disorder) (disorder) 00:00: He rmann Active 00 04/01/2013 Problem 11/04/2016 Data migrated from [email or web address] on 02/17/[facility] Allergic Allergic Problem Active 2016-11-04 Memoria rhinitis rhinitis 4- 02:48:42 l (disorder) (disorder) 00:00: He rmann Active 00 12/30/2012 Problem 11/04/2016 Data migrated from [employer] on 02/17/[facility] Osteoarthr Osteoarthr Problem Active 2011-09 A zalea [...] 05/27/2012 00 Problem 11/04/2016 Data migrated from [employer] on 02/17/15[facility] Deep Deep Problem Resolve 2019-10-01 Sami rosana [...] sterolemia He rmann (disorder) Resolved Problem 11/04/2016 [facility] Arthritis Arthritis Problem Resolve 2016-11-04 Memoria (disorder) (disorder) d 02:48:42 l Resolved Morteza Problem 11/04/2016 [facility] Backache Backache Problem Active 2019-10-01 Memoria (finding) (finding) 05:00:55 l Active Sarah Ann Problem 10/01/2019 [facility] Depressive Depressiv Problem Active 2019-10-01 Memoria disorder e disorder 05:00:55 l (disorder) (disorder) He rmann Active Problem 10/01/2019 [facility] Diabetes Diabetes Problem Active 2019-10-01 Memoria mellitus mellitus 05:00:55 l (disorder) (disorder) He rmann Active Problem 10/01/2019 FBS around 150-170 [facility] Diverticul Problem Active 2019-10-01 M emoria osis of Diverticul 05:00:55 l colon osis of Sarah Ann colon Active Problem 10/01/2019 hospitaliz ed previously due to flare up. [facility] Hypertensi Hypertens Problem Active 2019-10-01 Memoria ve anny 05:00:55 l disorder, disorder, Herm leonela systemic systemic arterial arterial (disorder) (disorder) Active Problem 10/01/2019 [facility] Hypothyroi Hypothyro Problem Active 2019-10-01 Memoria dism idism 05:00:55 l (disorder) (disorder) He rmann Active Problem 10/01/2019 [facility] Insomnia Insomnia Problem Active 2019-10-01 Memoria (disorder) (disorder) 05:00:55 l Active Sarah Ann Problem 10/01/2019 [facility] Dyspnea Dyspnea Problem Active 2019-10-01 Me moria (finding) (finding) 05:00:55 l Active Morteza Problem 10/01/2019 [facility] Shoulder Shoulder Problem Active 2019-10-01 Memoria pain pain 05:00:55 l (finding) (finding) Herm leonela Active Problem 10/01/2019 [facility] Benign Benign Problem Active 2016-11-04 Sami rosana hypertensi hypertensi 02:48:42 l on on Morteza (disorder) (disorder) Active Problem 11/04/2016 Data migrated from [employer] on 02/17/15[facility] Osteoarthr Osteoarth Problem Active 2016-11-04 Memoria itis ritis 02:48:42 l (disorder) (disorder) He rmann Active Problem 11/04/2016 Data migrated from [employer] on 02/17/15[facility] DIZZINESS DIZZINESS Diagnosis Active 2016-10-24 Memoria AND AND 13:16:00 l GIDDINESS GIDDINESS Herm leonela Active [facility] History of History of Problem Resolve [facility] [...] Date Clinician Amlodipi Propensi Active Other (See Me thodi ne ty to Comments) 09-23 st adverse 00:00: Hospita reaction 00 l s to drug Oxycodon Propensi Active Other (See Data Me thodi e-Aspiri ty to Comments) 1-[address] n adverse 00:00: from GE [...] ZOCOR. Statins- DA Active U Unknown 2020-09 [facility] HMG-CoA 10-01 Reductas 00:00: e 00 Inhibito r codeine DA Active U Unknown 2020-09 [facility] 10-01 00:00: 00 Codeine Propensi Active GI [...] Hospita reaction 00 l s to drug atorvast atorvast Active Memori a atin<sup atin<sup l >3</sup> >3</sup> [facility]e codeine< codeine< Active Memori a sup>4</s sup>4</s l up> up> Morteza guanFACI guanFACI Active Memori a NE<sup>5 NE<sup>5 l </sup> </sup> Morteza simvasta simvasta Active Memori a tin<sup> tin<sup> l 6</sup> 6</sup> Morteza sulfa sulfa Active Memoria drugs<yuan drugs<yuan l p>7</sup p>7</sup Burton n > > HYDROcod HYDROcod Active Memori a one one l Sarah Ann aliskire aliskire Active Memori a n<sup>1< n<sup>1< l /sup> /sup> Morteza aspirin- aspirin- Active Memori a oxyCODON oxyCODON l E<sup>2< E<sup>2< Burton n /sup> /sup> Amlodipi Allergy Active Moderate Headache Swe jose ne to to severe Communi substanc ty e Hospita l Clinics STATINS- Allergy Active Trail [facility] to Communi REDUCTAS substanc ty E e Hospita INHIBITO l RS Clinics codeine Allergy Active [facility] to drug Physici (finding ans ) Family History Family Member Diagnosis Comments Start Date Stop Date Source Natural brother Diabetes [facility] father Diabetes [facility] father Heart disease [facility] [place] father Hypertension [facility] Maternal uncle Obesity [facility] mother Diabetes [facility] Natural mother Heart disease [facility] [place] mother Hyperlipidemia [facility] mother Hypertension [facility] Natural sister Diabetes [facility] Social History Social Habit Start Date Stop Date Quantity Comments Source History [facility] Congregation Alcohol Std Hospital Drinks History [facility] Alcohol Binge Hospital Alcohol intake 2022-07-23 2022-07-23 Lifetime Congregation 00:00:00 00:00:00 non-drinker Hospital (finding) History SDOH 2021-09-23 2021-09-23 1 Congregation [facility]:00[facility] Tobacco use and 2021-09-23 2021-09-23 Smokeless tobacco Me thodist exposure 00:00:00 00:00:00 non-user Hospital Social History 2016-10-23 2016-10-23 [facility] 16:35:26 16:35:26 Sex [birth year] Congregation 00:00:00 00:00:00 Hospital Smoking Status Start Date Stop Date Source Never Smoker [facility] Medications Ordered Filled Start Stop Current Ordering Indication Dosage Frequency Signature Comments Components Source Medication Medication Date Date Medication? Clinician (SIG) Name Name ezetimibe 2021-09 Yes 10mg QD Take 10 mg Me thodi (ZETIA) 10 1-[address] mg tablet 09:43: daily. Hospit a 09 l famotidine 2021-09 Yes 1{tbl} Take 1 Met hodi (PEPCID 1-[address] ORAL) 09:43: mouth. Hospita 09 l bimatoprost 2021-09 Yes 1[drp] QD 1 drop Me thodi (LUMIGAN) 1-[address] 0.01 % 09:43: Hospita ophthalmic [...] l capsule hours as needed for itching. ezetimibe 2021-09 Yes 10mg QD Take 10 mg Me thodi (ZETIA) [address] mg tablet 09:43: daily. Hospit a 09 l famotidine 2021-09 Yes 1{tbl} Take 1 Met hodi (PEPCID 1-[address] ORAL) 09:43: mouth. Hospita 09 l bimatoprost 2021-09 Yes 1[drp] QD 1 drop Me thodi (LUMIGAN) 1-[address] 0.01 % 09:43: Hospita ophthalmic [...] 50mg Q6H Take 50 mg Methodi MINE 1-[address] (BENADRYL) 09:43: every 6 Hosp mary 50 MG 09 (six) l capsule hours as needed for itching. ezetimibe 2021-09 Yes 10mg QD Take 10 [...] 2021-09 Yes Take by Met hodi taminophen/ 1-[address] caffeine 09:43: needed. Hospit a (EXCEDRIN 09 l MIGRAINE ORAL) diphenhydrA 2021-09 Yes 50mg Q6H Take 50 mg Methodi MINE -[address] (BENADRYL) 09:43: every 6 Hosp mary 50 MG 09 (six) l capsule hours as needed for itching. pioglitazon 2021-09 Yes 30mg QD Take 1 Meth cruzito e (ACTOS) 1-02 tablet (30 st 30 MG 00:00: mg total) Hospita tablet 00 by mouth l every morning. pioglitazon 2021-09 Yes 30mg QD Take 1 Meth cruzito e (ACTOS) 1-02 tablet (30 st 30 MG 00:00: mg total) Hospita tablet 00 by mouth l every morning. pioglitazon 2021-09 Yes 30mg QD Take 1 Meth cruzito e (ACTOS) 1-02 tablet (30 st 30 MG 00:00: mg total) Hospita tablet 00 by mouth l every morning. pioglitazon 2021-09 TAKE 1 Met hodi e (ACTOS) 0-18 11-[address] 30 MG 00:00: 00:00 MOUTH IN Hospita tablet 00 :00 THE l MORNING pioglitazon 2021-09- No TAKE 1 Met hodi e (ACTOS) 07-[address] 30 MG 00:00: 00:00 MOUTH IN Hospita tablet 00 :00 THE l MORNING pioglitazon 2021-09- No TAKE 1 Met hodi e (ACTOS) 07-[address] 30 MG 00:00: 00:00 MOUTH IN Hospita tablet 00 :00 THE l MORNING tapent[place] 2021- [place] [id number] 75mg Take 75 mg Methodi (NUCYNTA) 03-[address] 75 mg 17:08: 00:00 as needed Hospit a tablet 26 :00 .acute l pain. tapentado[place] 2021-2021- [place] [id number] 75mg Take 75 mg Methodi (NUCYNTA) 03-25-[address] 75 mg 17:08: 00:00 as needed Hospit a tablet 26 :00 .acute l pain. [place] 2021- [place] [id number] 75mg Take 75 mg Methodi (NUCYNTA) 03-25- by mouth st 75 mg 17:08: 00:00 as needed Hospit a tablet 26 :00 .acute l pain. lisinopriL 2021- No 40mg QD Take 40 mg Methodi (PRINIVIL) 03-25- by mouth st 40 mg 16:57: 00:00 daily. Hospita tablet 23 :00 l lisinopriL 2021- No 40mg QD Take 40 mg Method[facility] (PRINIVIL) 03-25-[address] 40 mg 16:57: 00:00 daily. Hospita tablet 23 :00 l lisinopriL 2021- No 40mg QD Take 40 mg Methodi (PRINIVIL) 03-25- by mouth st 40 mg 16:57: 00:00 daily. Hospita tablet 23 :00 l carisoprodo 2021- No 350mg Take 350 Methodi L (SOMA) 03-25- mg by st 350 MG 16:57: 00:00 mouth as Hospit a tablet 16 :00 needed for l muscle spasms. carisoprodo 2021- No 350mg Take 350 Methodi L (SOMA) 7-05 07-[address] 350 MG 16:57: 00:00 mouth as Hospit a tablet 16 :00 needed for l muscle spasms. carisoprodo 2021- No 350mg Take 350 Methodi L (SOMA) 7-05 07-[address] 350 MG 16:57: 00:00 mouth as Hospit a tablet 16 :00 needed for l muscle spasms. levothyroxi Yes Take 1 Meth cruzito ne 7-[address] (SYNTHROID) 00:00: daily Hospi ta 175 mcg 00 Mon-Sat l tablet and take a half tablet on Sundays. levothyroxi Yes Take 1 Meth cruzito ne 7-[address] (SYNTHROID) 00:00: daily Hospi ta 175 mcg 00 Mon-Sat l tablet and take a half tablet on Sundays. levothyroxi Yes Take 1 Meth cruzito ne 7-[address] (SYNTHROID) 00:00: daily Hospi ta 175 mcg 00 Mon-Sat l tablet and take a half tablet on Sundays. NovoLOG Mix Yes 40 units Me thodi 70-30FlexPe 3-[address] n U-100 100 00:00: units PM Ho spita unit/mL 00 l (70-30) insulin pen NovoLOG Mix Yes 40 units Me thodi 70-30FlexPe 3-[address] n U-100 100 00:00: units PM Ho spita unit/mL 00 l (70-30) insulin pen NovoLOG Mix Yes 40 units Me thodi 70-30FlexPe 3-[address] n U-100 100 00:00: units PM Ho spita unit/mL 00 l (70-30) insulin pen pioglitazon 2021- No 30mg QD Take 1 Met hodi e (ACTOS) 11-27 10-18 tablet (30 st 30 MG 00:00: 00:00 mg total) Hospit a tablet 00 :00 by mouth l in the morning. pioglitazon 2021- No 30mg QD Take 1 Met hodi e (ACTOS) 11-27 tablet (30 st 30 MG 00:00: 00:00 mg total) Hospit a tablet 00 :00 by mouth l in the morning. pioglitazon 2021-2021- No 30mg QD Take 1 Met hodi e (ACTOS) 11-27 tablet (30 st 30 MG 00:00: 00:00 mg total) Hospit a tablet 00 :00 by mouth l in the morning. empaglifloz 2021-2021- No 25mg QD Take 1 Met hodi in 11-27 tablet (25 st (Jardiance) 00:00: 00:00 mg total) Hospita 25 mg 00 :00 by mouth l tablet in the morning. levothyroxi 2021-2021- No 175ug Q24H Take 1 Me thodi ne 11-[address] (SYNTHROID) 00:00: 00:00 (175 mcg H ospita 175 mcg 00 :00 total) by l tablet mouth in the morning. empaglifloz 2021-2021- No 25mg QD Take 1 Met hodi in 11-27 tablet (25 st (Jardiance) 00:00: 00:00 mg total) Hospita 25 mg 00 :00 by mouth l tablet in the morning. levothyroxi 2021-2021- No 175ug Q24H Take 1 Me thodi ne 11-[address] (SYNTHROID) 00:00: 00:00 (175 mcg H ospita 175 mcg 00 :00 total) by l tablet mouth in the morning. empaglifloz 2021-2021- No 25mg QD Take 1 Met hodi in 11-27 tablet (25 st (Jardiance) 00:00: 00:00 mg total) Hospita 25 mg 00 :00 by mouth l tablet in the morning. levothyroxi 2021-0 2021- No 175ug Q24H Take 1 Me thodi ne 11-[address] (SYNTHROID) 00:00: 00:00 (175 mcg H ospita 175 mcg 00 :00 total) by l tablet mouth in the morning. flash 2021- Yes [id number] 1{devic 1 Device Me thodi glucose 1-03 e} continuous st scanning 00:00: ly. Hospita reader 00 l (FreeStyle Harjit 14 Day [place]) misc flash 2022-0 Yes [id number] 1{devic Q14D 1 Device Me thodi glucose 1-03 e} every 14 st sensor 00:00: (fourteen) Hospi ta (FreeStyle 00 days. l Harjit 14 Day Sensor) kit flash 2022-0 Yes [id number] 1{devic 1 Device Me thodi glucose 1-03 e} continuous st scanning 00:00: ly. Hospita reader 00 l (FreeStyle Harjit 14 Day [place]) misc flash 2022-0 Yes [id number] 1{devic Q14D 1 Device Me thodi glucose 1-03 e} every 14 st sensor 00:00: (fourteen) Hospi ta (FreeStyle 00 days. l Harjit 14 Day Sensor) kit flash 2021-0 Yes [id number] 1{devic 1 Device Me thodi glucose 1-03 e} continuous st scanning 00:00: ly. Hospita reader 00 l (FreeStyle Harjit 14 Day [place]) misc flash 2022-0 Yes [id number] 1{devic Q14D 1 Device Me thodi glucose 1-03 e} every 14 st sensor 00:00: (fourteen) Hospi ta (FreeStyle 00 days. l Harjit 14 Day Sensor) kit pioglitazon 2021- No 30mg QD Take 1 Met hodi e (ACTOS) 09-23 tablet (30 st 30 MG 00:00: 00:00 mg total) Hospit a tablet 00 :00 by mouth l daily. empaglifloz 2021- No 25mg QD Take 1 Met hodi in 09-23 tablet (25 st (Jardiance) 00:00: 00:00 mg total) Hospita 25 mg 00 :00 by mouth l tablet daily. pioglitazon 2021- No 30mg QD Take 1 Met hodi e (ACTOS) 09-23 tablet (30 st 30 MG 00:00: 00:00 mg total) Hospit a tablet 00 :00 by mouth l daily. empaglifloz 2021- No 25mg QD Take 1 Met hodi in 09-23 tablet (25 st (Jardiance) 00:00: 00:00 mg total) Hospita 25 mg 00 :00 by mouth l tablet daily. NovoLOG Mix 2020-09- No Q.5D Inject Met hodi 70-30FlexPe 10-[address] n U-100 100 00:00: 00:00 skin 2 Hos stanislav unit/mL 00 :00 (two) l (70-30) times a insulin pen day. 46 units am 36 units pm NovoLOG Mix 2020-09- No Q.5D Inject Met hodi 70-30FlexPe 10-[address] n U-100 100 00:00: 00:00 skin 2 Hos stanislav unit/mL 00 :00 (two) l (70-30) times a insulin pen day. 46 units am 36 units pm meloxicam 2020-09 Yes 15mg QD Take 1 Method i (MOBIC) 15 0-[address] mg tablet 00:00: mouth Hospita 00 daily. l meloxicam 2020-09 Yes 15mg QD Take 1 Method i (MOBIC) 15 0-[address] mg tablet 00:00: mouth Hospita 00 daily. l meloxicam 2020-09 Yes 15mg QD Take 1 Method i (MOBIC) 15 0-[address] mg tablet 00:00: mouth Hospita 00 daily. l Misc 2020-0 No 700 mL, Memoria Medication 09-29 Soln-IV, l 21:24: IV, Once, Sarah Ann 00 first dose 09/29/19 15:24:00 FINANCIAL ANALYSIS CONSULTANT, stop date 09/29/19 15:24:00 FINANCIAL ANALYSIS CONSULTANT Misc 2020-0 No 700 mL, Memoria Medication 09-29 Soln-IV, l 21:24: IV, Once, Sarah Ann first dose 09/29/19 15:24:00 FINANCIAL ANALYSIS CONSULTANT, stop date 09/29/19 15:24:00 FINANCIAL ANALYSIS CONSULTANT Misc 2020-0 No 700 mL, Memoria Medication 09-29 Soln-IV, l 21:24: IV, Once, Morteza first dose 09/29/19 15:24:00 FINANCIAL ANALYSIS CONSULTANT, stop date 09/29/19 15:24:00 FINANCIAL ANALYSIS CONSULTANT Misc 2020-0 No 700 mL, Memoria Medication 1-09 Soln-IV, l 21:24: IV, Once, Sarah Ann 00 first dose 09/29/19 15:24:00 FINANCIAL ANALYSIS CONSULTANT, stop date 09/29/19 15:24:00 FINANCIAL ANALYSIS CONSULTANT fentaNYL 2020-0 No 75 mcg = Memor ia 1-09 1.5 mL, l 21:20: Injection, Sarah Ann 00 IV, Once, first dose 09/29/19 15:20:00 FINANCIAL ANALYSIS CONSULTANT, stop date 09/29/19 15:20:00 FINANCIAL ANALYSIS CONSULTANT fentaNYL 2020-0 No 75 mcg = Memor ia 1-09 1.5 mL, l 21:20: Injection, Morteza 00 IV, Once, first dose 09/29/19 15:20:00 FINANCIAL ANALYSIS CONSULTANT, stop date 09/29/19 15:20:00 FINANCIAL ANALYSIS CONSULTANT fentaNYL 2020-0 No 75 mcg = Memor ia 1-09 1.5 mL, l 21:20: Injection, Morteza 00 IV, Once, first dose 09/29/19 15:20:00 FINANCIAL ANALYSIS CONSULTANT, stop date 09/29/19 15:20:00 FINANCIAL ANALYSIS CONSULTANT fentaNYL 2020-0 No 75 mcg = Memor ia 1-09 1.5 mL, l 21:20: Injection, Sarah Ann 00 IV, Once, first dose 09/29/19 15:20:00 FINANCIAL ANALYSIS CONSULTANT, stop date 09/29/19 15:20:00 FINANCIAL ANALYSIS CONSULTANT ondansetron 2020-0 No 4 mg = 2 Me moria 1-09 mL, l 21:15: Injection, Sarah Ann 00 IV, Once, first dose 09/29/19 15:15:00 FINANCIAL ANALYSIS CONSULTANT, stop date 09/29/19 15:15:00 FINANCIAL ANALYSIS CONSULTANT ondansetron 2020-0 No 4 mg = 2 Me moria 1-09 mL, l 21:15: Injection, Morteza 00 IV, Once, first dose 09/29/19 15:15:00 FINANCIAL ANALYSIS CONSULTANT, stop date 09/29/19 15:15:00 FINANCIAL ANALYSIS CONSULTANT ondansetron 2020-0 No 4 mg = 2 Me moria 1-09 mL, l 21:15: Injection, Morteza 00 IV, Once, first dose 09/29/19 15:15:00 FINANCIAL ANALYSIS CONSULTANT, stop date 09/29/19 15:15:00 FINANCIAL ANALYSIS CONSULTANT ondansetron 2020-0 No 4 mg = 2 Me moria 1-09 mL, l 21:15: Injection, Sarah Ann 00 IV, Once, first dose 09/29/19 15:15:00 FINANCIAL ANALYSIS CONSULTANT, stop date 09/29/19 15:15:00 FINANCIAL ANALYSIS CONSULTANT phenylephri 2020-0 No 0.1 mg = Me moria ne 1-09 0.01 mL, l 20:37: Injection, Sarah Ann 00 IV, Once, first dose 09/29/19 14:37:00 FINANCIAL ANALYSIS CONSULTANT, stop date 09/29/19 14:37:00 FINANCIAL ANALYSIS CONSULTANT phenylephri 2020-0 No 0.1 mg = moria ne 1-09 0.01 mL, l 20:37: Injection, Morteza 00 IV, Once, first dose 09/29/19 14:37:00 FINANCIAL ANALYSIS CONSULTANT, stop date 09/29/19 14:37:00 FINANCIAL ANALYSIS CONSULTANT phenylephri 2020-0 No 0.1 mg = moria ne 1-09 0.01 mL, l 20:37: Injection, Morteza 00 IV, Once, first dose 09/29/19 14:37:00 FINANCIAL ANALYSIS CONSULTANT, stop date 09/29/19 14:37:00 FINANCIAL ANALYSIS CONSULTANT phenylephri 2020-0 No 0.1 mg = moria ne 1-09 0.01 mL, l 20:37: Injection, Sarah Ann 00 IV, Once, first dose 09/29/19 14:37:00 FINANCIAL ANALYSIS CONSULTANT, stop date 09/29/19 14:37:00 FINANCIAL ANALYSIS CONSULTANT fentaNYL 2020-0 No 25 mcg = Memor ia 1-09 0.5 mL, l 20:26: Injection, Sarah Ann 00 IV, Once, first dose 09/29/19 14:26:00 FINANCIAL ANALYSIS CONSULTANT, stop date 09/29/19 14:26:00 FINANCIAL ANALYSIS CONSULTANT fentaNYL 2020-0 No 25 mcg = Memor ia 1-09 0.5 mL, l 20:26: Injection, Sarah Ann 00 IV, Once, first dose 09/29/19 14:26:00 FINANCIAL ANALYSIS CONSULTANT, stop date 09/29/19 14:26:00 FINANCIAL ANALYSIS CONSULTANT fentaNYL 2020-0 No 25 mcg = Memor ia 1-09 0.5 mL, l 20:26: Injection, Morteza 00 IV, Once, first dose 09/29/19 14:26:00 FINANCIAL ANALYSIS CONSULTANT, stop date 09/29/19 14:26:00 FINANCIAL ANALYSIS CONSULTANT fentaNYL 2020-0 No 25 mcg = Memor ia 1-09 0.5 mL, l 20:26: Injection, Sarah Ann 00 IV, Once, first dose 09/29/19 14:26:00 FINANCIAL ANALYSIS CONSULTANT, stop date 09/29/19 14:26:00 FINANCIAL ANALYSIS CONSULTANT Misc 2020-0 No 1,000 mL, Memoria Medication - Soln-IV, l 19:58: IV, Once, Morteza 00 first dose 09/29/19 13:58:00 FINANCIAL ANALYSIS CONSULTANT, stop date 09/29/19 13:58:00 FINANCIAL ANALYSIS CONSULTANT Misc 2020-0 No 1,000 mL, Memoria Medication - Soln-IV, l 19:58: IV, Once, Sarah Ann 00 first dose 09/29/19 13:58:00 FINANCIAL ANALYSIS CONSULTANT, stop date 09/29/19 13:58:00 FINANCIAL ANALYSIS CONSULTANT Misc 2020-0 No 1,000 mL, Memoria Medication - Soln-IV, l 19:58: IV, Once, Morteza 00 first dose 09/29/19 13:58:00 FINANCIAL ANALYSIS CONSULTANT, stop date 09/29/19 13:58:00 FINANCIAL ANALYSIS CONSULTANT Misc 2020-0 No 1,000 mL, Memoria Medication 09-29 Soln-IV, l 19:58: IV, Once, Sarah Ann 00 first dose 09/29/19 13:58:00 FINANCIAL ANALYSIS CONSULTANT, stop date 09/29/19 13:58:00 FINANCIAL ANALYSIS CONSULTANT ceFAZolin 2020-0 No 2 gm, Memoria - Soln-IV, l 19:44: IV Morteza 00 Piggyback, Once, first dose 09/29/19 13:44:00 FINANCIAL ANALYSIS CONSULTANT, stop date 09/29/19 13:44:00 FINANCIAL ANALYSIS CONSULTANT ceFAZolin 2020-0 No 2 gm, Memoria 09-29 Soln-IV, l 19:44: IV Morteza 00 Piggyback, Once, first dose 09/29/19 13:44:00 FINANCIAL ANALYSIS CONSULTANT, stop date 09/29/19 13:44:00 FINANCIAL ANALYSIS CONSULTANT ceFAZolin 2020-0 No 2 gm, Memoria 1- Soln-IV, l 19:44: IV Sarah Ann 00 Piggyback, Once, first dose 09/29/19 13:44:00 FINANCIAL ANALYSIS CONSULTANT, stop date 09/29/19 13:44:00 FINANCIAL ANALYSIS CONSULTANT ceFAZolin 2020-0 No 2 gm, Memoria - Soln-IV, l 19:44: IV Sarah Ann 00 Piggyback, Once, first dose 09/29/19 13:44:00 FINANCIAL ANALYSIS CONSULTANT, stop date 09/29/19 13:44:00 FINANCIAL ANALYSIS CONSULTANT Bupivacaine 2020-0 No 300 mL, Mem oria 0.25% 300 -09 Nerve l mL pump 300 19:36: Block, 5 He rmann mL 00 mL/hr, start date 09/29/19 13:36:00 FINANCIAL ANALYSIS CONSULTANT Saline Lock 2020-0 No 10 mL, Sami rosana Flush 09-29 Soln, IV l 19:36: Push, As Sarah Ann 00 Indicated PRN for flush, first dose 09/29/19 13:36:00 FINANCIAL ANALYSIS CONSULTANT LR 1,000 mL 2020-0 No 1,000 mL, M emoria - IV, 75 l 19:36: mL/hr, start date 09/29/19 13:36:00 FINANCIAL ANALYSIS CONSULTANT Demerol HCl 2020-0 No 12.5 mg = M emoria -09 0.5 mL, l 19:36: Injection, Sarah Ann 00 IV Push, Once PRN for shivers, first dose 09/29/19 13:36:00 FINANCIAL ANALYSIS CONSULTANT Levalbutero 2020-0 No 0.63 mg = M emoria l 0.21 09-29 3 mL, l MG/ML 19:36: Soln, NEB, Burton n Inhalant 00 Once PRN Solution for [Xopenex] wheezing, first dose 09/29/19 13:36:00 FINANCIAL ANALYSIS CONSULTANT Ondansetron 2020-0 No 4 mg = 2 Me moria -09 mL, l 19:36: Injection, IV Push, q15min PRN for nausea, order duration: 2 doses, first dose 09/29/19 13:36:00 FINANCIAL ANALYSIS CONSULTANT, stop date Limited # of times Promethazin 2020-0 No 12.5 mg = M emoria e -09 0.5 mL, l 19:36: Injection, Sarah Ann 00 IM, Once PRN for vomiting, first dose 09/29/19 13:36:00 FINANCIAL ANALYSIS CONSULTANT Dilaudid 2020-0 No 0.5 mg = Memor ia -09 0.5 mL, l 19:36: Injection, Sarah Ann 00 IV Push, q10min PRN for pain severe (7-10), first dose 09/29/19 13:36:00 FINANCIAL ANALYSIS CONSULTANT Labetalol 2020-0 No 5 mg = 1 Sami rosana -09 mL, l 19:36: Injection, Morteza IV Push, As Indicated PRN for hypertensi on, first dose 09/29/19 13:36:00 FINANCIAL ANALYSIS CONSULTANT Hydralazine 2020-0 No 10 mg = Mem oria 1-09 0.5 mL, l 19:36: Injection, IV Push, As Indicated PRN for hypertensi on, first dose 09/29/19 13:36:00 FINANCIAL ANALYSIS CONSULTANT Diphenhydra 2020-0 No 25 mg = Mem oria mine -09 0.5 mL, l 19:36: Injection, Morteza 00 IV Push, Once PRN for itching, first dose 09/29/19 13:36:00 FINANCIAL ANALYSIS CONSULTANT Bupivacaine 2020-0 No 300 mL, Mem oria 0.25% 300 09-29 Nerve l mL pump 300 19:36: Block, 5 He rmann mL 00 mL/hr, start date 09/29/19 13:36:00 FINANCIAL ANALYSIS CONSULTANT Saline Lock 2019-0 No 10 mL, Sami rosana Flush 09-29 Soln, IV l 19:36: Push, As Indicated PRN for flush, first dose 09/29/19 13:36:00 FINANCIAL ANALYSIS CONSULTANT LR 1,000 mL 2020-0 No 1,000 mL, M emoria - IV, 75 l 19:36: mL/hr, start date 09/29/19 13:36:00 FINANCIAL ANALYSIS CONSULTANT Demerol HCl 2019-0 No 12.5 mg = M emoria 1-09 0.5 mL, l 19:36: Injection, IV Push, Once PRN for shivers, first dose 09/29/19 13:36:00 FINANCIAL ANALYSIS CONSULTANT Levalbutero 2020-0 No 0.63 mg = M emoria l 0.21 09-29 3 mL, l MG/ML 19:36: Soln, NEB, Burton n Inhalant 00 Once PRN Solution for [Xopenex] wheezing, first dose 09/29/19 13:36:00 FINANCIAL ANALYSIS CONSULTANT Ondansetron 2020-0 No 4 mg = 2 Me moria 1-09 mL, l 19:36: Injection, IV Push, q15min PRN for nausea, order duration: 2 doses, first dose 09/29/19 13:36:00 FINANCIAL ANALYSIS CONSULTANT, stop date Limited # of times Promethazin 2020-0 No 12.5 mg = M emoria e -09 0.5 mL, l 19:36: Injection, Morteza 00 IM, Once PRN for vomiting, first dose 09/29/19 13:36:00 FINANCIAL ANALYSIS CONSULTANT Dilaudid 2020-0 No 0.5 mg = Memor ia -09 0.5 mL, l 19:36: Injection, Morteza 00 IV Push, q10min PRN for pain severe (7-10), first dose 09/29/19 13:36:00 FINANCIAL ANALYSIS CONSULTANT Labetalol 2020-0 No 5 mg = 1 Sami rosana -09 mL, l 19:36: Injection, Morteza 00 IV Push, As Indicated PRN for hypertensi on, first dose 09/29/19 13:36:00 FINANCIAL ANALYSIS CONSULTANT Hydralazine 2020-0 No 10 mg = Mem oria -09 0.5 mL, l 19:36: Injection, Morteza IV Push, As Indicated PRN for hypertensi on, first dose 09/29/19 13:36:00 FINANCIAL ANALYSIS CONSULTANT Diphenhydra 2019-0 No 25 mg = Mem oria mine -09 0.5 mL, l 19:36: Injection, Sarah Ann 00 IV Push, Once PRN for itching, first dose 09/29/19 13:36:00 FINANCIAL ANALYSIS CONSULTANT Bupivacaine 2020-0 No 300 mL, Mem oria 0.25% 300 09-29 Nerve l mL pump 300 19:36: Block, 5 He rmann mL 00 mL/hr, start date 09/29/19 13:36:00 FINANCIAL ANALYSIS CONSULTANT Saline Lock 2020-0 No 10 mL, Sami rosana Flush 09-29 Soln, IV l 19:36: Push, As Indicated PRN for flush, first dose 09/29/19 13:36:00 FINANCIAL ANALYSIS CONSULTANT LR 1,000 mL 2020-0 No 1,000 mL, M emoria -09 IV, 75 l 19:36: mL/hr, start date 09/29/19 13:36:00 FINANCIAL ANALYSIS CONSULTANT Demerol HCl 2020-0 No 12.5 mg = M emoria 1-09 0.5 mL, l 19:36: Injection, Sarah Ann 00 IV Push, Once PRN for shivers, first dose 09/29/19 13:36:00 FINANCIAL ANALYSIS CONSULTANT Levalbutero 2020-0 No 0.63 mg = Wes emoria l 0.21 1-09 3 mL, l MG/ML 19:36: Soln, Burton CAVAZOS n Inhalant 00 Once PRN Solution for [Xopenex] wheezing, first dose 09/29/19 13:36:00 FINANCIAL ANALYSIS CONSULTANT Ondansetron 2020-0 No 4 mg = 2 Me moria 1-09 mL, l 19:36: Injection, Morteza 00 IV Push, q15min PRN for nausea, order duration: 2 doses, first dose 09/29/19 13:36:00 FINANCIAL ANALYSIS CONSULTANT, stop date Limited # of times Promethazin 2020-0 No 12.5 mg = Wes emoria e 1-09 0.5 mL, l 19:36: Injection, Morteza 00 IM, Once PRN for vomiting, first dose 09/29/19 13:36:00 FINANCIAL ANALYSIS CONSULTANT Dilaudid 2020-0 No 0.5 mg = Memor ia -09 0.5 mL, l 19:36: Injection, Sarah Ann 00 IV Push, q10min PRN for pain severe (7-10), first dose 09/29/19 13:36:00 FINANCIAL ANALYSIS CONSULTANT Labetalol 2020-0 No 5 mg = 1 Sami rosana 1-09 mL, l 19:36: Injection, Sarah Ann 00 IV Push, As Indicated PRN for hypertensi on, first dose 09/29/19 13:36:00 FINANCIAL ANALYSIS CONSULTANT Hydralazine 2020-0 No 10 mg = Mem oria 1-09 0.5 mL, l 19:36: Injection, Sarah Ann 00 IV Push, As Indicated PRN for hypertensi on, first dose 09/29/19 13:36:00 FINANCIAL ANALYSIS CONSULTANT Diphenhydra 2020-0 No 25 mg = Mem oria mine 1-09 0.5 mL, l 19:36: Injection, Morteza 00 IV Push, Once PRN for itching, first dose 09/29/19 13:36:00 FINANCIAL ANALYSIS CONSULTANT Bupivacaine 2020-0 No 300 mL, Mem oria 0.25% 300 09-29 Nerve l mL pump 300 19:36: Block, 5 He rmann mL 00 mL/hr, start date 09/29/19 13:36:00 FINANCIAL ANALYSIS CONSULTANT Saline Lock 2020-0 No 10 mL, Sami rosana Flush 09-29 Soln, IV l 19:36: Push, As Indicated PRN for flush, first dose 09/29/19 13:36:00 FINANCIAL ANALYSIS CONSULTANT LR 1,000 mL 2020-0 No 1,000 mL, M emoria -09 IV, 75 l 19:36: mL/hr, start date 09/29/19 13:36:00 FINANCIAL ANALYSIS CONSULTANT Demerol HCl 2020-0 No 12.5 mg = M emoria 1-09 0.5 mL, l 19:36: Injection, Sarah Ann 00 IV Push, Once PRN for shivers, first dose 09/29/19 13:36:00 FINANCIAL ANALYSIS CONSULTANT Levalbutero 2020-0 No 0.63 mg = M emoria l 0.21 1-09 3 mL, l MG/ML 19:36: Soln, NEB, Burton n Inhalant 00 Once PRN Solution for [Xopenex] wheezing, first dose 09/29/19 13:36:00 FINANCIAL ANALYSIS CONSULTANT Ondansetron 2020-0 No 4 mg = 2 Me moria 1-09 mL, l 19:36: Injection, IV Push, q15min PRN for nausea, order duration: 2 doses, first dose 09/29/19 13:36:00 FINANCIAL ANALYSIS CONSULTANT, stop date Limited # of times Promethazin 2020-0 No 12.5 mg = Wes emoria e -09 0.5 mL, l 19:36: Injection, IM, Once PRN for vomiting, first dose 09/29/19 13:36:00 FINANCIAL ANALYSIS CONSULTANT Dilaudid 2020-0 No 0.5 mg = Memor ia -09 0.5 mL, l 19:36: Injection, IV Push, q10min PRN for pain severe (7-10), first dose 09/29/19 13:36:00 FINANCIAL ANALYSIS CONSULTANT Labetalol 2020-0 No 5 mg = 1 Sami rosana 1-09 mL, l 19:36: Injection, IV Push, As Indicated PRN for hypertensi on, first dose 09/29/19 13:36:00 FINANCIAL ANALYSIS CONSULTANT Hydralazine 2020-0 No 10 mg = Mem oria 1-09 0.5 mL, l 19:36: Injection, Sarah Ann 00 IV Push, As Indicated PRN for hypertensi on, first dose 09/29/19 13:36:00 FINANCIAL ANALYSIS CONSULTANT Diphenhydra 2020-0 No 25 mg = Mem oria mine 1-09 0.5 mL, l 19:36: Injection, Sarah Ann 00 IV Push, Once PRN for itching, first dose 09/29/19 13:36:00 FINANCIAL ANALYSIS CONSULTANT ondansetron 2020-0 No 4 mg = 2 Me moria 1-09 mL, l 19:33: Injection, Sarah Ann 00 IV, Once, first dose 09/29/19 13:33:00 FINANCIAL ANALYSIS CONSULTANT, stop date 09/29/19 13:33:00 FINANCIAL ANALYSIS CONSULTANT dexamethaso 2020-0 No 4 mg = 1 Me moria ne 1-09 mL, l 19:33: Injection, Morteza 00 IV, Once, first dose 09/29/19 13:33:00 FINANCIAL ANALYSIS CONSULTANT, stop date 09/29/19 13:33:00 FINANCIAL ANALYSIS CONSULTANT ketorolac 2020-0 No 15 mg = Memor ia 1-09 0.5 mL, l 19:33: Injection, Morteza 00 IV, Once, first dose 09/29/19 13:33:00 FINANCIAL ANALYSIS CONSULTANT, stop date 09/29/19 13:33:00 FINANCIAL ANALYSIS CONSULTANT ondansetron 2020-0 No 4 mg = 2 Me moria 1-09 mL, l 19:33: Injection, Morteza 00 IV, Once, first dose 09/29/19 13:33:00 FINANCIAL ANALYSIS CONSULTANT, stop date 09/29/19 13:33:00 FINANCIAL ANALYSIS CONSULTANT dexamethaso 2020-0 No 4 mg = 1 Me moria ne 1-09 mL, l 19:33: Injection, Morteza 00 IV, Once, first dose 09/29/19 13:33:00 FINANCIAL ANALYSIS CONSULTANT, stop date 09/29/19 13:33:00 FINANCIAL ANALYSIS CONSULTANT ketorolac 2020-0 No 15 mg = Memor ia 1-09 0.5 mL, l 19:33: Injection, Sarah Ann 00 IV, Once, first dose 09/29/19 13:33:00 FINANCIAL ANALYSIS CONSULTANT, stop date 09/29/19 13:33:00 FINANCIAL ANALYSIS CONSULTANT ondansetron 2020-0 No 4 mg = 2 Me moria 1-09 mL, l 19:33: Injection, Morteza 00 IV, Once, first dose 09/29/19 13:33:00 FINANCIAL ANALYSIS CONSULTANT, stop date 09/29/19 13:33:00 FINANCIAL ANALYSIS CONSULTANT dexamethaso 2020-0 No 4 mg = 1 Me moria ne 1-09 mL, l 19:33: Injection, Morteza 00 IV, Once, first dose 09/29/19 13:33:00 FINANCIAL ANALYSIS CONSULTANT, stop date 09/29/19 13:33:00 FINANCIAL ANALYSIS CONSULTANT ketorolac 2020-0 No 15 mg = Memor ia 1-09 0.5 mL, l 19:33: Injection, Morteza 00 IV, Once, first dose 09/29/19 13:33:00 FINANCIAL ANALYSIS CONSULTANT, stop date 09/29/19 13:33:00 FINANCIAL ANALYSIS CONSULTANT ondansetron 2020-0 No 4 mg = 2 Me moria 1-09 mL, l 19:33: Injection, Morteza 00 IV, Once, first dose 09/29/19 13:33:00 FINANCIAL ANALYSIS CONSULTANT, stop date 09/29/19 13:33:00 FINANCIAL ANALYSIS CONSULTANT dexamethaso 2020-0 No 4 mg = 1 Me moria ne 1-09 mL, l 19:33: Injection, Sarah Ann 00 IV, Once, first dose 09/29/19 13:33:00 FINANCIAL ANALYSIS CONSULTANT, stop date 09/29/19 13:33:00 FINANCIAL ANALYSIS CONSULTANT ketorolac 2020-0 No 15 mg = Memor ia 1-09 0.5 mL, l 19:33: Injection, Morteza 00 IV, Once, first dose 09/29/19 13:33:00 FINANCIAL ANALYSIS CONSULTANT, stop date 09/29/19 13:33:00 FINANCIAL ANALYSIS CONSULTANT lidocaine 2020-0 No 60 mg = 3 Mem oria 1-09 mL, l 19:28: Injection, Sarah Ann 00 IV, Once, first dose 09/29/19 13:28:00 FINANCIAL ANALYSIS CONSULTANT, stop date 09/29/19 13:28:00 FINANCIAL ANALYSIS CONSULTANT propofol 2020-0 No 100 mg = Memor ia 1-09 10 mL, l 19:28: Emulsion, Sarah Ann 00 IV, Once, first dose 09/29/19 13:28:00 FINANCIAL ANALYSIS CONSULTANT, stop date 09/29/19 13:28:00 FINANCIAL ANALYSIS CONSULTANT lidocaine 2020-0 No 60 mg = 3 Mem oria 1-09 mL, l 19:28: Injection, Sarah Ann 00 IV, Once, first dose 09/29/19 13:28:00 FINANCIAL ANALYSIS CONSULTANT, stop date 09/29/19 13:28:00 FINANCIAL ANALYSIS CONSULTANT propofol 2020-0 No 100 mg = Memor ia 1-09 10 mL, l 19:28: Emulsion, Morteza 00 IV, Once, first dose 09/29/19 13:28:00 FINANCIAL ANALYSIS CONSULTANT, stop date 09/29/19 13:28:00 FINANCIAL ANALYSIS CONSULTANT lidocaine 2020-0 No 60 mg = 3 Mem oria 1-09 mL, l 19:28: Injection, Morteza 00 IV, Once, first dose 09/29/19 13:28:00 FINANCIAL ANALYSIS CONSULTANT, stop date 09/29/19 13:28:00 FINANCIAL ANALYSIS CONSULTANT propofol 2020-0 No 100 mg = Memor ia 1-09 10 mL, l 19:28: Emulsion, Sarah Ann 00 IV, Once, first dose 09/29/19 13:28:00 FINANCIAL ANALYSIS CONSULTANT, stop date 09/29/19 13:28:00 FINANCIAL ANALYSIS CONSULTANT lidocaine 2020-0 No 60 mg = 3 Mem oria 1-09 mL, l 19:28: Injection, Morteza 00 IV, Once, first dose 09/29/19 13:28:00 FINANCIAL ANALYSIS CONSULTANT, stop date 09/29/19 13:28:00 FINANCIAL ANALYSIS CONSULTANT propofol 2020-0 No 100 mg = Memor ia 1-09 10 mL, l 19:28: Emulsion, Morteza 00 IV, Once, first dose 09/29/19 13:28:00 FINANCIAL ANALYSIS CONSULTANT, stop date 09/29/19 13:28:00 FINANCIAL ANALYSIS CONSULTANT fentaNYL 2020-0 No 50 mcg = 1 Mem oria 1-09 mL, l 19:26: Injection, Morteza 00 IV, Once, first dose 09/29/19 13:26:00 FINANCIAL ANALYSIS CONSULTANT, stop date 09/29/19 13:26:00 FINANCIAL ANALYSIS CONSULTANT midazolam 2020-0 No 1 mg = 1 Sami rosana 1-09 mL, l 19:26: Injection, Sarah Ann 00 IV, Once, first dose 09/29/19 13:26:00 FINANCIAL ANALYSIS CONSULTANT, stop date 09/29/19 13:26:00 FINANCIAL ANALYSIS CONSULTANT fentaNYL 2020-0 No 50 mcg = 1 Mem oria 1-09 mL, l 19:26: Injection, Sarah Ann 00 IV, Once, first dose 09/29/19 13:26:00 FINANCIAL ANALYSIS CONSULTANT, stop date 09/29/19 13:26:00 FINANCIAL ANALYSIS CONSULTANT midazolam 2020-0 No 1 mg = 1 Sami rosana 1-09 mL, l 19:26: Injection, Sarah Ann 00 IV, Once, first dose 09/29/19 13:26:00 FINANCIAL ANALYSIS CONSULTANT, stop date 09/29/19 13:26:00 FINANCIAL ANALYSIS CONSULTANT fentaNYL 2020-0 No 50 mcg = 1 Mem oria 1-09 mL, l 19:26: Injection, Morteza 00 IV, Once, first dose 09/29/19 13:26:00 FINANCIAL ANALYSIS CONSULTANT, stop date 09/29/19 13:26:00 FINANCIAL ANALYSIS CONSULTANT midazolam 2020-0 No 1 mg = 1 Sami rosana 1-09 mL, l 19:26: Injection, Morteza 00 IV, Once, first dose 09/29/19 13:26:00 FINANCIAL ANALYSIS CONSULTANT, stop date 09/29/19 13:26:00 FINANCIAL ANALYSIS CONSULTANT fentaNYL 2020-0 No 50 mcg = 1 Mem oria 1-09 mL, l 19:26: Injection, Morteza 00 IV, Once, first dose 09/29/19 13:26:00 FINANCIAL ANALYSIS CONSULTANT, stop date 09/29/19 13:26:00 FINANCIAL ANALYSIS CONSULTANT midazolam 2020-0 No 1 mg = 1 Sami rosana 1-09 mL, l 19:26: Injection, Sarah Ann 00 IV, Once, first dose 09/29/19 13:26:00 FINANCIAL ANALYSIS CONSULTANT, stop date 09/29/19 13:26:00 FINANCIAL ANALYSIS CONSULTANT fentaNYL 2020-0 No 50 mcg = 1 Mem oria 1-09 mL, l 19:08: Injection, Morteza 00 IV, Once, first dose 09/29/19 13:08:00 FINANCIAL ANALYSIS CONSULTANT, stop date 09/29/19 13:08:00 FINANCIAL ANALYSIS CONSULTANT midazolam 2020-0 No 1 mg = 1 Sami rosana 1-09 mL, l 19:08: Injection, Morteza 00 IV, Once, first dose 09/29/19 13:08:00 FINANCIAL ANALYSIS CONSULTANT, stop date 09/29/19 13:08:00 FINANCIAL ANALYSIS CONSULTANT fentaNYL 2020-0 No 50 mcg = 1 Mem oria 1-09 mL, l 19:08: Injection, Morteza 00 IV, Once, first dose 09/29/19 13:08:00 FINANCIAL ANALYSIS CONSULTANT, stop date 09/29/19 13:08:00 FINANCIAL ANALYSIS CONSULTANT midazolam 2020-0 No 1 mg = 1 Sami rosana 1-09 mL, l 19:08: Injection, Morteza 00 IV, Once, first dose 09/29/19 13:08:00 FINANCIAL ANALYSIS CONSULTANT, stop date 09/29/19 13:08:00 FINANCIAL ANALYSIS CONSULTANT fentaNYL 2020-0 No 50 mcg = 1 Mem oria 1-09 mL, l 19:08: Injection, Morteza 00 IV, Once, first dose 09/29/19 13:08:00 FINANCIAL ANALYSIS CONSULTANT, stop date 09/29/19 13:08:00 FINANCIAL ANALYSIS CONSULTANT midazolam 2020-0 No 1 mg = 1 Sami rosana 1-09 mL, l 19:08: Injection, Morteza 00 IV, Once, first dose 09/29/19 13:08:00 FINANCIAL ANALYSIS CONSULTANT, stop date 09/29/19 13:08:00 FINANCIAL ANALYSIS CONSULTANT fentaNYL 2020-0 No 50 mcg = 1 Mem oria 1-09 mL, l 19:08: Injection, Morteza 00 IV, Once, first dose 09/29/19 13:08:00 FINANCIAL ANALYSIS CONSULTANT, stop date 09/29/19 13:08:00 FINANCIAL ANALYSIS CONSULTANT midazolam 2020-0 No 1 mg = 1 Sami rosana 1-09 mL, l 19:08: Injection, Sarah Ann 00 IV, Once, first dose 09/29/19 13:08:00 FINANCIAL ANALYSIS CONSULTANT, stop date 09/29/19 13:08:00 FINANCIAL ANALYSIS CONSULTANT Cefazolin 2020-0 No 2 gm, Memoria 1-09 Soln-IV, l 19:00: IV Morteza 00 Piggyback, Once, infuse over 30 minutes, first dose 09/29/19 13:00:00 FINANCIAL ANALYSIS CONSULTANT, stop date 09/29/19 13:00:00 FINANCIAL ANALYSIS CONSULTANT, patient weight 50-120 kg, Prophylaxi s Cefazolin 2020-0 No 2 gm, Memoria 1-09 Soln-IV, l 19:00: IV Sarah Ann 00 Piggyback, Once, infuse over 30 minutes, first dose 09/29/19 13:00:00 FINANCIAL ANALYSIS CONSULTANT, stop date 09/29/19 13:00:00 FINANCIAL ANALYSIS CONSULTANT, patient weight 50-120 kg, Prophylaxi s Cefazolin 2020-0 No 2 gm, Memoria 1-09 Soln-IV, l 19:00: IV Sarah Ann 00 Piggyback, Once, infuse over 30 minutes, first dose 09/29/19 13:00:00 FINANCIAL ANALYSIS CONSULTANT, stop date 09/29/19 13:00:00 FINANCIAL ANALYSIS CONSULTANT, patient weight 50-120 kg, Prophylaxi s Cefazolin 2020-0 No 2 gm, Memoria 1-09 Soln-IV, l 19:00: IV Sarah Ann 00 Piggyback, Once, infuse over 30 minutes, first dose 09/29/19 13:00:00 FINANCIAL ANALYSIS CONSULTANT, stop date 09/29/19 13:00:00 FINANCIAL ANALYSIS CONSULTANT, patient weight 50-120 kg, Prophylaxi s LR 1,000 mL 2020-0 No 1,000 mL, M emoria 1-09 IV, 30 l 18:06: mL/hr, Morteza 00 start date 09/29/19 12:06:00 FINANCIAL ANALYSIS CONSULTANT Lidocaine 2020-0 No 0.2 mL, Memor ia 2% 0.2 mL 09-29 Injection, l IV Start 18:06: Subcutaneo [facility] [Former[facility]] us, Once PRN for other (see comment), first dose 09/29/19 12:06:00 FINANCIAL ANALYSIS CONSULTANT LR 1,000 mL 2020-0 No 1,000 mL, M emoria 1-09 IV, 30 l 18:06: mL/hr, start date 09/29/19 12:06:00 FINANCIAL ANALYSIS CONSULTANT Lidocaine 2020-0 No 0.2 mL, Memor ia 2% 0.2 mL 09-29 Injection, l IV Start 18:06: Subcutaneo [facility] [[facility]] us, Once PRN for other (see comment), first dose 09/29/19 12:06:00 FINANCIAL ANALYSIS CONSULTANT LR 1,000 mL 2020-0 No 1,000 mL, M emoria 1-09 IV, 30 l 18:06: mL/hr, start date 09/29/19 12:06:00 FINANCIAL ANALYSIS CONSULTANT Lidocaine 2020-0 No 0.2 mL, Memor ia 2% 0.2 mL 09-29 Injection, l [facility] us, Once PRN for other (see comment), first dose 09/29/19 12:06:00 FINANCIAL ANALYSIS CONSULTANT LR 1,000 mL 2020-0 No 1,000 mL, M emoria 1-09 IV, 30 l 18:06: mL/hr, start date 09/29/19 12:06:00 FINANCIAL ANALYSIS CONSULTANT Lidocaine 2020-0 No 0.2 mL, Memor ia 2% 0.2 mL 09-29 Injection, l IV Start 18:06: Subcutaneo [facility] [[facility]] us, Once PRN for other (see comment), first dose 09/29/19 12:06:00 FINANCIAL ANALYSIS CONSULTANT traMADol traMADol 2020-0 Yes EDDIE 1-2 PO Q UT HCl - 50 MG HCl - 50 MG 1-09 DOMINGO M.D. 5-6 HRS Physici Oral Tablet Oral Tablet 00:00: PRN PAIN ans 00 NovoLOG Mix 2018-09 Yes 44 units, M emoria 70/30 2-19 Subcutaneo l FlexPen 19:57: us, Daily, Herm leonela 00 DM NovoLOG Mix 2018-09 Yes 44 units, M emoria 70/30 2-19 Subcutaneo l FlexPen 19:57: us, Daily, Herm leonela 00 DM NovoLOG Mix 2018-09 Yes 44 units, M emoria 70/30 2-19 Subcutaneo l FlexPen 19:57: us, Daily, Herm leonela 00 DM NovoLOG Mix 2018-09 Yes 44 units, [...] tabs, l oral tablet 19:54: Oral, qHS, Sarah Ann 00 PRN as needed for pain ezetimibe [...] tabs, l oral tablet 19:54: Oral, qHS, Sarah Ann 00 Insomnia levothyroxi 2018-09 Yes 175 mcg [...] 2-19 caps, l Hydrochlori 19:54: Oral, qHS, Sarah Ann de 50 MG 00 PRN for Oral [...] tabs, l oral tablet 19:54: Oral, qHS, Sarah Ann 00 Insomnia levothyroxi 2018-09 Yes 175 mcg = M emoria ne 175 mcg 2-19 1 tabs, l (0.175 mg) 19:54: Oral, qHS, H ermann oral tablet 00 Hypothyroi dism levothyroxi 2018-09- No 1{tbl} Q24H Take 1 M ethodi ne -11-[address] (SYNTHROID) 00:00: 00:00 [facility] 175 mcg 00 :00 daily. l tablet levothyroxi 2018-09- No 1{tbl} Q24H Take 1 M ethodi ne -11-[address] (SYNTHROID) 00:00: 00:00 [facility] 175 mcg 00 :00 daily. l tablet rivaroxaban 2019-0 Yes 10mg QD Take 1 Meth cruzito (XARELTO) 9-[address] 10 mg 00:00: [facility]osp[facility] tablet 00 daily. l rivaroxaban 2019-0 Yes 10mg QD Take 1 Meth cruzito (XARELTO) 9-[address] 10 mg 00:00: [facility]osp[facility] tablet 00 daily. l rivaroxaban 2019-0 Yes 10mg QD Take 1 Meth cruzito (XARELTO) 9-[address] 10 mg 00:00: [facility] tablet 00 daily. l Morphine 2017-0 No 5 mg, Memoria 2-11 Route: IM, l 20:43: ONCE, Dosing Weight 113.636, kg, Priority: STAT, Start date: 11/01/16 14:43:00 FINANCIAL ANALYSIS CONSULTANT, Stop date: 11/01/16 14:43:00 FINANCIAL ANALYSIS CONSULTANT Morphine 2017-0 No 5 mg, Memoria 2-11 Route: IM, l 20:43: ONCE, Dosing Weight 113.636, kg, Priority: STAT, Start date: 11/01/16 14:43:00 FINANCIAL ANALYSIS CONSULTANT, Stop date: 11/01/16 14:43:00 FINANCIAL ANALYSIS CONSULTANT Morphine 2017-0 No 5 mg, Memoria 2-11 Route: IM, l 20:43: ONCE, Dosing Weight 113.636, kg, Priority: STAT, Start date: 11/01/16 14:43:00 FINANCIAL ANALYSIS CONSULTANT, Stop date: 11/01/16 14:43:00 FINANCIAL ANALYSIS CONSULTANT Morphine 2017-0 No 5 mg, Memoria 2-11 Route: IM, l 20:43: ONCE, Dosing Weight 113.636, kg, Priority: STAT, Start date: 11/01/16 14:43:00 FINANCIAL ANALYSIS CONSULTANT, Stop date: 11/01/16 14:43:00 FINANCIAL ANALYSIS CONSULTANT Plavix 2017-0 No Notes: Memoria 2-03 (Same As: l 15:00: Plavix) NovoLOG 2017-0 No 33 unit, Memori a 70/30 2-03 0.33 mL, l 15:00: Route: SUB-Q, Drug form: SUSP, QAM, Start date: 10/24/16 9:00:00 FINANCIAL ANALYSIS CONSULTANT, Duration: 30 day, Stop date: 11/22/16 9:00:00 FINANCIAL ANALYSIS CONSULTANT Imdur No Notes: Memoria 2-03 (Same l 15:00: as:Imdur) Sarah Ann 00 "Do Not Crush" Take on empty stomach/ full glass of water. Do not crush Lisinopril No Notes: Memor ia 2-03 (Same as: l 15:00: Prinivil, Sarah Ann 00 Zestril) Cymbalta No Notes: Memoria 2-03 (Same as: l 15:00: Cymbalta) Morteza 00 (Do Not Crush) Mobic No Notes: Memoria 2-03 (Same as: l 15:00: Mobic) Sarah Ann 00 Plavix No Notes: Memoria 2-03 (Same As: l 15:00: Plavix) Sarah Ann 00 NovoLOG No 33 unit, Memori a 70/30 2-03 0.33 mL, l 15:00: Route: Sarah Ann 00 SUB-Q, Drug form: SUSP, QAM, Start date: 10/24/16 9:00:00 FINANCIAL ANALYSIS CONSULTANT, Duration: 30 day, Stop date: 11/22/16 9:00:00 FINANCIAL ANALYSIS CONSULTANT Imdur No Notes: Memoria 2-03 (Same l 15:00: as:Imdur) Morteza 00 "Do Not Crush" Take on empty stomach/ full glass of water. Do not crush Lisinopril No Notes: Memor ia 2-03 (Same as: l 15:00: Prinivil, Sarah Ann 00 Zestril) Cymbalta No Notes: Memoria 2-03 (Same as: l 15:00: Cymbalta) Sarah Ann 00 (Do Not Crush) Mobic No Notes: Memoria 2-03 (Same as: l 15:00: Mobic) Morteza 00 Plavix No Notes: Memoria 2-03 (Same As: l 15:00: Plavix) Sarah Ann 00 NovoLOG 2016-0 No 33 unit, Memori a 70/30 2-03 0.33 mL, l 15:00: Route: Sarah Ann 00 SUB-Q, Drug form: SUSP, QAM, Start date: 10/24/16 9:00:00 FINANCIAL ANALYSIS CONSULTANT, Duration: 30 day, Stop date: 11/22/16 9:00:00 FINANCIAL ANALYSIS CONSULTANT Imdur No Notes: Memoria 2-03 (Same l 15:00: as:Imdur) Sarah Ann "Do Not Crush" Take on empty stomach/ full glass of water. Do not crush Lisinopril No Notes: Memor ia 2-03 (Same as: l 15:00: Prinivil, Morteza 00 Zestril) Cymbalta No Notes: Memoria 2-03 (Same as: l 15:00: Cymbalta) Morteza (Do Not Crush) Mobic No Notes: Memoria 2-03 (Same as: l 15:00: Mobic) Morteza 00 Plavix No Notes: Memoria 2-03 (Same As: l 15:00: Plavix) Sarah Ann NovoLOG No 33 unit, Memori a 70/30 2-03 0.33 mL, l 15:00: Route: Morteza 00 SUB-Q, Drug form: SUSP, QAM, Start date: 10/24/16 9:00:00 FINANCIAL ANALYSIS CONSULTANT, Duration: 30 day, Stop date: 11/22/16 9:00:00 FINANCIAL ANALYSIS CONSULTANT Imdur No Notes: Memoria 2-03 (Same l 15:00: as:Imdur) Sarah Ann "Do Not Crush" Take on empty stomach/ full glass of water. Do not crush Lisinopril No Notes: Memor ia 2-03 (Same as: l 15:00: Prinivil, Morteza 00 Zestril) Cymbalta No Notes: Memoria 2-03 (Same as: l 15:00: Cymbalta) Morteza 00 (Do Not Crush) Mobic No Notes: Memoria 2-03 (Same as: l 15:00: Mobic) Sarah Ann 00 Thyroxine No Notes: Memori a 2-03 Take 1 l 12:30: hour Sarah Ann 00 before or 2 hours after meal; Enteral feeds may interefere with the absorption of this medication .(Same as:Levothr oid) Thyroxine No Notes: Memori a 2-03 Take 1 l 12:30: hour Morteza 00 before or 2 hours after meal; Enteral feeds may interefere with the absorption of this medication .(Same as:Levothr oid) Thyroxine No Notes: Memori a 2-03 Take 1 l 12:30: hour Sarah Ann 00 before or 2 hours after meal; Enteral feeds may interefere with the absorption of this medication .(Same as:Levothr oid) Thyroxine No Notes: Memori a 2-03 Take 1 l 12:30: hour Morteza 00 before or 2 hours after meal; Enteral feeds may interefere with the absorption of this medication .(Same as:Levothr oid) Zetia No Notes: Memoria 2-03 (Same as: l 03:00: Zetia) Sarah Ann Saline No Notes: Memoria Flush 0.9% 2-03 (Same as: l 03:00: BD Morteza 00 Posiflush) Amitriptyli No Notes: Sami rosana ne 2-03 (Same as: l 03:00: Elavil) Morteza NovoLOG No Notes: Memoria 70/30 2-03 (Same as: l 03:00: NovoLOG Morteza 00 Mix ) WASTE: F/P - Black; E - Municipal Trash Bin Zetia No Notes: Memoria 2-03 (Same as: l 03:00: Zetia) Morteza 00 Saline No Notes: Memoria Flush 0.9% 2-03 (Same as: l 03:00: BD Morteza 00 Posiflush) Amitriptyli No Notes: Sami rosana ne 2-03 (Same as: l 03:00: Elavil) Morteza 00 NovoLOG No Notes: Memoria 70/30 2-03 (Same as: l 03:00: NovoLOG Morteza 00 Mix ) WASTE: F/P - Black; E - Municipal Trash Bin Zetia No Notes: Memoria 2-03 (Same as: l 03:00: Zetia) Sarah Ann 00 Saline No Notes: Memoria Flush 0.9% 2-03 (Same as: l 03:00: BD Sarah Ann Posiflush) Amitriptyli No Notes: Sami rosana ne 2- (Same as: l 03:00: Elavil) Morteza NovoLOG No Notes: Memoria 2 (Same as: l 03:00: NovoLOG Morteza Mix ) WASTE: F/P - Black; E - Municipal Trash Bin Zetia No Notes: Memoria 2-03 (Same as: l 03:00: Zetia) Morteza Saline No Notes: Memoria Flush 0.9% 2-03 (Same as: l 03:00: BD Morteza Posiflush) Amitriptyli No Notes: Sami rosana ne 2 (Same as: l 03:00: Elavil) Sarah Ann NovoLOG No Notes: Memoria 10-24 (Same as: l 03:00: NovoLOG Sarah Ann Mix ) WASTE: F/P - Black; E - Municipal Trash Bin NovoLOG Yes See Memoria 10-23 Instructio l 23:41: ns, 33 Sarah Ann 00 units Qam SUB-Q and 22 units QPM, 0 Refill(s) NovoLOG Yes See Memoria 10-23 Instructio l 23:41: ns, 33 Sarah Ann 00 units Qam SUB-Q and 22 units QPM, 0 Refill(s) NovoLOG Yes See Memoria 10-23 Instructio l 23:41: ns, 33 Morteza 00 units Qam SUB-Q and 22 units QPM, 0 Refill(s) NovoLOG Yes See Memoria 10-23 Instructio l 23:41: ns, 33 Sarah Ann 00 units Qam SUB-Q and 22 units QPM, 0 Refill(s) NovoLOG No Route: Memoria 10-23 SUB-Q, l 23:00: BID, Sarah Ann Dosing Weight 109.091, kg, Start date: 10/23/16 17:00:00 FINANCIAL ANALYSIS CONSULTANT, Duration: 30 day, Stop date: 11/22/16 9:00:00 FINANCIAL ANALYSIS CONSULTANT carvedilol 2017-0 No Notes: Memor ia 2-02 Give with l 23:00: food. (Same As: Coreg) NovoLOG 2016-0 No Route: Memoria 70/30 2-02 SUB-Q, l 23:00: BID, Dosing Weight 109.091, kg, Start date: 10/23/16 17:00:00 FINANCIAL ANALYSIS CONSULTANT, Duration: 30 day, Stop date: 11/22/16 9:00:00 FINANCIAL ANALYSIS CONSULTANT carvedilol 2017-0 No Notes: Memor ia 2-02 Give with l 23:00: food. (Same As: Coreg) NovoLOG 2016-0 No Route: Memoria 7030 2-02 SUB-Q, l 23:00: BID, Dosing Weight 109.091, kg, Start date: 10/23/16 17:00:00 FINANCIAL ANALYSIS CONSULTANT, Duration: 30 day, Stop date: 11/22/16 9:00:00 FINANCIAL ANALYSIS CONSULTANT carvedilol 2017-0 No Notes: Memor ia 2-02 Give with l 23:00: food. (Same As: Coreg) NovoLOG 2016-0 No Route: Memoria 70/30 2-02 SUB-Q, l 23:00: BID, Dosing Weight 109.091, kg, Start date: 10/23/16 17:00:00 FINANCIAL ANALYSIS CONSULTANT, Duration: 30 day, Stop date: 11/22/16 9:00:00 FINANCIAL ANALYSIS CONSULTANT carvedilol 2017-0 No Notes: Memor ia 2-02 Give with l 23:00: food. (Same As: Coreg) Lasix 2017-0 No 10 mg, Memoria 2-02 Route: PO, l 19:12: Daily, Dosing Weight 109.091, kg, Start date: 10/23/16 13:12:00 FINANCIAL ANALYSIS CONSULTANT, Duration: 30 day, Stop date: 11/22/16 9:00:00 FINANCIAL ANALYSIS CONSULTANT Lasix 2017-0 No 10 mg, Memoria 2-02 Route: PO, l 19:12: Daily, Dosing Weight 109.091, kg, Start date: 10/23/16 13:12:00 FINANCIAL ANALYSIS CONSULTANT, Duration: 30 day, Stop date: 11/22/16 9:00:00 FINANCIAL ANALYSIS CONSULTANT Lasix 2017-0 No 10 mg, Memoria 2 Route: PO, l 19:12: Daily, Morteza 00 Dosing Weight 109.091, kg, Start date: 10/23/16 13:12:00 FINANCIAL ANALYSIS CONSULTANT, Duration: 30 day, Stop date: 11/22/16 9:00:00 FINANCIAL ANALYSIS CONSULTANT Lasix 2017-0 No 10 mg, Memoria 10-23 Route: PO, l 19:12: Daily, Sarah Ann 00 Dosing Weight 109.091, kg, Start date: 10/23/16 13:12:00 FINANCIAL ANALYSIS CONSULTANT, Duration: 30 day, Stop date: 11/22/16 9:00:00 FINANCIAL ANALYSIS CONSULTANT tapentadol 2017-0 Yes 75 mg = 1 Me moria 75 MG Oral 2-02 tab, PO, l Tablet 17:30: Q6H, PRN Morteza [Nucynta] 00 Pain Score 6-10, 0 Refill(s) carvedilol Yes 25 mg = 1 Me moria 25 mg oral 2-02 tab, PO, l tablet 17:30: BID, 0 Sarah Ann 00 Refill(s) amitriptyli Yes 10 mg = 1 M emoria ne 10 mg 2-02 tab, PO, l oral tablet 17:30: Bedtime, 0 Sarah Ann 00 Refill(s) NovoLOG 2016-0 No See Memoria 70/30 -02 Instructio l 17:30: ns, SUB-Q Sarah Ann 00 ONCE humulog taken 33 units in am 22 units in pm, 0 Refill(s) carisoprodo 2017-0 Yes 350 mg = 1 Memoria l 350 mg 2-02 tab, PO, l oral tablet 17:30: PRN, 0 Herm leonela 00 Refill(s) tapentadol 2017-0 Yes 75 mg = 1 Me moria 75 MG Oral 2-02 tab, PO, l Tablet 17:30: Q6H, PRN Morteza [Nucynta] 00 Pain Score 6-10, 0 Refill(s) carvedilol 2016- Yes 25 mg = 1 Me moria 25 mg oral 2-02 tab, PO, l tablet 17:30: BID, 0 Sarah Ann 00 Refill(s) amitriptyli 2016-0 Yes 10 mg = 1 M emoria ne 10 mg 2-02 tab, PO, l oral tablet 17:30: Bedtime, 0 Morteza 00 Refill(s) NovoLOG No See Memoria 10-23 Instructio [...] tab, PO, l tablet 17:30: BID, 0 Sarah Ann 00 Refill(s) amitriptyli Yes 10 mg = 1 M emoria ne 10 mg 2-02 tab, PO, l oral tablet 17:30: Bedtime, 0 Sarah Ann 00 Refill(s) [facility] [address] [facility] 17:30: ns, SUB-Q Sarah Ann 00 ONCE humulog taken 33 units in am 22 units in pm, 0 Refill(s) carisoprodo Yes 350 mg = 1 Memoria l 350 mg 2-02 tab, PO, l oral tablet 17:30: PRN, 0 Herm leonela 00 Refill(s) tapentadol 0 Yes 75 mg = 1 Me moria 75 MG Oral 2-02 tab, PO, l Tablet 17:30: Q6H, PRN Sarah Ann [Nucynta] 00 Pain Score 6-10, 0 Refill(s) carvedilol 0 Yes 25 mg = 1 Me moria 25 mg oral 2-02 tab, PO, l tablet 17:30: BID, 0 Morteza 00 Refill(s) amitriptyli 0 Yes 10 mg = 1 M emoria ne 10 mg 2-02 tab, PO, l oral tablet 17:30: Bedtime, 0 Sarah Ann 00 Refill(s) NovoLOG No See Memoria 70/30 2-02 Instructio l 17:30: ns, SUB-Q Sarah Ann 00 ONCE humulog taken 33 units in am 22 units in pm, 0 Refill(s) carisoprodo Yes 350 mg = 1 Memoria l 350 mg 2 tab, PO, l oral tablet 17:30: PRN, 0 Herm leonela 00 Refill(s) Insulin, No Notes: Memoria Aspart, 2-02 Roll in l Human 17:01: palms of Sarah Ann 00 hands gently; Do not shake vigorously [...] Blood Glucose Results, Start date: 10/23/16 11:01:00 FINANCIAL ANALYSIS CONSULTANT, Duration: 30 day, Stop date: 11/22/16 11:00:00 FINANCIAL ANALYSIS CONSULTANT Glucagon No 1 mg, Memoria 10-23 Route: IM, l 17:01: Drug form: Morteza 00 PDR/INJ, PRN, Dosing Weight 109.091, kg, PRN Blood Glucose Results, Start date: 10/23/16 11:01:00 FINANCIAL ANALYSIS CONSULTANT, Duration: 30 day, Stop date: 11/22/16 11:00:00 FINANCIAL ANALYSIS CONSULTANT Insulin, No Notes: Memoria Aspart, 2-02 Roll in l Human 17:01: palms of Sarah Ann 00 hands gently; Do not shake vigorously [...] Blood Glucose Results, Start date: 10/23/16 11:01:00 FINANCIAL ANALYSIS CONSULTANT, Duration: 30 day, Stop date: 11/22/16 11:00:00 FINANCIAL ANALYSIS CONSULTANT Glucagon 2017-0 No 1 mg, Memoria 2-02 Route: IM, l 17:01: Drug form: Sarah Ann 00 PDR/INJ, PRN, Dosing Weight 109.091, kg, PRN Blood Glucose Results, Start date: 10/23/16 11:01:00 FINANCIAL ANALYSIS CONSULTANT, Duration: 30 day, Stop date: 11/22/16 11:00:00 FINANCIAL ANALYSIS CONSULTANT Insulin, 2017-0 No Notes: Memoria Aspart, 2-02 Roll in l Human 17:01: palms of Morteza 00 hands gently; Do not shake vigorously . (Same as: NovoLOG) "single patient use only" WASTE: F/P - Black; E - Municipal Trash Bin Stable for 28 days at room temperatur e. Expires in days from ____Date Dextrose 2017-0 No 25 gm, 50 Sami rosana 50% Syringe 2-02 mL, Route: l 17:01: IVP, Drug Sarah Ann 00 Form: INJ, Dosing Weight 109.091, kg, PRN, PRN Blood Glucose Results, Start date: 10/23/16 11:01:00 FINANCIAL ANALYSIS CONSULTANT, Duration: 30 day, Stop date: 11/22/16 11:00:00 FINANCIAL ANALYSIS CONSULTANT Glucagon 2016-0 No 1 mg, Memoria 2-02 Route: IM, l 17:01: Drug form: Motreza 00 PDR/INJ, PRN, Dosing Weight 109.091, kg, PRN Blood Glucose Results, Start date: 10/23/16 11:01:00 FINANCIAL ANALYSIS CONSULTANT, Duration: 30 day, Stop date: 11/22/16 11:00:00 FINANCIAL ANALYSIS CONSULTANT Insulin, 2017-0 No Notes: Memoria Aspart, 2-02 Roll in [...] Blood Glucose Results, Start date: 10/23/16 11:01:00 FINANCIAL ANALYSIS CONSULTANT, Duration: 30 day, Stop date: 11/22/16 11:00:00 FINANCIAL ANALYSIS CONSULTANT Glucagon No 1 mg, Memoria 10-23 Route: IM, l 17:01: Drug form: Sarah Ann 00 PDR/INJ, PRN, Dosing Weight 109.091, kg, PRN Blood Glucose Results, Start date: 10/23/16 11:01:00 FINANCIAL ANALYSIS CONSULTANT, Duration: 30 day, Stop date: 11/22/16 11:00:00 FINANCIAL ANALYSIS CONSULTANT Acetaminoph No Notes: Sami rosana en 325 MG / 10-23 (Same as: l Hydrocodone 16:54: [place] nn Bitartrate 00 325/5) Do 5 MG Oral not exceed Tablet 4gm/day of acetaminop hen. Ondansetron No Notes: Sami rosana 2-02 (Same as: l 16:54: Zofran) Sarah Ann 00 MEDICATION WASTE Product Size: 4 mg Product Wasted: _0__ mg Docusate No Notes: Memoria 2-02 (Same as: l 16:54: Colace) Sarah Ann 00 (Do Not Crush) Acetaminoph No Notes: Max Memoria en - acetaminop l 16:54: hen 4000 Morteza 00 mg/day (4 gm/day). (Same as: Tylenol Extra Strength) Acetaminoph No Notes: Sami rosana en 325 MG / 2-02 (Same as: l Hydrocodone 16:54: [place] nn Bitartrate 00 325/5) Do 5 MG Oral not exceed Tablet 4gm/day of acetaminop hen. Ondansetron No Notes: Sami rosana 2-02 (Same as: l 16:54: Zofran) Morteza MEDICATION WASTE Product Size: 4 mg Product Wasted: _0__ mg Docusate No Notes: Memoria 2-02 (Same as: l 16:54: Colace) Morteza 00 (Do Not Crush) Acetaminoph No Notes: Max Memoria en 2-02 acetaminop l 16:54: hen 4000 Morteza 00 mg/day (4 gm/day). (Same as: Tylenol Extra Strength) Acetaminoph No Notes: Sami rosana en 325 MG / 202 (Same as: l Hydrocodone 16:54: [place] nn Bitartrate 00 325/5) Do 5 MG Oral not exceed Tablet 4gm/day of acetaminop hen. Ondansetron No Notes: Sami rosana 2-02 (Same as: l 16:54: Zofran) Sarah Ann 00 MEDICATION WASTE Product Size: 4 mg Product Wasted: _0__ mg Docusate No Notes: Memoria 2-02 (Same as: l 16:54: Colace) Morteza 00 (Do Not Crush) Acetaminoph No Notes: Max Memoria en 2-02 acetaminop l 16:54: hen 4000 Sarah Ann 00 mg/day (4 gm/day). (Same as: Tylenol Extra Strength) Acetaminoph No Notes: Sami rosana en 325 MG / 2-02 (Same as: l Hydrocodone 16:54: [place] nn Bitartrate 00 325/5) Do 5 MG Oral not exceed Tablet 4gm/day of acetaminop hen. Ondansetron No Notes: Sami rosana 2-02 (Same as: l 16:54: Zofran) Morteza 00 MEDICATION WASTE Product Size: 4 mg Product Wasted: _0__ mg Docusate No Notes: Memoria 2-02 (Same as: l 16:54: Colace) Sarah Ann 00 (Do Not Crush) Acetaminoph No Notes: Max Memoria en 2-02 acetaminop l 16:54: hen 4000 Morteza 00 mg/day (4 gm/day). (Same as: Tylenol Extra Strength) Saline No Notes: Memoria Flush 0.9% 2-02 (Same as: l 16:21: BD Morteza 00 Posiflush) Saline No Notes: Memoria Flush 0.9% 2-02 (Same as: l 16:21: BD Morteza 00 Posiflush) Saline No Notes: Memoria Flush 0.9% 2-02 (Same as: l 16:21: BD Morteza 00 Posiflush) Saline No Notes: Memoria Flush 0.9% 2-02 (Same as: l 16:21: BD Sarah Ann 00 Posiflush) iodixanol No 100 mL, Memor ia 2-02 Route: l 14:49: IVP, Drug Morteza 00 Form: SOLN, kg, ONCALL, STAT, Start date: 10/23/16 8:49:00 FINANCIAL ANALYSIS CONSULTANT, Duration: 1 doses or times, Dose = 2.2ml/kg, Max dose = 100ml -- "To be infused by Radiology Staff ONLY" iodixanol No 100 mL, Memor ia 2- Route: l 14:49: IVP, Drug Sarah Ann 00 Form: SOLN, kg, ONCALL, STAT, Start date: 10/23/16 8:49:00 FINANCIAL ANALYSIS CONSULTANT, Duration: 1 doses or times, Dose = 2.2ml/kg, Max dose = 100ml -- "To be infused by Radiology Staff ONLY" iodixanol No 100 mL, Memor ia 2-02 Route: l 14:49: IVP, Drug Sarah Ann 00 Form: SOLN, kg, ONCALL, STAT, Start date: 10/23/16 8:49:00 FINANCIAL ANALYSIS CONSULTANT, Duration: 1 doses or times, Dose = 2.2ml/kg, Max dose = 100ml -- "To be infused by Radiology Staff ONLY" iodixanol 0 No 100 mL, Memor ia 2-02 Route: l 14:49: IVP, Drug Morteza 00 Form: SOLN, kg, ONCALL, STAT, Start date: 10/23/16 8:49:00 FINANCIAL ANALYSIS CONSULTANT, Duration: 1 doses or times, Dose = 2.2ml/kg, Max dose = 100ml -- "To be infused by Radiology Staff ONLY" Saline No Notes: Memoria Flush 0.9% 2-02 Same as: l 14:11: BD Posiflush Sterile Saline No Notes: Memoria Flush 0.9% 2-02 Same as: l 14:11: BD Morteza 00 Posiflush Sterile Saline No Notes: Memoria Flush 0.9% 2-02 Same as: l 14:11: BD Sarah Ann 00 Posiflush Sterile Saline No Notes: Memoria Flush 0.9% 2-02 Same as: l 14:11: BD Posiflush Sterile ezetimibe Yes 10 mg = 1 Mem oria 10 MG Oral 2-02 tab, PO, l Tablet 14:04: Daily, # Sarah Ann [Zetia] 00 30 tab, 0 Refill(s) ezetimibe Yes 10 mg = 1 Mem oria 10 MG Oral 2-02 tab, PO, l Tablet 14:04: Daily, # Sarah Ann [Zetia] 00 30 tab, 0 Refill(s) ezetimibe Yes 10 mg = 1 Mem oria 10 MG Oral 2-02 tab, PO, l Tablet 14:04: Daily, # Sarah Ann [Zetia] 00 30 tab, 0 Refill(s) ezetimibe Yes 10 mg = 1 Mem oria 10 MG Oral 2-02 tab, PO, l Tablet 14:04: Daily, # Sarah Ann [Zetia] 00 30 tab, 0 Refill(s) Mobic 0 Yes 15 mg, PO, Memori a 2-02 Daily, 0 l 14:01: Refill(s) Sarah Ann 00 Mobic 0 Yes 15 mg, PO, Memori a 2-02 Daily, 0 l 14:01: Refill(s) Sarah Ann 00 Mobic 2016-0 Yes 15 mg, PO, Memori a 2-02 [...] Memori a 2-02 Refill(s) l 14:00: Lasix No 10 mg, PO, Memori a 2-02 Daily, 0 l 14:00: Refill(s) Cymbalta Yes 60 mg, PO, Mem oria 2-02 Daily, 0 l 14:00: Refill(s) Thyroxine Yes 112 Memoria 2-02 microgram, l 14:00: PO, Daily, 0 Refill(s) Humalog No SUB-Q, 0 Memori a 2-02 Refill(s) l 14:00: Lasix No 10 mg, PO, Memori a 2-02 Daily, 0 l 14:00: Refill(s) Cymbalta Yes 60 mg, PO, Mem oria 2-02 Daily, 0 l 14:00: Refill(s) Thyroxine Yes 112 Memoria 2-02 microgram, l 14:00: PO, Daily, 0 Refill(s) Humalog No SUB-Q, 0 Memori a 2-02 Refill(s) l 14:00: Lasix No 10 mg, PO, Memori a 2-02 Daily, 0 l 14:00: Refill(s) Cymbalta Yes 60 mg, PO, Mem oria 2-02 Daily, 0 l 14:00: Refill(s) Thyroxine Yes 112 Memoria 2-02 microgram, l 14:00: PO, Daily, 0 Refill(s) Lisinopril Yes 40 mg, PO, M emoria 2-02 Daily, 0 l 13:59: Refill(s) Imdur 2017-0 Yes 30 mg, PO, Memori a 2-02 QAM, 0 l 13:59: Refill(s) Plavix 2017-0 Yes 75 mg, PO, Memor ia 2-02 Daily, 0 l 13:59: Refill(s) Lisinopril 2017-0 Yes 40 mg, PO, M emoria 2-02 Daily, 0 l 13:59: Refill(s) Imdur 2016-0 Yes 30 mg, PO, Memori a 2-02 QAM, 0 l 13:59: Refill(s) Plavix 2016-0 Yes 75 mg, PO, Memor ia 2-02 Daily, 0 l 13:59: Refill(s) Lisinopril 2016-0 Yes 40 mg, PO, M emoria 2-02 Daily, 0 l 13:59: Refill(s) Imdur 2016-0 Yes 30 mg, PO, Memori a 2-02 QAM, 0 l 13:59: Refill(s) Plavix 2016-0 Yes 75 mg, PO, Memor ia 2-02 Daily, 0 l 13:59: Refill(s) Lisinopril 2016-0 Yes 40 mg, PO, M emoria 2-02 Daily, 0 l 13:59: Refill(s) Imdur 2016-0 Yes 30 mg, PO, Memori a 2-02 QAM, 0 l 13:59: Refill(s) Plavix 2016-0 Yes 75 mg, PO, Memor ia 2-02 Daily, 0 l 13:59: Refill(s) amitriptyli 2017-0 Yes 10mg QD Take 1 Meth cruzito ne (ELAVIL) 2-[address] 10 MG 00:00: [facility] tablet 00 daily. l ISOSORBIDE 2017-0 Yes 30mg QD Take 30 mg M ethodi MONONITRATE 2-[address] ORAL 00:00: daily. [facility]ospita 00 l amitriptyli 2017-0 Yes 10mg QD Take 1 Meth cruzito ne (ELAVIL) 2-[address] 10 MG 00:00: [facility] tablet 00 daily. l ISOSORBIDE Yes 30mg QD Take 30 mg M ethodi MONONITRATE 2-[address] ORAL 00:00: daily. [facility]ospita 00 l amitriptyli Yes 10mg QD Take 1 Meth cruzito ne (ELAVIL) 2-[address] 10 MG 00:00: [facility] tablet 00 daily. l ISOSORBIDE Yes 30mg QD Take 30 mg M ethodi MONONITRATE 2-[address] ORAL 00:00: daily. Hospita 00 l lisinopril lisinopril 2011-09 No lisinopril Jeny 40 mg 40 mg 10-19 40 mg [facility] tablet RX tablet RX 00:00: tablet RX dic by other MD by other MD 00 by other Sports MD Medicin e Jardiance Jardiance No 1 Q1D Jardiance Jeny 10 mg 10 mg 10 mg [facility] tablet Take tablet Take tablet dic 1 tablet 1 tablet Take 1 Sport s every day every day tablet Med icin by oral by oral every day e route. route. by oral route. Novolog Mix Novolog Mix No Novolog Jeny [...] USLY TWICE DAILY pioglitazon pioglitazon No pioglitazo Jeny e 30 mg e 30 mg ne 30 mg Ortho pe tablet TAKE tablet TAKE tablet dic 1 TABLET BY 1 TABLET BY TAKE 1 Sports MOUTH IN MOUTH IN TABLET BY Ok dicin THE MORNING THE MORNING MOUTH IN e THE MORNING tramadol 50 tramadol 50 No 1 Q12H tramadol Jeny mg tablet mg tablet 50 mg Orth ope Take 1 Take 1 tablet dic tablet tablet Take 1 Sports every 12 every 12 tablet Medic in hours by hours by every 12 e oral route oral route hours by for 30 for 30 oral route days. days. for 30 days. Xarelto 10 Xarelto 10 No Xarelto 10 Jeny mg tablet mg tablet mg tablet [facility] TAKE 1 TAKE 1 TAKE 1 dic TABLET BY TABLET BY TABLET BY Sports MOUTH ONCE MOUTH ONCE MOUTH ONCE Medicin DAILY DAILY DAILY e BD BD No BD Trail Ultra-Fine Ultra-Fine Ultra-Fine Communi Short Pen Short Pen Short Pen ty Needle 31 Needle 31 Needle 31 Hospita gauge x gauge x gauge x l 02/03" USE 1 02/03" USE 1 02/03" USE Clinics TWICE DAILY TWICE DAILY 1 TWICE DAILY carisoprodo carisoprodo No carisoprod Trail l 350 mg l 350 mg ol 350 mg [facility] tablet TAKE tablet TAKE tablet ty 1 TABLET BY 1 TABLET BY TAKE 1 Hospita MOUTH ONCE MOUTH ONCE TABLET BY l DAILY IN DAILY IN MOUTH ONCE C linics THE EVENING THE EVENING DAILY IN THE EVENING clotrimazol clotrimazol No clotrimazo Trail e-betametha e-betametha le-betamet Communi sone 1 sone [...] AND EVENING NEEDED duloxetine duloxetine No duloxetine Trail 60 mg 60 mg 60 mg Communi capsule,del capsule,del capsule,de ty ayed ayed layed Hospita release release release l TAKE 1 TAKE 1 TAKE 1 Clinics CAPSULE BY CAPSULE BY CAPSULE BY MOUTH ONCE MOUTH ONCE MOUTH ONCE DAILY IN DAILY IN DAILY IN THE EVENING THE EVENING THE . . EVENING . ezetimibe ezetimibe No ezetimibe Trail 10 mg 10 mg 10 mg Communi tablet TAKE tablet TAKE tablet ty 1 TABLET BY 1 TABLET BY TAKE 1 Hospita MOUTH ONCE MOUTH ONCE TABLET BY l DAILY . DAILY . MOUTH ONCE Cli nics APPOINTMENT APPOINTMENT DAILY . REQUIRED REQUIRED APPOINTMEN FOR FUTURE FOR FUTURE T REQUIRED REFILLS REFILLS FOR FUTURE REFILLS famotidine famotidine No famotidine Trail 20 mg 20 mg 20 mg Communi tablet tablet tablet ty Hospita l Clinics isosorbide isosorbide No isosorbide Trail mononitrate mononitrate mononitrat Communi ER 30 mg ER 30 mg e ER 30 mg t y tablet,exte tablet,exte tablet,ext Hospita nded nded ended l release 24 release 24 release 24 Clinics hr Take 1 hr Take 1 hr Take 1 tablet by tablet by tablet by mouth once mouth once mouth once daily daily daily levothyroxi levothyroxi No levothyrox Trail ne 150 mcg ne 150 mcg ine 150 Communi tablet TAKE tablet TAKE mcg tablet ty 1 TABLET BY 1 TABLET BY TAKE 1 Hospita MOUTH ONCE MOUTH ONCE TABLET BY l DAILY FOR DAILY FOR MOUTH ONCE Clinics 90 DAYS 90 DAYS DAILY FOR 90 DAYS lisinopril lisinopril No lisinopril Trail 40 mg 40 mg 40 mg Communi tablet Take tablet Take tablet ty 1 tablet by 1 tablet by Take 1 Hospita mouth once mouth once tablet by l daily daily mouth once Clinics daily meloxicam meloxicam No meloxicam Trail 15 mg 15 mg 15 mg Communi tablet Take tablet Take tablet ty 1 tablet by 1 tablet by Take 1 Hospita mouth once mouth once tablet by l daily for daily for mouth once Clinics 90 days 90 days daily for 90 days Novolog Mix Novolog Mix No Novolog Trail 70-30 70-30 Mix 70-30 Communi FlexPen FlexPen FlexPen ty U-100 U-100 U-100 Hospita Insulin 100 Insulin 100 Insulin l unit/mL unit/mL 100 Clinics subcutaneou subcutaneou unit/mL s pen s pen subcutaneo INJECT 60 INJECT 60 us pen UNITS UNITS INJECT 60 SUBCUTANEOU SUBCUTANEOU UNITS SLY TWICE SLY TWICE SUBCUTANEO DAILY DAILY USLY TWICE DAILY omeprazole omeprazole No omeprazole Trail 20 mg 20 mg 20 mg Communi capsule,del capsule,del capsule,de ty ayed ayed layed Hospita release release release l Clinics tramadol [address] mg tablet mg tablet 50 mg Comm uni tablet ty Hospita l Clinics Xarelto 10 Xarelto [address] mg tablet mg tablet mg tablet Communi Take 1 Take 1 Take 1 ty tablet tablet tablet Hospita every day every day every day l by oral by oral by oral Clinic s route. route. route. amitriptyli amitriptyli No amitriptyl Trail ne 10 mg ne 10 mg ine 10 mg [facility] tablet TAKE tablet TAKE tablet ty 1 TABLET BY 1 TABLET BY TAKE 1 Hospita MOUTH AT MOUTH AT TABLET BY l BEDTIME BEDTIME MOUTH AT Clini cs BEDTIME BD BD No BD Trail Ultra-Fine Ultra-Fine Ultra-Fine Communi Short Pen Short Pen Short Pen ty Needle 31 Needle 31 Needle 31 Hospita gauge x gauge x gauge x l 02/03" USE 1 02/03" USE 1 02/03" USE Clinics TWICE DAILY TWICE DAILY 1 TWICE DAILY carisoprodo carisoprodo No carisoprod Trail l 350 mg l 350 mg ol 350 mg Co [facility] tablet TAKE tablet TAKE tablet ty 1 TABLET BY 1 TABLET BY TAKE 1 Hospita MOUTH ONCE MOUTH ONCE TABLET BY l DAILY IN DAILY IN MOUTH ONCE C linics THE EVENING THE EVENING DAILY IN THE EVENING clotrimazol clotrimazol No clotrimazo Trail e-betametha e-betametha le-betamet Communi sone 1 sone [...] AND EVENING NEEDED duloxetine duloxetine No duloxetine Trail 60 mg 60 mg 60 mg Communi capsule,del capsule,del capsule,de ty ayed ayed layed Hospita release release release l TAKE 1 TAKE 1 TAKE 1 Clinics CAPSULE BY CAPSULE BY CAPSULE BY MOUTH ONCE MOUTH ONCE MOUTH ONCE DAILY IN DAILY IN DAILY IN THE EVENING THE EVENING THE EVENING ezetimibe ezetimibe No ezetimibe Trail 10 mg 10 mg 10 mg Communi tablet TAKE tablet TAKE tablet ty 1 TABLET BY 1 TABLET BY TAKE 1 Hospita MOUTH ONCE MOUTH ONCE TABLET BY l DAILY . DAILY . MOUTH ONCE Cli nics APPOINTMENT APPOINTMENT DAILY . REQUIRED REQUIRED APPOINTMEN FOR FUTURE FOR FUTURE T REQUIRED REFILLS REFILLS FOR FUTURE REFILLS famotidine famotidine No famotidine Trail 20 mg 20 mg 20 mg Communi tablet tablet tablet ty Hospita l Clinics isosorbide isosorbide No isosorbide Trail mononitrate mononitrate mononitrat Communi ER 30 mg ER 30 mg e ER 30 mg t y tablet,exte tablet,exte tablet,ext Hospita nded nded ended l release 24 release 24 release 24 Clinics hr Take 1 hr Take 1 hr Take 1 tablet by tablet by tablet by mouth once mouth once mouth once daily daily daily levothyroxi levothyroxi No levothyrox Trail ne 150 mcg ne 150 mcg ine 150 Communi tablet TAKE tablet TAKE mcg tablet ty 1 TABLET BY 1 TABLET BY TAKE 1 Hospita MOUTH ONCE MOUTH ONCE TABLET BY l DAILY FOR DAILY FOR MOUTH ONCE Clinics 90 DAYS 90 DAYS DAILY FOR 90 DAYS Lisinopril Lisinopril Yes UT 40 MG Oral 40 MG Oral Phy sici Tablet Tablet ans lisinopril lisinopril No lisinopril Trail 40 mg 40 mg 40 mg Communi tablet Take tablet Take tablet ty 1 tablet by 1 tablet by Take 1 Hospita mouth once mouth once tablet by l daily daily mouth once Clinics daily L-Thyroxine L-Thyroxine Yes U T Sodium TABS Sodium TABS P hysici ans meloxicam meloxicam No meloxicam Trail 15 mg 15 mg 15 mg Communi tablet Take tablet Take tablet ty 1 tablet by 1 tablet by Take 1 [facility]ospita mouth once mouth once tablet by l daily for daily for mouth once Clinics 90 days 90 days daily for 90 days Amitriptyli Amitriptyli Yes U T ne HCl - 10 ne HCl - 10 P hysici MG Oral MG Oral ans Tablet Tablet Novolog Mix Novolog Mix No Novolog Trail 70-30 70-30 Mix 70-30 Communi FlexPen FlexPen FlexPen ty U-100 U-100 [facility] Insulin 100 Insulin l unit/mL unit/mL 100 Clinics subcutaneou subcutaneou unit/mL s pen s pen subcutaneo INJECT 60 INJECT 60 us pen UNITS UNITS INJECT 60 SUBCUTANEOU SUBCUTANEOU UNITS SLY TWICE SLY TWICE SUBCUTANEO DAILY DAILY USLY TWICE DAILY DULoxetine DULoxetine Yes UT HCl - 60 MG HCl - 60 MG P hysici Oral Oral ans Capsule Capsule Delayed Delayed Release Release Particles Particles omeprazole omeprazole No omeprazole Trail 20 mg 20 mg 20 mg Communi capsule,del capsule,del capsule,de ty ayed ayed layed Hospita release release release l Clinics Zetia 10 MG Zetia 10 MG Yes U T Oral Tablet Oral Tablet P hysici ans NovoLOG NovoLOG Yes UT SOLN SOLN Physici ans tramadol [address] mg tablet mg tablet 50 mg Comm uni tablet ty Hospita l Clinics Xarelto 10 Xarelto 10 Yes UT MG Oral MG Oral Physici Tablet Tablet ans Xarelto [address] mg tablet mg tablet mg tablet Communi Take 1 Take 1 Take 1 ty tablet tablet tablet [facility]osp[facility] every day every day every day l by oral by oral by oral Clinic s route. route. route. Carisoprodo Carisoprodo Yes U T l TABS l TABS [facility] amitriptyli amitriptyli No amitriptyl Trail ne 10 mg ne 10 mg ine 10 mg [facility] tablet TAKE tablet TAKE tablet ty 1 TABLET BY 1 TABLET BY TAKE 1 [facility]ospita MOUTH AT MOUTH AT TABLET BY l BEDTIME . BEDTIME . MOUTH AT C linics BEDTIME . Imdur 30 MG Imdur 30 MG Yes U T TB24 TB24 Physici ans BD BD No BD Trail Ultra-Fine Ultra-Fine Ultra-Fine Communi Short Pen Short Pen Short Pen ty Needle 31 Needle 31 Needle 31 Hospita gauge x gauge x gauge x l 02/03" USE 1 02/03" USE 1 02/03" USE Clinics TWICE DAILY TWICE DAILY 1 TWICE DAILY carisoprodo carisoprodo No carisoprod Trail l 350 mg l 350 mg ol 350 mg [facility] tablet TAKE tablet TAKE tablet ty 1 TABLET BY 1 TABLET BY TAKE 1 [facility]ospita MOUTH ONCE MOUTH ONCE TABLET BY l DAILY IN DAILY IN MOUTH ONCE C linics THE EVENING THE EVENING DAILY IN THE EVENING cholecalcif cholecalcif No cholecalci Trail neeru neeru ferol Communi (vitamin (vitamin (vitamin ty D3) 1,250 D3) 1,250 D3) 1,250 Hospita mcg (50,000 mcg (50,000 mcg l unit) unit) (50,000 Clinics capsule capsule unit) TAKE 1 TAKE 1 capsule CAPSULE BY CAPSULE BY TAKE 1 MOUTH ONCE MOUTH ONCE CAPSULE BY A WEEK A WEEK MOUTH ONCE A WEEK clotrimazol clotrimazol No clotrimazo Trail e-betametha e-betametha le-betamet Communi sone 1 sone [...] AND EVENING NEEDED Dialyvite Dialyvite No Dialyvite Trail Vitamin D3 Vitamin D3 Vitamin D3 Communi Max 1,250 Max 1,250 Max 1,250 ty mcg (50,000 mcg (50,000 mcg [facility] unit) unit) (50,000 l tablet tablet unit) Clinics tablet duloxetine duloxetine No duloxetine Trail 60 mg 60 mg 60 mg [facility]i capsule,del capsule,del capsule,de ty ayed ayed layed [facility]ospita release release release l TAKE 1 TAKE 1 TAKE 1 Clinics CAPSULE BY CAPSULE BY CAPSULE BY MOUTH ONCE MOUTH ONCE MOUTH ONCE DAILY IN DAILY IN DAILY IN THE EVENING THE EVENING THE EVENING ezetimibe ezetimibe No ezetimibe Trail 10 mg 10 mg 10 mg Communi tablet TAKE tablet TAKE tablet ty 1 TABLET BY 1 TABLET BY TAKE 1 [facility]ospita MOUTH ONCE MOUTH ONCE TABLET BY l DAILY . DAILY . MOUTH ONCE Cli nics DAILY . famotidine famotidine No famotidine Trail 20 mg 20 mg 20 mg Communi tablet tablet tablet ty [facility]osp[facility] l Clinics isosorbide isosorbide No isosorbide Trail mononitrate mononitrate mononitrat Communi ER 30 mg ER 30 mg e ER 30 mg t y tablet,exte tablet,exte tablet,ext [facility]ospita nded nded ended l release 24 release 24 release 24 Clinics hr TAKE 1 hr TAKE 1 hr TAKE 1 TABLET BY TABLET BY TABLET BY MOUTH ONCE MOUTH ONCE MOUTH ONCE DAILY . DAILY . DAILY . levothyroxi levothyroxi No levothyrox Trail ne 150 mcg ne 150 mcg ine 150 Communi tablet TAKE tablet TAKE mcg tablet ty 1 TABLET BY 1 TABLET BY TAKE 1 [facility]ospita MOUTH ONCE MOUTH ONCE TABLET BY l DAILY FOR DAILY FOR MOUTH ONCE Clinics 90 DAYS 90 DAYS DAILY FOR 90 DAYS lisinopril lisinopril No lisinopril Trail 40 mg 40 mg 40 mg Communi tablet TAKE tablet TAKE tablet ty 1 TABLET BY 1 TABLET BY TAKE 1 [facility]ospita MOUTH ONCE MOUTH ONCE TABLET BY l DAILY . DAILY . MOUTH ONCE Cli nics DAILY . meloxicam meloxicam No meloxicam Trail 15 mg 15 mg 15 mg Communi tablet TAKE tablet TAKE tablet ty 1 TABLET BY 1 TABLET BY TAKE 1 [facility]ospita MOUTH ONCE MOUTH ONCE TABLET BY l DAILY . DAILY . MOUTH ONCE Cli nics DAILY . Novolog Mix Novolog Mix No Novolog Trail 70-30 70-30 Mix 70-30 Communi FlexPen FlexPen FlexPen ty U-100 U-100 U-100 [facility]osp[facility] Insulin 100 Insulin 100 Insulin l unit/mL unit/mL 100 Clinics subcutaneou subcutaneou unit/mL s pen s pen subcutaneo INJECT 60 INJECT 60 us pen UNITS UNITS INJECT 60 SUBCUTANEOU SUBCUTANEOU UNITS SLY TWICE SLY TWICE SUBCUTANEO DAILY DAILY USLY TWICE DAILY omeprazole omeprazole No omeprazole Trail 20 mg 20 mg 20 mg [facility] capsule,del capsule,del capsule,de ty ayed ayed layed [facility]ospita release release release l Clinics tramadol 50 tramadol [address] mg tablet mg tablet 50 mg Comm uni tablet ty [facility] l Clinics Xarelto 10 Xarelto [address] mg tablet mg tablet mg tablet Communi Take 1 Take 1 Take 1 ty tablet tablet tablet [facility]ospita every day every day every day l by oral by oral by oral Clinic s route. route. route. amitriptyli amitriptyli No amitriptyl Trail ne 10 mg ne 10 mg ine 10 mg [facility] tablet TAKE tablet TAKE tablet ty 1 TABLET BY 1 TABLET BY TAKE 1 [facility]ospita MOUTH AT MOUTH AT TABLET BY l BEDTIME . BEDTIME . MOUTH AT C linics BEDTIME . BD BD No BD Trail Ultra-Fine Ultra-Fine Ultra-Fine Communi Short Pen Short Pen Short Pen ty Needle 31 Needle 31 Needle 31 [facility]ospita gauge x gauge x gauge x l 02/03" USE 1 02/03" USE 1 02/03" USE Clinics TWICE DAILY TWICE DAILY 1 TWICE DAILY carisoprodo carisoprodo No carisoprod Trail l 350 mg l 350 mg ol 350 mg [facility] tablet TAKE tablet TAKE tablet ty 1 TABLET BY 1 TABLET BY TAKE 1 [facility]ospita MOUTH ONCE MOUTH ONCE TABLET BY l DAILY IN DAILY IN MOUTH ONCE C linics THE EVENING THE EVENING DAILY IN THE EVENING cholecalcif cholecalcif No cholecalci Trail neeru neeru ferol Communi (vitamin (vitamin (vitamin ty D3) 1,250 D3) 1,250 D3) 1,250 [facility]ospita mcg (50,000 mcg (50,000 mcg l unit) unit) (50,000 Clinics capsule capsule unit) TAKE 1 TAKE 1 capsule CAPSULE BY CAPSULE BY TAKE 1 MOUTH ONCE MOUTH ONCE CAPSULE BY A WEEK A WEEK MOUTH ONCE A WEEK clotrimazol clotrimazol No clotrimazo Trail e-betametha e-betametha le-betamet Communi sone 1 sone [...] AND EVENING NEEDED Dialyvite Dialyvite No Dialyvite Trail Vitamin D3 Vitamin D3 Vitamin D3 Communi Max 1,250 Max 1,250 Max 1,250 ty mcg (50,000 mcg (50,000 mcg [facility] unit) unit) (50,000 l tablet tablet unit) Clinics tablet duloxetine duloxetine No duloxetine Trail 60 mg 60 mg 60 mg Communi [...] ONCE Clinics DAILY ezetimibe ezetimibe No ezetimibe Trail 10 mg 10 mg 10 mg Communi tablet TAKE tablet TAKE tablet ty 1 TABLET BY 1 TABLET BY TAKE 1 Hospita MOUTH ONCE MOUTH ONCE TABLET BY l DAILY . DAILY . MOUTH ONCE Cli nics DAILY . famotidine famotidine No famotidine Trail 20 mg 20 mg 20 mg Communi tablet tablet tablet ty [facility] isosorbide isosorbide No isosorbide Trail mononitrate mononitrate mononitrat Communi ER 30 mg ER 30 mg e ER 30 mg t y tablet,exte tablet,exte tablet,ext Hospita nded nded ended l release 24 release 24 release 24 Clinics hr TAKE 1 hr TAKE 1 hr TAKE 1 TABLET BY TABLET BY TABLET BY MOUTH ONCE MOUTH ONCE MOUTH ONCE DAILY . DAILY . DAILY . lisinopril lisinopril No lisinopril Trail 40 mg 40 mg 40 mg Communi tablet TAKE tablet TAKE tablet ty 1 TABLET BY 1 TABLET BY TAKE 1 Hospita MOUTH ONCE MOUTH ONCE TABLET BY l DAILY . DAILY . MOUTH ONCE Cli nics DAILY . meloxicam meloxicam No meloxicam Trail 15 mg 15 mg 15 mg Communi tablet TAKE tablet TAKE tablet ty 1 TABLET BY 1 TABLET BY TAKE 1 [facility] M[facility]TH [facility] MOUTH ONCE TABLET BY l DAILY . DAILY . MOUTH ONCE Cli nics DAILY . Novolog Mix Novolog Mix No Novolog Trail 70-30 70-30 Mix 70-30 Communi FlexPen FlexPen FlexPen ty U-100 U-100 U-100 Hospita Insulin 100 Insulin 100 Insulin l unit/mL unit/mL 100 Clinics subcutaneou subcutaneou unit/mL s pen s pen subcutaneo INJECT 60 INJECT 60 us pen UNITS UNITS INJECT 60 SUBCUTANEOU SUBCUTANEOU UNITS SLY TWICE SLY TWICE SUBCUTANEO DAILY DAILY USLY TWICE DAILY omeprazole omeprazole No omeprazole Trail 20 mg 20 mg 20 mg Communi capsule,del capsule,del capsule,de ty ayed ayed layed [facility] release release release l Clinics tramadol 50 tramad[address] mg tablet mg tablet 50 mg Comm uni tablet ty [facility] Xarelto 10 Xarelto [address] mg tablet mg tablet mg tablet Communi Take 1 Take 1 Take 1 ty tablet tablet tablet [facility] every day every day every day l by oral by oral by oral Clinic s route. route. route. amitriptyli amitriptyli No amitriptyl Trail ne 10 mg ne 10 mg ine 10 mg [facility] tablet TAKE tablet TAKE tablet ty 1 TABLET BY 1 TABLET BY TAKE 1 Hospita MOUTH AT MOUTH AT TABLET BY l BEDTIME BEDTIME MOUTH AT Clini cs BEDTIME BD BD No BD Trail Ultra-Fine Ultra-Fine Ultra-Fine Communi Short Pen Short Pen Short Pen ty Needle 31 Needle 31 Needle 31 Hospita gauge x gauge x gauge x l 02/03" USE 1 02/03" USE 1 02/03" USE Clinics TWICE DAILY TWICE DAILY 1 TWICE DAILY carisoprodo carisoprodo No carisoprod Trail l 350 mg l 350 mg ol 350 mg Co [facility] tablet TAKE tablet TAKE tablet ty 1 TABLET BY 1 TABLET BY TAKE 1 Hospita MOUTH ONCE MOUTH ONCE TABLET BY l DAILY IN DAILY IN MOUTH ONCE C linics THE EVENING THE EVENING DAILY IN THE EVENING cholecalcif cholecalcif No cholecalci Trail neeru neeru ferol Communi (vitamin (vitamin (vitamin ty D3) 1,250 D3) 1,250 D3) 1,250 Hospita mcg (50,000 mcg (50,000 mcg l unit) unit) (50,000 Clinics capsule capsule unit) TAKE 1 TAKE 1 capsule CAPSULE BY CAPSULE BY TAKE 1 MOUTH ONCE MOUTH ONCE CAPSULE BY A WEEK A WEEK MOUTH ONCE A WEEK clotrimazol clotrimazol No clotrimazo Trail e-betametha e-betametha le-betamet Communi sone 1 sone [...] AND EVENING NEEDED Dialyvite Dialyvite No Dialyvite Trail Vitamin D3 Vitamin D3 Vitamin D3 Communi Max 1,250 Max 1,250 Max 1,250 ty mcg (50,000 mcg (50,000 mcg [facility] unit) unit) (50,000 l tablet tablet unit) Clinics tablet duloxetine duloxetine No duloxetine Trail 60 mg 60 mg 60 mg Communi [...] ONCE Clinics DAILY ezetimibe ezetimibe No ezetimibe Trail 10 mg 10 mg 10 mg Communi tablet TAKE tablet TAKE tablet ty 1 TABLET BY 1 TABLET BY TAKE 1 Hospita MOUTH ONCE MOUTH ONCE TABLET BY l DAILY DAILY MOUTH ONCE Clinics DAILY famotidine famotidine No famotidine Trail 20 mg 20 mg 20 mg Communi tablet tablet tablet ty Hospita l Clinics isosorbide isosorbide No isosorbide Trail mononitrate mononitrate mononitrat Communi ER 30 mg ER 30 mg e ER 30 mg t y tablet,exte tablet,exte tablet,ext Hospita nded nded ended l release 24 release 24 release 24 Clinics hr TAKE 1 hr TAKE 1 hr TAKE 1 TABLET BY TABLET BY TABLET BY MOUTH ONCE MOUTH ONCE MOUTH ONCE DAILY DAILY DAILY lisinopril lisinopril No lisinopril Trail 40 mg 40 mg 40 mg Communi tablet TAKE tablet TAKE tablet ty 1 TABLET BY 1 TABLET BY TAKE 1 Hospita MOUTH ONCE MOUTH ONCE TABLET BY l DAILY DAILY MOUTH ONCE Clinics DAILY meloxicam meloxicam No meloxicam Trail 15 mg 15 mg 15 mg Communi tablet TAKE tablet TAKE tablet ty 1 TABLET BY 1 TABLET BY TAKE 1 Hospita MOUTH ONCE MOUTH ONCE TABLET BY l DAILY DAILY MOUTH ONCE Clinics DAILY Novolog Mix Novolog Mix No Novolog Trail 70-30 70-30 Mix 70-30 Communi FlexPen FlexPen FlexPen ty U-100 U-100 U-100 Hospita Insulin 100 Insulin 100 Insulin l unit/mL unit/mL 100 Clinics subcutaneou subcutaneou unit/mL s pen s pen subcutaneo INJECT 60 INJECT 60 us pen UNITS UNITS INJECT 60 SUBCUTANEOU SUBCUTANEOU UNITS SLY TWICE SLY TWICE SUBCUTANEO DAILY DAILY USLY TWICE DAILY omeprazole omeprazole No omeprazole Trail 20 mg 20 mg 20 mg Communi capsule,del capsule,del capsule,de ty ayed ayed layed Hospita release release release l [facility] tramadol 50 tramad[address] mg tablet mg tablet 50 mg Comm uni tablet ty Hospita l Clinics triamcinolo triamcinolo No triamcinol Trail ne ne one Communi acetonide acetonide acetonide [...] Xarelto 10 Xarelto [address] mg tablet mg tablet mg tablet Communi TAKE 1 TAKE 1 TAKE 1 ty TABLET BY TABLET BY TABLET BY Hospita MOUTH ONCE MOUTH ONCE MOUTH ONCE l DAILY . DAILY . DAILY . Clinic s APPOINTMENT APPOINTMENT APPOINTMEN REQUIRED REQUIRED T REQUIRED FOR FUTURE FOR FUTURE FOR FUTURE REFILLS REFILLS REFILLS amitriptyli amitriptyli No amitriptyl Trail ne 10 mg ne 10 mg ine 10 mg Co [facility] tablet TAKE tablet TAKE tablet ty 1 TABLET BY 1 TABLET BY TAKE 1 Hospita MOUTH AT MOUTH AT TABLET BY l BEDTIME BEDTIME MOUTH AT Clini cs BEDTIME BD BD No BD Trail Ultra-Fine Ultra-Fine Ultra-Fine Communi Short Pen Short Pen Short Pen ty Needle 31 Needle 31 Needle 31 Hospita gauge x gauge x gauge x l 02/03" USE 1 02/03" USE 1 02/03" USE Clinics TWICE DAILY TWICE DAILY 1 TWICE DAILY carisoprodo carisoprodo No carisoprod Trail l 350 mg l 350 mg ol 350 mg Co [facility] tablet TAKE tablet TAKE tablet ty 1 TABLET BY 1 TABLET BY TAKE 1 Hospita MOUTH ONCE MOUTH ONCE TABLET BY l DAILY IN DAILY IN MOUTH ONCE C linics THE EVENING THE EVENING DAILY IN THE EVENING cholecalcif cholecalcif No cholecalci Trail neeru neeru ferol Communi (vitamin (vitamin (vitamin ty D3) 1,250 D3) 1,250 D3) 1,250 Hospita mcg (50,000 mcg (50,000 mcg l unit) unit) (50,000 Clinics capsule capsule unit) TAKE 1 TAKE 1 capsule CAPSULE BY CAPSULE BY TAKE 1 MOUTH ONCE MOUTH ONCE CAPSULE BY A WEEK A WEEK MOUTH ONCE A WEEK clotrimazol clotrimazol No clotrimazo Trail e-betametha e-betametha le-betamet Communi sone 1 sone [...] AND EVENING NEEDED Dialyvite Dialyvite No Dialyvite Trail Vitamin D3 Vitamin D3 Vitamin D3 Communi Max 1,250 Max 1,250 Max 1,250 ty mcg (50,000 mcg (50,000 mcg H [facility] unit) unit) (50,000 l tablet tablet unit) Clinics tablet duloxetine duloxetine No duloxetine Trail 60 mg 60 mg 60 mg Communi [...] ONCE Clinics DAILY ezetimibe ezetimibe No ezetimibe Trail 10 mg 10 mg 10 mg Communi tablet TAKE tablet TAKE tablet ty 1 TABLET BY 1 TABLET BY TAKE 1 Hospita MOUTH ONCE MOUTH ONCE TABLET BY l DAILY DAILY MOUTH ONCE Clinics DAILY famotidine famotidine No famotidine Trail 20 mg 20 mg 20 mg Communi tablet tablet tablet ty Hospita l Clinics isosorbide isosorbide No isosorbide Trail mononitrate mononitrate mononitrat Communi ER 30 mg ER 30 mg e ER 30 mg t y tablet,exte tablet,exte tablet,ext Hospita nded nded ended l release 24 release 24 release 24 Clinics hr TAKE 1 hr TAKE 1 hr TAKE 1 TABLET BY TABLET BY TABLET BY MOUTH ONCE MOUTH ONCE MOUTH ONCE DAILY DAILY DAILY lisinopril lisinopril No lisinopril Trail 40 mg 40 mg 40 mg Communi tablet TAKE tablet TAKE tablet ty 1 TABLET BY 1 TABLET BY TAKE 1 Hospita MOUTH ONCE MOUTH ONCE TABLET BY l DAILY DAILY MOUTH ONCE Clinics DAILY Lumigan Lumigan No Lumigan Trail 0.01 % eye 0.01 % eye 0.01 % eye Communi drops drops drops ty [facility] meloxicam meloxicam No meloxicam Trail 15 mg 15 mg 15 mg Communi tablet TAKE tablet TAKE tablet ty 1 TABLET BY 1 TABLET BY TAKE 1 Hospita MOUTH ONCE MOUTH ONCE TABLET BY l DAILY DAILY MOUTH ONCE Clinics DAILY Novolog Mix Novolog Mix No Novolog Trail 70-30 70-30 Mix 70-30 Communi FlexPen FlexPen FlexPen ty U-100 U-100 U-100 [facility] Insulin 100 Insulin 100 Insulin l unit/mL unit/mL 100 Clinics subcutaneou subcutaneou unit/mL s pen s pen subcutaneo INJECT 60 INJECT 60 us pen UNITS UNITS INJECT 60 SUBCUTANEOU SUBCUTANEOU UNITS SLY TWICE SLY TWICE SUBCUTANEO DAILY DAILY USLY TWICE DAILY omeprazole omeprazole No omeprazole Trail 20 mg 20 mg 20 mg Communi capsule,del capsule,del capsule,de ty ayed ayed layed [facility] release release release l [facility] tramadol 50 tramadol [address] mg tablet mg tablet 50 mg Comm uni tablet ty [facility] triamcinolo triamcinolo No triamcinol Trail ne ne one [facility] acetonide acetonide acetonide ty 0.1 % 0.1 % 0.1 % [facility] topical topical topical l cream APPLY cream APPLY cream Clinics A THIN A THIN APPLY A LAYER TO LAYER TO THIN LAYER THE THE TO THE AFFECTED AFFECTED AFFECTED AREAS TWO AREAS TWO AREAS TWO TIMES A DAY TIMES A DAY TIMES A DAY Xarelto 10 X[address]to [address] mg tablet mg tablet mg tablet Communi TAKE 1 TAKE 1 TAKE 1 ty TABLET BY TABLET BY TABLET BY Hospita MOUTH ONCE MOUTH ONCE MOUTH ONCE l DAILY . DAILY . DAILY . Clinic s APPOINTMENT APPOINTMENT APPOINTMEN REQUIRED REQUIRED T REQUIRED FOR FUTURE FOR FUTURE FOR FUTURE REFILLS REFILLS REFILLS amitriptyli amitriptyli No amitriptyl Trail ne 10 mg ne 10 mg ine 10 mg Co [facility]i tablet TAKE tablet TAKE tablet ty 1 TABLET BY 1 TABLET BY TAKE 1 Hospita MOUTH AT MOUTH AT TABLET BY l BEDTIME BEDTIME MOUTH AT Clini cs BEDTIME BD BD No BD Trail Ultra-Fine Ultra-Fine Ultra-Fine Communi Short Pen Short Pen Short Pen ty Needle 31 Needle 31 Needle 31 Hospita gauge x gauge x gauge x l 02/03" USE 1 02/03" USE 1 02/03" USE Clinics NEEDLE NEEDLE 1 NEEDLE DIRECTED DIRECTED TWICE DAILY TWICE DAILY DIRECTED TWICE DAILY cefuroxime cefuroxime No [address] axetil 500 axetil 500 axetil 500 Communi mg tablet mg tablet mg tablet ty Take 1 Take 1 Take 1 Hospita tablet tablet tablet l every 12 every 12 every 12 Cli nics hours by hours by hours by oral route. oral route. oral route. clotrimazol clotrimazol No clotrimazo Trail e-betametha e-betametha le-betamet Communi sone 1 sone 1 hasone 1 ty %-0.05 % %-0.05 % %-0.05 % [facility] topical topical topical l cream APPLY cream APPLY cream [facility] CREAM CREAM APPLY TOPICALLY TOPICALLY CREAM TWICE DAILY TWICE DAILY TOPICALLY TO AFFECTED TO AFFECTED TWICE AND AND DAILY TO SURROUNDING SURROUNDING AFFECTED AREAS OF AREAS OF AND SKIN IN THE SKIN IN THE SURROUNDIN MORNING AND MORNING AND G AREAS OF EVENING EVENING SKIN IN NEEDED NEEDED THE MORNING AND EVENING NEEDED Dialyvite Dialyvite No Dialyvite Trail Vitamin D3 Vitamin D3 Vitamin D3 Communi Max 1,250 Max 1,250 Max 1,250 ty mcg (50,000 mcg (50,000 mcg H [facility]ita unit) unit) (50,000 l tablet tablet unit) Clinics tablet ezetimibe ezetimibe No ezetimibe Trail 10 mg 10 mg 10 mg Communi tablet TAKE tablet TAKE tablet ty 1 TABLET BY 1 TABLET BY TAKE 1 Hospita MOUTH ONCE MOUTH ONCE TABLET BY l DAILY DAILY MOUTH ONCE Clinics DAILY famotidine famotidine No famotidine Trail 20 mg 20 mg 20 mg Communi tablet tablet tablet ty Hospita l Clinics isosorbide isosorbide No isosorbide Trail mononitrate mononitrate mononitrat Communi ER 30 mg ER 30 mg e ER 30 mg t y tablet,exte tablet,exte tablet,ext Hospita nded nded ended l release 24 release 24 release 24 Clinics hr TAKE 1 hr TAKE 1 hr TAKE 1 TABLET BY TABLET BY TABLET BY MOUTH ONCE MOUTH ONCE MOUTH ONCE DAILY DAILY DAILY Lumigan Lumigan No Lumigan Trail 0.01 % eye 0.01 % eye 0.01 % eye Communi drops drops drops ty INSTILL 1 INSTILL 1 INSTILL 1 Hospita DROP INTO DROP INTO DROP INTO l EACH EYE AT EACH EYE AT EACH EYE Clinics BEDTIME BEDTIME AT BEDTIME meloxicam meloxicam No meloxicam Trail 15 mg 15 mg 15 mg Communi tablet TAKE tablet TAKE tablet ty 1 TABLET BY 1 TABLET BY TAKE 1 Hospita MOUTH ONCE MOUTH ONCE TABLET BY l DAILY DAILY MOUTH ONCE Clinics DAILY Novolog Mix Novolog Mix No Novolog Trail 70-30 70-30 Mix 70-30 Communi FlexPen FlexPen FlexPen ty U-100 U-100 U-100 Hospita Insulin 100 Insulin 100 Insulin l unit/mL unit/mL 100 Clinics subcutaneou subcutaneou unit/mL s pen s pen subcutaneo INJECT 60 INJECT 60 us pen UNITS UNITS INJECT 60 SUBCUTANEOU SUBCUTANEOU UNITS SLY TWICE SLY TWICE SUBCUTANEO DAILY DAILY USLY TWICE DAILY pioglitazon pioglitazon No pioglitazo Trail e 30 mg e 30 mg ne 30 mg Commu ni tablet TAKE tablet TAKE tablet ty 1 TABLET BY 1 TABLET BY TAKE 1 Hospita MOUTH IN MOUTH IN TABLET BY l THE MORNING THE MORNING MOUTH IN Clinics THE MORNING triamcinolo triamcinolo No triamcinol Trail ne ne one Communi acetonide acetonide acetonide ty 0.1 % 0.1 % 0.1 % [facility] topical topical topical l cream APPLY cream APPLY cream Clinics A THIN A THIN APPLY A LAYER TO LAYER TO THIN LAYER THE THE TO THE AFFECTED AFFECTED AFFECTED AREAS TWO AREAS TWO AREAS TWO TIMES A DAY TIMES A DAY TIMES A DAY Xarelto 10 Xarelto [address] mg tablet mg tablet mg tablet Communi TAKE 1 TAKE 1 TAKE 1 ty TABLET BY TABLET BY TABLET BY Hospita MOUTH ONCE MOUTH ONCE MOUTH ONCE l DAILY DAILY DAILY Clinics amitriptyli amitriptyli No amitriptyl Trail ne 10 mg ne 10 mg ine 10 mg Co mmuni tablet TAKE tablet TAKE tablet ty 1 TABLET BY 1 TABLET BY TAKE 1 Hospita MOUTH AT MOUTH AT TABLET BY l BEDTIME BEDTIME MOUTH AT Clini cs BEDTIME BD BD No BD Trail Ultra-Fine Ultra-Fine Ultra-Fine Communi Short Pen Short Pen Short Pen ty Needle 31 Needle 31 Needle 31 Hospita gauge x gauge x gauge x l 02/03" USE 02/03" USE 1 02/03" USE Clinics NEEDLE NEEDLE 1 NEEDLE DIRECTED DIRECTED TWICE DAILY TWICE DAILY DIRECTED TWICE DAILY cefuroxime cefuroxime No [address] axetil 500 axetil 500 axetil 500 Communi mg tablet mg tablet mg tablet ty Take 1 Take 1 Take 1 Hospita tablet tablet tablet l every 12 every 12 every 12 Cli nics hours by hours by hours by oral route. oral route. oral route. clotrimazol clotrimazol No clotrimazo Trail e-betametha e-betametha le-betamet Communi sone 1 sone 1 hasone 1 ty %-0.05 % %-0.05 % %-0.05 % [facility] topical topical topical l cream APPLY cream APPLY cream [facility] CREAM CREAM APPLY TOPICALLY TOPICALLY CREAM TWICE DAILY TWICE DAILY TOPICALLY TO AFFECTED TO AFFECTED TWICE AND AND DAILY TO SURROUNDING SURROUNDING AFFECTED AREAS OF AREAS OF AND SKIN IN THE SKIN IN THE SURROUNDIN MORNING AND MORNING AND G AREAS OF EVENING EVENING SKIN IN NEEDED NEEDED THE MORNING AND EVENING NEEDED Dialyvite Dialyvite No Dialyvite Trail Vitamin D3 Vitamin D3 Vitamin D3 Communi Max 1,250 Max 1,250 Max 1,250 ty mcg (50,000 mcg (50,000 mcg H [facility]spita unit) unit) (50,000 l tablet tablet unit) Clinics tablet ezetimibe ezetimibe No ezetimibe Trail 10 mg 10 mg 10 mg Communi tablet TAKE tablet TAKE tablet ty 1 TABLET BY 1 TABLET BY TAKE 1 Hospita MOUTH ONCE MOUTH ONCE TABLET BY l DAILY DAILY MOUTH ONCE Clinics DAILY famotidine famotidine No famotidine Trail 20 mg 20 mg 20 mg Communi tablet tablet tablet ty Hospita l Clinics isosorbide isosorbide No isosorbide Trail mononitrate mononitrate mononitrat Communi ER 30 mg ER 30 mg e ER 30 mg t y tablet,exte tablet,exte tablet,ext Hospita nded nded ended l release 24 release 24 release 24 Clinics hr TAKE 1 hr TAKE 1 hr TAKE 1 TABLET BY TABLET BY TABLET BY MOUTH ONCE MOUTH ONCE MOUTH ONCE DAILY DAILY DAILY Lumigan Lumigan No Lumigan Trail 0.01 % eye 0.01 % eye 0.01 % eye Communi drops drops drops ty INSTILL 1 INSTILL 1 INSTILL 1 Hospita DROP INTO DROP INTO DROP INTO l EACH EYE AT EACH EYE AT EACH EYE Clinics BEDTIME BEDTIME AT BEDTIME meloxicam meloxicam No meloxicam Trail 15 mg 15 mg 15 mg Communi tablet TAKE tablet TAKE tablet ty 1 TABLET BY 1 TABLET BY TAKE 1 Hospita MOUTH ONCE MOUTH ONCE TABLET BY l DAILY DAILY MOUTH ONCE Clinics DAILY Novolog Mix Novolog Mix No Novolog Trail 70-30 70-30 Mix 70-30 Communi FlexPen FlexPen FlexPen ty U-100 U-100 U-100 Hospita Insulin 100 Insulin 100 Insulin l unit/mL unit/mL 100 Clinics subcutaneou subcutaneou unit/mL s pen s pen subcutaneo INJECT 60 INJECT 60 us pen UNITS UNITS INJECT 60 SUBCUTANEOU SUBCUTANEOU UNITS SLY TWICE SLY TWICE SUBCUTANEO DAILY DAILY USLY TWICE DAILY pioglitazon pioglitazon No pioglitazo Trail e 30 mg e 30 mg ne 30 mg Commu ni tablet TAKE tablet TAKE tablet ty 1 TABLET BY 1 TABLET BY TAKE 1 Hospita MOUTH IN MOUTH IN TABLET BY l THE MORNING THE MORNING MOUTH IN Clinics THE MORNING triamcinolo triamcinolo No triamcinol Trail ne ne one Communi acetonide acetonide acetonide ty 0.1 % 0.1 % 0.1 % [facility] topical topical topical l cream APPLY cream APPLY cream Clinics A THIN A THIN APPLY A LAYER TO LAYER TO THIN LAYER THE THE TO THE AFFECTED AFFECTED AFFECTED AREAS TWO AREAS TWO AREAS TWO TIMES A DAY TIMES A DAY TIMES A DAY Xarelto 10 Xarelto [address] mg tablet mg tablet mg tablet Communi TAKE 1 TAKE 1 TAKE 1 ty TABLET BY TABLET BY TABLET BY Hospita MOUTH ONCE MOUTH ONCE MOUTH ONCE l DAILY DAILY DAILY Clinics amitriptyli amitriptyli No amitriptyl Trail ne 10 mg ne 10 mg ine 10 mg Co m[facility]i tablet TAKE tablet TAKE tablet ty 1 TABLET BY 1 TABLET BY TAKE 1 Hospita MOUTH AT MOUTH AT TABLET BY l BEDTIME BEDTIME MOUTH AT Clini cs BEDTIME BD BD No BD Trail Ultra-Fine Ultra-Fine Ultra-Fine Communi Short Pen Short Pen Short Pen ty Needle 31 Needle 31 Needle 31 Hospita gauge x gauge x gauge x l 02/03" USE 02/03" USE 1 02/03" USE Clinics NEEDLE NEEDLE 1 NEEDLE DIRECTED DIRECTED TWICE DAILY TWICE DAILY DIRECTED TWICE DAILY clotrimazol clotrimazol No clotrimazo Trail e-betametha e-betametha le-betamet Communi sone 1 sone [...] AND EVENING NEEDED Dialyvite Dialyvite No Dialyvite Trail Vitamin D3 Vitamin D3 Vitamin D3 Communi Max 1,250 Max 1,250 Max 1,250 ty mcg (50,000 mcg (50,000 mcg H ospita unit) unit) (50,000 l tablet tablet unit) Clinics tablet duloxetine duloxetine No duloxetine Trail 60 mg 60 mg 60 mg Communi capsule,del capsule,del capsule,de ty ayed ayed layed Hospita release release release l Clinics ezetimibe ezetimibe No ezetimibe Trail 10 mg 10 mg 10 mg Communi tablet TAKE tablet TAKE tablet ty 1 TABLET BY 1 TABLET BY TAKE 1 Hospita MOUTH ONCE MOUTH ONCE TABLET BY l DAILY DAILY MOUTH ONCE Clinics DAILY famotidine famotidine No famotidine Trail 20 mg 20 mg 20 mg Communi tablet tablet tablet ty Hospita l Clinics isosorbide isosorbide No isosorbide Trail mononitrate mononitrate mononitrat Communi ER 30 mg ER 30 mg e ER 30 mg t y tablet,exte tablet,exte tablet,ext Hospita nded nded ended l release 24 release 24 release 24 Clinics hr TAKE 1 hr TAKE 1 hr TAKE 1 TABLET BY TABLET BY TABLET BY MOUTH ONCE MOUTH ONCE MOUTH ONCE DAILY DAILY DAILY Lumigan Lumigan No Lumigan Trail 0.01 % eye 0.01 % eye 0.01 % eye Communi drops drops drops ty INSTILL 1 INSTILL 1 INSTILL 1 Hospita DROP INTO DROP INTO DROP INTO l EACH EYE AT EACH EYE AT EACH EYE Clinics BEDTIME BEDTIME AT BEDTIME meloxicam meloxicam No meloxicam Trail 15 mg 15 mg 15 mg Communi tablet TAKE tablet TAKE tablet ty 1 TABLET BY 1 TABLET BY TAKE 1 Hospita MOUTH ONCE MOUTH ONCE TABLET BY l DAILY DAILY MOUTH ONCE Clinics DAILY Novolog Mix Novolog Mix No Novolog Trail 70-30 70-30 Mix 70-30 Communi FlexPen FlexPen FlexPen ty U-100 U-100 U-100 Hospita Insulin 100 Insulin 100 Insulin l unit/mL unit/mL 100 Clinics subcutaneou subcutaneou unit/mL s pen s pen subcutaneo INJECT 60 INJECT 60 us pen UNITS UNITS INJECT 60 SUBCUTANEOU SUBCUTANEOU UNITS SLY TWICE SLY TWICE SUBCUTANEO DAILY DAILY USLY TWICE DAILY pioglitazon pioglitazon No pioglitazo Trail e 30 mg e 30 mg ne 30 mg Commu ni tablet TAKE tablet TAKE tablet ty 1 TABLET BY 1 TABLET BY TAKE 1 Hospita MOUTH IN MOUTH IN TABLET BY l THE MORNING THE MORNING MOUTH IN Clinics THE MORNING triamcinolo triamcinolo No triamcinol Trail ne ne one Communi acetonide acetonide acetonide ty 0.1 % 0.1 % 0.1 % [facility] topical topical topical l cream APPLY cream APPLY cream Clinics A THIN A THIN APPLY A LAYER TO LAYER TO THIN LAYER THE THE TO THE AFFECTED AFFECTED AFFECTED AREAS TWO AREAS TWO AREAS TWO TIMES A DAY TIMES A DAY TIMES A DAY Xarelto 10 [address] mg tablet mg tablet mg tablet Communi TAKE 1 TAKE 1 TAKE 1 ty TABLET BY TABLET BY TABLET BY Hospita MOUTH ONCE MOUTH ONCE MOUTH ONCE l DAILY DAILY DAILY Clinics amitriptyli amitriptyli No amitriptyl Trail ne 10 mg ne 10 mg ine 10 mg Co mmuni tablet TAKE tablet TAKE tablet ty 1 TABLET BY 1 TABLET BY TAKE 1 Hospita MOUTH AT MOUTH AT TABLET BY l BEDTIME BEDTIME MOUTH AT Clini cs BEDTIME Immunizations Ordered Immunization Filled Immunization Date Status Commen ts Source Name Name influenza, high dose influenza, high 2021-08-07 Completed [facility] seasonal dose seasonal 00:00:00 Hospital inics influenza, high dose influenza, high 2021-08-[address] [facility] [facility] Hospital inics influenza, high dose influenza, high 2021-08-[address] [facility] seasonal dose seasonal 00:00:00 [facility] inics SARS-COV-2 SARS-COV-2 2021-01-[address] Communi ty (COVID-19) vaccine, (COVID-19) vaccine, 00:00:00 Hospital Clinics UNSPECIFIED UNSPECIFIED SARS-COV-2 SARS-COV-2 2021-01-[address] Communi ty (COVID-19) vaccine, (COVID-19) vaccine, 00:00:00 Hospital Clinics UNSPECIFIED UNSPECIFIED COVID-19 COVID-19 2021-01-[address] Communi ty (SARS-COV-2) (SARS-COV-2) 00:00:00 [facility] linics vaccine, unspecified vaccine, unspecified COVID-19 COVID-19 2021-01-[address] Communi ty (SARS-COV-2) (SARS-COV-2) 00:00:00 [facility] linics vaccine, unspecified vaccine, unspecified COVID-19 COVID-19 2021-01-[address] Communi ty (SARS-COV-2) (SARS-COV-2) 00:00:00 [facility] linics vaccine, unspecified vaccine, unspecified COVID-19 COVID-19 2021-01-[address] Communi ty (SARS-COV-2) (SARS-COV-2) 00:00:00 [facility] linics vaccine, unspecified vaccine, unspecified SARS-COV-2 SARS-COV-2 2020-12-[address] Communi ty (COVID-19) vaccine, (COVID-19) vaccine, 00:00:00 Hospital Clinics UNSPECIFIED UNSPECIFIED SARS-COV-2 SARS-COV-2 2020-12-[address] Communi ty (COVID-19) vaccine, (COVID-19) vaccine, 00:00:00 Hospital Clinics UNSPECIFIED UNSPECIFIED COVID-19 COVID-19 2020-12-[address] Communi ty (SARS-COV-2) (SARS-COV-2) 00:00:00 [facility] linics vaccine, unspecified vaccine, unspecified COVID-19 COVID-19 2020-12-[address] Communi ty (SARS-COV-2) (SARS-COV-2) 00:00:00 [facility] linics vaccine, unspecified vaccine, unspecified COVID-19 COVID-19 2020-12-[address] Communi ty (SARS-COV-2) (SARS-COV-2) 00:00:00 [facility] linics vaccine, unspecified vaccine, unspecified COVID-19 COVID-19 2020-12-[address] Communi ty (SARS-COV-2) (SARS-COV-2) 00:00:00 [facility] linics vaccine, unspecified vaccine, unspecified influenza, influenza, 2018-06-[address] Communi ty unspecified unspecified 00:00:00 Hospital Cli nics formulation formulation influenza, influenza, 2018-06-[address] Communi ty unspecified unspecified 00:00:00 Hospital Cli nics formulation formulation influenza, influenza, 2018-06-[address] Communi ty unspecified unspecified 00:00:00 Hospital Cli nics formulation formulation influenza, influenza, 2018-06-[address] Communi ty unspecified unspecified 00:00:00 Hospital Cli nics formulation formulation influenza, influenza, 2018-06-[address] Communi ty unspecified unspecified 00:00:00 Hospital Cli nics formulation formulation influenza, influenza, 2018-06-[address] Communi ty unspecified unspecified 00:00:00 Hospital Cli nics formulation formulation influenza, influenza, 2018-06-[address] Communi ty unspecified unspecified 00:00:00 Hospital Cli nics formulation formulation influenza, influenza, 2018-06-[address] Communi ty unspecified unspecified 00:00:00 Hospital Cli nics formulation formulation influenza, influenza, 2018-06-[address] Communi ty unspecified unspecified 00:00:00 Hospital Cli nics formulation formulation Hx influenza 2013-07-04 [facility] vaccine-unspecified< 20:02:26 sup>1</sup> Hx influenza 2013-07-04 [facility] vaccine-unspecified< 20:02:26 sup>1</sup> Hx influenza 2013-07-04 [facility]pleted [facility] vaccine-unspecified< 20:02:26 sup>1</sup> Hx influenza 2013-07-04 Completed [facility] vaccine-unspecified< 20:02:26 sup>1</sup> influenza virus 2013-07-04 Completed [facility] vaccine, 05:00:00 inactivated<sup>2</s up> influenza virus 2013-07-04 Completed [facility] vaccine, 05:00:00 inactivated<sup>2</s up> influenza virus 2013-07-04 Completed [facility] vaccine, 05:00:00 inactivated<sup>2</s up> influenza virus 2013-07-04 Completed [facility] vaccine, 05:00:00 inactivated<sup>2</s up> Vital Signs Vital Name Observation Time Observation Value Comments Source Height 2022-11-03 66 [in_i] [facility] 00:00:00 [facility] BMI (Body Mass 2022-11-03 38.7 kg/m2 Jeny Index) 00:00:00 [facility] Body Weight 2022-11-03 240 [lb_av] [facility]y 00:00:00 [facility] BP Diastolic 2022-06-09 80 mm[Hg] Trail [facility] 00[facility]00 [facility] BP Systolic 2022-06-09 130 mm[Hg] Trail [facility] 00:00:00 [facility] Body Weight 2022-06-09 3692.8 [oz_av] Trail [facility] 00:00:00 Hospital Clinic [facility] BP Diastolic 2022-04-22 78 mm[Hg] Trail [facility] y 00:00:00 Hospital Clinic [facility] BP Systolic 2022-04-22 158 mm[Hg] Trail [facility] 00:00:00 Hospital [facility] Body Weight 2022-04-22 3712 [oz_av] Trail [facility] y 00:00:00 Hospital Clinic s BP Diastolic 2021-08-01 62 mm[Hg] Trail [facility] y 00:00:00 Hospital Clinic s BP Systolic 2021-08-01 122 mm[Hg] Trail [facility] y 00:00:00 Hospital Clinic s Body Weight 2021-08-01 3648 [oz_av] Trail [facility] y 00:00:00 Hospital Clinic s BP Diastolic 2021-06-19 58 mm[Hg] Trail [facility] y 00:00:00 Hospital Clinic [facility] BP Systolic 2021-06-19 118 mm[Hg] Trail [facility] y 00:00:00 Hospital Clinic s Body Weight 2021-06-19 3648 [oz_av] Trail [facility] y 00:00:00 Hospital Clinic s BP Diastolic 2021-02-21 70 mm[Hg] Trail [facility] y 00:00:00 Hospital Clinic s BP Systolic 2021-02-21 125 mm[Hg] Trail [facility] y 00:00:00 Hospital Clinic s Body Weight 2021-02-21 3715.2 [oz_av] Trail [facility]y 00:00:00 Hospital Clinic s BP Diastolic 2021-01-10 68 mm[Hg] Trail [facility] y 00:00:00 Hospital Clinic s BP Systolic 2021-01-10 140 mm[Hg] Trail [facility] y 00:00:00 Hospital Clinic s Body Weight 2021-01-10 3712 [oz_av] Trail [facility] y 00:00:00 Hospital Clinic s BP Diastolic 2020-11-29 70 mm[Hg] Trail [facility] y 00:00:00 Hospital Clinic s BP Systolic 2020-11-29 140 mm[Hg] Trail [facility] y 00:00:00 Hospital Clinic s Body Weight 2020-11-29 3731.2 [oz_av] Trail [facility] 00:00:00 Hospital Clinic s BP Diastolic 2020-11-15 78 mm[Hg] Trail [facility] y 00:00:00 Hospital Clinic s BP Systolic 2020-11-15 138 mm[Hg] Trail [facility] y 00:00:00 Hospital Clinic s Body Weight 2020-11-15 3731.2 [oz_av] Trail [facility] 00:00:00 Hospital Clinic s Systolic blood 2022-03-25 153 mm[Hg] [facility] pressure 21:30:00 Hospital Diastolic blood 2022-03-25 77 mm[Hg] [facility] pressure 21:30:00 Hospital Heart rate 2022-03-25 109 /min [facility] 21:30:00 Hospital Body height 2022-03-25 166.4 cm [facility] 21:30:00 Hospital Body weight 2022-03-25 104.327 kg [facility] 21:30:00 Hospital BMI 2022-03-25 37.69 kg/m2 [facility] 21:30:00 Hospital BP Systolic 2019-10-11 137 mm[Hg] Location: RUE; [facility] 14:46:00 Position: Supine BP Diastolic 2019-10-11 85 mm[Hg] Location: RUE; [facility] 14:46:00 Position: Supine Temperature 2019-10-11 97.4 [...] n 17:50:00 BP Systolic 2019-04-11 159 mm[Hg] [facility] 15:07:00 BP Diastolic 2019-04-11 99 mm[Hg] [facility] 15:07:00 Height 2019-04-11 66 [in_us] [facility] 15:07:00 Weight 2019-04-11 234 [lb_av] [facility] 15:07:00 Body Mass Index 2019-04-11 37.77 kg/m2 [facility] Calculated 15:07:00 Heart Rate 2019-04-11 100 /min [facility] 15:07:00 Weight 2016-11-01 [facility] [...] [facility] n 17:21:00 Systolic (mm Hg) 2016-10-23 [facility] rmann 17:21:00 Diastolic (mm Hg) 2016-10-23 [facility] ermann 17:21:00 BMI Calculated 2016-10-23 [facility] Andres leonela 16:11:00 Height 2016-10-23 167.64 cm Sergio Manrique n 16:11:00 Weight 2016-10-23 Sergio Manrique n 16:11:00 Heart Rate 2016-10-23 Sergio Manrique n 16:10:00 Temperature Oral 2016-10-23 97.5 F [facility] rmann (F) 16:10:00 Procedures Procedure Date / Time Performing Source Performed Clinician LIPID PANEL 2022-07-10 Lobito Carroll 13:24:00 Hospital COMPREHENSIVE METABOLIC PANEL 2022-07-10 Lobito Carroll [facility] 13:24:00 Hospital T4, FREE 2022-07-10 Lobito Carroll 13:24:00 Hospital THYROID STIMULATING HORMONE 2022-07-10 Lobito Carroll odist 13:24:00 Hospital T3, FREE 2022-07-10 Lobito Carroll 13:24:00 Hospital VITAMIN D 25 HYDROXY LEVEL 2022-07-10 Lobito Carroll [facility] 13:24:00 Hospital HEMOGLOBIN A1C 2022-07-10 Lobito Carroll 13:24:00 Hospital Physical Therapy 2020-04-27 [facility] 00:00:00 Post Op Promis 29 Survey 2019-10-13 [facility] 00:00:00 ARTHROSCOPY SHOULDER ROTATOR CUFF [id number] (Left[facility]sup>1</sup> 19:56:00 ARTHROSCOPY SHOULDER W/BICEPS 2019-09-29 Ok morial Morteza TENDONESIS [id number] 19:56:00 (Left)<sup>2</sup> ARTHROSCOPY SHOULDER W/SUBACROMIAL 2019-09-29 [facility] DECOMPRESSION/ACROMIOPLASTY [id number] 19:56:00 (Left)<sup>3</sup> Echocardiogram<sup>4</sup> 2019-09-27 [facility] 06:00:00 Colonoscopy<sup>5</sup> 2019-09-01 [facility] Sarah Ann 06:00:00 [UTP] Ortho - Surgery Scheduling 2019-08-12 [facility] 00:00:00 Esophagogastroduodenoscopy 2019-08-02 Matthewor ial Sarah Ann 06:00:00 MR Shoulder wo contrast [id number] 2019-04-11 [facility] 00:00:00 Cataract extraction<sup>12</sup> 2017-12-20 [facility] 00:00:00 Angioplasty with stent<sup>6</sup> 2015-05-26 [facility] Morteza 05:00:00 Back Surgery 2011-09-09 [facility] 00:00:00 Hospital Clinics Lumbar Fusion<sup>7</sup> 2011-08-21 Matthewori al Morteza 00:00:00 Colon Resection<sup>8</sup> 2009-09-21 Sami rial Sarah Ann 00:00:00 Lumbar Laminectomy 2007-09-21 [facility] Herm leonela 00:00:00 Cervical Fusion<sup>9</sup> 2003-09-21 Sami rial Morteza 00:00:00 Cholecystectomy 1984-09-21 [facility] 00:00:00 Gastric Bypass<sup>10</sup> 1977-09-21 Sami rial Morteza 00:00:00 Arthroscopy of knee<sup>11</sup> [facility] Hysterectomy<sup>13</sup> [facility] Tonsillectomy [facility] Appendectomy [facility] Back fusion [facility] Diverticulectomy [facility] n Laminectomy [facility] Stent placement [facility] History [facility] Cataract [facility] Injection of Spinal Steroid [facility] Shoulder Joint Surgery [facility] Excision of Colon [facility] Total Hysterectomy [facility] Cholecystectomy [facility] Cataract Surgery [facility] Plan of Care Planned Activity Planned Date Details Comments Source Future Scheduled 2022-11-11 65+ PNEUMOCOCCAL [facility] Test 16:30:32 VACCINE (1 - PCV) [code = 65+ PNEUMOCOCCAL VACCINE (1 - PCV)] Future Scheduled 2022-11-11 DIABETES: RETINAL EYE Me [facility] Test 16:30:32 EXAM [code = DIABETES: RETINAL EYE EXAM] Future Scheduled 2022-11-11 DIABETIC FOOT EXAM [facility] Test 16:30:32 [code = DIABETIC FOOT EXAM] Future Scheduled 2022-11-11 URINE MICROALBUMIN [facility] Test 16:30:32 [code = URINE MICROALBUMIN] Future Scheduled 2022-11-11 Hepatitis C screening [facility] Test 16:30:32 (procedure) [code = 100346274] Future Scheduled 2022-11-11 [facility] 16:30:32 [code = COLONOSCOPY SCREENING] Future Scheduled 2022-11-11 SHINGLES VACCINES (1 [facility] Test 16:30:32 of 2) [code = SHINGLES VACCINES (1 of 2)] Future Scheduled 2022-11-11 COVID-19 VACCINE (3 - Me [facility]ist Hospital Test 16:30:32 Booster) [code = COVID-19 VACCINE (3 - Booster)] Future Scheduled 2022-11-11 INFLUENZA VACCINE Method ist Hospital Test 16:30:32 [code = INFLUENZA VACCINE] Future Scheduled 2022-11-06 65+ PNEUMOCOCCAL [facility] Test 14:50:55 VACCINE (1 - PCV) [code = 65+ PNEUMOCOCCAL VACCINE (1 - PCV)] Future Scheduled 2022-11-06 DIABETES: RETINAL EYE Me odist Hospital Test 14:50:55 EXAM [code = DIABETES: RETINAL EYE EXAM] Future Scheduled 2022-11-06 DIABETIC FOOT EXAM [facility] Test 14:50:55 [code = DIABETIC FOOT EXAM] Future Scheduled 2022-11-06 URINE MICROALBUMIN [facility] Test 14:50:55 [code = URINE MICROALBUMIN] Future Scheduled 2022-11-[address] [facility] Hospital Test 14:50:55 (procedure) [code = 930003033] Future Scheduled 2022-11-06 COLONOSCOPY SCREENING Me odist Hospital Test 14:50:55 [code = COLONOSCOPY SCREENING] Future Scheduled 2022-11-06 SHINGLES VACCINES (1 Met [facility] Test 14:50:55 of 2) [code = SHINGLES VACCINES (1 of 2)] Future Scheduled 2022-11-06 COVID-19 VACCINE (3 - Me odist Hospital Test 14:50:55 Booster) [code = COVID-19 VACCINE (3 - Booster)] Future Scheduled 2022-11-06 INFLUENZA VACCINE [facility] Hospital Test 14:50:55 [code = INFLUENZA VACCINE] Future Scheduled 2022-09-19 65+ [facility]OCOCCAL [facility] Test 19:43:46 VACCINE (1 - PCV) [code = 65+ PNEUMOCOCCAL VACCINE (1 - PCV)] Future Scheduled 2022-09-19 DIABETES: RETINAL EYE [facility] Test 19:43:46 EXAM [code = DIABETES: RETINAL EYE EXAM] Future Scheduled 2022-09-19 DIABETIC FOOT EXAM [facility] Test 19:43:46 [code = DIABETIC FOOT EXAM] Future Scheduled 2022-09-19 URINE MICROALBUMIN [facility] Test 19:43:46 [code = URINE MICROALBUMIN] Future Scheduled 2022-09-19 Hepatitis C screening [facility] Test 19:43:46 (procedure) [code = [id number]] Future Scheduled 2022-09-19 COLONOSCOPY SCREENING [facility] Test 19:43:46 [code = COLONOSCOPY SCREENING] Future Scheduled 2022-09-19 SHINGLES VACCINES (1 Met [facility] Test 19:43:46 of 2) [code = SHINGLES VACCINES (1 of 2)] Future Scheduled 2022-09-19 COVID-19 VACCINE (3 - Me [facility] Test 19:43:46 Booster) [code = COVID-19 VACCINE (3 - Booster)] Future Scheduled 2022-09-19 INFLUENZA VACCINE Method ist Hospital Test 19:43:46 [code = INFLUENZA VACCINE] Diagnostic Test 2022-04-22 rapid SARS CoV 2 Ag, [facility] Pending 00:00:00 QL IA, respiratory Hospital Clinics specimen [code = rapid SARS CoV 2 Ag, QL IA, respiratory specimen] Diagnostic Test 2019-08-12 [UTP] Ortho - Surgery [facility] Pending 00:00:00 Scheduling [code = [UTP] Ortho - Surgery Scheduling] Encounters Start End Encounter Admission Attending Care Care Encounter Source Date/Time Date/Time Type Type Clinicians Facility Department ID 2022-06-18 Outpatient [facility] [id number] [place] 14:09:20 [id number] [facility] 2021-08-02 Inpatient Reema [facility] [id number] [facility] 12:00:00 2022-12-02 2022-12-02 Outpatient FOG_A_Provi AOSM AOSM [id number] Jeny 00:00:00 00:00:00 allan [id number] [facility] 2022-11-03 2022-11-03 Outpatient FOG_A_Provi AOSM AOSM [id number] Jeny 00:00:00 00:00:00 allan [id number] [facility] 2022-11-03 2022-11-03 Jason AOSM [place] - Ortho [id number] Jeny 00:00:00 00:00:00 Karla Ruelas MD: [id number] FOG_Ofc dic [facility] [address] [place] [address] , Ph. [phone] 2022-10-22 2022-10-22 Outpatient FOG_A_Provi AOSM AOSM [id number] Jeny 00:00:00 00:00:00 allan [id number] [facility] 2022-10-22 2022-10-22 Outpatient FOG_A_Provi AOSM AOSM [id number] Jeny 00:00:00 00:00:00 allan [id number] [facility]op [facility] 2022-09-19 2022-09-19 Orders [place], 1.2.840.1 [id number] Methodi 00:00:00 00:00:00 Only Cheryl [address]95.1.[address] 3.430.2.7 Hospit a .3.312222 l .8 2022-09-19 2022-09-19 Orders [place], 1.2.840.1 [id number] Methodi 00:00:00 00:00:00 Only Cheryl 53039.1.[address] 3.430.2.7 Hospit a .3.144205 l .8 2022-07-24 2022-07-24 Telephone Ramírez, 1.2.840.1 [id number] Methodi 00:00:00 00:00:[address] 3.430.2.7 Hospit a .3.199094 l .8 2022-07-24 2022-07-24 Telephone Ramírez, 1.2.840.1 [id number] Methodi 00:00:00 00:00:[address] 3.430.2.7 Hospit a .3.685487 l .8 2022-07-23 2022-07-23 Telemedici [place], 1.2.840.1 [id number] Methodi 09:40:00 13:04:03 [address] Lobito [address]107.1.[address] 3.430.2.7 Hospit a .3.214150 l .8 2022-07-23 2022-07-23 Telemedici [place], 1.2.840.1 [id number] Methodi 09:40:00 13:04:03 [address]82[address]1.[address] 3.430.2.7 Hospit a .3.597481 l .8 2022-07-17 2022-07-17 Refill [place], 1.2.840.1 [id number] Methodi 00:00:00 00:00:[address] 3.430.2.7 Hospit a .3.752094 l .8 2022-07-17 2022-07-17 Refill [place], 1.2.840.1 [id number] Methodi 00:00:00 00:00:[address] 3.430.2.7 Hospit a .3.973765 l .8 2022-07-10 2022-07-10 Orders Glen, 1.2.840.1 [id number] Methodi 00:00:00 00:00:00 Only Lobito [address]17.1.[address] 3.430.2.7 Hospit a .3.845687 l .8 2022-07-10 2022-07-10 Toño [place], 1.2.840.1 [id number] Methodi 00:00:00 00:00:00 Only Lobito [address]4982.1.[address] 3.430.2.7 Hospit a .3.374224 l .8 2022-07-06 2022-07-06 Refill Glen, 1.2.840.1 [id number] Methodi 00:00:00 00:00:[address] 3.430.2.7 Hospit a .3.365160 l .8 2022-07-06 2022-07-06 Refill Glen, 1.2.840.1 [id number] Methodi 00:00:00 00:00:[address] 3.430.2.7 Hospit a .3.885237 l .8 2022-06-13 2022-06-13 Outpatient Jayjay_Yudith MMG MMG [id number] [place] 00:00:00 00:00:00 0923 Medical Group 2022-06-09 2022-06-09 Outpatient ONEL [facility] [id number] 00:00:00 00:00:00 919 [facility] 2022-06-09 2022-06-09 Daniela Guardado [facility] - Trail [address] Trail 00:00:00 00:00:00 Crescencio Lara MD: [address] [facility] Hospit [address], COMMUNITY l [address], HOSPITAL [facility], [address] JULIA , Ph. 2022-04-22 2022-04-22 Outpatient [facility] [id number] 00:00:00 00:00:00 802 Commun i ty Hospita [facility] Clinics 2022-04-22 2022-04-22 Daniela Guardado [facility] [place] - Trail 802 Trail 00:00:00 00:00:00 Crescencio Lara MD: [address] [facility] Hospit [address], COMMUNITY l [address], [facility], [address] JULIA , Ph. 2022-04-22 2022-04-22 Outpatient Daniela Lara [facility] [id number] 00:00:00 00:00:00 Debby [id number] 2022-04-22 Outpatient Daniela Lara [facility] [id number] 00:00:00 00:00:00 Debby [id number] [facility] 2022-03-25 2022-03-25 Office [place], 1.2.840.1 [id number] Methodi 16:20:00 17:06:06 Visit Lobito 16335.1.[address] 3.430.2.7 Hospit a .3.366145 l .8 2022-03-25 2022-03-25 Office [place], 1.2.840.1 [id number] Methodi 16:20:00 17:06:06 Visit Lobito 74916.1.[address] 3.430.2.7 Hospit a .3.387533 l .8 2022-03-25 2022-03-25 Travel 1.2.840.1 [id number] [id number] Methodi 00:00:00 00:00:[address] 3.430.2.7 0.2.7.3.698 Ho spita .3.084937 084.8 l .8 2022-03-25 2022-03-25 Travel 1.2.840.1 1.2.102.389 [id number] Methodi 00:00:00 00:00:[address] 3.430.2.7 0.2.7.3.698 Ho spita .3.304183 084.8 l .8 2022-02-21 2022-02-21 Outpatient JULIA_Stephanie [facility] [id number] 05:22:00 05:22:00 603 Commun i ty Hospita l Clinics 2021-12-23 2021-12-23 Outpatient KEMARCELO_A [facility] [id number] 03:36:00 03:36:00 404 Commun i ty Hospita l Clinics 2021-12-09 2021-12-09 Orders [place], 1.2.840.1 [id number] Methodi 00:00:00 00:00:00 Only Lobito 55348.1.[address] 3.430.2.7 Hospit a .3.219623 l .8 2021-12-09 2021-12-09 Telephone [place], 1.2.840.1 [id number] Methodi 00:00:00 00:00:[address] 3.430.2.7 Hospit a .3.385938 l .8 2021-11-27 2021-11-27 Office [place], 1.2.840.1 [id number] Methodi 14:00:00 14:43:48 Visit Lobito 92401.1.[address] 3.430.2.7 Hospit a .3.114457 l .8 2021-11-27 2021-11-27 Travel 1.2.840.1 1.2.022.908 [id number] Methodi 00:00:00 00:00:[address] 3.430.2.7 0.2.7.3.698 spita .3.125687 084.8 l .8 2021-09-23 2021-09-23 Outpatient [place], [facility] [id number] [address] [place] 00:00:00 00:00:00 [place] 2021-08-02 2021-08-02 Outpatient [facility] [id number] [facility] 06:06:00 06:06:00 00 2021-08-01 2021-08-01 Outpatient JULIA_A [facility] [id number] 04:05:00 04:05:00 [facility] 2021-08-01 2021-08-01 Outpatient Julia Daniela [facility] [id number] 00:00:00 00:00:00 Debby [id number] 2021-08-01 2021-08-01 Daniela Debby [facility] [place] - Trail [address] 00:00:00 00:00:00 Crescencio Lara MD: [address] [facility] [address], COMMUNITY [address], HOSP[facility], [address] JULIA , Ph. 2021-06-19 2021-06-19 Outpatient JULIA_Stephanie [facility] [id number] 12:41:00 12:41:00 929 [facility] 2021-06-19 2021-06-19 Daniela Guardado [facility] [place] [address] 00:00:00 00:00:00 Crescencio Lara MD: [address] [facility] [address], COMM[facility]ITY [address], HOSP[facility], [address] JULIA , Ph. 2021-06-19 2021-06-19 Outpatient JuliaDaniela mason [facility] [id number] 00:00:00 00:00:00 Debby [id number] 2021-02-21 Outpatient JULIA_A [facility] [id number] 03:54:00 03:54:00 603 [facility] 2021-02-21 2021-02-21 Daniela Guardado [facility] [place] [address] 00:00:00 00:00:00 Crescencio Lara MD: [address] [facility] [address], COMMUNITY l [address], HOSPITAL [place], [place]IC, [address] JULIA , Ph. 2021-02-21 2021-02-21 Outpatient Daniela Lara [facility] [id number] 00:00:00 00:00:00 Debby [id number] 2021-02-07 2021-02-07 Outpatient JULIA_Stephanie [facility] [id number] 07:11:00 07:11:00 520 [facility] 2021-02-07 2021-02-07 Outpatient DERRICKFFER_A [facility] [id number] 07:11:00 07:11:00 602 [facility] 2021-01-10 2021-01-10 Outpatient JULIA_Stephanie [facility] [id number] 12:50:00 12:50:00 422 [facility] 2021-01-10 2021-01-10 Daniela Guardado [facility] [place] - Trail Trail 00:00:00 00:00:00 Crescencio Lara MD: [address] [facility] [address], COMMUNITY l [address], HOSPITAL [facility], [address] JULIA , Ph. 2021-01-10 2021-01-10 Outpatient Daniela Lara [facility] [id number] 00:00:00 00:00:00 Debby [id number] 2020-12-19 2020-12-19 Outpatient GADIEL, [facility] [id number] [address] [place] [address] 00:00:00 00:00:[address] NEAL [address] 2020-12-19 2020-12-19 Outpatient GADIEL, [facility] [id number] [address] [place] [address] 00:00:00 00:00:00 NEAL [address] 2020-11-29 2020-11-29 Outpatient JULIA_A [facility] [id number] 12:35:00 12:35:00 311 [facility] 2020-11-29 2020-11-29 Daniela Guardado [facility] [place] - Trail 311 Trail 00:00:00 00:00:00 Crescencio Lara MD: [address] [facility] [address], COMMUNITY l [address], [place], [place], [address] JULIA , Ph. 2020-11-29 2020-11-29 Outpatient Daniela Lara [facility] [id number] 00:00:00 00:00:00 Debby [id number] 2020-11-15 2020-11-15 Outpatient JULIA_A [facility] [id number] 03:38:00 03:38:00 225 [facility] 2020-11-15 2020-11-15 Outpatient Daniela Lara [facility] [id number] 00:00:00 00:00:00 Debby [id number] 2020-11-15 2020-11-15 Daniela Guardado [facility] [place] - Trail 225 Trail 00:00:00 00:00:00 Crescencio Lara MD: [address] [facility] Hospit [address], [facility] l [address], HOSPITAL [place], [place]IC, [address] JULIA , Ph. 2020-10-09 2020-10-09 Outpatient DERRICKFFER_A [facility] [id number] 03:39:00 03:39:00 119 [facility] 2020-08-08 2020-08-08 Outpatient julia_stephanie [facility] [id number] [place] 00:00:00 00:00:00 [facility] 2020-04-27 2020-04-27 Yulisa GALICIA [facility] Orthopedics [id number] [place] 11:00:00 11:00:00 tCARLOS A SHARMA, - Harley STRAUSS M.D. [facility] [place] rodriguez [place] 2020-01-30 2020-01-30 Appointmen JOSE L [facility] Orthopedics [id number] [place] 14:15:00 14:15:00 t; EDDIE DOMINGO - Sugar Phys jeff MORGAN M.D. [facility] 1 [facility] M.Guadalupe 2019-12-19 2019-12-19 [facility] [id number] [place] 10:30:00 10:30:00 t; TY, AYANOLETTE, - Sugar Ph ysici [facility]IC[facility]E [facility] [place] 1 [facility] , [facility] 2019-11-16 2019-11-16 Appointmen TY, [facility] Orthopedics 626 [id number] [place] 14:00:00 14:00:00 t; TY, AYANOLETTE, - Sugar Ph ysici NICHOLETTE [facility] Land 1 [facility] , [facility] 2019-10-11 2019-10-11 Appointmen JOSE L [facility] Orthopedics [id number] [id number] [place] 16:15:00 16:15:00 t; EDDIE DOMINGO - Sugar Phys jeff MORGAN M.D. [facility] 1 [facility] [place] 2019-10-11 2019-10-11 Appointmen JOSE L [facility] Orthopedics [id number] [place] 14:45:00 14:45:00 t; EDDIE DOMINGO - Sugar Phys jeff MORGAN M.D. [address] [place] 2019-09-29 2019-09-29 Outpatient [facility] [id number] Memoria 17:46:44 23:01:00 [facility] 2019-09-29 2019-09-29 Outpatient [facility] [id number] Memoria 17:46:44 23:01:00 [facility] 2019-09-29 2019-09-29 Outpatient Jose L [id number] 11:46:44 17:01:00 Eddie Miguel 2019-09-29 2019-09-29 Outpatient nullFlavo [facility] [id number] Memoria 11:46:44 17:01:00 r jono Sarah Ann 2019-09-29 2019-09-29 [facility]men [facility] [id number] [place] 13:00:00 13:00:00 t; EDDIE DOMINGO - Sugar Phys jeff OMRGAN M.D. [place] 1 ans M.D. 2019-09-15 2019-09-15 App[facility]men [facility] [id number] [place] 07:30:00 07:30:00 t; EDDIE DOMINGO - Sugar Phys [place] 1 ans M.D. 2019-08-12 2019-08-12 App[facility]men [facility] [id number] [place] 13:00:00 13:00:00 t; EDDIE DOMINGO - Sugar Phys [place] Kenney 1 ans M.D. 2019-04-28 2019-[facility] [id number] [place] 09:45:00 09:45:00 t; EDDIE DOMINGO - Sugar Phys [place] Kenney 1 ans M.D. 2019-04-11 2019-04-11 [facility] 551 [id number] [place] 14:45:00 14:45:00 t; EDDIE DOMINGO - Sugar Phys [place] Kenney 1 ans M.D. 2016-11-01 2016-11-01 Emergency nullFlavo [facility] [id number] Memoria 19:53:00 21:03:00 r Sarah Ann 00 [facility] 2016-11-01 2016-11-01 Emergency nullFlavo [facility] [id number] Mem[place] 19:53:00 21:03:00 r Sarah Ann 00 [facility] 2016-11-01 2016-11-01 Outpatient Kevin Rosado [facility] [id number] 13:53:00 15:03:00 Daeun 00 2016-10-23 2016-10-24 Observatio nullFlavo [facility] [id number] Memoria 13:36:00 01:21:00 n r Sarah Ann 33 [facility] 2016-10-23 2016-10-24 Observatio nullFlavo [facility] 3439 [id number] Memoria 13:36:00 01:21:00 n [facility] 33 l [facility] 2016-10-23 2016-10-23 Outpatient Nicole Veras [facility] [id number] 07:36:00 19:21:00 M 33 Results Test Description Test Time Test Comments Results Result Comments Source Comprehensive metabolic panel 2022-07-11 03:53:00 Test Item Value Reference Range Interpretation Comme nts Glucose (test code = 126 mg/dL 65-99 H Fastin g reference 2345-7) interval For so meone without known d iabetes, a glucosevalue >125 mg/dL indicates that they may havedi abetes and this should be confirmed with afollow-up test . BUN (test code = 3094-0) 30 mg/dL 7-25 H Creatinine (test code = 0.79 mg/dL 0.60-1.00 2160-0) eGFR (test code = 8257) 77 See_Comment The eGFR is based on the CKD-EPI 202 1 equation. To ca lculate the new eGFR fr om a previous Creati nine or Cystatin Cresul t, go to https://www.kid venkat.org/ professionals/k doqi/gfr %5Fcalculator [Automated mess age] The system which ge nerated this result tra nsmitted reference range : > OR = 60 mL/min/1.73m 2. The reference range was not used to interpr et this result as normal/abnormal . BUN/creatinine ratio 38 See_Comment H [Autom ated message] (test code = 3097-3) The sys tem which generated this result transmitted ref erence range: 6 - 22 ( calc). The reference r angelic was not used to int erpret this result as normal/abnormal . Sodium (test code = 140 mmol/L 328-604 8966-2) Potassium (test code = 4.0 mmol/L 3.5-5.3 2823-3) Chloride (test code = 104 mmol/L 98-110 2075-0) CO2 (test code = 8-9) 30 mmol/L 20-32 Calcium (test code = 9.0 mg/dL 8.6-10.4 20900-2) Protein (test code = 6.7 g/dL 6.1-8.1 2885-2) Albumin, S (test code = 3.8 g/dL 3.6-5.1 1751-7) Globulin, total (test 2.9 See_Comment [Auto mated message] code = 14108-4) The system w [facility] generated this result transmitted ref erence range: 1.9 - 3. 7 g/dL (calc). The ref erence range was not u sed to interpret this result as normal/abnor mal. Albumin/globulin ratio 1.3 See_Comment [Aut omated message] (test code = 1759-0) The sys tem which generated this result transmitted ref erence range: 1.0 - 2. 5 (calc). The ref erence range was not u sed to interpret this result as normal/abnor mal. Total bilirubin (test 0.5 mg/dL 0.2-1.2 code = 1975-2) Alkaline phosphatase 51 U/L 37-153 (test code = 6768-6) AST (test code = 1920-8) 20 U/L 10-35 ALT (test code = 1742-6) 15 U/L 6-29 MAGALYS (test code = MAGALYS) FASTING:YES FASTING: YES RAC (test code = RAC) Performing Organization Information: Site ID: RGA Name: [facility] Address: [address] [place] [address] Director: Bernard Robertson Lab Interpretation (test Abnormal code = 50356-7) [facility] [id number] 03:53:00 Test Item Value Reference Range Interpretation Comments Cholesterol, total 256 mg/dL <=200 H (test code = 2093-3) HDL cholesterol 57 mg/dL See_Comment [Automated (test code = 2085-9) message ] The system which generated this result transmitted reference range : > OR = 50. The reference range was not used to interpret this result as normal/abnormal . Triglycerides (test 153 mg/dL <=150 H code = 2571-8) LDL cholesterol 169 mg/dL (calc) H Reference ra nge: calculated (test <100 Desira ble code = 64493-1) range <100 m g/dL for primary prevention; <70 mg/dL for patients with C HD or diabetic patients with > or = 2 CHD risk factors. LDL-C is now calculated using the Callie calculation, which is a validated novel method providin g better accuracy than the Friedewald equation in the estimation of LDL-C. Massimo Esparza S et al. YASMIN. 2013;310(19): 5143-9262 (http://educati on .MevioDiagnosti HealthPocket .com/faq/QQJ985 ) Cholesterol/HDL 4.5 See_Comment [Automated ratio (test code = message] The 9830-1) system which generated this result transmitted reference range : <5.0 (calc). Th e reference range was not used to interpret this result as normal/abnormal . Non-HDL cholesterol 199 See_Comment H For alvaro ents with (test code = diabetes plus 1 15329-2) major ASCVD ris k factor, treatin g [...] RAC) Organization Information: Site ID: RGA [facility]: [facility] Address: [address] [place] [address] Director: Bernard Robertson Lab Interpretation Abnormal (test code = 57327-4) [facility] [id number] 03:53:00 Test Item Value Reference Interpretation Comments Range Hemoglobin A1C 5.7 See_Comment H For someone w iggy (test code = known diabetes, a 4548-4) hemoglobin A1c value between 5.7% an d 6.4% is consist ent withprediabetes and should be confi rmed with a follow-u p test. For someo ne with known diab etes, a value <7%indicates that their diabetes is well controlled . L9fomgghmk shou ld be individualized based on duration [...] RAC) Organization Information: Site ID: RGA [facility] Address: [address] [place] [address] Director: Bernard Robertson Lab Interpretation Abnormal (test code = 60618-6) [place] [address], [id number] 03:53:00 Test Item Value Reference Range Interpretation Comments T4, free (test code 1.5 ng/dL 0.8-1.8 = 3024-7) MAGALYS (test code = FASTING:YES FASTING: YES MAGALYS) RAC (test code = Performing Organization RAC) Information: Site ID: RGA [facility] Address: [address] [place] [phone] Director: Bernard LynchDoctors HospitalThyroid stimulating [id number] 03:53:00 Test Item Value Reference Range Interpretation Comments TSH (test 0.87 See_Comment [Automated mes maik] code = The system ic h 3016-3) generated this result transmit cynthia reference range : 0.40 - 4.50 mIU /L. The reference r angelic was not used to interpret this result as normal/abnormal . MAGALYS (test FASTING:YES FASTING: code = MAGALYS) YES RAC (test Performing code = RAC) Organization Information: Site ID: ZAMZAM Name: [facility] Address: [address] [place] [address] Director: Amalia Jono [place] [address], [id number] 03:53:00 Test Item Value Reference Range Interpretation Comments T3, free (test code 3.3 pg/mL 2.3-4.2 = 3051-0) MAGALYS (test code = FASTING:YES FASTING: YES MAGALYS) RAC (test code = Performing Organization RAC) Information: Site ID: RGA [facility] Address: [address] [place] [address] Director: Amalia Jono StevensAilynMemorial HospitalVitamin D 25 hydroxy [id number] 03:53:00 Test Item Value Reference Range Interpretation [...] please refer to http://educatio n.Q uestDiagnostics .co m/faq/BJL383 (T his link is being provided for informational/e lali ational purpose s only.) MAGALYS (test code = FASTING:YES FASTING: MAGALYS) YES RAC (test code = Performing RAC) Organization Information: Site ID: RGA [facility] Address: [address] [place] [address] Director: Bernard Robertson [facility] metabolic [id number] 03:53:00 Test Item Value Reference Range Interpretation Comments Glucose (test code = 126 mg/dL 65-99 H Fasti ng 2345-7) reference interval For someone without known [...] Cystatin Cresul t, go to https://www.kid ne y.org/professio na jerome/kdoqi/gfr%5F ca lculator [Automated message] The system which [...] . Sodium (test code = 140 mmol/L 439-520 6702-2) Potassium (test code 4.0 mmol/L 3.5-5.3 = 2823-3) Chloride (test code 104 mmol/L 98-110 = 2075-0) CO2 (test code = 30 mmol/L 20-32 2027-9) Calcium (test code = 9.0 mg/dL 8.6-10.4 85772-7) Protein (test code = 6.7 g/dL 6.1-8.1 [...] RAC) Organization Information: Site ID: RGA Name: [facility] Lab Address: [address] [place] [address] Director: Bernard Robertson Lab Interpretation Abnormal (test code = 17306-4) [facility] [id number] 03:53:00 Test Item Value Reference Range Interpretation Comments Cholesterol, total 256 mg/dL <=200 H (test code = 2092-3) HDL cholesterol 57 mg/dL See_Comment [Automated (test code = 2085-05) message ] The system which generated this result transmitted reference range : > OR = 50. The reference range was not used to interpret this result as normal/abnormal . Triglycerides (test 153 mg/dL <=150 H code = 2571-8) LDL cholesterol 169 mg/dL (calc) H Reference ra nge: calculated (test <100 Desira ble code = 06890-0) range <100 m g/dL for primary prevention; <70 mg/dL for patients with C HD or diabetic patients with > or = 2 CHD risk factors. LDL-C is now calculated using the Callie calculation, which is a validated novel method providin g better accuracy than the Friedewald equation in the estimation of LDL-C. Massimo S S et al. YASMIN. 2013;310(19): 9541-0227 (http://educati on .Money Toolkit .com/faq/ZJY325 ) Cholesterol/HDL 4.5 See_Comment [Automated ratio (test code = message] The 9830-1) system which generated this result transmitted reference range : <5.0 (calc). Th e reference range was not used to interpret this result as normal/abnormal . Non-HDL cholesterol 199 See_Comment H For alvaro ents with (test code = diabetes plus 1 09009-1) major ASCVD ris k factor, treatin g [...] RAC) Organization Information: Site ID: RGA Name: [facility] Lab Address: [address] [place] [address] Director: Bernard Robertson Lab Interpretation Abnormal (test code = 39367-8) [facility]Hem[facility] [id number] 03:53:00 Test Item Value Reference Interpretation Comments Range Hemoglobin A1C 5.7 See_Comment H For someone w ithout (test code = known diabetes, a 4548-4) hemoglobin A1c value between 5.7% an d 6.4% is consist ent withprediabetes and should be confi rmed with a follow-u p test. For someo ne with known diab etes, a value <7%indicates that their diabetes is well controlled . D4tuclrugj shou ld be individualized based on duration [...] = Performing RAC) Organization Information: Site ID: Stephanie Name: [facility] Address: [address] [place] [address] Director: Bernard Robertson Lab Interpretation Abnormal (test code = 92421-2) [facility]and[facility], [id number] 03:53:00 Test Item Value Reference Range Interpretation Comments T4, free (test code 1.5 ng/dL 0.8-1.8 = 3024-7) MAGALYS (test code = FASTING:YES FASTING: YES MAGALYS) RAC (test code = Performing Organization RAC) Information: Site ID: [facility] Name: [facility] Address: [address] [place] [phone] Director: Bernard Robertson [facility]ellandThyroid stimulating [id number] 03:53:00 Test Item Value Reference Range Interpretation Comments TSH (test 0.87 See_Comment [Automated mes maik] code = The system ic h 3016-3) generated this result transmit cynthia reference range : 0.40 - 4.50 mIU /L. The reference r angelic was not used to interpret this result as normal/abnormal . MAGALYS (test FASTING:YES FASTING: code = MAGALYS) YES RAC (test Performing code = RAC) Organization Information: Site ID: [facility] Name: [facility] Address: [address] [place] [address] Director: [facility] HospitalT[facility], [id number] 03:53:00 Test Item Value Reference Range Interpretation Comments T3, free (test code 3.3 pg/mL 2.3-4.2 = 3051-0) MAGALYS (test code = FASTING:YES FASTING: YES MAGALYS) RAC (test code = Performing Organization RAC) Information: Site ID: ZAMZAM Name: [facility] Address: [address] [place] [address] Director: [facility] HospitalVitamin D 25 hydroxy [id number] 03:53:00 Test Item Value Reference Range Interpretation Comments Vitamin D, 32 ng/mL 30-100 Vitamin D Statu s 25-hydroxy (test 25-OH Vitam in D: code = 1988-11) Deficiency: < 20 ng/mLInsufficie ncy : 20 [...] please refer to http://educatio n.Q uestDiagnostics .co m/faq/LJM392 (T his link is being provided for informational/e lali ational purpose s only.) MAGALYS (test code = FASTING:YES FASTING: MAGALYS) YES RAC (test code = Performing RAC) Organization Information: Site ID: SHIMONA Name: [facility] Address: [address] [place] [phone] Director: [facility] HospitalComprehensive metabolic [id number] 03:53:00 Test Item Value Reference Range Interpretation [...] Cystatin Cresul t, go to https://www.kid ne y.org/profrashmiio na ls/kdoqi/gfr%5F ca lculator [Automated message] The system which [...] . Sodium (test code = 140 mmol/L 419-791 8966-2) Potassium (test code 4.0 mmol/L 3.5-5.3 = 2823-3) Chloride (test code 104 mmol/L 98-110 = 2075-0) CO2 (test code = 30 mmol/L 20-32 2027-9) Calcium (test code = 9.0 mg/dL 8.6-10.4 51295-6) Protein (test code = 6.7 g/dL 6.1-8.1 2885-2) Albumin, S (test 3.8 g/dL 3.6-5.1 code = 1751-7) Globulin, total 2.9 See_Comment [Automated (test code = message] The 49101-8) system which generated this result transmitted reference range : 1.9 - 3.7 g/dL (calc). The reference range was not used to interpret this result as normal/abnormal . Albumin/globulin 1.3 See_Comment [Automated ratio (test code = message] The 17590) system which generated this result transmitted reference range : 1.0 - 2.5 (calc ). The reference range was not used to interpr et this result as normal/abnormal . Total bilirubin 0.5 mg/dL 0.2-1.2 (test code = 1975-2) Alkaline phosphatase 51 U/L 37-153 (test code = 6768-6) AST (test code = 20 U/L 1920-8) ALT (test code = 15 U/L 03-19 1742-6) MAGALYS (test code = FASTING:YES MAGALYS) FASTING: YES RAC (test code = Performing RAC) Organization Information: Site ID: RGA Name: [facility] Lab Address: [address] [place] [phone] Director: Bernard Robertson Lab Interpretation Abnormal (test code = 55314-6) [facility]and[facility] [id number] 03:53:00 Test Item Value Reference Range Interpretation Comments Cholesterol, total 256 mg/dL <=200 H (test code = 2093-3) HDL cholesterol 57 mg/dL See_Comment [Automated (test code = 2084-) message ] The system which generated this result transmitted reference range : > OR = 50. The reference range was not used to interpret this result as normal/abnormal . Triglycerides (test 153 mg/dL <=150 H code = 2571-8) LDL cholesterol 169 mg/dL (calc) H Reference ra nge: calculated (test <100 Desira ble code = 31014-5) range <100 m g/dL for primary prevention; <70 mg/dL for patients with C HD or diabetic patients with > or = 2 CHD risk factors. LDL-C is now calculated using the Massimo-Alexx calculation, which is a validated novel method providin g better accuracy than the Friedewald equation in the estimation of LDL-C. Massimo S S et al. YASMIN. 2013;310(19): 3614-3453 (http://educati on .QuestDiagnosti HealthPocket .com/faq/KMA063 ) Cholesterol/HDL 4.5 See_Comment [Automated ratio (test code = message] The 9830-1) system which generated this result transmitted reference range : <5.0 (calc). Th e reference range was not used to interpret this result as normal/abnormal . Non-HDL cholesterol 199 See_Comment H For alvaro ents with (test code = diabetes plus 1 13512-4) major ASCVD ris k factor, treatin g [...] RAC) Organization Information: Site ID: ZAMZAM Name: [facility] Address: [address] [place], [place] [address] Director: Bernard Robertson Lab Interpretation Abnormal (test code = 97571-5) [facility]and[facility] [id number] 03:53:00 Test Item Value Reference Interpretation Comments Range Hemoglobin A1C 5.7 See_Comment H For someone w ithout (test code = known diabetes, a 4548-4) hemoglobin A1c value between 5.7% an d 6.4% is consist ent withprediabetes and should be confi rmed with a follow-u p test. For someo ne with known diab etes, a value <7%indicates that their diabetes is well controlled . V2dixsdvja shou ld be individualized based on duration [...] RAC) Organization Information: Site ID: ZAMZAM Name: [facility] Address: [address] [place] [address] Director: Bernard Robertson Lab Interpretation Abnormal (test code = 75146-0) [facility]andT4, [id number] 03:53:00 Test Item Value Reference Range Interpretation Comments T4, free (test code 1.5 ng/dL 0.8-1.8 = 3024-7) MAGALYS (test code = FASTING:YES FASTING: YES MAGALYS) RAC (test code = Performing Organization RAC) Information: Site ID: [id number] Name: [facility][1] Lab Address: [address] [place] [id number] Director: [facility] HospitalThyroid stimulating [id number] 03:53:00 Test Item Value Reference Range Interpretation Comments TSH (test 0.87 See_Comment [Automated mes maik] code = The system whic h 3016-3) generated this result transmit cynthia reference range : 0.40 - 4.50 mIU /L. The reference r angelic was not used to interpret this result as normal/abnormal . MAGALYS (test FASTING:YES FASTING: code = MAGALYS) YES RAC (test Performing code = RAC) Organization Information: Site ID: [facility] Name: [facility][1] Lab Address: [address] [place] [address] Director: [facility] HospitalT3, [id number] 03:53:00 Test Item Value Reference Range Interpretation Comments T3, free (test code 3.3 pg/mL 2.3-4.2 = 3051-0) MAGALYS (test code = FASTING:YES FASTING: YES MAGALYS) RAC (test code = Performing Organization RAC) Information: Site ID: [facility] Name: [facility][1] Lab Address: [address] [place] [phone] Director: [facility] HospitalVitamin D 25 hydroxy [id number] 03:53:00 Test Item Value Reference Range Interpretation Comments Vitamin D, 32 ng/mL 30-100 Vitamin D Statu s 25-hydroxy (test 25-OH Vitam in D: code = 1988-3) Deficiency: < 20 ng/mLInsufficie ncy : 20 [...] please refer to http://educatio n.Q uestDiagnostics .co m/faq/PZE867 (T his link is being provided for informational/e lali ational purpose s only.) MAGALYS (test code = FASTING:YES FASTING: MAGALYS) YES RAC (test code = Performing RAC) Organization Information: Site ID: [facility] Lab Address: [address] [place] [phone] Director: Bernard Robertson [facility] Thromboplastin Ojqk6046-03-18 07:15:00 Test Item Value Reference Range Interpretation Comments Partial Thromboplastin 24.3 Seconds 23.9-32.8 N *Note New Time (test code = PTT) Refer ence Range Comprehensive Metabolic Bbghj5171-37-26 07:15:00 Test Item Value Reference Range Interpretation [...] code 64 U/L 46-116 N = ALP) Complete Blood Count Auto [id number] 07:15:00 Test Item Value Reference Range Interpretation [...] code = NRBCP) 0 % Prothrombin Time [id number] 07:15:00 Test Item Value Reference Range Interpretation Comments Prothrombin Time 11.1 Seconds 9.3-12.1 N *Note New R eference (test code = PT) Range INR (test code = 1.0 ratio 0.9-1.2 N Reference I nterval is INR) for non-anticoagula cynthia patients.Sugges cynthia INR Therapeutic Range for Vitamin K antogonistthera py:LEV ELS OFTHERAPY INDICATIONS TAR GET INR RANGEStanda rd Dose Venous Thrombosis, 2.0 - 3.0 Atrial Fibrilla tion, Pulmonary Embolism.High D ose Valvular Heart Disease, 2.5 - 3.5 Mechanical Hear t, Intracardiac Thrombosis.*Not e New Reference Range Post Op Promis 29 Gveqpr2616-60-95 13:07:47 Test Item Value Reference Range Interpretation Comments Pain Interference: (test code = Pain 70.3 1 N Interference:) Pain Intensity: (test code = Pain 49.9 1 N Intensity:) Physical Function: (test code = 26.7 1 N Physical Function:) Satisfaction Role: (test code = 32.1 1 N Satisfaction Role:) [facility]JtjvjrleqgWQXAKHNESH6765-89-51 19:36:00 Test Item Value Reference Range Interpretation Comments Blood Glucose, Capillary (test code = 169 74-106 Blood Glucose, Capillary) [facility]20[facility]38 19:36:00 Test Item Value Reference Range Interpretation Comments Blood Glucose, Capillary (test code = 169 74-106 Blood Glucose, Capillary) [facility] OaklandZpiikkyMTBCSTTGQU3473-80-00 19:36:00 Test Item Value Reference Range Interpretation Comments Blood Glucose, Capillary (test code = 169 74-106 Blood Glucose, Capillary) [facility] HospitalCrsmbzdGCYTNFXDEX1576-19-44 19:36:00 Test Item Value Reference Range Interpretation Comments Blood Glucose, Capillary (test code = 169 74-106 Blood Glucose, Capillary) [facility] HospitalHpjqazyIFXMWNRXTC1508-37-78 18:42:00 Test Item Value Reference Range Interpretation Comments Blood Glucose, Capillary (test code = 182 74-106 Blood Glucose, Capillary) [facility] HospitalLgxfbqoQBSMTSJGRG3967-65-58 18:42:00 Test Item Value Reference Range Interpretation Comments Blood Glucose, Capillary (test code = 182 74-106 Blood Glucose, Capillary) [facility] HospitalLolpkssIRGMIGGUKS8237-97-65 18:42:00 Test Item Value Reference Range Interpretation Comments Blood Glucose, Capillary (test code = 182 74-106 Blood Glucose, Capillary) [facility] HospitalKoidhgmEQTMRKOLDO2691-45-20 18:42:00 Test Item Value Reference Range Interpretation Comments Blood Glucose, Capillary (test code = 182 74-106 Blood Glucose, Capillary) [facility] HospitalCpdlgoiWDBNGUAAQU8218-09-69 18:46:00 Test Item Value Reference Range Interpretation Comments Results (test code = Reported (09/08/19 Results) 12:46 PM) [facility] HospitalYgyexxeHMTMDMSUPN7422-72-43 18:46:00 Test Item Value Reference Range Interpretation Comments Hgb A1c (test code = Hgb A1c) 8.6 [facility] HospitalRakxsouTWQJLNXJOH5534-44-36 18:46:00 Test Item Value Reference Range Interpretation Comments Results (test code = Reported (09/08/19 Results) 12:46 PM) [facility] HospitalQbhrwrgGVUOMHUACN8991-44-63 18:46:00 Test Item Value Reference Range Interpretation Comments MPV (test code = MPV) 9.0 7.4-10.4 [facility] HospitalHkdqkobGEMQVSSLDN1371-20-35 18:46:00 Test Item Value Reference Range Interpretation Comments MCV (test code = MCV) 89.7 80.0-98.0 [facility] HospitalTxnqimqNIYTYBGYKT6121-91-74 18:46:00 Test Item Value Reference Range Interpretation Comments Platelet (test code = Platelet) 172 133-450 [facility] HospitalGxaffkwRLAMSVSLDN7710-94-52 18:46:00 Test Item Value Reference Range Interpretation Comments RDW (test code = RDW) 16.1 11.5-14.5 [facility] HospitalXgknnhwCDJUSLWAFC9537-88-33 18:46:00 Test Item Value Reference Range Interpretation Comments MCHC (test code = MCHC) 33.6 32.0-36.0 [facility] HospitalPblbvsaJUBBRSARNF7697-07-78 18:46:00 Test Item Value Reference Range Interpretation Comments MCH (test code = MCH) 30.1 pg 27.0-31.0 [facility] HospitalLdjehtrPPOURJDWNL1729-20-79 18:46:00 Test Item Value Reference Range Interpretation Comments Hematocrit (test code = Hematocrit) 41.3 36.0-48.0 [facility] HospitalMpvilwdQCYNGLWNEB2540-76-74 18:46:00 Test Item Value Reference Range Interpretation Comments Hemoglobin (test code = Hemoglobin) 13.9 12.0-16.0 [facility] HospitalKxpknncWKQVJJZNED7164-63-23 18:46:00 Test Item Value Reference Range Interpretation Comments Red Blood Cell Count (test code = Red 4.61 4.20-5.40 Blood Cell Count) [facility] HospitalFoevbhbWACOLMKZYE1607-11-51 18:46:00 Test Item Value Reference Range Interpretation Comments White Blood Count (test code = White 6.4 3.7-10.4 Blood Count) [facility] HospitalZhtolzrYWSMZEERLY8850-53-39 18:46:00 Test Item Value Reference Range Interpretation Comments Results (test code = Reported (09/08/19 Results) 12:46 PM) [facility] HospitalXjfhbfxGAPFBRSCNW4381-18-26 18:46:00 Test Item Value Reference Range Interpretation Comments Carbon Dioxide Level (test code = 28 24-32 Carbon Dioxide Level) [facility] HospitalRbfdlfxCVJFMNCADQ4160-83-77 18:46:00 Test Item Value Reference Range Interpretation Comments Chloride Level (test code = Chloride 103 95-109 Level) [facility] HospitalNntubeyJQZFCWXGMJ4181-46-84 18:46:00 Test Item Value Reference Range Interpretation Comments eGFR (test code = eGFR) 69 [facility] HospitalQbvnlmqEHIKMXMIMZ4539-75-13 18:46:00 Test Item Value Reference Range Interpretation Comments Calcium Level (test code = Calcium 8.8 8.5-10.5 Level) [facility] HospitalCewhftfAQVGSBSHLZ5883-08-94 18:46:00 Test Item Value Reference Range Interpretation Comments AGAP (test code = AGAP) 12.7 10.0-20.0 [facility] HospitalFbknfqkGBPZPYVJAK4547-26-90 18:46:00 Test Item Value Reference Range Interpretation Comments BUN (test code = BUN) 13 7-22 [facility] HospitalAtrwohuNWYKPHYMLN0950-22-27 18:46:00 Test Item Value Reference Range Interpretation Comments Potassium Level (test code = Potassium 4.7 3.5-5.1 Level) [facility] HospitalSbxxbscWWRTFYKTFY7491-81-81 18:46:00 Test Item Value Reference Range Interpretation Comments Sodium Level (test code = Sodium Level) 139 135-145 [facility] HospitalGdxjfhiUSSZKFCBVA5538-34-68 18:46:00 Test Item Value Reference Range Interpretation Comments Creatinine (test code = Creatinine) 0.84 0.50-1.40 [facility] HospitalBblzrdwLBHQIFBMJU6674-47-63 18:46:00 Test Item Value Reference Range Interpretation Comments Glucose Lvl (test code = Glucose Lvl) 242 70-99 [facility] HospitalDuudjmqVJKKXUPVUO2461-08-59 18:46:00 Test Item Value Reference Range Interpretation Comments Results (test code = Reported (09/08/19 Results) 12:46 PM) [facility] HospitalJroxwioNGOALUGVHV1207-57-44 18:46:00 Test Item Value Reference Range Interpretation Comments Eosinophil % (test code 0.1 See_Comment [Au tomated message] The = Eosinophil %) system which generated this result tra nsmitted reference range : <=0.5. The reference r angelic was not used to int erpret this result as normal/abnormal . [facility] HospitalCoymispPAPOABGHBE2544-34-62 18:46:00 Test Item Value Reference Range Interpretation Comments Monocyte # (test code = 0.6 See_Comment [Au tomated message] The Monocyte #) system which ge nerated this result tra nsmitted reference range : <=0.8. The reference r angelic was not used to int erpret this result as normal/abnormal . [facility] HospitalLzuvriyZHEMOWOIFK9549-95-61 18:46:00 Test Item Value Reference Range Interpretation Comments Lymphocyte # (test code = Lymphocyte #) 3.2 1.0-5.5 [facility] HospitalTqilnnwRWXKSADTTT1490-18-02 18:46:00 Test Item Value Reference Range Interpretation Comments Neutrophil # (test code = Neutrophil #) 2.6 1.5-8.1 [facility] HospitalRegpwwaSOYVVPSCWP2205-09-56 18:46:00 Test Item Value Reference Range Interpretation Comments Basophil % (test code = 0.3 See_Comment [Au tomated message] The Basophil %) system which ge nerated this result tra nsmitted reference range : <=1.0. The reference r angelic was not used to int erpret this result as normal/abnormal . [facility] HospitalFrvtivhZEJICHEBUV7498-80-68 18:46:00 Test Item Value Reference Range Interpretation Comments Eosinophil # (test code 1.7 See_Comment [Au tomated message] The = Eosinophil #) system which generated this result tra nsmitted reference range : <=4.0. The reference r angelic was not used to int erpret this result as normal/abnormal . [facility] HospitalGtxzgmrUZJRLBMUUH3036-22-41 18:46:00 Test Item Value Reference Range Interpretation Comments Neutrophil % (test code = Neutrophil %) 39.9 45.0-75.0 [facility] HospitalJqakujaNHOZUVSHIN7621-25-42 18:46:00 Test Item Value Reference Range Interpretation Comments Lymphocyte % (test code = Lymphocyte %) 49.1 20.0-40.0 [facility] HospitalUdgguxvWNLFKOJJLF5466-49-70 18:46:00 Test Item Value Reference Range Interpretation Comments Monocyte % (test code = Monocyte %) 9.0 2.0-12.0 [facility] HospitalAejcpwqFBRKMTOLOZ9303-49-96 18:46:00 Test Item Value Reference Range Interpretation Comments Results (test code = Reported (09/08/19 Results) 12:46 PM) [facility] HospitalFymcghuJTJQILQEAL3666-76-36 18:46:00 Test Item Value Reference Range Interpretation Comments Hgb A1c (test code = Hgb A1c) 8.6 [facility] HospitalMwrlmfbTVRDDWUAJB8728-18-67 18:46:00 Test Item Value Reference Range Interpretation Comments Results (test code = Reported (09/08/19 Results) 12:46 PM) [facility] HospitalDikwgujOKMPNKXVEL6205-03-52 18:46:00 Test Item Value Reference Range Interpretation Comments MPV (test code = MPV) 9.0 7.4-10.4 [facility] HospitalVhstlxvIVQOVLDLBY9521-44-61 18:46:00 Test Item Value Reference Range Interpretation Comments MCV (test code = MCV) 89.7 80.0-98.0 [facility] HospitalBefcgoiNXDRCIFCQR9630-09-39 18:46:00 Test Item Value Reference Range Interpretation Comments Platelet (test code = Platelet) 172 133-450 [facility] HospitalYokdewvEUQXOSGRXH7335-47-76 18:46:00 Test Item Value Reference Range Interpretation Comments RDW (test code = RDW) 16.1 11.5-14.5 [facility] HospitalZtwopvyTXNIIPIPAJ4110-13-49 18:46:00 Test Item Value Reference Range Interpretation Comments MCHC (test code = MCHC) 33.6 32.0-36.0 [facility] HospitalVjlgvefILIOLPUZTW6357-05-34 18:46:00 Test Item Value Reference Range Interpretation Comments MCH (test code = MCH) 30.1 pg 27.0-31.0 [facility] HospitalCkpitbvWWZBOXGSXF7742-28-56 18:46:00 Test Item Value Reference Range Interpretation Comments Hematocrit (test code = Hematocrit) 41.3 36.0-48.0 [facility] HospitalGmihrzkXBJRSKCGDS1005-86-33 18:46:00 Test Item Value Reference Range Interpretation Comments Hemoglobin (test code = Hemoglobin) 13.9 12.0-16.0 [facility] HospitalVranxwtBSWJQOGOKL3450-42-58 18:46:00 Test Item Value Reference Range Interpretation Comments Red Blood Cell Count (test code = Red 4.61 4.20-5.40 Blood Cell Count) [facility] HospitalUxohmjcRTEZFEPPGK9208-48-65 18:46:00 Test Item Value Reference Range Interpretation Comments White Blood Count (test code = White 6.4 3.7-10.4 Blood Count) [facility] HospitalCdfpgkjXNKOPSZXOE5658-61-94 18:46:00 Test Item Value Reference Range Interpretation Comments Results (test code = Reported (09/08/19 Results) 12:46 PM) [facility] HospitalGllyppiNHUSBQNPHQ5425-63-91 18:46:00 Test Item Value Reference Range Interpretation Comments Carbon Dioxide Level (test code = 28 24-32 Carbon Dioxide Level) [facility] HospitalVfhyyynOWQWFJSQGU9587-57-68 18:46:00 Test Item Value Reference Range Interpretation Comments Chloride Level (test code = Chloride 103 95-109 Level) [facility] HospitalZvdxvycCTXHVTIKUR5941-11-65 18:46:00 Test Item Value Reference Range Interpretation Comments eGFR (test code = eGFR) 69 [facility] HospitalCykgejgGMAFRIUCCJ7456-75-82 18:46:00 Test Item Value Reference Range Interpretation Comments Calcium Level (test code = Calcium 8.8 8.5-10.5 Level) [facility] HospitalTqcecbhTYRHGQRAWR3387-27-80 18:46:00 Test Item Value Reference Range Interpretation Comments AGAP (test code = AGAP) 12.7 10.0-20.0 [place] [id number] 18:46:00 Test Item Value Reference Range Interpretation Comments BUN (test code = BUN) 13 7-22 [facility] HospitalXvgucyzVPOGLJUAOP1698-61-83 18:46:00 Test Item Value Reference Range Interpretation Comments Potassium Level (test code = Potassium 4.7 3.5-5.1 Level) [facility] HospitalUcrriliWIPMROPXEP3066-68-43 18:46:00 Test Item Value Reference Range Interpretation Comments Sodium Level (test code = Sodium Level) 139 135-145 [facility] HospitalUsoonpjQSHGUFCAKP8183-79-96 18:46:00 Test Item Value Reference Range Interpretation Comments Creatinine (test code = Creatinine) 0.84 0.50-1.40 [place] 556489-12-19 18:46:00 Test Item Value Reference Range Interpretation Comments Glucose Lvl (test code = Glucose Lvl) 242 70-99 [facility] HospitalHfzirmvSGBDPZPUBK1544-95-85 18:46:00 Test Item Value Reference Range Interpretation Comments Results (test code = Reported (09/08/19 Results) 12:46 PM) [facility] HospitalVnapxalHPIWFPUVGZ1654-01-06 18:46:00 Test Item Value Reference Range Interpretation Comments Eosinophil % (test code 0.1 See_Comment [Au tomated message] The = Eosinophil %) system which generated this result tra nsmitted reference range : <=0.5. The reference r angelic was not used to int erpret this result as normal/abnormal . [facility] HospitalJrzajmtLCRJXPUFXD0328-32-39 18:46:00 Test Item Value Reference Range Interpretation Comments Monocyte # (test code = 0.6 See_Comment [Au tomated message] The Monocyte #) system which ge nerated this result tra nsmitted reference range : <=0.8. The reference r angelic was not used to int erpret this result as normal/abnormal . [facility] HospitalMjjqrogVQTOIOGLYP9500-33-14 18:46:00 Test Item Value Reference Range Interpretation Comments Lymphocyte # (test code = Lymphocyte #) 3.2 1.0-5.5 [facility] HospitalAludauwFHXSYYABTY7015-40-94 18:46:00 Test Item Value Reference Range Interpretation Comments Neutrophil # (test code = Neutrophil #) 2.6 1.5-8.1 [facility] HospitalJgahqktKPSUZRHRJX2791-25-98 18:46:00 Test Item Value Reference Range Interpretation Comments Basophil % (test code = 0.3 See_Comment [Au tomated message] The Basophil %) system which ge nerated this result tra nsmitted reference range : <=1.0. The reference r angelic was not used to int erpret this result as normal/abnormal . [facility] HospitalDtgwqntMUCUHSTOHV2805-96-50 18:46:00 Test Item Value Reference Range Interpretation Comments Eosinophil # (test code 1.7 See_Comment [Au tomated message] The = Eosinophil #) system which generated this result tra nsmitted reference range : <=4.0. The reference r angelic was not used to int erpret this result as normal/abnormal . [facility] HospitalHtoeajnOFGWHIPMCE1410-35-43 18:46:00 Test Item Value Reference Range Interpretation Comments Neutrophil % (test code = Neutrophil %) 39.9 45.0-75.0 [facility] HospitalWowqayjCQRTTEEMZL7474-13-93 18:46:00 Test Item Value Reference Range Interpretation Comments Lymphocyte % (test code = Lymphocyte %) 49.1 20.0-40.0 [facility] HospitalMdcdljyXRBEQRNPLE9458-49-75 18:46:00 Test Item Value Reference Range Interpretation Comments Monocyte % (test code = Monocyte %) 9.0 2.0-12.0 [facility] HospitalVdzrmjdWOLXENGANR7232-80-82 18:46:00 Test Item Value Reference Range Interpretation Comments Results (test code = Reported (09/08/19 Results) 12:46 PM) [facility] HospitalLiaukcyLRPZZYDTIV5459-27-94 18:46:00 Test Item Value Reference Range Interpretation Comments Hgb A1c (test code = Hgb A1c) 8.6 [facility] HospitalRtrjgylHBVTVVULMY9374-53-23 18:46:00 Test Item Value Reference Range Interpretation Comments Results (test code = Reported (09/08/19 Results) 12:46 PM) [facility] HospitalVvloyzoFETQZVGUIS6031-43-54 18:46:00 Test Item Value Reference Range Interpretation Comments MPV (test code = MPV) 9.0 7.4-10.4 [facility] HospitalHhnhfhkXJNWMOGHZK3232-42-72 18:46:00 Test Item Value Reference Range Interpretation Comments MCV (test code = MCV) 89.7 80.0-98.0 [facility] HospitalUmbjnrtJSMYLHEOUP0091-16-46 18:46:00 Test Item Value Reference Range Interpretation Comments Platelet (test code = Platelet) 172 133-450 [facility] HospitalAwsrdfpGRDMNAPWHZ1075-00-11 18:46:00 Test Item Value Reference Range Interpretation Comments RDW (test code = RDW) 16.1 11.5-14.5 [facility] HospitalPjtxvqeMNWDNAQFOK3393-88-51 18:46:00 Test Item Value Reference Range Interpretation Comments MCHC (test code = MCHC) 33.6 32.0-36.0 [facility] HospitalVbwjeaeSEUSZIYBUP8993-37-57 18:46:00 Test Item Value Reference Range Interpretation Comments MCH (test code = MCH) 30.1 pg 27.0-31.0 [facility] HospitalWtsgqxuJHBDEXEXGP0881-53-41 18:46:00 Test Item Value Reference Range Interpretation Comments Hematocrit (test code = Hematocrit) 41.3 36.0-48.0 [facility] HospitalTbdneifSBMLYEOTLL2055-10-70 18:46:00 Test Item Value Reference Range Interpretation Comments Hemoglobin (test code = Hemoglobin) 13.9 12.0-16.0 [facility] HospitalGbrjaepAQETURBJVD0677-34-83 18:46:00 Test Item Value Reference Range Interpretation Comments Red Blood Cell Count (test code = Red 4.61 4.20-5.40 Blood Cell Count) [facility] HospitalSaxlmzwQKPWMCUAOO0504-92-72 18:46:00 Test Item Value Reference Range Interpretation Comments White Blood Count (test code = White 6.4 3.7-10.4 Blood Count) [facility] HospitalZhvatowFVFPIPBERE6002-51-30 18:46:00 Test Item Value Reference Range Interpretation Comments Results (test code = Reported (09/08/19 Results) 12:46 PM) [facility] HospitalImmsksiPHRJHHKAZB0302-43-37 18:46:00 Test Item Value Reference Range Interpretation Comments Carbon Dioxide Level (test code = 28 24-32 Carbon Dioxide Level) [facility] HospitalAosqffgFFRXRVASTH1060-79-79 18:46:00 Test Item Value Reference Range Interpretation Comments Chloride Level (test code = Chloride 103 95-109 Level) [facility] HospitalXahsyfmSRZWTSUABL4125-63-30 18:46:00 Test Item Value Reference Range Interpretation Comments eGFR (test code = eGFR) 69 [facility] HospitalJahujvhMHHCBQDGIS2509-75-72 18:46:00 Test Item Value Reference Range Interpretation Comments Calcium Level (test code = Calcium 8.8 8.5-10.5 Level) [facility] HospitalYvhwfqgZHRVTHHHRM3806-08-08 18:46:00 Test Item Value Reference Range Interpretation Comments AGAP (test code = AGAP) 12.7 10.0-20.0 [facility] HospitalWatvzmiHFSHPRNSIV6370-72-08 18:46:00 Test Item Value Reference Range Interpretation Comments BUN (test code = BUN) 13 7-22 [facility] HospitalYnifkxxSXFEIJBFNZ8311-98-88 18:46:00 Test Item Value Reference Range Interpretation Comments Potassium Level (test code = Potassium 4.7 3.5-5.1 Level) [facility] HospitalTswvgyxFVJZJXPSYR8721-82-80 18:46:00 Test Item Value Reference Range Interpretation Comments Sodium Level (test code = Sodium Level) 139 135-145 [facility] HospitalXhpyokqHDJOWPHUCQ9932-38-27 18:46:00 Test Item Value Reference Range Interpretation Comments Creatinine (test code = Creatinine) 0.84 0.50-1.40 [facility] HospitalMstcosyFODGANSKHI1151-64-81 18:46:00 Test Item Value Reference Range Interpretation Comments Glucose Lvl (test code = Glucose Lvl) 242 70-99 [facility] HospitalUvyirhdEYKKGWVAGP7067-02-51 18:46:00 Test Item Value Reference Range Interpretation Comments Results (test code = Reported (09/08/19 Results) 12:46 PM) [facility] HospitalCjkmczoYCFPSKXGIO7142-31-26 18:46:00 Test Item Value Reference Range Interpretation Comments Eosinophil % (test code 0.1 See_Comment [Au tomated message] The = Eosinophil %) system which generated this result tra nsmitted reference range : <=0.5. The reference r angelic was not used to int erpret this result as normal/abnormal . [facility] HospitalBfynazlLYLSQDSTMR6920-85-59 18:46:00 Test Item Value Reference Range Interpretation Comments Monocyte # (test code = 0.6 See_Comment [Au tomated message] The Monocyte #) system which ge nerated this result tra nsmitted reference range : <=0.8. The reference r angelic was not used to int erpret this result as normal/abnormal . [facility] HospitalDexgskwGOIPQDRXJL2237-76-62 18:46:00 Test Item Value Reference Range Interpretation Comments Lymphocyte # (test code = Lymphocyte #) 3.2 1.0-5.5 [facility] HospitalXxktusoIWSACRBMKW3011-68-95 18:46:00 Test Item Value Reference Range Interpretation Comments Neutrophil # (test code = Neutrophil #) 2.6 1.5-8.1 [facility] HospitalPmjqhdkNTVHODAGTX3179-74-36 18:46:00 Test Item Value Reference Range Interpretation Comments Basophil % (test code = 0.3 See_Comment [Au tomated message] The Basophil %) system which ge nerated this result tra nsmitted reference range : <=1.0. The reference r angelic was not used to int erpret this result as normal/abnormal . [facility] HospitalPgjhcdoDOLJCZROYU9434-65-31 18:46:00 Test Item Value Reference Range Interpretation Comments Eosinophil # (test code 1.7 See_Comment [Au tomated message] The = Eosinophil #) system which generated this result tra nsmitted reference range : <=4.0. The reference r angelic was not used to int erpret this result as normal/abnormal . [id number] 18:46:00 Test Item Value Reference Range Interpretation Comments Neutrophil % (test code = Neutrophil %) 39.9 45.0-75.0 [facility] HospitalFctjbemCERWVGYINL2530-15-11 18:46:00 Test Item Value Reference Range Interpretation Comments Lymphocyte % (test code = Lymphocyte %) 49.1 20.0-40.0 [facility] HospitalGamanptRTVXPCAKVQ3262-38-87 18:46:00 Test Item Value Reference Range Interpretation Comments Monocyte % (test code = Monocyte %) 9.0 2.0-12.0 [facility] HospitalFnuqvfnVWBTBRCQVW5895-91-20 18:46:00 Test Item Value Reference Range Interpretation Comments Results (test code = Reported (09/08/19 Results) 12:46 PM) [facility] HospitalPrgumxuCBKNTUDPTF7160-93-69 18:46:00 Test Item Value Reference Range Interpretation Comments Hgb A1c (test code = Hgb A1c) 8.6 [facility] HospitalIjvjlpgFZUQRMXCGV1076-78-13 18:46:00 Test Item Value Reference Range Interpretation Comments Results (test code = Reported (09/08/19 Results) 12:46 PM) [place] [id number] 18:46:00 Test Item Value Reference Range Interpretation Comments MPV (test code = MPV) 9.0 7.4-10.4 [facility] HospitalJdtudesZUDUKIXCWH1420-08-57 18:46:00 Test Item Value Reference Range Interpretation Comments MCV (test code = MCV) 89.7 80.0-98.0 [facility] HospitalCmnzmsdJVEZXFICIG6734-59-79 18:46:00 Test Item Value Reference Range Interpretation Comments Platelet (test code = Platelet) 172 133-450 [facility] HospitalFciwmblHDTLSZBHFM7646-93-82 18:46:00 Test Item Value Reference Range Interpretation Comments RDW (test code = RDW) 16.1 11.5-14.5 [facility] HospitalKjuhbspDEHKRBGBEW6882-61-69 18:46:00 Test Item Value Reference Range Interpretation Comments MCHC (test code = MCHC) 33.6 32.0-36.0 [facility] HospitalYmpeublZTCOIXICMD3067-37-08 18:46:00 Test Item Value Reference Range Interpretation Comments MCH (test code = MCH) 30.1 pg 27.0-31.0 [facility] HospitalUwlzialXVCXOCKPZF2387-83-60 18:46:00 Test Item Value Reference Range Interpretation Comments Hematocrit (test code = Hematocrit) 41.3 36.0-48.0 [facility] HospitalCgauihtNNRMYMQLQP2638-82-30 18:46:00 Test Item Value Reference Range Interpretation Comments Hemoglobin (test code = Hemoglobin) 13.9 12.0-16.0 [facility] HospitalLjdtdfxJGDXQKUEQL7567-86-37 18:46:00 Test Item Value Reference Range Interpretation Comments Red Blood Cell Count (test code = Red 4.61 4.20-5.40 Blood Cell Count) [facility] HospitalXwrkwjrGLBKKDJJEF8454-74-27 18:46:00 Test Item Value Reference Range Interpretation Comments White Blood Count (test code = White 6.4 3.7-10.4 Blood Count) [facility] HospitalIawioxnCWMGTWWAAV8244-55-28 18:46:00 Test Item Value Reference Range Interpretation Comments Results (test code = Reported (09/08/19 Results) 12:46 PM) [facility] HospitalCgrxywgFRQCFLRPMJ4685-10-57 18:46:00 Test Item Value Reference Range Interpretation Comments Carbon Dioxide Level (test code = 28 24-32 Carbon Dioxide Level) [facility] HospitalQexhapcMXSVAKMDEL7741-50-57 18:46:00 Test Item Value Reference Range Interpretation Comments Chloride Level (test code = Chloride 103 95-109 Level) [facility] HospitalBnsohbdDESLPJROVD3250-61-96 18:46:00 Test Item Value Reference Range Interpretation Comments eGFR (test code = eGFR) 69 [facility] HospitalUouofutXXFBIFRLVH7026-24-53 18:46:00 Test Item Value Reference Range Interpretation Comments Calcium Level (test code = Calcium 8.8 8.5-10.5 Level) [facility] HospitalVdafbnpDMIEINMHGG6887-52-42 18:46:00 Test Item Value Reference Range Interpretation Comments AGAP (test code = AGAP) 12.7 10.0-20.0 [facility] HospitalPnmlpepLJBSOYIRCA3520-11-94 18:46:00 Test Item Value Reference Range Interpretation Comments BUN (test code = BUN) 13 7-22 [facility] HospitalQavyafoTFUDSTMDDP5238-83-32 18:46:00 Test Item Value Reference Range Interpretation Comments Potassium Level (test code = Potassium 4.7 3.5-5.1 Level) [facility] HospitalUqeihuzIHOLNYFBZO6921-59-19 18:46:00 Test Item Value Reference Range Interpretation Comments Sodium Level (test code = Sodium Level) 139 135-145 [facility] HospitalOuxpjnySLIKVMDOXF3825-97-58 18:46:00 Test Item Value Reference Range Interpretation Comments Creatinine (test code = Creatinine) 0.84 0.50-1.40 [facility] HospitalGorcholDSOMGHYWOZ6939-05-80 18:46:00 Test Item Value Reference Range Interpretation Comments Glucose Lvl (test code = Glucose Lvl) 242 70-99 [facility] HospitalVlknfcxZMSMUVBAES8615-54-49 18:46:00 Test Item Value Reference Range Interpretation Comments Results (test code = Reported (09/08/19 Results) 12:46 PM) [facility] HospitalUjczaotVNMKNLZASF0738-06-87 18:46:00 Test Item Value Reference Range Interpretation Comments Eosinophil % (test code 0.1 See_Comment [Au tomated message] The = Eosinophil %) system which generated this result tra nsmitted reference range : <=0.5. The reference r angelic was not used to int erpret this result as normal/abnormal . [facility] HospitalPhdrrkaORBKUOLETT2055-76-66 18:46:00 Test Item Value Reference Range Interpretation Comments Monocyte # (test code = 0.6 See_Comment [Au tomated message] The Monocyte #) system which ge nerated this result tra nsmitted reference range : <=0.8. The reference r angelic was not used to int erpret this result as normal/abnormal . [facility] HospitalMqkixuiQMLEXRTYJS8968-39-51 18:46:00 Test Item Value Reference Range Interpretation Comments Lymphocyte # (test code = Lymphocyte #) 3.2 1.0-5.5 [facility] HospitalAjebeqeKVNGYZUZKY1538-00-63 18:46:00 Test Item Value Reference Range Interpretation Comments Neutrophil # (test code = Neutrophil #) 2.6 1.5-8.1 [facility] HospitalThjpefuBXUDAOHLCU2049-43-98 18:46:00 Test Item Value Reference Range Interpretation Comments Basophil % (test code = 0.3 See_Comment [Au tomated message] The Basophil %) system which ge nerated this result tra nsmitted reference range : <=1.0. The reference r angelic was not used to int erpret this result as normal/abnormal . [facility] HospitalQwbujhzLFMQQZCRNQ2872-44-64 18:46:00 Test Item Value Reference Range Interpretation Comments Eosinophil # (test code 1.7 See_Comment [Au tomated message] The = Eosinophil #) system which generated this result tra nsmitted reference range : <=4.0. The reference r angelic was not used to int erpret this result as normal/abnormal . [facility] HospitalUgfbzwjYDQBRCYBZD3264-67-90 18:46:00 Test Item Value Reference Range Interpretation Comments Neutrophil % (test code = Neutrophil %) 39.9 45.0-75.0 [facility] HospitalOekuxyrYLLYKXYNGW0653-84-56 18:46:00 Test Item Value Reference Range Interpretation Comments Lymphocyte % (test code = Lymphocyte %) 49.1 20.0-40.0 [facility] HospitalYkarcchECFNMPUPFH6133-65-17 18:46:00 Test Item Value Reference Range Interpretation Comments Monocyte % (test code = Monocyte %) 9.0 2.0-12.0 [facility] CampusLipid Wnswhhd9377-07-49 00:16:00 Test Item Value Reference Range Interpretation Comments Cholesterol (test 340 mg/dL 0-200 H code = CHOL) Triglycerides (test 165 mg/dL 9-200 N code = TRIG) HDL (test code = 66 mg/dL 50-60 H HDL) Chol/HDL (test code 5.2 Ratio 0.0-4.4 H = CHOLPHDL) LDL, Calculated 241 mg/dL 0-130 H (NOTE)RISK O F HEART (test code = LDLC) DISEASEPu blished by [place] Heart AssociationAnal yte Optimal Boderli ne Increased RiskC HOL <200 200-239 >240TRI G <150 150-199 >200HDL Male: >60 <40HDL Fema le: >60 <50LDL <100 130 -159 >160LDL NEAR OP TIMAL IS 100-129 VLDL (test code = 33 mg/dL 5-40 N VLDL) LDL/HDL (test code = 4 LDLPHDL) Comprehensive Metabolic [id number] 00:16:00 Test Item Value Reference Range Interpretation [...] ars ofage have not been validated by e MDRD study and shoul d be interpretedwith caution.eGFR Re sult Interpretation: eGFR > or = 60 is in t he Normal RangeeGF R < 60 may mean kidney diseaseeGFR < 1 5 may mean kidney failureRange s recommended by the National Kidney Foundation,http ://nkd ep.nih.gov CBC with Vyybbqgybudp3906-13-56 23:34:00 Test Item Value Reference Range Interpretation [...] code = ALYMPH) 3.1 K/cumm 0.5-4.6 N [place] Abs (test code = AMONO) 0.4 K/cumm 0.0-1.2 N Eos Abs (test code = AEOS) 0.25 K/cumm 0.00-0.74 N Baso Abs (test code = ABASO) 0.0 K/cumm 0.00-0.21 N [id number] 21:47:00 Test Item Value Reference Range Interpretation Comments CHD Risk (test code = CHD Risk) 5.61 3.90-5.80 [facility] CampusQixnhtsQHVTTP4487-90-51 21:47:00 Test Item Value Reference Range Interpretation Comments Chol (test code = Chol) 213 [facility] CampusDlydenjLDASLE5720-85-86 21:47:00 Test Item Value Reference Range Interpretation Comments HDL (test code = HDL) 38 [facility] CampusXhgveatIVJQHG3381-91-26 21:47:00 Test Item Value Reference Range Interpretation Comments VLDL (test code = VLDL) 39 [facility] CampusAlqyawrCBZIEH3228-49-29 21:47:00 Test Item Value Reference Range Interpretation Comments Trig (test code = Trig) 194 [facility] CampusJbxrknaFFDFYD2335-40-55 21:47:00 Test Item Value Reference Range Interpretation Comments LDL (Calculated) (test code = LDL 136 (Calculated)) [facility] EWSDYKUOQ5829-03-93 21:47:00 Test Item Value Reference Range Interpretation Comments Hgb A1C (test code = Hgb A1C) 7.6 [facility] CampusQmusfmpKRWAZH0635-35-98 21:47:00 Test Item Value Reference Range Interpretation Comments CHD Risk (test code = CHD Risk) 5.61 3.90-5.80 [facility]RigaejwKCNYKL1281-15-[facility] 21:47:00 Test Item Value Reference Range Interpretation Comments Chol (test code = Chol) 213 [facility]anoZgryejgMJNBUN5604-19-65 21:47:00 Test Item Value Reference Range Interpretation Comments HDL (test code = HDL) 38 [facility]anoBcgayogBDEEZY5526-03-01 21:47:00 Test Item Value Reference Range Interpretation Comments VLDL (test code = VLDL) 39 [facility]anoRndibccNXKWEP2264-10-71 21:47:00 Test Item Value Reference Range Interpretation Comments Trig (test code = Trig) 194 [facility]anoTwyejsyCARTWE1174-20-36 21:47:00 Test Item Value Reference Range Interpretation Comments LDL (Calculated) (test code = LDL 136 (Calculated)) [facility] BUTJJXEYI1998-50-30 21:47:00 Test Item Value Reference Range Interpretation Comments Hgb A1C (test code = Hgb A1C) 7.6 [facility]anoXnbjbsbEWFUER8392-46-67 21:47:00 Test Item Value Reference Range Interpretation Comments CHD Risk (test code = CHD Risk) 5.61 3.90-5.80 [facility]anoVdrwimcUVKYNR7667-69-49 21:47:00 Test Item Value Reference Range Interpretation Comments Chol (test code = Chol) 213 [facility]anoTzapsnaFKLSFD9166-61-18 21:47:00 Test Item Value Reference Range Interpretation Comments HDL (test code = HDL) 38 [facility]anoHtdatyaERLNVH5420-14-61 21:47:00 Test Item Value Reference Range Interpretation Comments VLDL (test code = VLDL) 39 [facility]anoHlcnpqeGERREC3642-33-34 21:47:00 Test Item Value Reference Range Interpretation Comments Trig (test code = Trig) 194 [facility]anoGltscvmUZNORU6595-16-76 21:47:00 Test Item Value Reference Range Interpretation Comments LDL (Calculated) (test code = LDL 136 (Calculated)) [facility] GGQWFYTVA5304-76-68 21:47:00 Test Item Value Reference Range Interpretation Comments Hgb A1C (test code = Hgb A1C) 7.6 [facility]anoFbdgaasPVPCJM5306-67-84 21:47:00 Test Item Value Reference Range Interpretation Comments CHD Risk (test code = CHD Risk) 5.61 3.90-5.80 [facility]anoUuuiwllZDJWTQ3506-87-72 21:47:00 Test Item Value Reference Range Interpretation Comments Chol (test code = Chol) 213 [facility] UgwwtjoFHDGKK0726-55-64 21:47:00 Test Item Value Reference Range Interpretation Comments HDL (test code = HDL) 38 [facility] YqqfrwhYQNNVJ8751-31-65 21:47:00 Test Item Value Reference Range Interpretation Comments VLDL (test code = VLDL) 39 [facility] TodeqmbUYOGOD0242-33-29 21:47:00 Test Item Value Reference Range Interpretation Comments Trig (test code = Trig) 194 [facility]IuelrndYOJIGI6920-43-77 21:47:00 Test Item Value Reference Range Interpretation Comments LDL (Calculated) (test code = LDL 136 (Calculated)) [facility] PPNIFOIUA5174-90-52 21:47:00 Test Item Value Reference Range Interpretation Comments Hgb A1C (test code = Hgb A1C) 7.6 [facility] AND [id number] 15:44:22 Test Item Value Reference Range Interpretation Comments Micro? (test code = Performed (10/23/16 9:44 Micro?) AM) [facility] AND [id number] 15:44:22 Test Item Value Reference Range Interpretation Comments UA RBC (test None Seen See_Comment [Automated mes maik] code = UA RBC) (10/23/16 9:44 AM) [employer] which generated this result transmitted ref erence range: <=2. The reference range was not used to int erpret this result as normal/abnormal . [facility] AND [id number] 15:44:22 Test Item Value Reference Range Interpretation Comments UA WBC (test code = UA WBC) 3-5 /HPF [facility] AND [id number] 15:44:22 Test Item Value Reference Range Interpretation Comments UA Sq Epi (test code = UA Sq Epi) Few /LPF [facility] [id number] 15:44:22 Test Item Value Reference Range Interpretation Comments UA Bacteria (test code = UA Occasional /HPF Bacteria) [facility] [id number] 15:44:22 Test Item Value Reference Range Interpretation Comments UA Leuk Est (test code Trace *ABN*(10/23/16 9:44 = UA Leuk Est) AM) [facility] [id number] 15:44:22 Test Item Value Reference Range Interpretation Comments UA Nitrite (test code Negative (10/23/16 9:44 = UA Nitrite) AM) [facility] AND [id number] 15:44:22 Test Item Value Reference Range Interpretation Comments UA Protein (test code Negative (10/23/16 9:44 = UA Protein) AM) [facility] AND [id number] 15:44:22 Test Item Value Reference Range Interpretation Comments UA pH (test code = UA pH) 5.5 1 5.0-8.0 [facility] AND [id number] 15:44:22 Test Item Value Reference Range Interpretation Comments UA Ketones (test code Negative *NA*(10/23/16 = UA Ketones) 9:44 AM) [facility] AND [id number] 15:44:22 Test Item Value Reference Range Interpretation Comments UA Bili (test code = Negative *NA*(10/23/16 UA Bili) 9:44 AM) [facility] AND [id number] 15:44:22 Test Item Value Reference Range Interpretation Comments UA Glucose (test code Negative (10/23/16 9:44 = UA Glucose) AM) [facility] AND [id number] 15:44:22 Test Item Value Reference Range Interpretation Comments UA Color (test code = Yellow *NA*(10/23/16 9:44 UA Color) AM) [facility] AND [id number] 15:44:22 Test Item Value Reference Range Interpretation Comments UA Turbidity (test code = Clear (10/23/16 9:44 UA Turbidity) AM) [facility] AND [id number] 15:44:22 Test Item Value Reference Range Interpretation Comments UA Spec Grav (test code = UA Spec 1.020 1 Grav) [facility] AND [id number] 15:44:22 Test Item Value Reference Range Interpretation Comments UA Urobilinogen (test code = UA 0.2 0.1-1.0 Urobilinogen) [facility] AND [id number] 15:44:22 Test Item Value Reference Range Interpretation Comments UA Blood (test code = Negative (10/23/16 9:44 UA Blood) AM) [facility] AND [id number] 15:44:22 Test Item Value Reference Range Interpretation Comments Micro? (test code = Performed (10/23/16 9:44 Micro?) AM) [facility] AND [id number] 15:44:22 Test Item Value Reference Range Interpretation Comments UA RBC (test None Seen See_Comment [Automated mes maik] code = UA RBC) (10/23/16 9:44 AM) [employer] which generated this result transmitted ref erence range: <=2. The reference range was not used to int erpret this result as normal/abnormal . [facility] AND [id number] 15:44:22 Test Item Value Reference Range Interpretation Comments UA WBC (test code = UA WBC) 3-5 /HPF [facility] AND [id number] 15:44:22 Test Item Value Reference Range Interpretation Comments UA Sq Epi (test code = UA Sq Epi) Few /LPF [facility] AND [id number] 15:44:22 Test Item Value Reference Range Interpretation Comments UA Bacteria (test code = UA Occasional /HPF Bacteria) [facility] AND [id number] 15:44:22 Test Item Value Reference Range Interpretation Comments UA Leuk Est (test code Trace *ABN*(10/23/16 9:44 = UA Leuk Est) AM) [facility] AND [id number] 15:44:22 Test Item Value Reference Range Interpretation Comments UA Nitrite (test code Negative (10/23/16 9:44 = UA Nitrite) AM) [facility] AND [id number] 15:44:22 Test Item Value Reference Range Interpretation Comments UA Protein (test code Negative (10/23/16 9:44 = UA Protein) AM) [facility] AND [id number] 15:44:22 Test Item Value Reference Range Interpretation Comments UA pH (test code = UA pH) 5.5 1 5.0-8.0 [facility] AND [id number] 15:44:22 Test Item Value Reference Range Interpretation Comments UA Ketones (test code Negative *NA*(10/23/16 = UA Ketones) 9:44 AM) [facility] AND [id number] 15:44:22 Test Item Value Reference Range Interpretation Comments UA Bili (test code = Negative *NA*(10/23/16 UA Bili) 9:44 AM) [facility] AND [id number] 15:44:22 Test Item Value Reference Range Interpretation Comments UA Glucose (test code Negative (10/23/16 9:44 = UA Glucose) AM) [facility] AND [id number] 15:44:22 Test Item Value Reference Range Interpretation Comments UA Color (test code = Yellow *NA*(10/23/16 9:44 UA Color) AM) [facility] AND [id number] 15:44:22 Test Item Value Reference Range Interpretation Comments UA Turbidity (test code = Clear (10/23/16 9:44 UA Turbidity) AM) [facility] AND [id number] 15:44:22 Test Item Value Reference Range Interpretation Comments UA Spec Grav (test code = UA Spec 1.020 1 Grav) [facility] AND [id number] 15:44:22 Test Item Value Reference Range Interpretation Comments UA Urobilinogen (test code = UA 0.2 0.1-1.0 Urobilinogen) [facility] AND [id number] 15:44:22 Test Item Value Reference Range Interpretation Comments UA Blood (test code = Negative (10/23/16 9:44 UA Blood) AM) [facility] AND [id number] 15:44:22 Test Item Value Reference Range Interpretation Comments Micro? (test code = Performed (10/23/16 9:44 Micro?) AM) [facility] AND [id number] 15:44:22 Test Item Value Reference Range Interpretation Comments UA RBC (test None Seen See_Comment [Automated mes maik] code = UA RBC) (10/23/16 9:44 AM) The syste m which generated this result transmitted ref erence range: <=2. The reference range was not used to int erpret this result as normal/abnormal . [facility] AND [id number] 15:44:22 Test Item Value Reference Range Interpretation Comments UA WBC (test code = UA WBC) 3-5 /HPF [facility] AND [id number] 15:44:22 Test Item Value Reference Range Interpretation Comments UA Sq Epi (test code = UA Sq Epi) Few /LPF [facility] AND [id number] 15:44:22 Test Item Value Reference Range Interpretation Comments UA Bacteria (test code = UA Occasional /HPF Bacteria) [facility] AND [id number] 15:44:22 Test Item Value Reference Range Interpretation Comments UA Leuk Est (test code Trace *ABN*(10/23/16 9:44 = UA Leuk Est) AM) [facility] AND [id number] 15:44:22 Test Item Value Reference Range Interpretation Comments UA Nitrite (test code Negative (10/23/16 9:44 = UA Nitrite) AM) [facility] AND [id number] 15:44:22 Test Item Value Reference Range Interpretation Comments UA Protein (test code Negative (10/23/16 9:44 = UA Protein) AM) [facility] AND [id number] 15:44:22 Test Item Value Reference Range Interpretation Comments UA pH (test code = UA pH) 5.5 1 5.0-8.0 [facility] AND [id number] 15:44:22 Test Item Value Reference Range Interpretation Comments UA Ketones (test code Negative *NA*(10/23/16 = UA Ketones) 9:44 AM) [facility] AND [id number] 15:44:22 Test Item Value Reference Range Interpretation Comments UA Bili (test code = Negative *NA*(10/23/16 UA Bili) 9:44 AM) [facility] AND [id number] 15:44:22 Test Item Value Reference Range Interpretation Comments UA Glucose (test code Negative (10/23/16 9:44 = UA Glucose) AM) [facility] AND [id number] 15:44:22 Test Item Value Reference Range Interpretation Comments UA Color (test code = Yellow *NA*(10/23/16 9:44 UA Color) AM) [facility] AND [id number] 15:44:22 Test Item Value Reference Range Interpretation Comments UA Turbidity (test code = Clear (10/23/16 9:44 UA Turbidity) AM) [facility] AND [id number] 15:44:22 Test Item Value Reference Range Interpretation Comments UA Spec Grav (test code = UA Spec 1.020 1 Grav) [facility] AND [id number] 15:44:22 Test Item Value Reference Range Interpretation Comments UA Urobilinogen (test code = UA 0.2 0.1-1.0 Urobilinogen) [facility] AND [id number] 15:44:22 Test Item Value Reference Range Interpretation Comments UA Blood (test code = Negative (10/23/16 9:44 UA Blood) AM) [facility] AND [id number] 15:44:22 Test Item Value Reference Range Interpretation Comments Micro? (test code = Performed (10/23/16 9:44 Micro?) AM) [facility] AND [id number] 15:44:22 Test Item Value Reference Range Interpretation Comments UA RBC (test None Seen See_Comment [Automated mes maik] code = UA RBC) (10/23/16 9:44 AM) [employer] which generated this result transmitted ref erence range: <=2. The reference range was not used to int erpret this result as normal/abnormal . [facility] AND [id number] 15:44:22 Test Item Value Reference Range Interpretation Comments UA WBC (test code = UA WBC) 3-5 /HPF [facility] AND [id number] 15:44:22 Test Item Value Reference Range Interpretation Comments UA Sq Epi (test code = UA Sq Epi) Few /LPF [facility] AND [id number] 15:44:22 Test Item Value Reference Range Interpretation Comments UA Bacteria (test code = UA Occasional /HPF Bacteria) [facility] [facility] AND [id number] 15:44:22 Test Item Value Reference Range Interpretation Comments UA Leuk Est (test code Trace *ABN*(10/23/16 9:44 = UA Leuk Est) AM) [facility] AND [id number] 15:44:22 Test Item Value Reference Range Interpretation Comments UA Nitrite (test code Negative (10/23/16 9:44 = UA Nitrite) AM) [facility] AND [id number] 15:44:22 Test Item Value Reference Range Interpretation Comments UA Protein (test code Negative (10/23/16 9:44 = UA Protein) AM) [facility] AND [id number] 15:44:22 Test Item Value Reference Range Interpretation Comments UA pH (test code = UA pH) 5.5 1 5.0-8.0 [facility] AND [id number] 15:44:22 Test Item Value Reference Range Interpretation Comments UA Ketones (test code Negative *NA*(10/23/16 = UA Ketones) 9:44 AM) [facility] AND [id number] 15:44:22 Test Item Value Reference Range Interpretation Comments UA Bili (test code = Negative *NA*(10/23/16 UA Bili) 9:44 AM) [facility] AND [id number] 15:44:22 Test Item Value Reference Range Interpretation Comments UA Glucose (test code Negative (10/23/16 9:44 = UA Glucose) AM) [facility] AND [id number] 15:44:22 Test Item Value Reference Range Interpretation Comments UA Color (test code = Yellow *NA*(10/23/16 9:44 UA Color) AM) [facility] AND [id number] 15:44:22 Test Item Value Reference Range Interpretation Comments UA Turbidity (test code = Clear (10/23/16 9:44 UA Turbidity) AM) [facility] AND [id number] 15:44:22 Test Item Value Reference Range Interpretation Comments UA Spec Grav (test code = UA Spec 1.020 1 Grav) [facility] AND [id number] 15:44:22 Test Item Value Reference Range Interpretation Comments UA Urobilinogen (test code = UA 0.2 0.1-1.0 Urobilinogen) [facility] AND [id number] 15:44:22 Test Item Value Reference Range Interpretation Comments UA Blood (test code = Negative (10/23/16 9:44 UA Blood) AM) [facility] [id number] 14:41:00 Test Item Value Reference Range Interpretation Comments eGFR (test code = eGFR) 46 [facility] [id number] 14:41:00 Test Item Value Reference Range Interpretation Comments POC Creatinine (test code = POC 1.2 0.5-1.4 Creatinine) [facility] [id number] 14:41:00 Test Item Value Reference Range Interpretation Comments eGFR (test code = eGFR) 46 [facility] [id number] 14:41:00 Test Item Value Reference Range Interpretation Comments POC Creatinine (test code = POC 1.2 0.5-1.4 Creatinine) [facility] [id number] 14:41:00 Test Item Value Reference Range Interpretation Comments eGFR (test code = eGFR) 46 [facility] [id number] 14:41:00 Test Item Value Reference Range Interpretation Comments POC Creatinine (test code = POC 1.2 0.5-1.4 Creatinine) [facility] [id number] 14:41:00 Test Item Value Reference Range Interpretation Comments eGFR (test code = eGFR) 46 [facility] [id number] 14:41:00 Test Item Value Reference Range Interpretation Comments POC Creatinine (test code = POC 1.2 0.5-1.4 Creatinine) [facility] CampusNevo EnergyAC [id number] 14:20:00 Test Item Value Reference Range Interpretation Comments Troponin-I (test code no gt See_Comment [Auto mated message] The = Troponin-I) system which g enerated this result transmit cynthia reference range : <=0.40. The reference r angelic was not used to interpr et this result as kandace l/abnormal. [facility] CampusOrthohub [id number] 14:20:00 Test Item Value Reference Range Interpretation Comments CK MB (test code = CK MB) 0.7 0.5-3.6 [id number] 14:20:00 Test Item Value Reference Range Interpretation Comments AGAP (test code = AGAP) 12.2 10.0-20.0 [id number] 14:20:00 Test Item Value Reference Range Interpretation Comments eGFR (test code = eGFR) 62 [facility] Children[id number] 14:20:00 Test Item Value Reference Range Interpretation Comments BUN (test code = BUN) 16 7-22 [facility] ChildrenTiowreiCJNZZFGMBUEL3528-82-98 14:20:00 Test Item Value Reference Range Interpretation Comments Potassium Lvl (test code = Potassium 4.2 3.5-5.1 Lvl) [facility] ChildrenOtkwufkCZUNGMKFYWGI6745-38-87 14:20:00 Test Item Value Reference Range Interpretation Comments Glucose Lvl (test code = Glucose Lvl) 224 70-99 [facility] CenterKhunsknNVPHGUILCKLG0920-56-07 14:20:00 Test Item Value Reference Range Interpretation Comments Creatinine Lvl (test code = Creatinine 0.94 0.50-1.40 Lvl) [facility] CenterFfjazefIRJWHGCJBUJV6740-99-13 14:20:00 Test Item Value Reference Range Interpretation Comments Sodium Lvl (test code = Sodium Lvl) 137 135-145 [facility] CenterSktgzyoUCUKFFUZPFVY4894-36-52 14:20:00 Test Item Value Reference Range Interpretation Comments Calcium Lvl (test code = Calcium Lvl) 8.4 8.5-10.5 [facility] CenterDtyvghsKUKYNEUELQFP6515-24-69 14:20:00 Test Item Value Reference Range Interpretation Comments Chloride Lvl (test code = Chloride Lvl) 103 95-109 [facility] CenterYrsturdSPFLYVQGZIOB9645-58-41 14:20:00 Test Item Value Reference Range Interpretation Comments CO2 (test code = CO2) 26 24-32 [facility]BohkgprOOSCQFLGNZ6209-47-85 14:20:00 Test Item Value Reference Range Interpretation Comments PTT (test code = PTT) 26.9 s 22.9-35.8 [facility] CenterOczibsvJKIOXVGZSJ3282-88-61 14:20:00 Test Item Value Reference Range Interpretation Comments INR (test code = INR) 1.03 0.85-1.17 [facility] CenterSkxapqrRKVJIGLDZP5516-68-75 14:20:00 Test Item Value Reference Range Interpretation Comments PT (test code = PT) 13.7 s 12.0-14.7 [facility] [id number] 14:20:00 Test Item Value Reference Range Interpretation Comments Troponin-I (test code no gt See_Comment [Auto mated message] The = Troponin-I) system which g enerated this result transmit cynthia reference range : <=0.40. The reference r angelic was not used to interpr et this result as kandace l/abnormal. [facility] [id number] 14:20:00 Test Item Value Reference Range Interpretation Comments CK MB (test code = CK MB) 0.7 0.5-3.6 [facility] CenterHopqyvjUMVOVQFGVJAR7399-76-02 14:20:00 Test Item Value Reference Range Interpretation Comments AGAP (test code = AGAP) 12.2 10.0-20.0 [facility] CenterPnhoujiYHFWCHUCXRHN4785-19-49 14:20:00 Test Item Value Reference Range Interpretation Comments eGFR (test code = eGFR) 62 [facility] CenterWqqnbeiUTXBCDXLEMIP1389-27-41 14:20:00 Test Item Value Reference Range Interpretation Comments BUN (test code = BUN) 16 7-22 [facility] CenterOhxbbemAZKMAELQWAYY3337-68-70 14:20:00 Test Item Value Reference Range Interpretation Comments Potassium Lvl (test code = Potassium 4.2 3.5-5.1 Lvl) [facility] CenterJrazeiqUZTQTQAQMTUH5426-21-93 14:20:00 Test Item Value Reference Range Interpretation Comments Glucose Lvl (test code = Glucose Lvl) 224 70-99 [facility] CenterNfrdsbhMERQEVZRHRIP0398-49-75 14:20:00 Test Item Value Reference Range Interpretation Comments Creatinine Lvl (test code = Creatinine 0.94 0.50-1.40 Lvl) [facility] CenterCnyjekiZMPMACZNONEM3321-56-65 14:20:00 Test Item Value Reference Range Interpretation Comments Sodium Lvl (test code = Sodium Lvl) 137 135-145 [facility] CenterEzyfgsdVANDQFJSGBFP8286-65-09 14:20:00 Test Item Value Reference Range Interpretation Comments Calcium Lvl (test code = Calcium Lvl) 8.4 8.5-10.5 [facility] CenterBbpwzvkXWVOFJEUYQKS8987-54-44 14:20:00 Test Item Value Reference Range Interpretation Comments Chloride Lvl (test code = Chloride Lvl) 103 95-109 [facility] CenterRtlkbjxACCBGPJSELNK6230-25-68 14:20:00 Test Item Value Reference Range Interpretation Comments CO2 (test code = CO2) 26 24-32 [facility]WyiluxjLRXIEVONXT9091-20-75 14:20:00 Test Item Value Reference Range Interpretation Comments PTT (test code = PTT) 26.9 s 22.9-35.8 [facility] HospitalVvshablINTTGFCUDM0873-10-97 14:20:00 Test Item Value Reference Range Interpretation Comments INR (test code = INR) 1.03 0.85-1.17 [facility] HospitalPdvdvxkKBDMJTMAES9234-94-97 14:20:00 Test Item Value Reference Range Interpretation Comments PT (test code = PT) 13.7 s 12.0-14.7 [facility] CampusCARDIAC [id number] 14:20:00 Test Item Value Reference Range Interpretation Comments Troponin-I (test code no gt See_Comment [Auto mated message] The = Troponin-I) system which g enerated this result transmit cynthia reference range : <=0.40. The reference r angelic was not used to interpr et this result as kandace l/abnormal. [facility] CampusCARDIAC [id number] 14:20:00 Test Item Value Reference Range Interpretation Comments CK MB (test code = CK MB) 0.7 0.5-3.6 [facility] CenterMeddiidLFSLXRLAVHBS8517-31-72 14:20:00 Test Item Value Reference Range Interpretation Comments AGAP (test code = AGAP) 12.2 10.0-20.0 [facility] CenterVnbaadlMWXQHUQKNDEE9420-98-87 14:20:00 Test Item Value Reference Range Interpretation Comments eGFR (test code = eGFR) 62 [facility] CenterUijmmxiHPDQPIWFOHZG6574-90-85 14:20:00 Test Item Value Reference Range Interpretation Comments BUN (test code = BUN) 16 7-22 [facility] CenterHkjoruvZHLGBWRZXDXT2700-76-76 14:20:00 Test Item Value Reference Range Interpretation Comments Potassium Lvl (test code = Potassium 4.2 3.5-5.1 Lvl) [facility] CenterPxswmcnDGVCWWLLGVZL1349-77-14 14:20:00 Test Item Value Reference Range Interpretation Comments Glucose Lvl (test code = Glucose Lvl) 224 70-99 [facility] CenterLpnlmqbVAQJZBOFUGPB6412-21-33 14:20:00 Test Item Value Reference Range Interpretation Comments Creatinine Lvl (test code = Creatinine 0.94 0.50-1.40 Lvl) [facility] CenterJlcxxttYJJBHPYZPFVK4075-37-45 14:20:00 Test Item Value Reference Range Interpretation Comments Sodium Lvl (test code = Sodium Lvl) 137 135-145 [facility] CenterXbihfisALPZKVFXQRMW4828-12-84 14:20:00 Test Item Value Reference Range Interpretation Comments Calcium Lvl (test code = Calcium Lvl) 8.4 8.5-10.5 [facility] CenterUbvlqooFUVVZVXHEMRT8484-23-75 14:20:00 Test Item Value Reference Range Interpretation Comments Chloride Lvl (test code = Chloride Lvl) 103 95-109 [facility] CenterObuxwulSUFKWTEIEMBO6343-67-28 14:20:00 Test Item Value Reference Range Interpretation Comments CO2 (test code = CO2) 26 24-32 [facility] HospitalJnlecpyUKBCBKQEKX0908-96-02 14:20:00 Test Item Value Reference Range Interpretation Comments PTT (test code = PTT) 26.9 s 22.9-35.8 [facility] HospitalYgxvpxhYNXJYNEZAQ8555-87-42 14:20:00 Test Item Value Reference Range Interpretation Comments INR (test code = INR) 1.03 0.85-1.17 [facility] CenterJxaocqkVLOXWDFZCO5521-96-28 14:20:00 Test Item Value Reference Range Interpretation Comments PT (test code = PT) 13.7 s 12.0-14.7 [facility] [id number] 14:20:00 Test Item Value Reference Range Interpretation Comments Troponin-I (test code no gt See_Comment [Auto mated message] The = Troponin-I) system which g enerated this result transmit cynthia reference range : <=0.40. The reference r angelic was not used to interpr et this result as kandace l/abnormal. [facility] [id number] 14:20:00 Test Item Value Reference Range Interpretation Comments CK MB (test code = CK MB) 0.7 0.5-3.6 [facility] CenterCajfsgjUCCIQFLLUOYE1708-25-59 14:20:00 Test Item Value Reference Range Interpretation Comments AGAP (test code = AGAP) 12.2 10.0-20.0 [facility] CenterBjgtfegYWKMLKOXWBEI0972-14-63 14:20:00 Test Item Value Reference Range Interpretation Comments eGFR (test code = eGFR) 62 [facility] CenterUecdebpZMYCMTZPSPML7275-40-16 14:20:00 Test Item Value Reference Range Interpretation Comments BUN (test code = BUN) 16 7-22 [facility] CenterCmmigltTDRJJIRFAHIW7098-03-24 14:20:00 Test Item Value Reference Range Interpretation Comments Potassium Lvl (test code = Potassium 4.2 3.5-5.1 Lvl) [facility] CenterJepweuqGZLIWUFLUDWZ3445-94-12 14:20:00 Test Item Value Reference Range Interpretation Comments Glucose Lvl (test code = Glucose Lvl) 224 70-99 [facility] CenterOkerdubMDIPJKNYYGEQ0967-95-40 14:20:00 Test Item Value Reference Range Interpretation Comments Creatinine Lvl (test code = Creatinine 0.94 0.50-1.40 Lvl) [facility] CenterElnbkaiWHJWWUQDIZHQ2350-15-53 14:20:00 Test Item Value Reference Range Interpretation Comments Sodium Lvl (test code = Sodium Lvl) 137 135-145 [facility] CenterZjfpivcJSWOORFSBHYG6825-44-50 14:20:00 Test Item Value Reference Range Interpretation Comments Calcium Lvl (test code = Calcium Lvl) 8.4 8.5-10.5 [facility] CenterZpfrcxsGLKQSGNXIGPA9165-20-26 14:20:00 Test Item Value Reference Range Interpretation Comments Chloride Lvl (test code = Chloride Lvl) 103 95-109 [facility] CenterUschbluILUUHISNHXUG9468-10-64 14:20:00 Test Item Value Reference Range Interpretation Comments CO2 (test code = CO2) 26 24-32 [facility] CenterAikirkpRLISOMMDDG0238-77-42 14:20:00 Test Item Value Reference Range Interpretation Comments PTT (test code = PTT) 26.9 s 22.9-35.8 [facility] CenterAedqfapECSXQYOQYX6659-29-76 14:20:00 Test Item Value Reference Range Interpretation Comments INR (test code = INR) 1.03 0.85-1.17 [facility] CenterCuymnajDZYPTLJYYV7711-88-44 14:20:00 Test Item Value Reference Range Interpretation Comments PT (test code = PT) 13.7 s 12.0-14.7 [facility] Electrocardiogram [facility] [address] [place] [address] Patient Name: Sendy Martinez Medical Record#: [id number] Address: [address] [place] [address] City/State/Zip: [place] [address]: Traci Lawrence Insurance: [employer] Medicare ADV /Age/Sex: 1945/76/F Self Pay Admit/Reg Date: 08/02/[address]: Traci Benavidez MD [facility]: Daniela Lara MD Date of Service: 08/02/21 Order (s): EKG Electrocardiogram CPT Code: 15618 Report Number: [id number] Reason for Exam: pre cardiac cath Sinus rhythm Summary: Normal ECG Dictated By: Rah Hatch MD 08/02/21639 Signed By:Rah Hatch MD 08/02/21740 TD/TT: 08/02/21639 Tech: [facility] cc: [id number]; KIERSTEN Lara MD; Traci Benavidez MD
--- NOTE | 2022-12-12 13:42 | EDPHYS ---
Physician Documentation [facility] Name: Sendy Martinez Age: 77 yrs Sex: Female : 1945 Arrival Date: 12/12/2022 Time: 13:24 Bed IW3 Private MD: ED Physician Bala Rojas HPI: 12/12 13:40 This 77 yrs old Female presents to ER via Ambulatory with complaints of Breast kb Swelling, Under Arm Pain. 13:40 The patient presents with an abscess of the right axilla and right breast. Description: kb erythematous, swollen, warm. Onset: The symptoms/episode began/occurred 1 week(s) ago. Possible cause(s): unknown. Associated signs and symptoms: Pertinent positives: erythema, swelling, Pertinent negatives: discharge, drainage, fever. Modifying factors: the symptoms are alleviated by nothing, the symptoms are aggravated by movement, pressure, squeezing the lesion and expressing the contents, touching. Severity of symptoms: At their worst the symptoms were moderate, in the emergency department the symptoms are unchanged. The patient has not experienced similar symptoms in the past. The patient has not recently seen a physician. Historical: - Allergies: 13:29 Codeine (Upset stomach); hb - PMHx: 13:29 Diabetes - IDDM; DVT; Hypertension; PE; Thyroid problem; hb ROS: 13:39 Constitutional: Negative for fever, chills, and weight loss. kb 13:39 Skin: Positive for abscess, cellulitis, of the right breast and right axilla. 13:39 All other systems are negative. Exam: 13:39 Constitutional: This is a well developed, well nourished patient who is awake, alert, kb and in no acute distress. Head/Face: Normocephalic, atraumatic. ENT: Moist Mucous membranes Cardiovascular: Regular rate and rhythm with a normal S1 and S2. No gallops, murmurs, or rubs. No pulse deficits. Respiratory: Respirations even and unlabored. No increased work of breathing. Talking in full sentences Abdomen/GI: Soft, non-tender. No distention MS/ Extremity: Pulses equal, no cyanosis. Neurovascular intact. Full, normal range of motion. Neuro: Awake and alert, GCS 15, oriented to person, place, time, and situation. Moves all extremities. Normal gait. 13:39 Skin: abscess, that is small, of the right axilla and right breast, with induration, with surrounding cellulitis, that is very mild. Vital Signs: 13:28 BP 155 / 90; Pulse 105; Resp 18; Temp 97.7; Pulse Ox 100% on R/A; Weight 108.86 kg; hb Height 5 ft. 6 in. ; Pain 7/10; 13:28 Body Mass Index 38.74 (108.86 kg, 167.64 cm) hb 13:28 Pain Scale: Adult hb MDM: 13:36 Patient medically screened. kb 13:37 Differential diagnosis:. Data reviewed: vital signs, nurses notes. Counseling: I had a kb detailed discussion with the patient and/or guardian regarding: the historical points, exam findings, and any diagnostic results supporting the discharge/admit diagnosis, the need for outpatient follow up, a family practitioner, a general surgeon, to return to the emergency department if symptoms worsen or persist or if there are any questions or concerns that arise at home. ED course: Pt has 5 small abscesses with induration, no fluctuance to right axilla and one with mild surrounding cellulitis to right lateral breast (9 o'clock). No drainage abscess on palpation. Will prescribe oral antibiotics. Pt educated on warm compresses and return precautions. Educated to follow up with general surgery/PCP.. 13:39 Differential diagnosis: abscess, allergic reaction, cellulitis, insect bite. Test kb considered but Not performed: Labs: serum labs considered, but pt has been afebrile, nontoxic in appearance with no symptoms of systemic infection. Administered Medications: 14:04 Drug: Trimethoprim-Sulfamethoxazole PO (160 mg-800 mg (DS) 1 tablet Route: PO; hb 14:04 Drug: Cephalexin PO 500 mg Route: PO; hb Disposition: 14:47 Co-signature as Attending Physician, Bala Rojas MD I reviewed the patient's care rt provided by the Advanced Practice Provider and agree with the diagnosis and treatment plan. Disposition Summary: 12/12/22 13:42 Discharge Ordered Location: Home kb Condition: Stable kb Diagnosis - Cutaneous abscess of right axilla kb - Cutaneous abscess of right breast kb Followup: kb - With: Emergency Department - When: As needed - Reason: Worsening of condition Followup: kb - With: Private Physician - When: 2 - 3 days - Reason: Recheck today's complaints, Continuance of care, Re-evaluation by your physician Discharge Instructions: - Discharge Summary Sheet kb - Skin Abscess, Kwkw-jj-Xyjl kb Forms: - Medication Reconciliation Form kb - Thank You Letter kb - Antibiotic Education kb - Prescription Opioid Use kb Prescriptions: - Cephalexin 500 mg Oral Capsule - take 1 capsule by ORAL route every 8 hours for 10 days; 30 capsule; Refills: 0, kb Product Selection Permitted - Bactrim DS 800-160 mg Oral Tablet - take 1 tablet by ORAL route every 12 hours for 10 days; 20 tablet; Refills: 0, kb Product Selection Permitted Signatures: Kellie Lovelace, Karyn Sweeney RN RN Bala Rojas MD MD rt
--- NOTE | 2022-12-12 13:42 | ER ---
Nurse's Notes [facility] Name: Sendy Martinez Age: 77 yrs Sex: Female : 1945 Arrival Date: 12/12/2022 Time: 13:24 Bed IW3 Private MD: Diagnosis: Cutaneous abscess of right axilla;Cutaneous abscess of right breast Presentation: 12/12 13:28 Chief complaint: Multiple abscesses under right arm and redness and swelling under hb right breast x 1 week. Coronavirus screen: At this time, the client does not indicate any symptoms associated with coronavirus-19. Ebola Screen: No symptoms or risks identified at this time. Initial Sepsis Screen: Does the patient meet any 2 criteria? No. Patient's initial sepsis screen is negative. Does the patient have a suspected source of infection? No. Patient's initial sepsis screen is negative. Risk Assessment: Do you want to hurt yourself or someone else? Patient reports no desire to harm self or others. Onset of symptoms was December 06, 2022. 13:28 Method Of Arrival: Ambulatory hb 13:28 Acuity: DOMINGO 4 hb Historical: - Allergies: 13:29 Codeine (Upset stomach); hb - PMHx: 13:29 Diabetes - IDDM; DVT; Hypertension; PE; Thyroid problem; hb Vital Signs: 13:28 BP 155 / 90; Pulse 105; Resp 18; Temp 97.7; Pulse Ox 100% on R/A; Weight 108.86 kg; hb Height 5 ft. 6 in. ; Pain 7/10; 13:28 Body Mass Index 38.74 (108.86 kg, 167.64 cm) hb 13:28 Pain Scale: Adult hb ED Course: 13:24 Patient arrived in ED. rg4 13:28 Kellie Lovelace FNP-C [facility]. kb 13:28 Bala Rojas MD is Attending Physician. kb 13:29 Triage completed. hb 13:29 Arm band placed on. hb Administered Medications: 14:04 Drug: Trimethoprim-Sulfamethoxazole PO (160 mg-800 mg (DS) 1 tablet Route: PO; hb 14:04 Drug: Cephalexin PO 500 mg Route: PO; hb Outcome: 13:42 Discharge ordered by . kb 14:05 Patient left the ED. hb Signatures: Radu, YAS Hopkins Heather, RN RN Reema Smith rg4 Corrections: (The following items were deleted from the chart) : 13:28 Acuity: DOMINGO 4 hb hb :33 13:28 Acuity: DOMINGO 3 hb hb
[2022-12-12] MEDS ORDERED: CEPHALEXIN 250 MG CAP ONE (14:04)
[2022-12-12] MEDS ORDERED: SMZ./TMP. 800/160 MG TABLET ONE (14:05)
== END 2022-12-12 14:05 | disposition home or self-care (01) ==
LOC: ER 13:21
DX: L02.411 Cutaneous abscess of right axilla (principal); N61.1 Abscess of the breast and nipple
CPT/HCPCS: 99282

== ENCOUNTER 2024-09-16 09:50 | Emergency (ER) | payer OTHER ==
[2024-09-16] MEDS ORDERED: ONDANSETRON 4 MG/2 ML VIAL ONE (10:22)
[2024-09-16] MEDS ORDERED: KETOROLAC 30 MG/ML INJ ONE (10:22)
[2024-09-16 10:38] LABS: Absolute Monocytes 0.4 K/uL (0.1-1.3); Absolute Neutrophil 2.3 K/uL (1.8-8.0); Basophils % 0.5 % (0-1.3); Eosinophils % 0.2 % (0-4.4); Hematocrit 36.1 % (36.0-45.0); Hemoglobin 11.9 g/dL (12.0-15.0); Lymphocytes % 42.1 % (15.3-44.8); MCH 28.9 pg (27.0-35.0); MCV 87.4 fL (80-100); MPV 8.6 fL (7.6-11.3); Monocytes % 8.5 % (3.3-12.3); Neutrophils % 48.7 % (41.7-73.7); Nucleated Red Blood Cells % 0.1 % (0-0); Platelets 127 thou/uL (152-406); RBC Red Blood Cell Count 4.13 M/uL (3.86-4.86); Red Cell Distribution Width 18.9 % (12.1-15.2)
[2024-09-16 10:44] LABS: Specific Gravity 1.017 (1.005-1.030); Sqamous Epithelial <5 /HPF (None Seen); Urine Bacteria 20-50 /HPF (<20); Urine Bilirubin NEGATIVE (Negative); Urine Blood Negative (Negative); Urine Clarity Extremely Turbid (Clear); Urine Color Light-Yellow (Yellow); Urine Culture Reflex Order REFLEXED; Urine Glucose NEGATIVE (Negative); Urine Ketones NEGATIVE (Negative); Urine Micro Reflex YN NO BILL MICROSCOPIC; Urine Mucus Slight /HPF (None Seen); Urine Nitrite NEGATIVE (Negative); Urine Protein NEGATIVE (Negative); Urine RBC <5 /HPF (None Seen); Urine Urobilinogen Normal (Normal)
[2024-09-16 10:55] LABS: Albumin 3.4 g/dL (3.4-5.0); Albumin/Globulin Ratio 0.9 (1.1-1.8); Anion Gap 7.9 mEq/L (5.0-15.0); Bilirubin Total 0.5 mg/dL (0.2-1.0); Globulin 3.8 g/dL (2.3-3.5); Potassium 3.9 mEq/L (3.5-5.1); Protein, Total 7.2 g/dL (6.4-8.2)
[2024-09-16] MEDS ORDERED: CEFTRIAXONE 1000 MG/VIAL ONE (11:23)
--- NOTE | 2024-09-16 11:33 | RAD REPORT ---
EXAMINATION: CT ABDOMEN AND PELVIS WITH CONTRAST CLINICAL INDICATION: Female, 79 years old.rlq abd pain;Abd pain TECHNIQUE: CT abdomen and pelvis was performed, after the administration of IV contrast, as per [facility] protocol. Axial, sagittal and coronal reconstructions were obtained. One or more of the following dose reduction techniques were used: Automated exposure control, adjustment of the mA and/o r kV according to patient size, and/or iterative reconstruction. Unless otherwise specified, incidental findings do not require dedicated imaging follow-up. [id number]. COMPARISON: 08/05/2020 FINDINGS: LOWER CHEST: No acute process identified.No significant pericardial effusion. Coronary artery calcifi cations. UPPER GI: Circumferential thickening of the distal esophagus. Partial gastrectomy. LIVER: Nodular liver contour. No focal mass. GALLBLADDER/BILE DUCTS: Cholecystectomy. Mild extra-hepatic biliary ductal dilatation is likely relat ed to the post-cholecystectomy state. Consider correlating with LFT's.? PANCREAS: No mass, ductal dilation, or lynnette-pancreatic fluid. SPLEEN: Mild splenomegaly. ADRENALS: Normal; no mass. KIDNEYS AND URETERS: Normal size and contour. No hydronephrosis.Low density and/or too small to sudheer cterize renal lesions which are statistically benign. ABDOMINAL AORTA AND OTHER VESSELS: Moderate atherosclerotic changes without aortic aneurysm. PERITONEUM: No abnormal free fluid. No free air. LYMPH NODES: No pathologic lymphadenopathy. ABDOMINAL WALL: Fat-containing ventral hernia. SMALL BOWEL/COLON: Partial colectomy. Diverticulosis without diverticulitis.Nonvisualized appendix bu t no secondary signs of acute appendicitis. URINARY BLADDER: Underdistended but grossly unremarkable. REPRODUCTIVE ORGANS: Uterus surgically absent. No adnexal abnormality. MUSCULOSKELETAL: Multilevel degenerative changes in the spine. No acute fracture. Fusion hardware pre sent. ADDITIONAL FINDINGS: None. IMPRESSION: No acute or significant abnormalities in the abdomen or pelvis. Incidental findings as noted above.
--- NOTE | 2024-09-16 11:36 | ER ---
Nurse's Notes [facility] Name: Sendy Martinez Age: 79 yrs Sex: Female : 1945 Arrival Date: 09/16/2024 Time: 09:50 Bed 7 Private MD: Diagnosis: UTI/ Urinary tract infection, site not specified Presentation: 09/16 10:05 Chief complaint: Suprapubic cramping and right flank pain x 3-4 days. Coronavirus hb screen: At this time, the client does not indicate any symptoms associated with coronavirus-19. Ebola Screen: No symptoms or risks identified at this time. Initial Sepsis Screen: Does the patient meet any 2 criteria? No. Patient's initial sepsis screen is negative. Does the patient have a suspected source of infection? No. Patient's initial sepsis screen is negative. Risk Assessment: Do you want to hurt yourself or someone else? Patient reports no desire to harm self or others. Onset of symptoms was September 13, 2024. 10:05 Method Of Arrival: Ambulatory hb 10:05 Acuity: DOMINGO 3 hb Historical: - Allergies: 10:07 Codeine (Upset stomach); hb - PMHx: 10:07 DVT; Diabetes - IDDM; Hypertension; PE; Thyroid problem; hb - Immunization history:: Adult Immunizations up to date. - Infectious Disease History:: Denies. - Social history:: Smoking status: Patient denies any tobacco usage or history of. Screenin:44 [facility] ED Fall Risk Assessment (Adult) History of falling in the last 3 months, ld1 including since admission No falls in past 3 months (0 pts) Confusion or Disorientation No (0 pts) Intoxicated or Sedated No (0 pts) Impaired Gait No (0 pts) Mobility Assist Device Used No (0 pt) Altered Elimination No (0 pt) Score/Fall Risk Level 0 - 2 = Low Risk Oriented to surroundings, Maintained a safe environment, Educated pt \T\ family on fall prevention, incl call for assistance when getting out of bed, Assessed \T\ reinforced patient's understanding of fall precautions, Provided non-skid footwear, Hourly rounding (assess needs \T\ fall precautionary measures) done, Used ambulatory aids as needed (educated on \T\ assisted with), Used gait belt as appropriate. Abuse screen: Denies threats or abuse. Denies injuries from another. Nutritional screening: No deficits noted. Tuberculosis screening: No symptoms or risk factors identified. Assessment: 11:44 General: Appears in no apparent distress. comfortable, Behavior is calm, cooperative, ld1 appropriate for age. Pain: Denies pain. Neuro: Level of Consciousness is awake, alert, obeys commands, Oriented to person, place, time, situation, Appropriate for age. Cardiovascular: Capillary refill < 3 seconds Patient's skin is warm and dry. Respiratory: Airway is patent Respiratory effort is even, unlabored. GI: Abdomen is round non-distended. : Reports pain with urination. EENT: No signs and/or symptoms were reported regarding the EENT system. Derm: No signs and/or symptoms reported regarding the dermatologic system. Musculoskeletal: No signs and/or symptoms reported regarding the musculoskeletal system. Vital Signs: 10:05 BP 176 / 96; Pulse 77; Resp 16; Temp 98.4(O); Pulse Ox 100% on R/A; Pain 8/10; hb 11:44 BP 149 / 85; Pulse 72; Resp 18; Pulse Ox 100% on R/A; ld1 10:05 Pain Scale: Adult hb ED Course: 09:55 Patient arrived in ED. al6 09:55 Coy Nelson MD is Attending Physician. ec2 10:07 Triage completed. hb 10:28 Alayna Melendrez, RN is Primary Nurse. ld1 10:33 Initial lab(s) drawn, by me, sent to lab. Inserted saline lock: 22 gauge in right zm antecubital area, using aseptic technique. Blood collected. Flushed with 10 mL NS. 10:33 Lipase Sent. zm 10:33 CMP Sent. zm 10:33 CBC with Diff Sent. zm 10:33 UAM Sent. zm 10:33 Urine collected: clean catch specimen, clear. zm 11:25 CT Abd/Pelvis - IV Contrast Only In Process Unspecified. EDMS 11:44 No provider procedures requiring assistance completed. IV discontinued, intact, ld1 bleeding controlled, No redness/swelling at site. 11:44 Patient has correct armband on for positive identification. Placed in gown. Bed in low ld1 position. Call light in reach. Side rails up X2. gluer and wedger on. Pulse ox on. NIBP on. Door closed. Noise minimized. Warm blanket given. 11:48 Arm band placed on right wrist. ld1 Administered Medications: 11:01 Drug: TORadol - Ketorolac IVP 15 mg IVP once Route: IVP; Site: right antecubital; ld1 11:48 Follow up: Response: No adverse reaction ld1 11:01 Drug: Ondansetron IVP 4 mg IVP once; over 2 minutes Route: IVP; Site: right antecubital;ld1 11:48 Follow up: Response: No adverse reaction ld1 11:36 Drug: Rocephin IV 1 grams IV at calculated rate once; Given slow IV push per pharmacy ld1 instructions Route: IV; Rate: calculated rate; Site: right antecubital; 11:47 Follow up: Response: No adverse reaction; IV Status: Completed infusion ld1 Medication: 11:44 VIS not applicable for this client. ld1 Outcome: 11:35 Discharge ordered by . ec2 11:44 Discharged to home ambulatory, ld1 11:44 Condition: stable 11:44 Discharge instructions given to patient, Instructed on discharge instructions, follow up and referral plans. medication usage, Demonstrated understanding of instructions, follow-up care, medications, Prescriptions given X 1, 11:48 Patient left the ED. ld1 Addendum: 09/21/2024 17:18 Addendum: Culture Results: Positive urine culture. Bacteria is resistant to, has j l7 intermediate sensitivity, or is not tested against prescribed antibiotics. Report given to MARJORIE for further evaluation and then to poising inspector for follow up with patient. Prescription called-in to pharmacy of choice. [facility], Augmentin 875mg, PO BID x 7 days. Signatures: Dispatcher [employer] EDKaryn Beauchamp RN RN hb Leal, Jahala, RN RN jl7 Alayna Melendrez RN RN ld1 Minal Donahue Edwin, MD MD ec2 Cinda [id number]
--- NOTE | 2024-09-16 11:36 | EDPHYS ---
Physician Documentation [facility] Name: Sendy Martinez Age: 79 yrs Sex: Female : 1945 Arrival Date: 09/16/2024 Time: 09:50 Bed 7 Private MD: ED Physician Coy Nelson HPI: 09/16 10:08 This 79 yrs old Female presents to ER via Ambulatory with complaints of ec2 Urinary Problem. 10:08 Patient arrives today for evaluation of suprapubic and right flank pain. Onset of ec2 several days ago. Reports some nausea. No vomiting, no issues with stool. Reports history of hypertension, diabetes, hyperlipidemia. Reports urinary frequency however no pain with urination. Previous abdominal surgeries include hysterectomy, appendectomy, cholecystectomy.. Historical: - Allergies: 10:07 Codeine (Upset stomach); hb - PMHx: 10:07 DVT; Diabetes - IDDM; Hypertension; PE; Thyroid problem; hb - Immunization history:: Adult Immunizations up to date. - Infectious Disease History:: Denies. - Social history:: Smoking status: Patient denies any tobacco usage or history of. ROS: 10:08 Constitutional: as per hpi ec2 Exam: 10:08 Constitutional: GEN: NAD Head: atraumatic Eyes: EOMI Ears: External ears are ec2 normal. CV: regular rate LUNGS: no respiratory distress ABD: Soft, obese, not guarding, not rigid, suprapubic abdominal TTP SKIN: no evidence of rashes MSK: no evidence of trauma Vital Signs: 10:05 BP 176 / 96; Pulse 77; Resp 16; Temp 98.4(O); Pulse Ox 100% on R/A; Pain 8/10; hb 11:44 BP 149 / 85; Pulse 72; Resp 18; Pulse Ox 100% on R/A; ld1 10:05 Pain Scale: Adult hb MDM: 09:56 Medical Screening Exam initiated ec2 10:08 Data reviewed: vital signs, nurses notes. ED course: Patient arrives today for ec2 evaluation of abdominal pain along with urinary frequency. Examination yields abdominal findings as above. Will obtain lab work, CT imaging and treat the patient symptoms. Differential diagnosis include processes such as UTI, pyelonephritis. 11:36 ED course: Lab work and urine studies remarkable for urinary tract infection. CT ec2 imaging nonactionable. Will discharge home with antibiotics. Turn precautions given.. 09/16 10:08 Order name: CBC with Diff ec2 09/16 10:08 Order name: CMP; Complete Time: 10:56 ec2 09/16 10:08 Order name: Lipase; Complete Time: 10:56 ec2 09/16 10:08 Order name: UAM; Complete Time: 10:53 ec2 09/16 10:46 Order name: Urine Culture EDMS 09/16 10:08 Order name: CT Abd/Pelvis - IV Contrast Only; Complete Time: 11:33 ec2 09/16 10:08 Order name: IV Saline Lock; Complete Time: 10:33 ec2 09/16 10:08 Order name: Labs collected and sent; Complete Time: 10:33 ec2 Administered Medications: 11:01 Drug: TORadol - Ketorolac IVP 15 mg IVP once Route: IVP; Site: right antecubital; ld1 11:48 Follow up: Response: No adverse reaction ld1 11:01 Drug: Ondansetron IVP 4 mg IVP once; over 2 minutes Route: IVP; Site: right antecubital;ld1 11:48 Follow up: Response: No adverse reaction ld1 11:36 Drug: Rocephin IV 1 grams IV at calculated rate once; Given slow IV push per pharmacy ld1 instructions Route: IV; Rate: calculated rate; Site: right antecubital; 11:47 Follow up: Response: No adverse reaction; IV Status: Completed infusion ld1 Disposition Summary: 09/16/24 11:35 Discharge Ordered Notes: Location: Home ec2 Condition: Stable ec2 Diagnosis - UTI/ Urinary tract infection, site not specified ec2 Followup: ec2 - With: Private Physician - When: - Reason: Re-evaluation by your physician Discharge Instructions: - Discharge Summary Sheet ec2 - Urinary Tract Infection, Adult ec2 Forms: - Medication Reconciliation Form ec2 - Antibiotic Education ec2 - Prescription Opioid Use ec2 - Patient Portal Instructions ec2 - Leadership Thank You Letter ec2 Prescriptions: - Cephalexin 500 mg Oral capsule - take 1 capsule ORAL route every 12 hours for 7 days; 14 capsule; Refills: 0, ec2 Product Selection Permitted Signatures: Dispatcher [employer] EDKaryn Beauchamp RN RN Alayna Melendrez RN RN ld1 Coy Nelson MD MD ec2
[2024-09-16 12:02] VITALS: TEMP 98.4; O2SAT 100
[2024-09-16 12:05] VITALS: BP 149/85
[2024-09-16 12:26] LABS: Anisocytosis 1+; Blood Morphology Comment NOTED (NOT SEEN); Ovalocytes 1+; Platelet Estimate DECR; White Blood Cell Scan OK (OK)
== END 2024-09-16 11:48 | disposition home or self-care (01) ==
LOC: ER 09:50
DX: N39.0 Urinary tract infection, site not specified (principal)
CPT/HCPCS: 87088; 85025; 81001; 87086; 36415; 87077; 87186; 83690; 80053; 74177; 96375; 96374; 99285; Q9967; J2405; J0696